=== PATIENT | female | born 1985 | race Caucasian/White ===

== ENCOUNTER → 2016-04-19 | Outpatient (CLI) | payer OTHER ==
[~2016-04-19] MED LIST: ALBU17IN2 INH; ARTH650T PO; ASPI32ECTA PO; DOCU10CA PO; IBUP80TA PO; MONO0.25 PO; MOTR200T44 PO; PERC5TAB6 PO; PRENTAB54 PO; TYLE325T5 PO; ZANTTAB PO; ZOLO100T PO; bcp
--- NOTE | 2016-04-23 01:27 | ECWPNPC ---
PATIENT NAME: BOONE PERALTA : 1985 GENDER: FEMALE VISIT DATE: 04/19/2016 DISCHARGE DATE: 04/19/16 1530 VISIT LOCKED DATE TIME: PHYSICIAN: SANJAY CHOI RESOURCE: SANJAY CHOI REASON FOR APPOINTMENT 1. FOLLOW UP-RT KNEE HISTORY OF PRESENT ILLNESS HISTORY OF PRESENT ILLNESS: PAIN THE PATIENT DESCRIBES THE PAIN... FALL RISK SCREENING: SCREENING :NO FALLS IN THE PAST YEAR TODAY'S VISIT: NOTES: HADS BEEN HAVING INCREASED PAIN WITH ATTEMPTING TO STRAIGHTEN RIGHT KNEE. PAIN IS SHOOTING FROM THE KNEE INTO HIP. HAD NEW AREA OF NUMBNESS OVER KNEECAP RIGHT SIDE. AREA IS SWOLLEN.. CURRENT MEDICATIONS TAKING GABAPENTIN 800 MG TABLET 1 TABLET ORALLY THREE TIMES A DAY TAKING MAY HAVE GLUCOSE TEST METER RX CODE E11.9 DIRECTED _ DAILY TAKING MAY HAVE TEST STRIPS - DIRECTED SQ TWICE DAILY TAKING FREESTYLE LITE TEST STRIP TEST TWICE A DAY TAKING PROPRANOLOL HCL 10 MG TABLET 1 TABLET ORALLY THREE TIMES A DAY TAKING LANCETS 1 MISCELLANEOUS DIRECTED SQ TWICE DAILY AND NEEDED TAKING GLUCOMETER TEST STRIPS 1 DIRECTED SQ TWICE A DAY AND NEEDED TAKING ZOLOFT 100 MG TABLET 1 TABLET ORALLY THREE TIMES A DAY TAKING AMBIEN CR 12.5 MG TABLET EXTENDED RELEASE 1 TABLET AT BEDTIME NEEDED ORALLY ONCE A DAY TAKING ZIPRASIDONE HCL 20 MG CAPSULE 1 CAPSULE WITH FOOD ORALLY TWICE A DAY TAKING VISTARIL 25 MG CAPSULE 1 CAPSULE NEEDED ORALLY EVERY 8 HRS TAKING DEX4 GLUCOSE GO-POUCH 15 GM/33GM GEL DIRECTED ORALLY A FEW TIMES A WEEK TAKING VALIUM 10 MG TABLET ORALLY TWICE A DAY NEEDED TAKING TIZANIDINE HCL 4 MG TABLET 1 TABLET ORALLY EVERY 8 HRS TAKING HYDROCHLOROTHIAZIDE 25 MG TABLET 1 TABLET ORALLY ONCE A DAY TAKING IBUPROFEN 600 MG TABLET 1 TABLET ORALLY THREE TIMES A DAY NEEDED FOR PAIN. TAKE WITH FOOD TAKING NORCO 10-325 MG TABLET 1 TABLET ORALLY EVERY 6 HRS PRN MDD4 TAKING CYCLOBENZAPRINE HCL 10 MG TABLET 1 TABLET ORALLY THREE TIMES A DAY MEDICATION LIST REVIEWED AND RECONCILED WITH THE PATIENT PAST MEDICAL HISTORY ASTHMA, ANNETTE 12/17 FEV1 2.86 MORBID OBESITY R KNEE PAIN CONSTIPATION MICH DEPENDENCE, STARTED AT 12, SMOKING 1 PPD OCD/PTSD/BORDERLINE PERSONALITY/BIPOLAR 2 - DR CHAO - [facility] LOW BLOOD SUGARS POLYCYSTIC OVERIES MRSA + RIGHT KNEE ALLERGIES AMOXICILLIN: HIVES: ALLERGY ASPIRIN: HIVES, THROAT SWELLING: ALLERGY CODEINE PHOSPHATE (FOR ALLERGIES USE ONLY): HIVES: ALLERGY DARVOCET A500: HIVES: ALLERGY BENADRYL: HIVES, THROAT SWELLING: ALLERGY RISPERDAL: HIVES: ALLERGY TRAMADOL HCL: ITCHING: ALLERGY KETOROLAC TROMETHAMINE: BLISTERS AT SITE OF IV. HIVES: ALLERGY SOCIAL HISTORY GENERAL: TOBACCO USE ARE YOU A:NONSMOKER LEARNING BARRIERS / SPECIAL NEEDS ORIENTED TO PLAN OF CARE: PATIENT, PAIN MANAGEMENT PATIENT, ORIENTED TO PLAN OF CARE: PATIENT, PAIN MANAGEMENT PATIENT. NEW PATIENT PAIN DIARY TODAY'S VISITNOTES FROM 0-10, WHAT LEVEL IS YOUR PAIN TODAY?0 PAIN CLINIC PFS, CLERGY, PUBLIC HEALTH REFERRALS PFS REFERRAL NEEDED?NO CLERGY REFERRAL NEEDED?NO PUBLIC HEALTH REFERRAL NEEDED?NO WAS THE PROVIDER NOTIFIED OF ANY PERTINENT INFO?NO PFS REFERRAL NEEDED?NO CLERGY REFERRAL NEEDED?NO PUBLIC HEALTH REFERRAL NEEDED?NO WAS THE PROVIDER NOTIFIED OF ANY PERTINENT INFO?NO REVIEW OF SYSTEMS CONSTITUTIONAL: ANY CHANGE IN YOUR MEDICAL CONDITION? NO . CHILLS NO . FEVER NO . INFECTION: DO YOU HAVE NEW INFECTIONS? NO . DO YOU HAVE HISTORY OF MRSA? NO . MUSCULOSKELETAL: ANY NEW PATTERNS OF PAIN OR NUMBNESS? YES, RIGHT KNEE ... FEELS LIKE ITS IN A KNOT, AFTER SITTING, TRIES TO STAND UP DIFFICULT TO STRAIGHTEN THE LEG. THEN THE PAIN SHOOTS UP INTO THE LOW BACK AREA. . GASTROENTEROLOGY: ANY NEW CHANGE IN BOWEL CONTROL? NO . GENITOURINARY: ANY NEW CHANGE IN BLADDER CONTROL? NO . IS THERE A CHANCE YOU COULD BE ? NO . HEMATOLOGY/LYMPH: DO YOU TAKE ANY BLOOD THINNERS? (FOR EXAMPLE- COUMADIN, PLAVIX, AGGRENOX, PLATEL, PRADAXA, OR XARELTO) NO . WHEN WAS YOUR LAST DOSE? DATE: TIME: . NEUROLOGY: HAVE YOU FALLEN IN THE PAST 6 MONTHS? NO . ANY NEW EXTREMITY NUMBNESS OR WEAKNESS? NO . CARDIOLOGY: DO YOU HAVE A PACEMAKER OR DEFIBRILLATOR? NO . RESPIRATORY: HAVE YOU BEEN SICK IN THE PAST WEEK? NO . FEVER NO . FLU LIKE SYMPTOMS? NO . COUGH NO . INTEGUMENTARY: DO YOU HAVE ANY RASHES OR OPEN SORES? NO . ALLERGIC/IMMUNO: ARE YOU ALLERGIC TO SHELLFISH OR IV DYE? NO . ANY NEW ALLERGIES? NO . PSYCHIATRIC: DO YOU HAVE THOUGHTS OF HURTING YOURSELF OR SOMEONE ELSE? NO . ARE YOU ABUSED, NEGLECTED, OR IN AN UNSAFE ENVIRONMENT? NO . ENDOCRINOLOGY: ARE YOU DIABETIC? NO BUT PROBLEMS WITH LOW SUGAR LEVELS. . OTHER: DO YOU NEED ANY PRESCRIPTIONS? NO . IF YES, PLEASE LIST: ____ . ANY NEW PROBLEMS WITH YOUR MEDICATIONS? NO . WHEN DID YOU LAST EAT? ____ . WHEN DID YOU LAST DRINK? ____ . WHAT DID YOU LAST DRINK? ____ . NAME OF PERSON DRIVING YOU HOME? ____ . DO YOU HAVE ANY OTHER QUESTIONS OR CONCERNS YES, STILL WAITING TO HEAR FROM FRANSISCO ABOUT HER KNEE SURGERY. . REVIEWED BY: PROVIDER: SANJAY VIZCARRA . VITAL SIGNS WT 275.4 LBS, HT 62 IN, BMI 50.37 INDEX, BP 166/98 MM HG, HR 130 /MIN, RR 18 /MIN, TEMP 98.7 F, OXYGEN SAT % 96%, NA INITIALS SC 13:54, REVIEWED BY: CM. EXAMINATION GENERAL EXAMINATION: PSYCHALERT , ORIENTED X 3 , APPROPRIATE MOOD AND AFFECT , GOOD EYE CONTACT, PLEASANT TO INTERACT WITH. LUNGS:CLEAR TO AUSCULTATION BILATERALLY. HEART:HEART RATE REGULAR, NO MURMURS , CLICKS OR RUBS TO ASCULTATION. EXTREMITIES:TRACE EDEMA BILATERAL LOWER EXTREMITIES. JOINTS:RIGHT , KNEE , PAIN TO LIGHT TOUCH OVER RIGHT POPLITEAL SPACE AND OVER PATELLA. . GAIT ANTALGIC. CANE USED FOR BALANCE EDEMA PRESENT FROM KNEE TO MID THIGH AND TO MID CALF. UNABLE TO FULLY FLEX OR EXTEND KNEE.. ASSESSMENTS LOW BACK PAIN - M54.5 (PRIMARY) KNEE PAIN, RIGHT - M25.561 TREATMENT LOW BACK PAIN SD KNEE [id number],SUSAN M 04/19/2016 3:10:15 PM > LEFT KNEE NOTES: CALLED PATIENT AND REVIEWED LAB AND XRAY RESULTS. AWAITING MRI OF RIGHT KNEE. CLINICAL NOTES: ISTOP REGISTRY REVIEWED AND DEMNOSTRATES COMPLLIANCE. BRINGS IN MEDICATIONS WHICH IS APPROPRIATE FOR WHAT WAS DISPENSED. RECENT URINE TOXICOLOGY REVIEWED. NO UNAUTHORIZED MEDICATIONS. NO ILLICIT SUBSTANCES AND PRESCRIBED MEDICATIONS WERE PRESENT. KNEE PAIN, RIGHT LAB: COMPREHENSIVE METABOLIC PROFILE GLUCOSE 85 (70-105 - MG/DL) BUN 12 (7-18 - MG/DL) CREATININE 0.83 (0.55-1.02 - MG/DL) GLOMERULAR FILTRATION RATE > 60.0 (>60 - ) SODIUM 141 (136-145 - MEQ/L) POTASSIUM 3.9 (3.5-5.1 - MEQ/L) CHLORIDE 108 (98-107 - MEQ/L) CARBON DIOXIDE 24 (21-32 - MEQ/L) CALCIUM 9.3 (8.5-10.1 - MG/DL) AST/SGOT 31 (15-37 - U/L) ALT/SGPT 66 (12-78 - U/L) ALK PHOS 97 (45-117 - U/L) BILIRUBIN,TOTAL 0.4 (0.2-1.0 - MG/DL) TOTAL PROTEIN 7.4 (6.4-8.2 - GM/DL) ALBUMIN 3.9 (3.2-5.2 - GM/DL) ALB/GLOB RATIO 1.11 (1.00-1.93 - ) LAB: ERYTHROCYTE SEDIMENTATION RATE [facility] MRI KNEE WITHOUT [id number],SUSAN M 04/19/2016 3:10:30 PM > LEFT KNEE SANJAY CHOI 04/19/2016 3:25:27 PM > ERROR - RIGHT KNEE IS CORRECT SITE. NOTES: SANJAY MARY NEEDS TO MAKE REFERRAL TO [facility] FOR SURGUCAL EVAL OF RIGHT KNEE - HER INSURANCE REQUIRES THIS REFERRAL COME FROM PCP. NEW KNEE XRAY AND NEW KNEE MRI ORDERED. PROCEDURE CODES FA211 ESTABILISHED PATIENT [facility]AC[facility] CHARGE DISPOSITION & COMMUNICATION FOLLOW UP 6 WEEKS ELECTRONICALLY SIGNED BY EVA LORD ON 04/19/2016 AT 05:53 PM EST DISCLAIMER : THIS IS A VISIT SUMMARY EXTRACTED FROM THE [employer] CHART. IT IS NOT A COPY OF THE [employer] PROGRESS NOTE. TRACEY
== END ==
LOC: M PAIN 14:00
PROVIDERS: ATTEND Nurse Practitioner Family
DX: Z09 Encounter for follow-up examination after completed treatment for conditions other than malignant neoplasm (principal); M54.5 Low back pain; M25.561 Pain in right knee; J45.909 Unspecified asthma, uncomplicated; E66.9 Obesity, unspecified; F42.9 Obsessive-compulsive disorder, unspecified; F43.10 Post-traumatic stress disorder, unspecified; F31.9 Bipolar disorder, unspecified; M79.1 Myalgia; E16.2 Hypoglycemia, unspecified; Z68.43 Body mass index [BMI] 50.0-59.9, adult; Z88.1 Allergy status to other antibiotic agents; Z88.6 Allergy status to analgesic agent; Z88.5 Allergy status to narcotic agent; Z88.8 Allergy status to other drugs, medicaments and biological substances; Z79.891 Long term (current) use of opiate analgesic; Z79.1 Long term (current) use of non-steroidal anti-inflammatories (NSAID); Z79.899 Other long term (current) drug therapy; Z86.14 Personal history of Methicillin resistant Staphylococcus aureus infection

== ENCOUNTER → 2016-04-19 | Outpatient (CLI) | payer OTHER ==
--- NOTE | 2016-04-19 16:36 | REP ---
Clinical: Pain. Technique: AP, lateral, bilateral oblique and sunrise views of the right knee. Comparison: 07/01/2015. Findings: Postoperative changes are again identified and stable. No acute fracture or dislocation. No significant arthritic degenerative changes. Impression: Postoperative changes. Otherwise unremarkable. Signed by Jose Yanes MD 04/19/2016 04:28 P
[2016-04-19 17:21] LABS: ALBUMIN 3.9 GM/DL (3.2-5.2); ALBUMIN/GLOBULIN RATIO 1.11 (1.00-1.93); ALKALINE PHOSPHATASE 97 U/L (45-117); ALT/SGPT 66 U/L (12-78); ANION GAP 9 MEQ/L (8-16); AST/SGOT 31 U/L (15-37); BILIRUBIN,TOTAL 0.4 MG/DL (0.2-1.0); BLOOD UREA NITROGEN 12 MG/DL (7-18); CALCIUM LEVEL 9.3 MG/DL (8.5-10.1); CARBON DIOXIDE LEVEL 24 MEQ/L (21-32); CHLORIDE LEVEL 108 MEQ/L (98-107); CREATININE FOR GFR 0.83 MG/DL (0.55-1.02); GLOMERULAR FILTRATION RATE > 60.0 (>60); GLUCOSE, FASTING 85 MG/DL (70-105); POTASSIUM SERUM 3.9 MEQ/L (3.5-5.1); SODIUM LEVEL 141 MEQ/L (136-145); TOTAL PROTEIN 7.4 GM/DL (6.4-8.2)
== END ==
LOC: M LAB 15:54
PROVIDERS: ATTEND Nurse Practitioner Family
DX: M25.561 Pain in right knee (principal)

== ENCOUNTER → 2016-05-19 | Outpatient (CLI) | payer OTHER ==
--- NOTE | 2016-05-19 10:04 | REP ---
MRI RIGHT KNEE WITHOUT CONTRAST: HISTORY: Right knee pain. Comparison radiographs are from April 19, 2016. Comparison MRI study is from September 18, 2014. The patient is status post previous medial collateral ligament repairs with hardware removal. Radiographs from April 19, 2016 show a staple in the medial tibial plateau and instability with opening of the medial compartment of the joint on one of the views. TECHNIQUE: Axial, coronal and sagittal imaging planes are utilized for T1, proton density and T2-weighted scans obtained in the usual fashion with and without fat saturation. MRI FINDINGS: There is metallic field susceptibility artifact emanating from the metallic staple in the medial tibial plateau. Pin tracks are seen in the distal femur and elsewhere in the proximal tibia. Cortical and medullary bone signal intensity are otherwise normal. There is a small amount of joint fluid. No discernible Crump's cyst. The medial collateral ligament is abnormal. It is moderately to markedly thickened. There is a linear pattern of increased T2 signal within the thickened ligament longitudinally oriented consistent with a longitudinal split. The proximal end of the ligament shows abnormal signal intensity and seems to be discontinuous. This is at the level of the now removed pin tract in the distal femur. The lateral collateral ligamentous complex appears intact. Anterior and posterior cruciate ligaments have an intact appearance. The patellar and quadriceps tendons are unremarkable. Medial and lateral patellar retinacular structures appear intact. No medial or lateral meniscal tear is seen. No articular cartilage disruption is appreciated. IMPRESSION: Findings consistent with previous reconstruction of the medial collateral ligament. A metallic staple remains in the proximal tibia but the patient is status post hardware removal in both the distal femur and proximal tibia. The proximal end of the reconstructed medial collateral ligament appears disrupted and there is a longitudinal split in the tendon extending across the level of the joint. No other evidence of internal derangement. The longitudinal split and the thickening are new findings compared with the prior study. Signed by Yovani Tejeda MD 05/19/2016 01:58 P
== END ==
LOC: M RAD 08:13
PROVIDERS: ATTEND Nurse Practitioner Family
DX: M25.561 Pain in right knee (principal); M54.5 Low back pain

== ENCOUNTER → 2016-06-01 | Outpatient (CLI) | payer OTHER ==
--- NOTE | 2016-06-08 02:10 | ECWPNPC ---
PATIENT NAME: BOONE PERALTA : 1985 GENDER: FEMALE VISIT DATE: 06/01/2016 DISCHARGE DATE: 06/01/16 1711 VISIT LOCKED DATE TIME: PHYSICIAN: SANJAY CHOI RESOURCE: SANJAY CHOI REASON FOR APPOINTMENT 1. FOLLOWUP HISTORY OF PRESENT ILLNESS HISTORY OF PRESENT ILLNESS: PAIN THE PATIENT DESCRIBES THE PAIN... FALL RISK SCREENING: SCREENING :NO FALLS IN THE PAST YEAR TODAY'S VISIT: NOTES: RATES PAIN LEVEL TODAY 3/10. DESCRIBES PAIN CONSTANT, ACHING, SHARP AND STABBING THROBBING AND TENDER. . CURRENT MEDICATIONS TAKING GABAPENTIN 800 MG TABLET 1 TABLET ORALLY THREE TIMES A DAY TAKING MAY HAVE GLUCOSE TEST METER RX CODE E11.9 DIRECTED _ DAILY TAKING MAY HAVE TEST STRIPS - DIRECTED SQ TWICE DAILY TAKING FREESTYLE LITE TEST STRIP TEST TWICE A DAY TAKING PROPRANOLOL HCL 10 MG TABLET 1 TABLET ORALLY THREE TIMES A DAY TAKING LANCETS 1 MISCELLANEOUS DIRECTED SQ TWICE DAILY AND NEEDED TAKING GLUCOMETER TEST STRIPS 1 DIRECTED SQ TWICE A DAY AND NEEDED TAKING ZOLOFT 100 MG TABLET 1 TABLET ORALLY THREE TIMES A DAY TAKING AMBIEN CR 12.5 MG TABLET EXTENDED RELEASE 1 TABLET AT BEDTIME NEEDED ORALLY ONCE A DAY TAKING ZIPRASIDONE HCL 20 MG CAPSULE 1 CAPSULE WITH FOOD ORALLY TWICE A DAY TAKING VISTARIL 25 MG CAPSULE 1 CAPSULE NEEDED ORALLY EVERY 8 HRS TAKING DEX4 GLUCOSE GO-POUCH 15 GM/33GM GEL DIRECTED ORALLY A FEW TIMES A WEEK PRN TAKING VALIUM 10 MG TABLET ORALLY TWICE A DAY NEEDED TAKING TIZANIDINE HCL 4 MG TABLET 1 TABLET ORALLY EVERY 8 HRS TAKING CYCLOBENZAPRINE HCL 10 MG TABLET 1 TABLET ORALLY THREE TIMES A DAY TAKING HYDROCHLOROTHIAZIDE 25 MG TABLET 1 TABLET ORALLY ONCE A DAY TAKING IBUPROFEN 600 MG TABLET 1 TABLET ORALLY THREE TIMES A DAY NEEDED FOR PAIN. TAKE WITH FOOD TAKING NORCO 10-325 MG TABLET 1 TABLET ORALLY EVERY 6 HRS PRN PAIN MDD4 DISCONTINUED HYDROCHLOROTHIAZIDE 25 MG TABLET 1 TABLET ORALLY ONCE A DAY MEDICATION LIST REVIEWED AND RECONCILED WITH THE PATIENT PAST MEDICAL HISTORY ASTHMA, ANNETTE 12/17 FEV1 2.86 MORBID OBESITY R KNEE PAIN CONSTIPATION MICH DEPENDENCE, STARTED AT 12, SMOKING 1 PPD OCD/PTSD/BORDERLINE PERSONALITY/BIPOLAR 2 - DR CHAO - [facility] LOW BLOOD SUGARS POLYCYSTIC OVERIES MRSA + RIGHT KNEE ALLERGIES AMOXICILLIN: HIVES: ALLERGY ASPIRIN: HIVES, THROAT SWELLING: ALLERGY CODEINE PHOSPHATE (FOR ALLERGIES USE ONLY): HIVES: ALLERGY DARVOCET A500: HIVES: ALLERGY BENADRYL: HIVES, THROAT SWELLING: ALLERGY RISPERDAL: HIVES: ALLERGY TRAMADOL HCL: ITCHING: ALLERGY KETOROLAC TROMETHAMINE: BLISTERS AT SITE OF IV. HIVES: ALLERGY SOCIAL HISTORY GENERAL: TOBACCO USE ARE YOU A:CURRENT SMOKER HOW MANY CIGARETTES A DAY DO YOU SMOKE?6-10 HOW SOON AFTER YOU WAKE UP DO YOU SMOKE YOUR FIRST CIGARETTE?WITHIN 5 MIN HOW OFTEN DO YOU SMOKE CIGARETTES?EVERY DAY PATIENT COUNSELED ON THE DANGERS OF TOBACCO USE AND URGED TO QUIT:06/01/2016 ARE YOU INTERESTED IN QUITTING?NOT READY TO QUIT COUNSELED THE PATIENT ON SMOKING EFFECTS, EDUCATION [id number]/30/[id number] LEARNING BARRIERS / SPECIAL NEEDS ORIENTED TO PLAN OF CARE: PATIENT, PAIN MANAGEMENT PATIENT, ORIENTED TO PLAN OF CARE: PATIENT, PAIN MANAGEMENT PATIENT. NEW PATIENT PAIN DIARY TODAY'S VISITNOTES FROM 0-10, WHAT LEVEL IS YOUR PAIN TODAY?0 PAIN CLINIC PFS, CLERGY, PUBLIC HEALTH REFERRALS PFS REFERRAL NEEDED?NO CLERGY REFERRAL NEEDED?NO PUBLIC HEALTH REFERRAL NEEDED?NO WAS THE PROVIDER NOTIFIED OF ANY PERTINENT INFO?NO PFS REFERRAL NEEDED?NO CLERGY REFERRAL NEEDED?NO PUBLIC HEALTH REFERRAL NEEDED?NO WAS THE PROVIDER NOTIFIED OF ANY PERTINENT INFO?NO DISSOCIATIVE IDENTIDY DISORDER- FIANCE IS CAREGIVER. REVIEW OF SYSTEMS CONSTITUTIONAL: ANY CHANGE IN YOUR MEDICAL CONDITION? NO . CHILLS NO . FEVER NO . INFECTION: DO YOU HAVE NEW INFECTIONS? NO . DO YOU HAVE HISTORY OF MRSA? YES, 2013 RIGHT KNEE . MUSCULOSKELETAL: ANY NEW PATTERNS OF PAIN OR NUMBNESS? NO . GASTROENTEROLOGY: ANY NEW CHANGE IN BOWEL CONTROL? NO . GENITOURINARY: ANY NEW CHANGE IN BLADDER CONTROL? NO . IS THERE A CHANCE YOU COULD BE ? NO . HEMATOLOGY/LYMPH: DO YOU TAKE ANY BLOOD THINNERS? (FOR EXAMPLE- COUMADIN, PLAVIX, AGGRENOX, PLATEL, PRADAXA, OR XARELTO) NO . WHEN WAS YOUR LAST DOSE? DATE: TIME: . NEUROLOGY: HAVE YOU FALLEN IN THE PAST 6 MONTHS? NO . ANY NEW EXTREMITY NUMBNESS OR WEAKNESS? NO . CARDIOLOGY: DO YOU HAVE A PACEMAKER OR DEFIBRILLATOR? NO . RESPIRATORY: HAVE YOU BEEN SICK IN THE PAST WEEK? NO . FEVER NO . FLU LIKE SYMPTOMS? NO . COUGH NO . INTEGUMENTARY: DO YOU HAVE ANY RASHES OR OPEN SORES? NO . ALLERGIC/IMMUNO: ARE YOU ALLERGIC TO SHELLFISH OR IV DYE? NO . ANY NEW ALLERGIES? NO . PSYCHIATRIC: DO YOU HAVE THOUGHTS OF HURTING YOURSELF OR SOMEONE ELSE? NO . ARE YOU ABUSED, NEGLECTED, OR IN AN UNSAFE ENVIRONMENT? NO . ENDOCRINOLOGY: ARE YOU DIABETIC? NO BLD SUGAR TENDS TO RUN LOW . OTHER: DO YOU NEED ANY PRESCRIPTIONS? NO . IF YES, PLEASE LIST: ____ . ANY NEW PROBLEMS WITH YOUR MEDICATIONS? NO . WHEN DID YOU LAST EAT? ____ . WHEN DID YOU LAST DRINK? ____ . WHAT DID YOU LAST DRINK? ____ . NAME OF PERSON DRIVING YOU HOME? ____ . DO YOU HAVE ANY OTHER QUESTIONS OR CONCERNS NO . REVIEWED BY: PROVIDER: SANJAY VIZCARRA . VITAL SIGNS WT 281.6 LBS, HT 62 IN, BMI 51.50 INDEX, BP 135/94 MM HG, HR 102 /MIN, RR 18 /MIN, TEMP 98.4 F, OXYGEN SAT % 98%, NA INITIALS SC 15:55, REVIEWED BY: AD. EXAMINATION GENERAL EXAMINATION: PSYCHALERT , ORIENTED X 3 , APPROPRIATE MOOD AND AFFECT , GOOD EYE CONTACT, PLEASANT TO INTERACT WITH. LUNGS:CLEAR TO AUSCULTATION BILATERALLY. HEART:HEART RATE REGULAR, NO MURMURS , CLICKS OR RUBS TO ASCULTATION. EXTREMITIES:TRACE EDEMA BILATERAL LOWER EXTREMITIES. JOINTS:RIGHT , KNEE , PAIN TO LIGHT TOUCH OVER RIGHT POPLITEAL SPACE AND OVER PATELLA. . GAIT ANTALGIC. CANE USED FOR BALANCE UNABLE TO FULLY FLEX KNEE.. ASSESSMENTS KNEE PAIN, RIGHT - M25.561 (PRIMARY) LOW BACK PAIN - M54.5 CHRONIC PRESCRIPTION OPIATE USE - Z79.891 TREATMENT KNEE PAIN, RIGHT START TOPIRAMATE TABLET, 25 MG, 1 TABLET, ORALLY, TWICE A DAY, 30 DAY(S), 60, REFILLS 1 NOTES: UTOX TODAY. WEAN GABAPENTIN TO 1/2 TAB THREE TIMES PER DAY FOR 2 WEEKS, AND THEN TO TWICE A DAY. START TOPAMAX 25 MG TWICE A DAY.DO FOOD DIARY FOR 2 WEEKS. REFERR TO [facility] GROUND TRANSPORTATION OPERATOR. REFERRAL TO:[facility] REASON:NEW MEDIAL COLLATERAL LIGAMNET TEAR. MARKED INCREASE IN KNEE PAIN. WANTS TO BE ABLE TO WALK PREVENTIVE MEDICINE PAIN CLINIC TEACHING: MEDITATION PRINTED INFORMATION ON TOPAMAX GIVEN TO AND EXPLAINED TO PATIENT AND SHE VERBALIZED UNDERSTANDING. WEANING OF GABAPENTIN ALSO REVIEWED WITH PATIENT AND SHE VERBALIZED UNDERSTANDING. PROCEDURE CODES FA211 ESTABILISHED PATIENT [facility] CHARGE DISPOSITION & COMMUNICATION FOLLOW UP 6 WEEKS (REASON: RIGHT KNEE PAIN) ELECTRONICALLY SIGNED BY EVA LORD ON 06/06/2016 AT 06:54 PM EDT DISCLAIMER : THIS IS A VISIT SUMMARY EXTRACTED FROM THE [employer] CHART. IT IS NOT A COPY OF THE [employer] PROGRESS NOTE. TRACEY
== END ==
LOC: M PAIN 14:40
PROVIDERS: ATTEND Nurse Practitioner Family
DX: Z09 Encounter for follow-up examination after completed treatment for conditions other than malignant neoplasm (principal); G89.29 Other chronic pain; M25.561 Pain in right knee; M54.5 Low back pain; J45.909 Unspecified asthma, uncomplicated; E66.9 Obesity, unspecified; Z68.43 Body mass index [BMI] 50.0-59.9, adult; F17.200 Nicotine dependence, unspecified, uncomplicated; F42.9 Obsessive-compulsive disorder, unspecified; F43.10 Post-traumatic stress disorder, unspecified; F60.3 Borderline personality disorder; F31.9 Bipolar disorder, unspecified; Z88.5 Allergy status to narcotic agent; Z88.6 Allergy status to analgesic agent; Z88.8 Allergy status to other drugs, medicaments and biological substances; R73.01 Impaired fasting glucose; Z79.1 Long term (current) use of non-steroidal anti-inflammatories (NSAID); Z79.891 Long term (current) use of opiate analgesic; Z79.899 Other long term (current) drug therapy; Z86.14 Personal history of Methicillin resistant Staphylococcus aureus infection

== ENCOUNTER → 2016-07-28 | Outpatient (CLI) | payer OTHER ==
[~2016-07-28] MED LIST changes: +CLEO300C2 PO; +FLUC150T PO; +HYDR-3719 PO; +MONI1KIT3 VA
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
== END ==
LOC: M PAIN 14:40
PROVIDERS: ATTEND Nurse Practitioner Family
DX: G89.29 Other chronic pain (principal); M25.561 Pain in right knee; J45.909 Unspecified asthma, uncomplicated; E66.9 Obesity, unspecified; Z68.42 Body mass index [BMI] 45.0-49.9, adult; F17.210 Nicotine dependence, cigarettes, uncomplicated; F42.9 Obsessive-compulsive disorder, unspecified; F43.10 Post-traumatic stress disorder, unspecified; F60.3 Borderline personality disorder; F31.9 Bipolar disorder, unspecified; E16.2 Hypoglycemia, unspecified; K29.60 Other gastritis without bleeding; Z88.5 Allergy status to narcotic agent; Z88.6 Allergy status to analgesic agent; Z88.8 Allergy status to other drugs, medicaments and biological substances; Z79.1 Long term (current) use of non-steroidal anti-inflammatories (NSAID); Z79.899 Other long term (current) drug therapy

== ENCOUNTER 2016-07-29 10:52 | Emergency (ER) | payer OTHER ==
[~2016-07-29] VITALS: Ht 154.9 cm; Wt 126.1 kg
[~2016-07-29 10:52] MED LIST changes: -CLEO300C2 PO; -FLUC150T PO; -HYDR-3719 PO; -MONI1KIT3 VA
[2016-07-29] MEDS ORDERED: HYDR-3719 PO (11:00)
[2016-07-29] MEDS ORDERED: CLEO300C2 PO (11:45)
[2016-07-29 12:04] VITALS: BP 142/99
== END 2016-07-29 12:02 | disposition home or self-care (01) ==
LOC: M ED 11:27
DX: L02.01 Cutaneous abscess of face (principal); F33.9 Major depressive disorder, recurrent, unspecified; F41.9 Anxiety disorder, unspecified; E28.2 Polycystic ovarian syndrome; F17.210 Nicotine dependence, cigarettes, uncomplicated; E66.9 Obesity, unspecified; Z88.8 Allergy status to other drugs, medicaments and biological substances; Z88.0 Allergy status to penicillin; Z91.018 Allergy to other foods

== ENCOUNTER 2016-08-09 18:33 | Emergency (ER) | payer OTHER ==
[~2016-08-09] VITALS: Ht 154.9 cm; Wt 125.2 kg
[~2016-08-09 18:33] MED LIST changes: +CLEO300C2 PO; +HYDR-3719 PO
[2016-08-09] MEDS ORDERED: KETOROLAC 30 MG/ML VIAL (J1885) IV ONE (20:45)
[2016-08-09] MEDS ORDERED: NS 1,000 ML IV ONE (20:45)
[2016-08-09 21:13] LABS: BASO # 0.1 K/mm3 (0.0-0.2); EOS # 0.2 K/mm3 (0.0-0.50); LARGE UNSTAINED CELL # 0.2 K/mm3 (0.0-0.4); LARGE UNSTAINED CELL % 1.8 % (0.0-4.0); LYMPH # 3.5 K/mm3 (1.5-4.5); LYMPH % 29.9 % (24.0-44.0); MEAN CORPUSCULAR HEMOGLOBIN 30.6 pg (27.0-33.0); MEAN CORPUSCULAR HGB CONC 34.6 g/dl (32.0-36.5); MEAN CORPUSCULAR VOLUME 88.5 fl (80.0-96.0); MONO # 1.1 K/mm3 (0.0-0.8); MONO % 9.7 % (0.0-5.0); NEUTROPHILS # 6.2 K/mm3 (1.8-7.7); NEUTROPHILS % 55.6 % (36.0-66.0); PLATELET COUNT, AUTOMATED 321 k/mm3 (150-450); WHITE BLOOD COUNT 11.1 K/mm3 (4.0-10.0)
[2016-08-09] MEDS ORDERED: FLUCONAZOLE 400 MG in APPROPRIATE DILUENT 1 EA IV ONE (21:15)
[2016-08-09 21:39] LABS: ANION GAP 2 MEQ/L (8-16); BLOOD UREA NITROGEN 17 MG/DL (7-18); CALCIUM LEVEL 9.1 MG/DL (8.5-10.1); CARBON DIOXIDE LEVEL 27 MEQ/L (21-32); CHLORIDE LEVEL 110 MEQ/L (98-107); CREATININE FOR GFR 0.63 MG/DL (0.55-1.02); GLOMERULAR FILTRATION RATE > 60.0 (>60); GLUCOSE, FASTING 80 MG/DL (70-105); SODIUM LEVEL 139 MEQ/L (136-145)
--- NOTE | 2016-08-09 22:04 | ED PDOC ---
Post-Departure Follow-Up Patient presents to the ED with complaint of severe labial swelling/pain which is impeding her ability to urinate (secondary to the pain). She has recently been taking Clindamycin. She states she has taken it before and has never had this issue in the past. She denies any genital trauma or rough sex. The remainder of her H&P and ROS are as noted on her T-sheet. An IV was established and she was given a liter NS bolus as she has not been drinking fluids due to her fear of voiding/pain. Screening labs were obtained. UA was also obtained via catheter. Kinsey was left in place for the duration of the IVF. She was given a dose of IV diflucan for her severe vulvovaginal candidiasis. She was also medicated for pain with Toradol, with only minimal relief. GRISELDA REYNOSO. ASSISTED LIVING EXECUTIVE DIRECTOR Aug 09, 2016 22:04
--- NOTE | 2016-08-09 23:06 | ED PDOC ---
Post-Departure Follow-Up Test results discussed with the patient and prepared for discharge. IV and henson catheter DC'd. Patient states improvement in her pain. Discussed prescription for Monistat and Diflucan, follow-up and worrisome signs to return to the ED for. Questions answered. Patient states understanding to the instructions. GRISELDA REYNOSO Aug 09, 2016 23:06
[2016-08-09] MEDS ORDERED: MONI1KIT3 VA (23:09)
[2016-08-09] MEDS ORDERED: FLUC150T PO (23:09)
[2016-08-09 23:13] VITALS: BP 127/90
== END 2016-08-09 23:20 | disposition home or self-care (01) ==
LOC: M ED 20:02
DX: B37.3 Candidiasis of vulva and vagina (principal); J45.909 Unspecified asthma, uncomplicated; F41.9 Anxiety disorder, unspecified; F32.9 Major depressive disorder, single episode, unspecified; E28.2 Polycystic ovarian syndrome; F17.200 Nicotine dependence, unspecified, uncomplicated; Z79.899 Other long term (current) drug therapy; Z88.0 Allergy status to penicillin; Z88.6 Allergy status to analgesic agent; Z88.5 Allergy status to narcotic agent; Z91.018 Allergy to other foods; Z88.8 Allergy status to other drugs, medicaments and biological substances

== ENCOUNTER → 2016-08-16 | Outpatient (CLI) | payer OTHER ==
[~2016-08-16] MED LIST changes: +FLUC150T PO; +METHACHOLINE KIT (J7674) INH ONE; +MONI1KIT3 VA
--- NOTE | 2016-08-16 17:14 | PFTRPT ---
Tech: Elio POSADAS RRT Age: 31 Sex: Female Race: Height: 62.00 Inches Weight: 278.00 Lbs BSA: 2.20 Diagnosis: R06.02 PULMONARY FUNCTION REPORT ORDERING PROVIDER: SANYA Holcomb DATE OF SERVICE: 08/16/16 SPIROMETRY: Excellent technical quality. The forced vital capacity is normal. The FEV1 is in proportion. The obstructive index is, therefore, normal. FLOW VOLUME LOOP: The expiratory limb of the flow volume loop is normal. LUNG VOLUMES: The total lung capacity is normal. The residual volume is in proportion. DIFFUSION CAPACITY: The diffusion capacity is normal. HEMOGLOBIN: No hemoglobin is available for correction. AIRWAY MECHANICS: Airways resistance and conductance are normal. IMPRESSION: Normal study. MTDD
--- NOTE | 2016-08-16 17:15 | PFTRPT ---
Tech: Elio POSADAS RRT Age: 31 Sex: Female Race: Height: 62.00 Inches Weight: 278.00 Lbs BSA: 2.20 Diagnosis: R06.02 METHACHOLINE CHALLENGE REPORT: ORDERING PROVIDER:SANYA Holcomb DATE OF SERVICE: 08/16/16 INTERPRETATION: The study was of excellent technical quality. Under protocol, methacholine was administered. At a dose of 2.5 mg (13.875 CDUs), a 34% decline in the FEV1 was noted. The PC20 of 0.33 is significant. Flow rates did return to baseline post bronchodilator administration. IMPRESSION: Positive methacholine challenge study. MTDD
== END ==
LOC: M CARPUL 14:51
PROVIDERS: ATTEND Nurse Practitioner Adult Health
DX: R06.02 Shortness of breath (principal)

== ENCOUNTER 2016-09-06 12:01 | Emergency (ER) | payer OTHER ==
[~2016-09-06] VITALS: Ht 154.9 cm; Wt 126.1 kg
[~2016-09-06 12:01] MED LIST changes: -ARTH650T PO; +ARTH650T11 PO; +ASPI325T24 PO; -ASPI32ECTA PO; -METHACHOLINE KIT (J7674) INH ONE; +PERC5TAB12 PO; -PERC5TAB6 PO
[2016-09-06] MEDS ORDERED: ONDA4TAB5 PO (14:57)
[2016-09-06] MEDS ORDERED: AZIT-12 PO (14:57)
[2016-09-06] MEDS ORDERED: FLUC150T PO (14:57)
[2016-09-06 15:17] VITALS: BP 136/90
[2016-09-06] MEDS ORDERED: ZOLO100T PO (23:25)
[2016-09-07] MEDS ORDERED: PRED20TA PO (00:02)
[2016-09-07] MEDS ORDERED: LIDO2SOL10 MT (00:02)
== END 2016-09-06 15:19 | disposition home or self-care (01) ==
LOC: M ED 12:01
DX: J02.0 Streptococcal pharyngitis (principal); F41.9 Anxiety disorder, unspecified; F32.9 Major depressive disorder, single episode, unspecified; F17.200 Nicotine dependence, unspecified, uncomplicated; Z90.49 Acquired absence of other specified parts of digestive tract; Z79.4 Long term (current) use of insulin; Z79.899 Other long term (current) drug therapy; Z88.1 Allergy status to other antibiotic agents; Z88.5 Allergy status to narcotic agent; Z88.6 Allergy status to analgesic agent; Z88.8 Allergy status to other drugs, medicaments and biological substances; Z91.018 Allergy to other foods

== ENCOUNTER 2016-09-06 23:07 | Emergency (ER) | payer OTHER ==
[~2016-09-06] VITALS: Ht 154.9 cm; Wt 126.4 kg
[~2016-09-06 23:07] MED LIST changes: +AZIT-12 PO; +ONDA4TAB5 PO
[2016-09-06] MEDS ORDERED: ZOLO100T PO (23:25)
[2016-09-07] MEDS ORDERED: methylPREDNISolone INJ 125 MG/2 ML VIAL (J2930) IM ONE
[2016-09-07] MEDS ORDERED: PRED20TA PO (00:02)
[2016-09-07] MEDS ORDERED: LIDO2SOL10 MT (00:02)
[2016-09-07 00:25] VITALS: BP 140/92
[2016-09-08] MEDS ORDERED: FULLMIS XX (14:23)
[2016-09-08] MEDS ORDERED: ALBU83IN INH (14:23)
== END 2016-09-07 00:34 | disposition home or self-care (01) ==
LOC: M ED 23:07
DX: J02.0 Streptococcal pharyngitis (principal); F17.200 Nicotine dependence, unspecified, uncomplicated; J45.909 Unspecified asthma, uncomplicated; E28.2 Polycystic ovarian syndrome; M54.9 Dorsalgia, unspecified; F41.9 Anxiety disorder, unspecified; F32.9 Major depressive disorder, single episode, unspecified; Z79.899 Other long term (current) drug therapy; Z88.0 Allergy status to penicillin; Z88.6 Allergy status to analgesic agent; Z88.5 Allergy status to narcotic agent; Z88.8 Allergy status to other drugs, medicaments and biological substances; Z91.018 Allergy to other foods

== ENCOUNTER 2016-09-08 12:51 | Emergency (ER) | payer OTHER ==
[~2016-09-08] VITALS: Ht 154.9 cm; Wt 125.9 kg
[~2016-09-08 12:51] MED LIST changes: +LIDO2SOL10 MT; +PRED20TA PO
[2016-09-08] MEDS ORDERED: methylPREDNISolone INJ 125 MG/2 ML VIAL (J2930) IM ONE (13:45)
[2016-09-08] MEDS ORDERED: IPRATROPIUM 0.5MG/ALBUTEROL 2.5MG INH SOL UD 3ML (DUONEB)(J7620) NEB ONE (13:45)
--- NOTE | 2016-09-08 14:19 | REP ---
Clinical: Shortness of breath and wheezing . Comparison: 01/14/2016 . Technique: PA and lateral. Findings: The mediastinum and cardiac silhouette are normal. The lung brown are clear and without acute consolidation, effusion, or pneumothorax. The skeletal structures are intact and normal. Impression: 1. No acute cardiopulmonary process. Signed by Jose Yanes MD 09/08/2016 02:10 P
[2016-09-08 14:20] VITALS: BP 142/71
[2016-09-08] MEDS ORDERED: FULLMIS XX (14:23)
[2016-09-08] MEDS ORDERED: ALBU83IN INH (14:23)
[2016-09-08] MEDS ORDERED: LIDOCAINE VISCOUS 2% SOLN 15ML UDC SSP ONE (14:30)
[2016-09-08] MEDS ORDERED: ALBUTEROL 90 MCG/ACT 8GM HFA INHALER INH ONE (14:30)
== END 2016-09-08 14:50 | disposition home or self-care (01) ==
LOC: M ED 12:51
DX: J06.9 Acute upper respiratory infection, unspecified (principal); R06.02 Shortness of breath; J45.909 Unspecified asthma, uncomplicated; F41.9 Anxiety disorder, unspecified; F32.9 Major depressive disorder, single episode, unspecified; E28.2 Polycystic ovarian syndrome; F17.200 Nicotine dependence, unspecified, uncomplicated; Z79.899 Other long term (current) drug therapy; Z88.0 Allergy status to penicillin; Z88.6 Allergy status to analgesic agent; Z88.5 Allergy status to narcotic agent; Z88.8 Allergy status to other drugs, medicaments and biological substances; Z91.018 Allergy to other foods

== ENCOUNTER → 2016-09-20 | Outpatient (CLI) | payer OTHER ==
[~2016-09-20] MED LIST changes: +ALBU83IN INH; +CYCL10TA; +DIAZ10TA2; +FULLMIS XX; +MOBI4TAB PO; +MONT10TA2; +PROP10TA56; +REXU1TAB2; +SYMBICORT; +TIZANIDINE; +ZOLP12.515
--- NOTE | 2016-10-22 00:35 | ECWPNPC ---
PATIENT NAME: BOONE PERALTA : 1985 GENDER: FEMALE VISIT DATE: 09/20/2016 DISCHARGE DATE: 09/20/16 1542 VISIT LOCKED DATE TIME: PHYSICIAN: SANJAY CHOI RESOURCE: SANJAY CHOI REASON FOR APPOINTMENT 1. R KNEE HISTORY OF PRESENT ILLNESS HISTORY OF PRESENT ILLNESS: PAIN THE PATIENT DESCRIBES THE PAIN... FALL RISK SCREENING: SCREENING :NO FALLS IN THE PAST YEAR TODAY'S VISIT: NOTES: RATES PAIN LEVEL TODAY 7/10. DESCRIBES PAIN ACHING, BURNING, SHARP AND STABBING, SHOOTING AND TENDER AND THROBBING. PAIN REMAINS CENTERED AT RIGHT KNEE.. CURRENT MEDICATIONS TAKING SYMBICORT 160-4.5 MCG/ACT AEROSOL 2 PUFFS INHALATION TWICE A DAY TAKING PROVENTIL HFA 108 (90 BASE) MCG/ACT AEROSOL SOLUTION 2 PUFFS NEEDED INHALATION EVERY 4 HRS TAKING PREDNISONE 10 MG TABLET 1 TABLET DIRECTED ORALLY 4 TABS X 3 DAYS 3 TABS X 3 DAYS 2 TABS X 3 DAYS 1 TAB X 3 DAYS TAKING FLUTICASONE PROPIONATE 50 MCG/ACT SUSPENSION 1 SPRAY IN EACH NOSTRIL NASALLY ONCE A DAY TAKING SINGULAIR 10 MG TABLET 1 TABLET IN THE EVENING ORALLY ONCE A DAY TAKING MAY HAVE GLUCOSE TEST METER RX CODE E11.9 DIRECTED _ DAILY TAKING MAY HAVE TEST STRIPS - DIRECTED SQ TWICE DAILY TAKING FREESTYLE LITE TEST STRIP TEST TWICE A DAY TAKING PROPRANOLOL HCL 10 MG TABLET 1 TABLET ORALLY THREE TIMES A DAY, NOTES: FOR GEODON SIDE EFFECTS TAKING LANCETS 1 MISCELLANEOUS DIRECTED SQ TWICE DAILY AND NEEDED TAKING GLUCOMETER TEST STRIPS 1 DIRECTED SQ TWICE A DAY AND NEEDED TAKING ZOLOFT 100 MG TABLET 1 TABLET ORALLY THREE TIMES A DAY TAKING AMBIEN CR 12.5 MG TABLET EXTENDED RELEASE 1 TABLET AT BEDTIME NEEDED ORALLY ONCE A DAY, NOTES: DR. WARD TAKING ZIPRASIDONE HCL 40 MG CAPSULE 1 CAPSULE WITH FOOD ORALLY TWICE A DAY, NOTES: GEODON TAKING DEX4 GLUCOSE GO-POUCH 15 GM/33GM GEL DIRECTED ORALLY A FEW TIMES A WEEK PRN TAKING VALIUM 10 MG TABLET ORALLY TWICE A DAY NEEDED, NOTES: DR. MCKEON TAKING FLUTICASONE PROPIONATE 50 MCG/ACT SUSPENSION 1 SPRAY IN EACH NOSTRIL NASALLY ONCE A DAY TAKING HYDROCHLOROTHIAZIDE 25 MG TABLET 1 TABLET ORALLY ONCE A DAY TAKING TIZANIDINE HCL 4 MG TABLET 1 TABLET ORALLY EVERY 8 HRS TAKING IBUPROFEN 600 MG TABLET 1 TABLET ORALLY THREE TIMES A DAY NEEDED FOR PAIN. TAKE WITH FOOD TAKING CYCLOBENZAPRINE HCL 10 MG TABLET 1 TABLET ORALLY THREE TIMES A DAY TAKING ALBUTEROL SULFATE (2.5 MG/3ML) 0.083% NEBULIZATION SOLUTION 3 ML INHALATION EVERY 6 HRS NEEDED TAKING NORCO 10-325 MG TABLET 1 TABLET ORALLY EVERY 6 HRS PRN PAIN MDD4 MEDICATION LIST REVIEWED AND RECONCILED WITH THE PATIENT PAST MEDICAL HISTORY OCD/PTSD/BORDERLINE PERSONALITY/BIPOLAR 2 - DR CHAO - [facility] 08/16/2016 PULMONARY FUNCTION TEST [facility], POSITIVE METHACHOLINE CHALLENGE STUDY. ASTHMA, ANNETTE 12/17 FEV1 2.86 MORBID OBESITY R KNEE PAIN CONSTIPATION MICH DEPENDENCE, STARTED AT 12, SMOKING 1 PPD LOW BLOOD SUGARS POLYCYSTIC OVERIES MRSA + RIGHT KNEE ALLERGIES AMOXICILLIN: HIVES: ALLERGY ASPIRIN: HIVES, THROAT SWELLING: ALLERGY CODEINE PHOSPHATE (FOR ALLERGIES USE ONLY): HIVES: ALLERGY DARVOCET A500: HIVES: ALLERGY BENADRYL: HIVES, THROAT SWELLING: ALLERGY RISPERDAL: HIVES: ALLERGY TRAMADOL HCL: ITCHING: ALLERGY KETOROLAC TROMETHAMINE: BLISTERS AT SITE OF IV. HIVES: ALLERGY REVIEW OF SYSTEMS REVIEWED BY: PROVIDER: SANJAY VIZCARRA . CONSTITUTIONAL: ANY CHANGE IN YOUR MEDICAL CONDITION? NO . CHILLS NO . FEVER NO . INFECTION: DO YOU HAVE NEW INFECTIONS? NO . DO YOU HAVE HISTORY OF MRSA? NO . MUSCULOSKELETAL: ANY NEW PATTERNS OF PAIN OR NUMBNESS? NO, BACK OF KNEEE IS WORSE. CAN'T STARIGHTEN HER LEG&NBSP;. GASTROENTEROLOGY: ANY NEW CHANGE IN BOWEL CONTROL? NO . GENITOURINARY: ANY NEW CHANGE IN BLADDER CONTROL? NO . IS THERE A CHANCE YOU COULD BE ? NO . HEMATOLOGY/LYMPH: DO YOU TAKE ANY BLOOD THINNERS? (FOR EXAMPLE- COUMADIN, PLAVIX, AGGRENOX, PLATEL, PRADAXA, OR XARELTO) NO . WHEN WAS YOUR LAST DOSE? DATE: TIME: . NEUROLOGY: HAVE YOU FALLEN IN THE PAST 6 MONTHS? NO . ANY NEW EXTREMITY NUMBNESS OR WEAKNESS? NO . CARDIOLOGY: DO YOU HAVE A PACEMAKER OR DEFIBRILLATOR? NO . RESPIRATORY: HAVE YOU BEEN SICK IN THE PAST WEEK? NO . FEVER NO . FLU LIKE SYMPTOMS? NO . COUGH NO . INTEGUMENTARY: DO YOU HAVE ANY RASHES OR OPEN SORES? NO . ALLERGIC/IMMUNO: ARE YOU ALLERGIC TO SHELLFISH OR IV DYE? NO . ANY NEW ALLERGIES? NO . PSYCHIATRIC: DO YOU HAVE THOUGHTS OF HURTING YOURSELF OR SOMEONE ELSE? NO . ARE YOU ABUSED, NEGLECTED, OR IN AN UNSAFE ENVIRONMENT? NO . ENDOCRINOLOGY: ARE YOU DIABETIC? NO, HAVE LOW SUGARS . OTHER: DO YOU NEED ANY PRESCRIPTIONS? NO . IF YES, PLEASE LIST: ____ . ANY NEW PROBLEMS WITH YOUR MEDICATIONS? NO . WHEN DID YOU LAST EAT? ____ . WHEN DID YOU LAST DRINK? ____ . WHAT DID YOU LAST DRINK? ____ . NAME OF PERSON DRIVING YOU HOME? ____ . DO YOU HAVE ANY OTHER QUESTIONS OR CONCERNS NO . VITAL SIGNS WT 285.0 LBS, HT 62 IN, BMI 52.12 INDEX, BP 142/93 MM HG, HR 103 /MIN, RR 16 /MIN, TEMP 96.7 F, OXYGEN SAT % 98%, NA INITIALS TL 1515, REVIEWED BY: CM. EXAMINATION GENERAL EXAMINATION: PSYCHALERT , ORIENTED X 3 , APPROPRIATE MOOD AND AFFECT , GOOD EYE CONTACT, PLEASANT TO INTERACT WITH. LUNGS:CLEAR TO AUSCULTATION BILATERALLY. HEART:HEART RATE REGULAR, NO MURMURS , CLICKS OR RUBS TO ASCULTATION. EXTREMITIES:TRACE EDEMA BILATERAL LOWER EXTREMITIES. JOINTS:RIGHT , KNEE , PAIN TO LIGHT TOUCH OVER RIGHT POPLITEAL SPACE AND OVER PATELLA. . GAIT ANTALGIC. CANE USED FOR BALANCE UNABLE TO FULLY FLEX KNEE.. ASSESSMENTS KNEE PAIN, RIGHT - M25.561 (PRIMARY) LOW BACK PAIN - M54.5 TREATMENT KNEE PAIN, RIGHT REFILL NORCO TABLET, 10-325 MG, 1 TABLET, ORALLY, EVERY 6 HRS PRN PAIN MDD4, 30 DAY(S), 120, REFILLS 0 LRY SPINE THORACIC [id number],SUSAN M 09/20/2016 3:35:17 PM > LOW BACK /THORACIC PAIN SMT SPINE LS [id number],SUSAN M 09/20/2016 3:35:34 PM > LOW BACK THORACIC PAIN NOTES: CALL [facility] [phone] MEDS TO EVERY VISIT. PROCEDURE CODES FA211 ESTABILISHED PATIENT [facility] FACILITY CHARGE DISPOSITION & COMMUNICATION FOLLOW UP (REASON: KNEE AND BACK PAIN) ELECTRONICALLY SIGNED BY EVA LORD ON 10/19/2016 AT 07:15 PM EDT DISCLAIMER : THIS IS A VISIT SUMMARY EXTRACTED FROM THE [employer] CHART. IT IS NOT A COPY OF THE [employer] PROGRESS NOTE. TRACEY
== END ==
LOC: M PAIN 14:20
PROVIDERS: ATTEND Nurse Practitioner Family
DX: M25.561 Pain in right knee (principal); M54.5 Low back pain; F17.210 Nicotine dependence, cigarettes, uncomplicated; Z79.891 Long term (current) use of opiate analgesic; F41.9 Anxiety disorder, unspecified; M79.1 Myalgia; E16.2 Hypoglycemia, unspecified; K29.60 Other gastritis without bleeding; J45.41 Moderate persistent asthma with (acute) exacerbation; J30.9 Allergic rhinitis, unspecified; Z88.6 Allergy status to analgesic agent; Z88.5 Allergy status to narcotic agent; Z88.8 Allergy status to other drugs, medicaments and biological substances

== ENCOUNTER → 2016-09-20 | Outpatient (CLI) | payer OTHER ==
--- NOTE | 2016-09-20 18:03 | REP ---
Lumbar spine series: Seven views including lateral flexion views. History: Pain. Comparison study: 09/05/2015. Findings: There are clips in right upper quadrant of the abdomen. The bowel gas pattern is unremarkable. An IUD is seen in the pelvis. Lumbar vertebral body heights are preserved. Alignment is normal. No subluxation or instability is seen on flexion/extension lateral views. Pedicles and posterior elements are intact. There is no evidence of spondylolysis or spondylolisthesis. Impression: Normal lumbar spine radiographs. Signed by Yovani Tejeda MD 09/21/2016 04:04 P
--- NOTE | 2016-09-20 18:03 | REP ---
Thoracic spine series: Three views: History: Pain. Findings: Thoracic vertebral body heights are preserved and alignment is normal. There is discogenic spurring mild in degree in the mid thoracic spine levels. No paravertebral soft-tissue swelling or mass is seen. Pedicles and posterior elements are intact. There are clips in right upper quadrant of the abdomen. Impression: Mild degenerative disc changes. Otherwise negative thoracic spine series. Signed by Yovani Tejeda MD 09/21/2016 04:04 P
== END ==
LOC: M RAD 16:01
PROVIDERS: ATTEND Nurse Practitioner Family
DX: M25.561 Pain in right knee (principal); M54.5 Low back pain

== ENCOUNTER 2016-10-25 22:20 | Emergency (ER) | payer OTHER ==
[~2016-10-25] VITALS: Ht 154.9 cm; Wt 130.4 kg
[~2016-10-25 22:20] MED LIST changes: -CYCL10TA; -DIAZ10TA2; -MOBI4TAB PO; -MONT10TA2; -PROP10TA56; -REXU1TAB2; -SYMBICORT; -TIZANIDINE; -ZOLP12.515
[2016-10-26 00:27] VITALS: BP 130/96
[2016-10-26] MEDS ORDERED: PERCOCET 5MG/325MG TAB PO ONE (00:45)
--- NOTE | 2016-10-26 08:25 | REP ---
Sacrum and coccyx series: Three views. Three: Injury in a fall. Findings: Frontal and lateral views of the sacrum and coccyx show no sacral or coccygeal fracture. An IUD is seen in the mid pelvis. The presacral soft tissues are not widened. SI joints, symphysis pubis and visualized bony pelvic ring are intact. Impression: No fracture seen. Signed by Yovani Tejeda MD 10/26/2016 08:57 A
== END 2016-10-26 02:20 | disposition home or self-care (01) ==
LOC: M ED 22:20
DX: S30.0XXA Contusion of lower back and pelvis, initial encounter (principal); W01.0XXA Fall on same level from slipping, tripping and stumbling without subsequent striking against object, initial encounter; Y92.099 Unspecified place in other non-institutional residence as the place of occurrence of the external cause; Y93.9 Activity, unspecified; Y99.9 Unspecified external cause status; G89.29 Other chronic pain; M54.9 Dorsalgia, unspecified; M25.569 Pain in unspecified knee; F32.9 Major depressive disorder, single episode, unspecified; M19.90 Unspecified osteoarthritis, unspecified site; F17.200 Nicotine dependence, unspecified, uncomplicated; Z79.899 Other long term (current) drug therapy; Z88.0 Allergy status to penicillin; Z88.6 Allergy status to analgesic agent; Z88.5 Allergy status to narcotic agent; Z91.018 Allergy to other foods

== ENCOUNTER 2016-11-23 15:24 | Emergency (ER) | payer OTHER ==
[~2016-11-23] VITALS: Ht 154.9 cm; Wt 129.6 kg
[2016-11-23] MEDS ORDERED: MONT10TA2 (15:34)
[2016-11-23] MEDS ORDERED: SYMBICORT (15:34)
[2016-11-23] MEDS ORDERED: CYCL10TA (15:34)
[2016-11-23] MEDS ORDERED: ZOLP12.515 (15:34)
[2016-11-23] MEDS ORDERED: PROP10TA56 (15:34)
[2016-11-23] MEDS ORDERED: TIZANIDINE (15:34)
[2016-11-23] MEDS ORDERED: DIAZ10TA2 (15:34)
[2016-11-23] MEDS ORDERED: REXU1TAB2 (15:34)
[2016-11-23] MEDS ORDERED: MOBI4TAB PO (17:54)
[2016-11-23 18:05] VITALS: BP 122/81
== END 2016-11-23 18:25 | disposition home or self-care (01) ==
LOC: M ED 15:24
DX: G56.02 Carpal tunnel syndrome, left upper limb (principal); E28.2 Polycystic ovarian syndrome; J45.909 Unspecified asthma, uncomplicated; F41.9 Anxiety disorder, unspecified; F32.9 Major depressive disorder, single episode, unspecified; Z79.899 Other long term (current) drug therapy; Z88.0 Allergy status to penicillin; Z88.6 Allergy status to analgesic agent; Z88.5 Allergy status to narcotic agent; Z88.8 Allergy status to other drugs, medicaments and biological substances; Z91.018 Allergy to other foods

== ENCOUNTER 2016-12-24 23:33 | Emergency (ER) | payer OTHER ==
[~2016-12-24] VITALS: Ht 154.9 cm; Wt 129.6 kg
[~2016-12-24 23:33] MED LIST changes: +CYCL10TA; +DIAZ10TA2; +MOBI4TAB PO; +MONT10TA2; +PROP10TA56; +REXU1TAB2; +SYMBICORT; +TIZANIDINE; +ZOLP12.515
[2016-12-25] MEDS ORDERED: NS 1,000 ML IV ONE (03:15)
[2016-12-25] MEDS ORDERED: methylPREDNISolone INJ 125 MG/2 ML VIAL (J2930) IV ONE (03:15)
[2016-12-25] MEDS ORDERED: METOCLOPRAMIDE INJ 10MG/2ML VIAL (J2765) IV ONE (03:15)
[2016-12-25 04:30] LABS: BASO # 0.1 10^3/uL (0.0-0.2); BASO % 0.8 % (0.0-1.0); EOS # 0.3 10^3/uL (0.0-0.50); EOS % 2.6 % (0.0-3.0); IMMATURE GRANULOCYTE % 0.5 % (0-0); LYMPH # 3.9 10^3/uL (1.5-4.5); LYMPH % 38.4 % (24.0-44.0); MEAN CORPUSCULAR HEMOGLOBIN 30.4 pg (27.0-33.0); MEAN CORPUSCULAR HGB CONC 34.7 g/dl (32.0-36.5); MEAN CORPUSCULAR VOLUME 87.5 fl (80.0-96.0); MONO # 0.8 10^3/uL (0.0-0.8); MONO % 8.1 % (0.0-5.0); NEUTROPHILS # 5.1 10^3/uL (1.8-7.7); NEUTROPHILS % 49.6 % (36.0-66.0); PLATELET COUNT, AUTOMATED 321 10^3/uL (150-450); RED CELL DISTRIBUTION WIDTH 12.4 % (11.5-14.5); WHITE BLOOD COUNT 10.2 10^3/uL (4.0-10.0)
[2016-12-25 04:48] LABS: ANION GAP 6 MEQ/L (8-16); BLOOD UREA NITROGEN 13 MG/DL (7-18); CALCIUM LEVEL 9.1 MG/DL (8.5-10.1); CARBON DIOXIDE LEVEL 27 MEQ/L (21-32); CHLORIDE LEVEL 107 MEQ/L (98-107); CREATININE FOR GFR 0.71 MG/DL (0.55-1.02); GLOMERULAR FILTRATION RATE > 60.0 (>60); GLUCOSE, FASTING 87 MG/DL (70-105); POTASSIUM SERUM 4.1 MEQ/L (3.5-5.1); SODIUM LEVEL 140 MEQ/L (136-145)
[2016-12-25 06:18] VITALS: BP 140/78
== END 2016-12-25 06:34 | disposition home or self-care (01) ==
LOC: M ED 23:33
DX: S30.1XXA Contusion of abdominal wall, initial encounter (principal); S30.0XXA Contusion of lower back and pelvis, initial encounter; W10.9XXA Fall (on) (from) unspecified stairs and steps, initial encounter; Y92.099 Unspecified place in other non-institutional residence as the place of occurrence of the external cause; Y93.9 Activity, unspecified; Y99.9 Unspecified external cause status; F17.200 Nicotine dependence, unspecified, uncomplicated; Z79.899 Other long term (current) drug therapy; Z88.0 Allergy status to penicillin; Z88.6 Allergy status to analgesic agent; Z88.5 Allergy status to narcotic agent; Z88.8 Allergy status to other drugs, medicaments and biological substances; Z91.018 Allergy to other foods
CPT/HCPCS: 80048; 81001; 85025; 96361; 96374; 96375; 99284; J2765; J2930

== ENCOUNTER → 2017-01-18 | Outpatient (REF) | payer OTHER ==
[2017-01-18 12:24] LABS: VITAMIN B12 LEVEL 263 PG/ML (247-911)
[2017-01-18 12:31] LABS: ALBUMIN 3.6 GM/DL (3.2-5.2); ALBUMIN/GLOBULIN RATIO 1.06 (1.00-1.93); ALKALINE PHOSPHATASE 80 U/L (45-117); ALT/SGPT 44 U/L (12-78); ANION GAP 8 MEQ/L (8-16); AST/SGOT 20 U/L (7-37); BILIRUBIN,TOTAL 0.4 MG/DL (0.2-1.0); BLOOD UREA NITROGEN 11 MG/DL (7-18); CALCIUM LEVEL 8.8 MG/DL (8.5-10.1); CARBON DIOXIDE LEVEL 23 MEQ/L (21-32); CHLORIDE LEVEL 110 MEQ/L (98-107); CREATININE FOR GFR 0.68 MG/DL (0.55-1.02); GLOMERULAR FILTRATION RATE > 60.0 (>60); GLUCOSE, FASTING 87 MG/DL (70-105); POTASSIUM SERUM 4.4 MEQ/L (3.5-5.1); SODIUM LEVEL 141 MEQ/L (136-145)
== END ==
LOC: M SFHCPLAZ 09:07
PROVIDERS: ATTEND Nurse Practitioner Adult Health
DX: E55.9 Vitamin D deficiency, unspecified (principal)

== ENCOUNTER 2017-02-04 18:51 | Emergency (ER) | payer OTHER ==
[~2017-02-04] VITALS: Ht 154.9 cm; Wt 129.6 kg
[2017-02-04 18:51] VITALS: BP 153/97
[2017-02-04] MEDS ORDERED: NICOINH INH (19:11)
[2017-02-04] MEDS ORDERED: BACT800T5 PO (19:58)
[2017-02-04] MEDS ORDERED: DIFL150T PO (20:05)
== END 2017-02-04 20:11 | disposition home or self-care (01) ==
LOC: M ED 18:51
DX: J03.90 Acute tonsillitis, unspecified (principal); E28.2 Polycystic ovarian syndrome; J45.909 Unspecified asthma, uncomplicated; Z86.19 Personal history of other infectious and parasitic diseases; F41.9 Anxiety disorder, unspecified; F32.9 Major depressive disorder, single episode, unspecified; F17.200 Nicotine dependence, unspecified, uncomplicated; Z79.899 Other long term (current) drug therapy; Z88.0 Allergy status to penicillin; Z88.6 Allergy status to analgesic agent; Z88.5 Allergy status to narcotic agent; Z88.8 Allergy status to other drugs, medicaments and biological substances; Z91.018 Allergy to other foods

== ENCOUNTER 2017-02-20 15:13 | Emergency (ER) | payer OTHER ==
[~2017-02-20] VITALS: Ht 154.9 cm; Wt 129.1 kg
[~2017-02-20 15:13] MED LIST changes: +BACT800T5 PO; -DIAZ10TA2; +DIAZ10TA2 PO; +DIFL150T PO; +NICOINH INH
[2017-02-20] MEDS ORDERED: IBUP-1022 PO (15:27)
[2017-02-20] MEDS ORDERED: TIZA4CAP3 (15:27)
[2017-02-20] MEDS ORDERED: NORCO, ANEXSIA 5/325MG TABLET (HYDROcodone/ACETAMINOPHEN) PO ONE (17:45)
[2017-02-20] MEDS ORDERED: NORCO 5/325MG TABLET (BULK FOR ED) PO ONE (19:00)
[2017-02-20 19:01] VITALS: BP 159/98
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
== END 2017-02-20 19:19 | disposition home or self-care (01) ==
LOC: M ED 15:13
DX: M25.511 Pain in right shoulder (principal); J45.909 Unspecified asthma, uncomplicated; E28.2 Polycystic ovarian syndrome; F41.9 Anxiety disorder, unspecified; F32.9 Major depressive disorder, single episode, unspecified; M54.9 Dorsalgia, unspecified; F17.200 Nicotine dependence, unspecified, uncomplicated; Z79.899 Other long term (current) drug therapy; Z88.0 Allergy status to penicillin; Z88.6 Allergy status to analgesic agent; Z88.5 Allergy status to narcotic agent; Z88.8 Allergy status to other drugs, medicaments and biological substances; Z91.018 Allergy to other foods

== ENCOUNTER → 2017-03-27 | Outpatient (CLI) | payer OTHER | LOC: M PAIN 11:30 | DX: M25.561 Pain in right knee (principal); M54.5 Low back pain; J45.20 Mild intermittent asthma, uncomplicated; I10 Essential (primary) hypertension; F41.9 Anxiety disorder, unspecified; Z79.891 Long term (current) use of opiate analgesic; Z79.899 Other long term (current) drug therapy; Z88.0 Allergy status to penicillin; Z88.8 Allergy status to other drugs, medicaments and biological substances | CPT/HCPCS: G0463 ==

== ENCOUNTER → 2017-03-28 | Outpatient (CLI) | payer OTHER | LOC: M RAD 10:42 | DX: N64.4 Mastodynia (principal) | CPT/HCPCS: 77065 ==

== ENCOUNTER → 2017-09-27 | Outpatient (REF) | payer OTHER | LOC: M SFHCPLAZ 15:47 | DX: R32 Unspecified urinary incontinence (principal) | CPT/HCPCS: 87086 ==

== ENCOUNTER → 2017-10-18 | Outpatient (CLI) | payer OTHER | LOC: M PAIN 13:00 | DX: M25.561 Pain in right knee (principal); M79.1 Myalgia; F43.10 Post-traumatic stress disorder, unspecified; F60.3 Borderline personality disorder; K59.00 Constipation, unspecified; E28.2 Polycystic ovarian syndrome; F42.9 Obsessive-compulsive disorder, unspecified; E66.01 Morbid (severe) obesity due to excess calories; F17.210 Nicotine dependence, cigarettes, uncomplicated; Z86.14 Personal history of Methicillin resistant Staphylococcus aureus infection; Z79.891 Long term (current) use of opiate analgesic; Z68.42 Body mass index [BMI] 45.0-49.9, adult; Z79.899 Other long term (current) drug therapy; Z88.0 Allergy status to penicillin; Z88.5 Allergy status to narcotic agent; Z88.6 Allergy status to analgesic agent; Z88.8 Allergy status to other drugs, medicaments and biological substances | CPT/HCPCS: G0463 ==

== ENCOUNTER → 2017-10-18 | Outpatient (CLI) | payer OTHER | LOC: M RAD 15:03 | DX: M25.561 Pain in right knee (principal); M51.34 Other intervertebral disc degeneration, thoracic region | CPT/HCPCS: 72072 ==

== ENCOUNTER 2018-02-11 09:36 | Emergency (ER) | payer OTHER ==
[2018-02-11] MEDS: LIDOCAINE VISCOUS 2% SOLN 15ML UDC SS (10:21)
[2018-02-11] MEDS: dexameTHASONE 4 MG/ML 1ML VIAL (J1100) PO (10:26)
[2018-02-11] MEDS: ACETAMINOPHEN 325 MG TAB PO (10:27)
[2018-02-11] MEDS: CLINDAMYCIN 150 MG CAP PO (10:27)
== END 2018-02-11 10:30 | disposition home or self-care (01) ==
LOC: M ED 09:36
DX: J02.0 Streptococcal pharyngitis (principal); E28.2 Polycystic ovarian syndrome; Z79.899 Other long term (current) drug therapy; Z88.0 Allergy status to penicillin; Z88.5 Allergy status to narcotic agent; Z88.8 Allergy status to other drugs, medicaments and biological substances; Z91.018 Allergy to other foods; F17.210 Nicotine dependence, cigarettes, uncomplicated
CPT/HCPCS: J1100

== ENCOUNTER → 2018-04-10 | Outpatient (CLI) | payer OTHER ==
[~2018-04-10] MED LIST changes: -ASPI325T24 PO; +ASPI325T25 PO; +IBUP-1022 PO; +LIDO1SOL7 PO; +OXYB5TAB; +TIZA4CAP; +haldol
--- NOTE | 2018-04-26 00:51 | ECWPNPC ---
PATIENT NAME: BOONE PERALTA : 1985 GENDER: FEMALE VISIT DATE: 04/10/2018 DISCHARGE DATE: 04/10/18 1203 VISIT LOCKED DATE TIME: PHYSICIAN: EFRAIN NAGY RESOURCE: EFRAIN NAGY REASON FOR APPOINTMENT 1. BACK/R KNEE PT OF SW HISTORY OF PRESENT ILLNESS HISTORY OF PRESENT ILLNESS: HERE FOR F/U OF CHRONIC RIGHT KNEE PAIN AND GENERALIZED BACK PAIN.RATING PAIN VAS 4/10.DESCRIBES PAIN CONSTANT ,STABBING AND SHOOTING PAIN.FINDS MEDICATION HELPFUL AT REDUCING PAIN AND KEEPING HER FUNCTIONAL. PAIN THE PATIENT DESCRIBES THE PAIN... FALL RISK SCREENING: SCREENING :NO FALLS IN THE PAST YEAR CURRENT MEDICATIONS TAKING PROPRANOLOL HCL 10 MG TABLET 1 TABLET ORALLY THREE TIMES A DAY, NOTES: FOR GEODON SIDE EFFECTS TAKING ZOLOFT 100 MG TABLET 1 TABLET ORALLY THREE TIMES A DAY TAKING AMBIEN CR 12.5 MG TABLET EXTENDED RELEASE 1 TABLET AT BEDTIME NEEDED ORALLY ONCE A DAY, NOTES: DR. WARD TAKING VALIUM 10 MG TABLET ORALLY TWICE A DAY NEEDED TAKING ZYRTEC ALLERGY 10 MG TABLET 1 TABLET ORALLY ONCE A DAY TAKING ALBUTEROL SULFATE HFA 108 (90 BASE) MCG/ACT AEROSOL SOLUTION 2 PUFFS NEEDED INHALATION EVERY 6 HRS TAKING SINGULAIR 10 MG TABLET 1 TABLET IN THE EVENING ORALLY ONCE A DAY TAKING HALDOL 5MG TABLET 1TABLETS ORAL BID TAKING PRAZOSIN HCL 5 MG CAPSULE 2 CAPSULE AT BEDTIME ORALLY ONCE A DAY TAKING FLUTICASONE PROPIONATE 50 MCG/ACT SUSPENSION 1 SPRAY IN EACH NOSTRIL NASALLY ONCE A DAY TAKING DRISDOL 50,000 UNITS CAPSULE 1 CAPSULE EVERY OTHER WEEK ORALLY 30 DAY(S) ORALLY DIRECTED TAKING SYMBICORT 160-4.5 MCG/ACT AEROSOL 2 PUFFS INHALATION TWICE A DAY TAKING ALBUTEROL SULFATE (2.5 MG/3ML) 0.083% NEBULIZATION SOLUTION 3 ML INHALATION EVERY 6 HRS NEEDED TAKING NEBULIZER - DEVICE TO USE WITH TUBING DIAG CODE J45.41 EVERY 4 HOURS NEEDED TAKING OXYBUTYNIN CHLORIDE ER 5 MG TABLET EXTENDED RELEASE 24 HOUR 1 TABLET ORALLY BID TAKING TIZANIDINE HCL 4 MG TABLET 1 TABLET AND 1/2 ORALLY FOR SPASMS AND PAIN EVERY 8 HRS MDD4 TAKING IBUPROFEN 600 MG TABLET 1 TABLET ORALLY THREE TIMES A DAY NEEDED FOR PAIN. TAKE WITH FOOD TAKING NORCO 10-325 MG TABLET 1 TABLET ORALLY EVERY 6 HRS PRN PAIN MDD4 NOT-TAKING WRIST SPLINT - MISCELLANEOUS DIRECTED RIGHT WRIST M25.531 DAILY NOT-TAKING MYRBETRIQ 25 MG TABLET EXTENDED RELEASE 24 HOUR 1 TABLET ORALLY ONCE A DAY MEDICATION LIST REVIEWED AND RECONCILED WITH THE PATIENT PAST MEDICAL HISTORY OCD/PTSD/BORDERLINE PERSONALITY/BIPOLAR 2 - DR CHAO - [facility] 08/16/2016 PULMONARY FUNCTION TEST [facility], POSITIVE METHACHOLINE CHALLENGE STUDY. ASTHMA, ANNETTE 12/17 FEV1 2.86 MORBID OBESITY R KNEE PAIN CONSTIPATION MICH DEPENDENCE, STARTED AT 13, SMOKING 1 PPD LOW BLOOD SUGARS NOTED 07/14/13, WHEN POLYCYSTIC OVERIES MRSA + RIGHT KNEE ALLERGIES AMOXICILLIN: HIVES: ALLERGY ASPIRIN: HIVES, THROAT SWELLING: ALLERGY CODEINE PHOSPHATE (FOR ALLERGIES USE ONLY): HIVES: ALLERGY DARVOCET A500: HIVES: ALLERGY BENADRYL: HIVES, THROAT SWELLING: ALLERGY RISPERDAL: HIVES: ALLERGY TRAMADOL HCL: ITCHING: ALLERGY KETOROLAC TROMETHAMINE: BLISTERS AT SITE OF IV. HIVES: ALLERGY FLEXERIL: MOOD CHANGE: SIDE EFFECTS PREDNISONE: MEAN PERSONALITY: SIDE EFFECTS SURGICAL HISTORY GALLBLADDER 2010 ACL OF RIGHT KNEE 2013 REDONE RIGHT KNEE 2013 ACL, MCL RECONSTRUCTED OF RIGHT KNEE 2014 FAMILY HISTORY FATHER: ALIVE, ESTRANGED MOTHER: ALIVE, PANCREATRIC AND OVARIAN CANCER SIGNS DIABETIC MOM DOES NOT DRINK ALCOHOL PATERNAL GRAND FATHER: 102 YRS, MULTIPLE [place] STROKES DM2 MATERNAL GRAND FATHER: , DM2 PANCREATIC CANCER-DRINKER NO -BROTHERS2 SISTERS UNKNOWN HEALTH3 CHILDREN ALL GIRLS- GOOD HEALTH ONE HAS ASTHMAAUNTS ON MOTHER AND FATHER SIDE OF FAMILY HAVE BREAST CANERGRNDMOTHER ON BOTH SIDES HAD BREAST CANCER. SOCIAL HISTORY GENERAL: TOBACCO USE ARE YOU A:CURRENT SMOKER ARE YOU INTERESTED IN QUITTING?READY TO QUIT HOW MANY CIGARETTES A DAY DO YOU SMOKE?5 OR LESS SMOKING APPROX 2 A DAY HOW SOON AFTER YOU WAKE UP DO YOU SMOKE YOUR FIRST CIGARETTE?AFTER 60 MIN HOW OFTEN DO YOU SMOKE CIGARETTES?EVERY DAY PATIENT COUNSELED ON THE DANGERS OF TOBACCO USE AND URGED TO QUIT:04/10/2018 VAPOR USING NICATROL INHALERS BMI CARE GOAL FOLLOW-UP ABOVE NORMAL BMI FOLLOW-UPDIETARY MANAGEMENT EDUCATION, GUIDANCE, AND COUNSELING ALCOHOL SCREENING DID YOU HAVE A DRINK CONTAINING ALCOHOL IN THE PAST YEAR?NO POINTS0 INTERPRETATIONNEGATIVE RECREATIONAL DRUG USE DRUG USE?NO PATIENT DENIES ABUSE OR MISSUSED OF ANY MEDICATION. PATIENT DENIES USE OF ANY ILLEGAL SUBSTANCE INCLUDING MARIJUANA OR COCAINE. CAFFEINE CAFFEINE USE?YES HOW OFTEN AND HOW MUCH? 2 CUPS OF COFFEE, SODA 3-16OZ SEXUAL HX HAD SEX IN THE LAST 12 MONTHS (VAGINAL, ORAL, OR ANAL)?YES WITHMEN ONLY USE PROTECTION?YES HOW OFTEN?ALL OF THE TIME HIV / HEP-C SCREENING HIV TEST OFFERED TO PATIENT:YES DATE OFFERED:07/19/2016 TEST ACCEPTED:NO HEP-C TEST OFFERED TO PATIENT:YES DATE OFFERED:07/19/2016 REASON:PATIENT DECLINED TEST ACCEPTED:NO REASON:PATIENT DECLINED SABIANISM [id number] NONE LANGUAGE LANGUAGES SPOKEN:TUNISIAN EDUCATION LEVEL OF EDUCATION:HIGH SCHOOL 10TH/11TH LEARNING BARRIERS / SPECIAL NEEDS BARRIERS TO LEARNING?NO HEARING IMPAIRED?NO VISION IMPAIRED?YES COGNITIVELY IMPAIRED?NO :CORRECTIVE LENSES READINESS TO LEARN?YES LEARNING PREFERENCES?NO LEARNING CAPABILITIES PRESENT?YES EMOTIONAL BARRIERS?NO SPECIAL DEVICES?YES :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 OCCUPATION: TRYING TO GET DISABILITY IN THE PROCESS. DIET: REGULAR. EXERCISE: NO REGULAR EXERCISE. MARITAL STATUS: . OTHERS AT HOME: FINILDA & DAUGHTER 2 YEAR OLD. NEW PATIENT PAIN DIARY TODAY'S VISIT NOTES, FROM 0-10, WHAT LEVEL IS YOUR PAIN TODAY? 0. PAIN CLINIC PFS, CLERGY, PUBLIC HEALTH REFERRALS PFS REFERRAL NEEDED? NO, CLERGY REFERRAL NEEDED? NO, PUBLIC HEALTH REFERRAL NEEDED? NO, WAS THE PROVIDER NOTIFIED OF ANY PERTINENT INFO? NO, PFS REFERRAL NEEDED? NO, CLERGY REFERRAL NEEDED? NO, PUBLIC HEALTH REFERRAL NEEDED? NO, WAS THE PROVIDER NOTIFIED OF ANY PERTINENT INFO? NO. HOUSING: RENTS APARTMENT. DISSOCIATIVE IDENTIDY DISORDER- RUTH IS CAREGIVER ([facility]). HOSPITALIZATION/MAJOR DIAGNOSTIC PROCEDURE INFECTION RIGHT KNEE 2013 REVIEW OF SYSTEMS REVIEWED BY: PROVIDER: EFRAIN VIZCARRA . CONSTITUTIONAL: ANY CHANGE IN YOUR MEDICAL CONDITION? NO . CHILLS NO . FEVER NO . INFECTION: DO YOU HAVE NEW INFECTIONS? NO . DO YOU HAVE HISTORY OF MRSA? NO . MUSCULOSKELETAL: ANY NEW PATTERNS OF PAIN OR NUMBNESS? YES, PAIN IN RIGHT KNEE DUE TO FALL ON 04/04. . GASTROENTEROLOGY: ANY NEW CHANGE IN BOWEL CONTROL? NO . GENITOURINARY: ANY NEW CHANGE IN BLADDER CONTROL? NO . IS THERE A CHANCE YOU COULD BE ? NO . HEMATOLOGY/LYMPH: DO YOU TAKE ANY BLOOD THINNERS? (FOR EXAMPLE- COUMADIN, PLAVIX, AGGRENOX, PLATEL, PRADAXA, OR XARELTO) NO . WHEN WAS YOUR LAST DOSE? DATE: TIME: . NEUROLOGY: HAVE YOU FALLEN IN THE PAST 12 MONTHS? YES, FELL ON 04/04 OUTSIDE, LANDED ON KNEE, WENT TO ED . ANY NEW EXTREMITY NUMBNESS OR WEAKNESS? YES . CARDIOLOGY: DO YOU HAVE A PACEMAKER OR DEFIBRILLATOR? NO . RESPIRATORY: HAVE YOU BEEN SICK IN THE PAST WEEK? YES, COLD. NO FEVER . FEVER NO . FLU LIKE SYMPTOMS? NO . COUGH NO . INTEGUMENTARY: DO YOU HAVE ANY RASHES OR OPEN SORES? NO . ALLERGIC/IMMUNO: ARE YOU ALLERGIC TO IV DYE? NO . ANY NEW ALLERGIES? NO . PSYCHIATRIC: DO YOU HAVE THOUGHTS OF HURTING YOURSELF OR SOMEONE ELSE? NO . ARE YOU ABUSED, NEGLECTED, OR IN AN UNSAFE ENVIRONMENT? NO . ENDOCRINOLOGY: ARE YOU DIABETIC? NO . OTHER: DO YOU NEED ANY PRESCRIPTIONS? NO . IF YES, PLEASE LIST: ____ . ANY NEW PROBLEMS WITH YOUR MEDICATIONS? NO . WHEN DID YOU LAST EAT? ____ . WHEN DID YOU LAST DRINK? ____ . WHAT DID YOU LAST DRINK? ____ . NAME OF PERSON DRIVING YOU HOME? ____ . DO YOU HAVE ANY OTHER QUESTIONS OR CONCERNS PT STATES THAT HER PAIN IN KNEE HAS INCREASED DUE TO FALL ON 04/04, WENT TO ED, KNEE GET NUMB AND WEAK. . VITAL SIGNS WT 289.8 LBS, HT 62 IN, BMI 53.00 INDEX, BP 133/80 MM HG, HR 103 /MIN, RR 18 /MIN, TEMP 97.4 F, OXYGEN SAT % 97%, SAFE IN ENV? (Y/N) Y, NA INITIALS MI 10:42, REVIEWED BY: JACK. EXAMINATION GENERAL EXAMINATION: PSYCHALERT , ORIENTED X 3 , APPROPRIATE MOOD AND AFFECT , GOOD EYE CONTACT, PLEASANT TO INTERACT WITH. LUNGS:CLEAR TO AUSCULTATION BILATERALLY. HEART:HEART RATE REGULAR, NO MURMURS , CLICKS OR RUBS TO ASCULTATION. EXTREMITIES:TRACE EDEMA BILATERAL LOWER EXTREMITIES. JOINTS:RIGHT , KNEE , PAIN TO LIGHT TOUCH OVER RIGHT POPLITEAL SPACE AND OVER PATELLA. . GAIT ANTALGIC. CANE USED FOR BALANCE UNABLE TO FULLY FLEX OR EXTEND KNEE.. ASSESSMENTS KNEE PAIN, RIGHT - M25.561 (PRIMARY) RUPTURE OF ANTERIOR CRUCIATE LIGAMENT OF RIGHT KNEE, SEQUELA - S83.511S TREATMENT KNEE PAIN, RIGHT INCREASE TIZANIDINE HCL TABLET, 4 MG, 1 TABLET AND 1/2, ORALLY FOR SPASMS AND PAIN, Q8H, 30 DAYS, 135, REFILLS 3 REFILL NORCO TABLET, 10-325 MG, 1 TABLET, ORALLY, EVERY 6 HRS PRN PAIN MDD4, 30 DAYS, 120, REFILLS 0 CONTINUE IBUPROFEN TABLET, 600 MG, 1 TABLET, ORALLY, THREE TIMES A DAY NEEDED FOR PAIN. TAKE WITH FOOD NOTES: MRI RIGHT KNEE, ISTOP REGISTRY REVIEWED AND DEMONSTRATES COMPLLIANCE. URINE TOX TODAYBRINGS IN MEDICATIONS WHICH IS APPROPRIATE FOR WHAT WAS DISPENSED. RECENT URINE TOXICOLOGY REVIEWED. NO UNAUTHORIZED MEDICATIONS. NO ILLICIT SUBSTANCES AND PRESCRIBED MEDICATIONS WERE PRESENT. , RISKS AND BENEFITS OF NARCOTIC/OPIOD MEDICATIONS WERE REVIEWED WITH PATIENT - THIS INCLUDES BUT IS NOT LIMITED TO RISK OF DEPENDANCE/DEVELOPMENT OF ADDICTION, MOOD DISTURBANCE AND DEPRESSION, OSTEOPOROSIS, HORMONAL AND LABIDAL CHANGES, RESPIRATORY DEPRESSION AND . PATIENT IS ADVISED NOT TO DRIVE OR DRINK ALCOHOL WHILE ON THESE MEDICATIONS. PROCEDURE CODES FA211 ESTABILISHED PATIENT [facility] FACILITY CHARGE DISPOSITION & COMMUNICATION FOLLOW UP 2 MONTHS (REASON: MRI RIGHT KNEE) ELECTRONICALLY SIGNED BY ZACKERY STOKES ON 04/25/2018 AT 01:40 PM EST DISCLAIMER : THIS IS A VISIT SUMMARY EXTRACTED FROM THE [employer] CHART. IT IS NOT A COPY OF THE [employer] PROGRESS NOTE. TRACEY
== END ==
LOC: M PAIN 11:00
PROVIDERS: ATTEND Nurse Practitioner Family
DX: M25.561 Pain in right knee (principal); S83.511S Sprain of anterior cruciate ligament of right knee, sequela; G89.29 Other chronic pain; J45.909 Unspecified asthma, uncomplicated; F31.9 Bipolar disorder, unspecified; F43.10 Post-traumatic stress disorder, unspecified; F17.210 Nicotine dependence, cigarettes, uncomplicated; E66.01 Morbid (severe) obesity due to excess calories; Z68.43 Body mass index [BMI] 50.0-59.9, adult; Z79.891 Long term (current) use of opiate analgesic; Z79.899 Other long term (current) drug therapy; Z88.1 Allergy status to other antibiotic agents; Z88.5 Allergy status to narcotic agent; Z88.6 Allergy status to analgesic agent; Z88.8 Allergy status to other drugs, medicaments and biological substances

== ENCOUNTER → 2018-07-02 | Outpatient (CLI) | payer OTHER ==
[~2018-07-02] MED LIST changes: +ASPI-255 PO; -ASPI325T25 PO; -LIDO1SOL7 PO; +LIDO1SOL8 PO; -LIDO2SOL10 MT; +LIDO2SOL9 MT
--- NOTE | 2018-07-18 00:34 | ECWPNPC ---
PATIENT NAME: BOONE PERALTA : 1985 GENDER: FEMALE VISIT DATE: 07/02/2018 DISCHARGE DATE: 07/02/18 1251 VISIT LOCKED DATE TIME: PHYSICIAN: EFRAIN NAGY RESOURCE: EFRAIN NAGY REASON FOR APPOINTMENT 1. BACK/R KNEE HISTORY OF PRESENT ILLNESS HISTORY OF PRESENT ILLNESS: HERE FOR F/U OF CHRONIC RIGHT KNEE PAIN AND GENERALIZED BACK PAIN.RATING PAIN VAS 4/10.DESCRIBES PAIN CONSTANT ,STABBING AND SHOOTING PAIN.FINDS MEDICATION HELPFUL AT REDUCING PAIN AND KEEPING HER FUNCTIONAL. PAIN THE PATIENT DESCRIBES THE PAIN... THE PATIENT DESCRIBES THE PAIN... FALL RISK SCREENING: SCREENING :NO FALLS REPORTED IN THE LAST YEAR CURRENT MEDICATIONS TAKING PROPRANOLOL HCL 10 MG TABLET 1 TABLET ORALLY THREE TIMES A DAY, NOTES: FOR GEODON SIDE EFFECTS TAKING ZOLOFT 100 MG TABLET 1 TABLET ORALLY THREE TIMES A DAY TAKING AMBIEN CR 12.5 MG TABLET EXTENDED RELEASE 1 TABLET AT BEDTIME NEEDED ORALLY ONCE A DAY, NOTES: DR. WARD TAKING VALIUM 10 MG TABLET ORALLY TWICE A DAY NEEDED TAKING ZYRTEC ALLERGY 10 MG TABLET 1 TABLET ORALLY ONCE A DAY TAKING ALBUTEROL SULFATE HFA 108 (90 BASE) MCG/ACT AEROSOL SOLUTION 2 PUFFS NEEDED INHALATION EVERY 6 HRS TAKING SINGULAIR 10 MG TABLET 1 TABLET IN THE EVENING ORALLY ONCE A DAY TAKING HALDOL 5MG TABLET 2 TABLETS ORAL DAILY, NOTES: TAKES 10MG BEFORE BED TAKING PRAZOSIN HCL 5 MG CAPSULE 2 CAPSULE AT BEDTIME ORALLY ONCE A DAY TAKING FLUTICASONE PROPIONATE 50 MCG/ACT SUSPENSION 1 SPRAY IN EACH NOSTRIL NASALLY ONCE A DAY TAKING DRISDOL 50,000 UNITS CAPSULE 1 CAPSULE EVERY OTHER WEEK ORALLY 30 DAY(S) ORALLY DIRECTED TAKING SYMBICORT 160-4.5 MCG/ACT AEROSOL 2 PUFFS INHALATION TWICE A DAY TAKING ALBUTEROL SULFATE (2.5 MG/3ML) 0.083% NEBULIZATION SOLUTION 3 ML INHALATION EVERY 6 HRS NEEDED TAKING NEBULIZER - DEVICE TO USE WITH TUBING DIAG CODE J45.41 EVERY 4 HOURS NEEDED TAKING OXYBUTYNIN CHLORIDE ER 5 MG TABLET EXTENDED RELEASE 24 HOUR 1 TABLET ORALLY BID TAKING TIZANIDINE HCL 4 MG TABLET 1 TABLET AND 1/2 ORALLY FOR SPASMS AND PAIN Q8H TAKING IBUPROFEN 600 MG TABLET 1 TABLET ORALLY THREE TIMES A DAY NEEDED FOR PAIN. TAKE WITH FOOD TAKING NORCO 10-325 MG TABLET 1 TABLET ORALLY EVERY 6 HRS PRN PAIN MDD4 NOT-TAKING TAMIFLU 75 MG CAPSULE 1 CAPSULE ORALLY DAILY NOT-TAKING WRIST SPLINT - MISCELLANEOUS DIRECTED RIGHT WRIST M25.531 DAILY NOT-TAKING MYRBETRIQ 25 MG TABLET EXTENDED RELEASE 24 HOUR 1 TABLET ORALLY ONCE A DAY MEDICATION LIST REVIEWED AND RECONCILED WITH THE PATIENT PAST MEDICAL HISTORY OCD/PTSD/BORDERLINE PERSONALITY/BIPOLAR 2 - DR CHAO - [facility] 08/16/2016 PULMONARY FUNCTION TEST [facility], POSITIVE METHACHOLINE CHALLENGE STUDY. ASTHMA, ANNETTE 12/17 FEV1 2.86 MORBID OBESITY R KNEE PAIN CONSTIPATION MICH DEPENDENCE, STARTED AT 13, SMOKING 1 PPD LOW BLOOD SUGARS NOTED 07/14/13, WHEN POLYCYSTIC OVERIES MRSA + RIGHT KNEE ALLERGIES AMOXICILLIN: HIVES - ALLERGY ASPIRIN: HIVES, THROAT SWELLING - ALLERGY CODEINE PHOSPHATE (FOR ALLERGIES USE ONLY): HIVES - ALLERGY DARVOCET A500: HIVES - ALLERGY BENADRYL: HIVES, THROAT SWELLING - ALLERGY RISPERDAL: HIVES - ALLERGY TRAMADOL HCL: ITCHING - ALLERGY KETOROLAC TROMETHAMINE: BLISTERS AT SITE OF IV. HIVES - ALLERGY FLEXERIL: MOOD CHANGE - SIDE EFFECTS PREDNISONE: MEAN PERSONALITY - SIDE EFFECTS STERI-STRIPS: RASH - SIDE EFFECTS SURGICAL HISTORY GALLBLADDER 2010 ACL OF RIGHT KNEE 2013 REDONE RIGHT KNEE 2013 ACL, MCL RECONSTRUCTED OF RIGHT KNEE 2014 FAMILY HISTORY FATHER: ALIVE, ESTRANGED, DIAGNOSED WITH HYPERTENSION MOTHER: ALIVE, PANCREATRIC AND OVARIAN CANCER SIGNS DIABETIC MOM DOES NOT DRINK ALCOHOL PATERNAL GRAND FATHER: 102 YRS, MULTIPLE [place] STROKES DM2 MATERNAL GRAND FATHER: , DM2 PANCREATIC CANCER-DRINKER NO -BROTHERS\\\\N2 SISTERS UNKNOWN HEALTH\\\\N3 CHILDREN ALL GIRLS- GOOD HEALTH ONE HAS ASTHMA\\\\NAUNTS ON MOTHER AND FATHER SIDE OF FAMILY HAVE BREAST CANER\\\\NGRNDMOTHER ON BOTH SIDES HAD BREAST CANCER. SOCIAL HISTORY GENERAL: TOBACCO USE ARE YOU A:CURRENT SMOKER HOW OFTEN DO YOU SMOKE CIGARETTES?EVERY DAY HOW SOON AFTER YOU WAKE UP DO YOU SMOKE YOUR FIRST CIGARETTE?AFTER 60 MIN HOW MANY CIGARETTES A DAY DO YOU SMOKE?5 OR LESS SMOKING APPROX 2 A DAY ARE YOU INTERESTED IN QUITTING?READY TO QUIT PATIENT COUNSELED ON THE DANGERS OF TOBACCO USE AND URGED TO QUIT:04/10/2018 VAPOR USING NICATROL INHALERS HIV / HEP-C SCREENING HIV TEST OFFERED TO PATIENT:YES DATE OFFERED:07/19/2016 TEST ACCEPTED:NO HEP-C TEST OFFERED TO PATIENT:YES DATE OFFERED:07/19/2016 REASON:PATIENT DECLINED TEST ACCEPTED:NO REASON:PATIENT DECLINED OTHERS AT HOME: RUTH & DAUGHTER 2 YEAR OLD. HOUSING: RENTS APARTMENT. EDUCATION LEVEL OF EDUCATION:HIGH SCHOOL 10TH/11TH DIET: REGULAR. LANGUAGE LANGUAGES SPOKEN:GHANAIAN DOMESTIC VIOLENCE NONE. NEW PATIENT PAIN DIARY FROM 0-10, WHAT LEVEL IS YOUR PAIN TODAY?4 BMI CARE GOAL FOLLOW-UP ABOVE NORMAL BMI FOLLOW-UPDIETARY MANAGEMENT EDUCATION, GUIDANCE, AND COUNSELING RECREATIONAL DRUG USE DRUG USE?NO PATIENT DENIES ABUSE OR MISSUSED OF ANY MEDICATION. PATIENT DENIES USE OF ANY ILLEGAL SUBSTANCE INCLUDING MARIJUANA OR COCAINE. EXERCISE: NO REGULAR EXERCISE. 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 NEEDED?NO PAIN CLINIC PFS, CLERGY, PUBLIC HEALTH REFERRALS HAS THE PATIENT BEEN EDUCATED REGARDING HIS/HER PLAN OF CARE?YES HAS THE PATIENT BEEN EDUCATED REGARDING PAIN, THE RISK FOR PAIN, THE IMPORTANCE OF EFFECTIVE PAIN MANAGEMENT, AND THE PAIN ASSESSMENT PROCESS?YES LATEX QUESTIONNAIRE LATEX ALLERGY : HAVE YOU EVER DEVELOPED ANY TYPE OF REACTION AFTER HANDLING LATEX PRODUCTS SUCH RUBBER GLOVES, CONDOMS, DIAPHRAGMS, BALLOONS, SOCKS, OR UNDERWEAR?NO LATEX ALLERGY : HAVE YOU EVER DEVELOPED ANY TYPE OF REACTION DURING OR AFTER DENTAL APPOINTMENT, VAGINAL/RECTAL EXAMINATION, SURGICAL PROCEDURE, OR ANY OTHER EXPOSURE?NO LATEX RISK : HAVE YOU EVER HAD ANY DIFFICULTY BREATHING OR HIVES AFTER EATING OR HANDLING ANY FRUITS, OR VEGETABLES; SUCH KIWI, BANANAS, STONE FRUITS, OR CHESTNUTSNO LATEX RISK : DO YOU HAVE A PREVIOUS PERSONAL HISTORY OF MORE THAN NINE SURGERIES, SPINA BIFIDA, OR REPEATED CATHERTIZATIONS? NO LATEX RISK : ARE YOU FREQUENTLY EXPOSED TO LATEX PRODUCTS IN YOUR OCCUPATION?NO DATE ASKED : 07/02/2018 CAFFEINE CAFFEINE USE?YES HOW OFTEN AND HOW MUCH? 2 CUPS OF COFFEE, SODA 3-16OZ ADVANCE DIRECTIVE ADVANCE DIRECTIVE DISCUSSED WITH PATIENT:YES HCP IS MAURA DON JR. . (FINILDA) ORTHODOXY [id number] NONE MARITAL STATUS: . ALCOHOL SCREENING DID YOU HAVE A DRINK CONTAINING ALCOHOL IN THE PAST YEAR?NO POINTS0 INTERPRETATIONNEGATIVE OCCUPATION: TRYING TO GET DISABILITY IN THE PROCESS. SEXUAL HX HAD SEX IN THE LAST 12 MONTHS (VAGINAL, ORAL, OR ANAL)?YES WITHMEN ONLY USE PROTECTION?YES HOW OFTEN?ALL OF THE TIME DISSOCIATIVE IDENTIDY DISORDER- RUTH IS CAREGIVER ([facility]). HOSPITALIZATION/MAJOR DIAGNOSTIC PROCEDURE INFECTION RIGHT KNEE 2013 REVIEW OF SYSTEMS REVIEWED BY: PROVIDER: EFRAIN VIZCARRA . CONSTITUTIONAL: ANY CHANGE IN YOUR MEDICAL CONDITION? NO . CHILLS NO . FEVER NO . INFECTION: DO YOU HAVE NEW INFECTIONS? NO . DO YOU HAVE HISTORY OF MRSA? YES, HISTROY OF MRSA IN RIGHT KNEE . MUSCULOSKELETAL: ANY NEW PATTERNS OF PAIN OR NUMBNESS? YES,PT STATES RIGHT KNEE HAS BEEN "GOING OUT" ON HER MORE. STATES PAIN HAS BEEN INCREASED . GASTROENTEROLOGY: ANY NEW CHANGE IN BOWEL CONTROL? NO . GENITOURINARY: ANY NEW CHANGE IN BLADDER CONTROL? NO . IS THERE A CHANCE YOU COULD BE ? NO . HEMATOLOGY/LYMPH: DO YOU TAKE ANY BLOOD THINNERS? (FOR EXAMPLE- COUMADIN, PLAVIX, AGGRENOX, PLATEL, PRADAXA, OR XARELTO) NO . WHEN WAS YOUR LAST DOSE? DATE: TIME: . NEUROLOGY: HAVE YOU FALLEN IN THE PAST 12 MONTHS? NO . ANY NEW EXTREMITY NUMBNESS OR WEAKNESS? NO . CARDIOLOGY: DO YOU HAVE A PACEMAKER OR DEFIBRILLATOR? NO . RESPIRATORY: HAVE YOU BEEN SICK IN THE PAST WEEK? NO . FEVER NO . FLU LIKE SYMPTOMS? NO . COUGH NO . INTEGUMENTARY: DO YOU HAVE ANY RASHES OR OPEN SORES? NO . ALLERGIC/IMMUNO: ARE YOU ALLERGIC TO IV DYE? NO . ANY NEW ALLERGIES? NO . PSYCHIATRIC: DO YOU HAVE THOUGHTS OF HURTING YOURSELF OR SOMEONE ELSE? NO . ARE YOU ABUSED, NEGLECTED, OR IN AN UNSAFE ENVIRONMENT? NO . ENDOCRINOLOGY: ARE YOU DIABETIC? NO . OTHER: DO YOU NEED ANY PRESCRIPTIONS? YES, NORCO, IBUPROFEN . IF YES, PLEASE LIST: ____ . ANY NEW PROBLEMS WITH YOUR MEDICATIONS? NO . WHEN DID YOU LAST EAT? ____ . WHEN DID YOU LAST DRINK? ____ . WHAT DID YOU LAST DRINK? ____ . NAME OF PERSON DRIVING YOU HOME? ____ . DO YOU HAVE ANY OTHER QUESTIONS OR CONCERNS NO . VITAL SIGNS WT 283.4 LBS, HT 62 IN, BMI 51.83 INDEX, BP 141/93 MM HG, HR 105 /MIN, RR 18 /MIN, TEMP 97.6 F, OXYGEN SAT % 98%, NA INITIALS AW 1148, REVIEWED BY: BV. EXAMINATION GENERAL EXAMINATION: PSYCHALERT , ORIENTED X 3 , APPROPRIATE MOOD AND AFFECT , GOOD EYE CONTACT, PLEASANT TO INTERACT WITH. LUNGS:CLEAR TO AUSCULTATION BILATERALLY. HEART:HEART RATE REGULAR, NO MURMURS , CLICKS OR RUBS TO ASCULTATION. EXTREMITIES:TRACE EDEMA BILATERAL LOWER EXTREMITIES. JOINTS:RIGHT , KNEE , PAIN TO LIGHT TOUCH OVER RIGHT POPLITEAL SPACE AND OVER PATELLA. . GAIT ANTALGIC. CANE USED FOR BALANCE UNABLE TO FULLY FLEX OR EXTEND KNEE.. ASSESSMENTS KNEE PAIN, RIGHT - M25.561 (PRIMARY) TREATMENT KNEE PAIN, RIGHT CONTINUE TIZANIDINE HCL TABLET, 4 MG, 1 TABLET AND 1/2, ORALLY FOR SPASMS AND PAIN, Q8H REFILL IBUPROFEN TABLET, 600 MG, 1 TABLET, ORALLY, THREE TIMES A DAY NEEDED FOR PAIN. TAKE WITH FOOD, 30 DAY(S), 90, REFILLS 3 REFILL NORCO TABLET, 10-325 MG, 1 TABLET, ORALLY, EVERY 6 HRS PRN PAIN MDD4, 30 DAYS, 120, REFILLS 0 SMC MRI KNEE WITHOUT [id number] NOTES: ISTOP REGISTRY REVIEWED AND DEMONSTRATES COMPLLIANCE. BRINGS IN MEDICATIONS WHICH IS APPROPRIATE FOR WHAT WAS DISPENSED. RECENT URINE TOXICOLOGY REVIEWED. NO UNAUTHORIZED MEDICATIONS. NO ILLICIT SUBSTANCES AND PRESCRIBED MEDICATIONS WERE PRESENT. , RISKS AND BENEFITS OF NARCOTIC/OPIOD MEDICATIONS WERE REVIEWED WITH PATIENT - THIS INCLUDES BUT IS NOT LIMITED TO RISK OF DEPENDANCE/DEVELOPMENT OF ADDICTION, MOOD DISTURBANCE AND DEPRESSION, OSTEOPOROSIS, HORMONAL AND LABIDAL CHANGES, RESPIRATORY DEPRESSION AND . PATIENT IS ADVISED NOT TO DRIVE OR DRINK ALCOHOL WHILE ON THESE MEDICATIONS. PROCEDURE CODES FA211 ESTABILISHED PATIENT [facility] CHARGE DISPOSITION & COMMUNICATION FOLLOW UP 2 MONTHS (REASON: 2 MOS BRING MEDICATION) ELECTRONICALLY SIGNED BY ZACKERY STOKES ON 07/17/2018 AT 12:41 PM EDT DISCLAIMER : THIS IS A VISIT SUMMARY EXTRACTED FROM THE [email or web address] CHART. IT IS NOT A COPY OF THE [email or web address] PROGRESS NOTE. TRACEY
== END ==
LOC: M PAIN 11:30
PROVIDERS: ATTEND Nurse Practitioner Family
DX: M25.561 Pain in right knee (principal); G89.29 Other chronic pain; Z86.59 Personal history of other mental and behavioral disorders; J45.909 Unspecified asthma, uncomplicated; Z86.14 Personal history of Methicillin resistant Staphylococcus aureus infection; F17.210 Nicotine dependence, cigarettes, uncomplicated; Z88.1 Allergy status to other antibiotic agents; Z88.5 Allergy status to narcotic agent; Z88.6 Allergy status to analgesic agent; Z88.8 Allergy status to other drugs, medicaments and biological substances; Z91.09 Other allergy status, other than to drugs and biological substances; E66.01 Morbid (severe) obesity due to excess calories; Z68.43 Body mass index [BMI] 50.0-59.9, adult; Z79.891 Long term (current) use of opiate analgesic; Z79.899 Other long term (current) drug therapy

== ENCOUNTER → 2018-08-08 | Outpatient (CLI) | payer OTHER ==
--- NOTE | 2018-08-08 17:47 | REP ---
MRI RIGHT KNEE: TECHNIQUE: Axial proton density fat saturation, sagittal proton density T2 STIR, water excitation, coronal proton density, proton density fat saturation. Metallic screws are seen in the medial tibial plateau causing adjacent artifact and somewhat limiting the exam. However, I do not see a definite meniscal tear. There is increased signal at the femoral insertion of the anterior cruciate ligament suggesting at least a partial tear at that location. The posterior cruciate ligament is intact. The collateral ligaments are intact. The extensor mechanism is intact. There is mild chondromalacia of the patella centrally. No osteochondral defect is seen. I do not see evidence of an occult fracture, however, the marrow in the medial tibial plateau is not well evaluated. There is a small joint effusion. No popliteal cyst is seen. Medial and lateral patellar retinacula are intact. IMPRESSION: Somewhat limited exam due to metallic hardware in the medial tibial plateau limiting evaluation of adjacent structures. No definite meniscal tear is seen. There does appear to be increased signal on T2-weighted images in the anterior cruciate ligament at its insertion onto the femur suggesting at least a partial tear. Clinical correlation suggested. Mild chondromalacia of the patella. Small joint effusion. Electronically Signed by Chucho Arshad MD 08/12/2018 05:00 P
== END ==
LOC: M RAD 12:39
PROVIDERS: ATTEND Nurse Practitioner Family
DX: M25.561 Pain in right knee (principal)

== ENCOUNTER → 2018-12-12 | Outpatient (CLI) | payer OTHER ==
[~2018-12-12] MED LIST changes: -OXYB5TAB; +OXYB5TAB2; +ZANT150T40 PO; -ZANTTAB PO
--- NOTE | 2018-12-27 00:42 | ECWPNPC ---
PATIENT NAME: BOONE PERALTA : 1985 GENDER: FEMALE VISIT DATE: 12/12/2018 DISCHARGE DATE: 12/12/18 1010 VISIT LOCKED DATE TIME: PHYSICIAN: EFRAIN NAGY RESOURCE: EFRAIN NAGY REASON FOR APPOINTMENT 1. BACK/R KNEE HISTORY OF PRESENT ILLNESS HISTORY OF PRESENT ILLNESS: HERE FOR F/U OF CHRONIC RIGHT KNEE PAIN AND GENERALIZED BACK PAIN.RATING PAIN VAS 8/10.DESCRIBES PAIN CONSTANT ,STABBING AND SHOOTING PAIN.FINDS MEDICATION HELPFUL AT REDUCING PAIN AND KEEPING HER FUNCTIONAL.SHE HAS MISSED A FEW APPOINTMENTS DUE TO FAMILY STRESSORS AND IS VERY ANXIETY RIDDEN TODAY.LAST VISIT WITH US WAS IN JUNE.HAS BEEN WITHOUT HYDROCODONE FOR A FEW DAYS.APPEARS QUITE UNCOMFORTABLE TODAY WITH RIGHT KNEE PAIN,LBP AND RIGHT THIGH PAIN.REVIEWED MRI RIGHT KNEE ORDERED AT JUNE VISIT.THIS IS SHOWING A PARTIAL TEAR.HISTORY OF RIGHT KNEE REPLACEMENT.SHE IS WILLING TO SEE NCOG FOR EVALUATION. PAIN THE PATIENT DESCRIBES THE PAIN... THE PATIENT DESCRIBES THE PAIN... THE PATIENT DESCRIBES THE PAIN... FALL RISK SCREENING: SCREENING :NO FALLS REPORTED IN THE LAST YEAR CURRENT MEDICATIONS TAKING PROPRANOLOL HCL 10 MG TABLET 1 TABLET ORALLY THREE TIMES A DAY, NOTES: FOR GEODON SIDE EFFECTS TAKING ZOLOFT 100 MG TABLET 1 TABLET ORALLY THREE TIMES A DAY TAKING AMBIEN CR 12.5 MG TABLET EXTENDED RELEASE 1 TABLET AT BEDTIME NEEDED ORALLY ONCE A DAY, NOTES: DR. WARD TAKING VALIUM 10 MG TABLET ORALLY TWICE A DAY NEEDED TAKING ZYRTEC ALLERGY 10 MG TABLET 1 TABLET ORALLY ONCE A DAY TAKING ALBUTEROL SULFATE HFA 108 (90 BASE) MCG/ACT AEROSOL SOLUTION 2 PUFFS NEEDED INHALATION EVERY 6 HRS TAKING SINGULAIR 10 MG TABLET 1 TABLET IN THE EVENING ORALLY ONCE A DAY TAKING HALDOL 5MG TABLET 2 TABLETS ORAL DAILY, NOTES: TAKES 10MG BEFORE BED TAKING PRAZOSIN HCL 5 MG CAPSULE 2 CAPSULE AT BEDTIME ORALLY ONCE A DAY TAKING FLUTICASONE PROPIONATE 50 MCG/ACT SUSPENSION 1 SPRAY IN EACH NOSTRIL NASALLY ONCE A DAY TAKING DRISDOL 50,000 UNITS CAPSULE 1 CAPSULE EVERY OTHER WEEK ORALLY 30 DAY(S) ORALLY DIRECTED TAKING SYMBICORT 160-4.5 MCG/ACT AEROSOL 2 PUFFS INHALATION TWICE A DAY TAKING ALBUTEROL SULFATE (2.5 MG/3ML) 0.083% NEBULIZATION SOLUTION 3 ML INHALATION EVERY 6 HRS NEEDED TAKING NEBULIZER - DEVICE TO USE WITH TUBING DIAG CODE J45.41 EVERY 4 HOURS NEEDED TAKING OXYBUTYNIN CHLORIDE ER 5 MG TABLET EXTENDED RELEASE 24 HOUR 1 TABLET ORALLY BID TAKING IBUPROFEN 600 MG TABLET 1 TABLET ORALLY THREE TIMES A DAY NEEDED FOR PAIN. TAKE WITH FOOD TAKING TIZANIDINE HCL 4 MG TABLET 1 TABLET AND 1/2 ORALLY FOR SPASMS AND PAIN Q8H TAKING NORCO 10-325 MG TABLET 1 TABLET ORALLY EVERY 6 HRS PRN PAIN MDD4 NOT-TAKING TAMIFLU 75 MG CAPSULE 1 CAPSULE ORALLY DAILY NOT-TAKING WRIST SPLINT - MISCELLANEOUS DIRECTED RIGHT WRIST M25.531 DAILY NOT-TAKING MYRBETRIQ 25 MG TABLET EXTENDED RELEASE 24 HOUR 1 TABLET ORALLY ONCE A DAY MEDICATION LIST REVIEWED AND RECONCILED WITH THE PATIENT PAST MEDICAL HISTORY OCD/PTSD/BORDERLINE PERSONALITY/BIPOLAR 2 - DR CHAO - [facility] 08/16/2016 PULMONARY FUNCTION TEST [facility], POSITIVE METHACHOLINE CHALLENGE STUDY. ASTHMA, ANNETTE 12/17 FEV1 2.86 MORBID OBESITY R KNEE PAIN CONSTIPATION MICH DEPENDENCE, STARTED AT 13, SMOKING 1 PPD LOW BLOOD SUGARS NOTED 07/14/13, WHEN POLYCYSTIC OVERIES MRSA + RIGHT KNEE ALLERGIES AMOXICILLIN: HIVES - ALLERGY ASPIRIN: HIVES, THROAT SWELLING - ALLERGY CODEINE PHOSPHATE (FOR ALLERGIES USE ONLY): HIVES - ALLERGY DARVOCET A500: HIVES - ALLERGY BENADRYL: HIVES, THROAT SWELLING - ALLERGY RISPERDAL: HIVES - ALLERGY TRAMADOL HCL: ITCHING - ALLERGY KETOROLAC TROMETHAMINE: BLISTERS AT SITE OF IV. HIVES - ALLERGY FLEXERIL: MOOD CHANGE - SIDE EFFECTS PREDNISONE: MEAN PERSONALITY - SIDE EFFECTS STERI-STRIPS: RASH - SIDE EFFECTS SURGICAL HISTORY GALLBLADDER 2011 ACL OF RIGHT KNEE 2013 REDONE RIGHT KNEE 2013 ACL, MCL RECONSTRUCTED OF RIGHT KNEE 2014 FAMILY HISTORY FATHER: ALIVE, ESTRANGED, DIAGNOSED WITH HYPERTENSION MOTHER: ALIVE, PANCREATRIC AND OVARIAN CANCER SIGNS DIABETIC MOM DOES NOT DRINK ALCOHOL PATERNAL GRAND FATHER: 102 YRS, MULTIPLE [place] STROKES DM2 MATERNAL GRAND FATHER: , DM2 PANCREATIC CANCER-DRINKER NO -BROTHERS\\N2 SISTERS UNKNOWN HEALTH\\N3 CHILDREN ALL GIRLS- GOOD HEALTH ONE HAS ASTHMA\\NAUNTS ON MOTHER AND FATHER SIDE OF FAMILY HAVE BREAST CANER\\NGRNDMOTHER ON BOTH SIDES HAD BREAST CANCER MOTHER RECENTLY HAD BLOOD CLOTS IN LEGS AND AND NOW HAS GREEN FIELD FILTER, AND HAS 1 HEART STENT. SOCIAL HISTORY GENERAL: TOBACCO USE ARE YOU A:CURRENT SMOKER ARE YOU INTERESTED IN QUITTING?THINKING ABOUT QUITTING HOW MANY CIGARETTES A DAY DO YOU SMOKE?31 OR MORE SMOKING APPROX 2 A DAY HOW SOON AFTER YOU WAKE UP DO YOU SMOKE YOUR FIRST CIGARETTE?AFTER 60 MIN HOW OFTEN DO YOU SMOKE CIGARETTES?EVERY DAY PATIENT COUNSELED ON THE DANGERS OF TOBACCO USE AND URGED TO QUIT:12/12/2018 VAPOR USING NICATROL INHALERS HIV / HEP-C SCREENING HIV TEST OFFERED TO PATIENT:YES DATE OFFERED:07/19/2016 TEST ACCEPTED:NO HEP-C TEST OFFERED TO PATIENT:YES DATE OFFERED:07/19/2016 REASON:PATIENT DECLINED TEST ACCEPTED:NO REASON:PATIENT DECLINED OTHERS AT HOME: FIANCE & DAUGHTER 2 YEAR OLD. HOUSING: RENTS APARTMENT. EDUCATION LEVEL OF EDUCATION:HIGH SCHOOL /11 DIET: REGULAR. LANGUAGE LANGUAGES SPOKEN:GABONESE DOMESTIC VIOLENCE NONE. NEW PATIENT PAIN DIARY FROM 0-10, WHAT LEVEL IS YOUR PAIN TODAY?4 BMI CARE GOAL FOLLOW-UP ABOVE NORMAL BMI FOLLOW-UPDIETARY MANAGEMENT EDUCATION, GUIDANCE, AND COUNSELING RECREATIONAL DRUG USE DRUG USE?NO PATIENT DENIES ABUSE OR MISSUSED OF ANY MEDICATION. PATIENT DENIES USE OF ANY ILLEGAL SUBSTANCE INCLUDING MARIJUANA OR COCAINE. EXERCISE: NO REGULAR EXERCISE. LEARNING BARRIERS / SPECIAL NEEDS BARRIERS TO LEARNING?NO HEARING IMPAIRED?NO VISION IMPAIRED?YES COGNITIVELY IMPAIRED?NO :CORRECTIVE LENSES READINESS TO LEARN?YES LEARNING PREFERENCES?NO LEARNING CAPABILITIES PRESENT?YES EMOTIONAL BARRIERS?NO SPECIAL DEVICES?YES :CANE MANAGER ENVIRONMENTAL SERVICES NEEDED?NO PAIN CLINIC PFS, CLERGY, PUBLIC HEALTH REFERRALS HAS THE PATIENT BEEN EDUCATED REGARDING HIS/HER PLAN OF CARE?YES HAS THE PATIENT BEEN EDUCATED REGARDING PAIN, THE RISK FOR PAIN, THE IMPORTANCE OF EFFECTIVE PAIN MANAGEMENT, AND THE PAIN ASSESSMENT PROCESS?YES LATEX QUESTIONNAIRE LATEX ALLERGY : HAVE YOU EVER DEVELOPED ANY TYPE OF REACTION AFTER HANDLING LATEX PRODUCTS SUCH RUBBER GLOVES, CONDOMS, DIAPHRAGMS, BALLOONS, SOCKS, OR UNDERWEAR?NO LATEX ALLERGY : HAVE YOU EVER DEVELOPED ANY TYPE OF REACTION DURING OR AFTER DENTAL APPOINTMENT, VAGINAL/RECTAL EXAMINATION, SURGICAL PROCEDURE, OR ANY OTHER EXPOSURE?NO DATE ASKED : 07/02/2018 LATEX RISK : HAVE YOU EVER HAD ANY DIFFICULTY BREATHING OR HIVES AFTER EATING OR HANDLING ANY FRUITS, OR VEGETABLES; SUCH KIWI, BANANAS, STONE FRUITS, OR CHESTNUTSNO LATEX RISK : DO YOU HAVE A PREVIOUS PERSONAL HISTORY OF MORE THAN NINE SURGERIES, SPINA BIFIDA, OR REPEATED CATHERIZATIONS? NO LATEX RISK : ARE YOU FREQUENTLY EXPOSED TO LATEX PRODUCTS IN YOUR OCCUPATION?NO CAFFEINE CAFFEINE USE?YES HOW OFTEN AND HOW MUCH? 2 CUPS OF COFFEE, SODA 3-16OZ ADVANCE DIRECTIVE ADVANCE DIRECTIVE DISCUSSED WITH PATIENT:YES NEEDS TO SIGN NEW HCP, RUTH 11/22/18 EPISCOPAL [id number] NONE MARITAL STATUS: . ALCOHOL SCREENING DID YOU HAVE A DRINK CONTAINING ALCOHOL IN THE PAST YEAR?NO POINTS0 INTERPRETATIONNEGATIVE OCCUPATION: TRYING TO GET DISABILITY IN THE PROCESS. SEXUAL HX HAD SEX IN THE LAST 12 MONTHS (VAGINAL, ORAL, OR ANAL)?YES WITHMEN ONLY USE PROTECTION?YES HOW OFTEN?ALL OF THE TIME REVIEWED WITH PT 12/12/18 [id number] JACQUELYN. HOSPITALIZATION/MAJOR DIAGNOSTIC PROCEDURE INFECTION RIGHT KNEE 2013 REVIEW OF SYSTEMS REVIEWED BY: PROVIDER: EFRAIN VIZCARRA . CONSTITUTIONAL: ANY CHANGE IN YOUR MEDICAL CONDITION? NO . CHILLS NO . FEVER NO . INFECTION: DO YOU HAVE NEW INFECTIONS? NO . DO YOU HAVE HISTORY OF MRSA? NO . MUSCULOSKELETAL: ANY NEW PATTERNS OF PAIN OR NUMBNESS? YES- STATES INCREASED PAIN IN LOWER BACK, BUT STATES SHE HAS NOT HAD MEDS SINCE 12/06/18 . GASTROENTEROLOGY: ANY NEW CHANGE IN BOWEL CONTROL? NO . GENITOURINARY: ANY NEW CHANGE IN BLADDER CONTROL? NO . IS THERE A CHANCE YOU COULD BE ? NO . HEMATOLOGY/LYMPH: DO YOU TAKE ANY BLOOD THINNERS? (FOR EXAMPLE- COUMADIN, PLAVIX, AGGRENOX, PLATEL, PRADAXA, OR XARELTO) NO . WHEN WAS YOUR LAST DOSE? DATE: TIME: . NEUROLOGY: HAVE YOU FALLEN IN THE PAST 12 MONTHS? YES- STATES SHE FELL 11/28/18, AND 4 DAYS AGO, AND 2 DAYS AGO, STATES HER RIGHT LEG WENT NUMB, BUT STATES SHE RECEIVED NO MEDICAL CARE . ANY NEW EXTREMITY NUMBNESS OR WEAKNESS? YES- RIGHT KNEE WEAKNESS AND NUMBNESS . CARDIOLOGY: DO YOU HAVE A PACEMAKER OR DEFIBRILLATOR? NO . RESPIRATORY: HAVE YOU BEEN SICK IN THE PAST WEEK? NO . FEVER NO . FLU LIKE SYMPTOMS? NO . COUGH NO . INTEGUMENTARY: DO YOU HAVE ANY RASHES OR OPEN SORES? NO . ALLERGIC/IMMUNO: ARE YOU ALLERGIC TO IV DYE? NO . ANY NEW ALLERGIES? NO . PSYCHIATRIC: DO YOU HAVE THOUGHTS OF HURTING YOURSELF OR SOMEONE ELSE? NO . ARE YOU ABUSED, NEGLECTED, OR IN AN UNSAFE ENVIRONMENT? NO . ENDOCRINOLOGY: ARE YOU DIABETIC? NO- HYPOGLYCEMIA . OTHER: DO YOU NEED ANY PRESCRIPTIONS? YES . IF YES, PLEASE LIST: ____TIZANIDINE, MOTRIN, HYDROCODONE . ANY NEW PROBLEMS WITH YOUR MEDICATIONS? NO . WHEN DID YOU LAST EAT? ____ . WHEN DID YOU LAST DRINK? ____ . WHAT DID YOU LAST DRINK? ____ . NAME OF PERSON DRIVING YOU HOME? ____ . DO YOU HAVE ANY OTHER QUESTIONS OR CONCERNS YES- JANELLENILDA WAS CO-CARE WORKER AND HE 11/22/18, AND DR. CARDENAS LEFT THE PRACTICE AND SHE WILL BE SEEING NEW DR SO SHE STATES SHE HAS BEEN TAKING NO MEDS AND STATES SHE HAS NOT HAD MEDS FROM PAIN CENTER SINCE 12/06/18 . VITAL SIGNS WT 280.0 LBS, HT 62 IN, BMI 51.21 INDEX, BP 136/79 MM HG, HR 99 /MIN, RR 18 /MIN, TEMP 97.2 F, OXYGEN SAT % 98%, SAFE IN ENV? (Y/N) YES, NA INITIALS AW 0909, REVIEWED BY: JACQUELYN. EXAMINATION GENERAL EXAMINATION: PSYCHALERT , ORIENTED X 3 , APPROPRIATE MOOD AND AFFECT , GOOD EYE CONTACT, PLEASANT TO INTERACT WITH. LUNGS:CLEAR TO AUSCULTATION BILATERALLY. HEART:HEART RATE REGULAR, NO MURMURS , CLICKS OR RUBS TO ASCULTATION. EXTREMITIES:TRACE EDEMA BILATERAL LOWER EXTREMITIES. JOINTS:RIGHT , KNEE , PAIN TO LIGHT TOUCH OVER RIGHT POPLITEAL SPACE AND OVER PATELLA. UNABLE TO FULLY FLEX OR EXTEND KNEE.. ASSESSMENTS KNEE PAIN, RIGHT - M25.561 (PRIMARY) TREATMENT KNEE PAIN, RIGHT REFILL NORCO TABLET, 10-325 MG, 1 TABLET, ORALLY, EVERY 6 HRS PRN PAIN MDD4, 15 DAYS, 60, REFILLS 0 NOTES: ISTOP REGISTRY REVIEWED AND DEMONSTRATES COMPLLIANCE. BRINGS IN MEDICATIONS WHICH IS APPROPRIATE FOR WHAT WAS DISPENSED. RECENT URINE TOXICOLOGY REVIEWED. NO UNAUTHORIZED MEDICATIONS. NO ILLICIT SUBSTANCES AND PRESCRIBED MEDICATIONS WERE PRESENT. URINE TOX TODAY, RISKS OF NARCOTIC/OPIOD MEDICATIONS INCLUDES BUT IS NOT LIMITED TO RISK OF DEPENDANCE/DEVELOPMENT OF ADDICTION, MOOD DISTURBANCE AND DEPRESSION, OSTEOPOROSIS, HORMONAL AND LABIDAL CHANGES, RESPIRATORY DEPRESSION AND . PATIENT IS ADVISED NOT TO DRIVE OR DRINK ALCOHOL WHILE ON THESE MEDICATIONSDISCUSSED GOAL OF REDUCING NARCOTIC PAIN MEDICATION OVER THE COARSE OF THE NEXT FEW MONTHS.INFORMED PATIENT THAT SHE MUST BE SEEN EVERY 6 WEEKS IN ORDER FOR US TO BE ABLE TO PRESCRIBE HYDROCODONE.CONSIDER PALLIATIVE CARE REFERRAL. [facility]:INCREASED RIGHT KNEE PAIN-ABNORMAL MRI RIGHT KNEE 08/08/18 PROCEDURE CODES FA211 ESTABILISHED PATIENT [facility] FACILITY CHARGE DISPOSITION & COMMUNICATION FOLLOW UP 6 WKS Arturo ZUNIGA (REASON: MED MGMNT) ELECTRONICALLY SIGNED BY ZACKERY STOKES ON 12/26/2018 AT 09:15 AM EDT DISCLAIMER : THIS IS A VISIT SUMMARY EXTRACTED FROM THE [employer] CHART. IT IS NOT A COPY OF THE [facility] [employer] PROGRESS NOTE. TRACEY
== END ==
LOC: M PAIN 09:00
PROVIDERS: ATTEND Nurse Practitioner Family
DX: M25.561 Pain in right knee (principal); G89.29 Other chronic pain; Z86.59 Personal history of other mental and behavioral disorders; J45.909 Unspecified asthma, uncomplicated; Z86.14 Personal history of Methicillin resistant Staphylococcus aureus infection; F17.210 Nicotine dependence, cigarettes, uncomplicated; Z88.1 Allergy status to other antibiotic agents; Z88.5 Allergy status to narcotic agent; Z88.6 Allergy status to analgesic agent; Z88.8 Allergy status to other drugs, medicaments and biological substances; Z91.09 Other allergy status, other than to drugs and biological substances; Z91.81 History of falling; E66.01 Morbid (severe) obesity due to excess calories; Z68.43 Body mass index [BMI] 50.0-59.9, adult; Z79.891 Long term (current) use of opiate analgesic; Z79.899 Other long term (current) drug therapy

== ENCOUNTER → 2018-12-18 | Outpatient (CLI) | payer OTHER ==
[2018-12-18 12:43] LABS: BASO # 0.1 10^3/uL (0.0-0.2); BASO % 0.9 % (0.0-1.0); EOS # 0.2 10^3/uL (0.0-0.5); EOS % 2.6 % (0.0-3.0); HEMATOCRIT 41.8 % (36.0-47.0); HEMOGLOBIN 14.2 g/dl (12.0-15.5); LYMPH # 2.3 10^3/uL (1.5-5.0); LYMPH % 26.3 % (24.0-44.0); MEAN CORPUSCULAR HEMOGLOBIN 30.5 pg (27.0-33.0); MEAN CORPUSCULAR VOLUME 89.7 fl (80.0-96.0); MONO # 0.8 10^3/uL (0.0-0.8); MONO % 9.6 % (0.0-5.0); NEUTROPHILS # 5.3 10^3/uL (1.5-8.5); NEUTROPHILS % 60.3 % (36.0-66.0); PLATELET COUNT, AUTOMATED 315 10^3/uL (150-450); RED BLOOD COUNT 4.66 10^6/uL (4.00-5.40); WHITE BLOOD COUNT 8.8 10^3/uL (4.0-10.0)
[2018-12-18 13:08] LABS: ALBUMIN 3.6 GM/DL (3.2-5.2); ALT/SGPT 67 U/L (12-78); BILIRUBIN,TOTAL 0.6 MG/DL (0.2-1.0); BLOOD UREA NITROGEN 11 MG/DL (7-18); CARBON DIOXIDE LEVEL 26 MEQ/L (21-32); CHLORIDE LEVEL 112 MEQ/L (98-107); CHOLESTEROL LEVEL 191 MG/DL (<200); CHOLESTEROL RISK RATIO 5.968 (<5); CREATININE FOR GFR 0.68 MG/DL (0.55-1.30); FREE T4 0.88 NG/DL (0.76-1.46); GLOMERULAR FILTRATION RATE > 60.0 (>60); GLUCOSE, FASTING 88 MG/DL (70-100); HDL CHOLESTEROL 32 MG/DL (>40); LDL CHOLESTEROL 107 MG/DL (<100); NON-HDL-C 159 MG/DL; POTASSIUM SERUM 4.3 MEQ/L (3.5-5.1); SODIUM LEVEL 142 MEQ/L (136-145); TOTAL PROTEIN 7.3 GM/DL (6.4-8.2); TRIGLYCERIDES LEVEL 260 MG/DL (<150)
[2018-12-18 13:20] LABS: HEMOGLOBIN A1c 5.1 %
--- NOTE | 2018-12-18 16:12 | ECGEPIP ---
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
== END ==
LOC: M LAB 11:35
PROVIDERS: ATTEND Psychiatry & Neurology Child & Adolescent Psychiatry
DX: F60.3 Borderline personality disorder (principal)

== ENCOUNTER → 2019-01-23 | Outpatient (CLI) | payer OTHER ==
[~2019-01-23] MED LIST changes: -OXYB5TAB2; +OXYB5TAB3
--- NOTE | 2019-02-12 04:27 | ECWPNPC ---
PATIENT NAME: BOONE PERALTA : 1985 GENDER: FEMALE VISIT DATE: 01/23/2019 DISCHARGE DATE: 01/23/19 1504 VISIT LOCKED DATE TIME: PHYSICIAN: EFRAIN NAGY RESOURCE: EFRAIN NAGY REASON FOR APPOINTMENT 1. MED MGMNT HISTORY OF PRESENT ILLNESS HISTORY OF PRESENT ILLNESS: HERE FOR F/U OFCHRONIC KNEE PAIN.PRESENTS WITH AN EMPTY BOTTLE OF HYDROCODONE.HAS BEEN TAKING 1 TAB 4X PER DAY ,EVERYDAY.TREATMENT PLAN AT LAST VISIT WAS TO REDUCE MEDICATION BUT BOTTLE SAID Q6H AND THATS HOW SHE TOOK IT.TODAY WE AGAIN DISCUSSED NEED TO USE HYDROCODONE 10/325 SPARINGLY FOR SEVERE PAIN.RATING PAIN VAS 5/10. PAIN THE PATIENT DESCRIBES THE PAIN... FALL RISK SCREENING: SCREENING :NO FALLS REPORTED IN THE LAST YEAR CURRENT MEDICATIONS TAKING VALIUM 10 MG TABLET ORALLY TWICE A DAY NEEDED TAKING ALBUTEROL SULFATE HFA 108 (90 BASE) MCG/ACT AEROSOL SOLUTION 2 PUFFS NEEDED INHALATION EVERY 6 HRS TAKING SINGULAIR 10 MG TABLET 1 TABLET IN THE EVENING ORALLY ONCE A DAY TAKING SYMBICORT 160-4.5 MCG/ACT AEROSOL 2 PUFFS INHALATION TWICE A DAY TAKING ALBUTEROL SULFATE (2.5 MG/3ML) 0.083% NEBULIZATION SOLUTION 3 ML INHALATION EVERY 6 HRS NEEDED TAKING NEBULIZER - DEVICE TO USE WITH TUBING DIAG CODE J45.41 EVERY 4 HOURS NEEDED TAKING IBUPROFEN 600 MG TABLET 1 TABLET ORALLY THREE TIMES A DAY NEEDED FOR PAIN. TAKE WITH FOOD TAKING TIZANIDINE HCL 4 MG TABLET 1 TABLET AND 1/2 ORALLY FOR SPASMS AND PAIN Q8H TAKING NORCO 10-325 MG TABLET 1 TABLET ORALLY EVERY 6 HRS PRN PAIN MDD4 TAKING THORAZINE 25MG TABLET 4 ORAL QID NOT-TAKING TAMIFLU 75 MG CAPSULE 1 CAPSULE ORALLY DAILY NOT-TAKING WRIST SPLINT - MISCELLANEOUS DIRECTED RIGHT WRIST M25.531 DAILY NOT-TAKING MYRBETRIQ 25 MG TABLET EXTENDED RELEASE 24 HOUR 1 TABLET ORALLY ONCE A DAY DISCONTINUED PROPRANOLOL HCL 10 MG TABLET 1 TABLET ORALLY THREE TIMES A DAY, NOTES: FOR GEODON SIDE EFFECTS DISCONTINUED ZOLOFT 100 MG TABLET 1 TABLET ORALLY THREE TIMES A DAY DISCONTINUED AMBIEN CR 12.5 MG TABLET EXTENDED RELEASE 1 TABLET AT BEDTIME NEEDED ORALLY ONCE A DAY, NOTES: DR. WARD DISCONTINUED ZYRTEC ALLERGY 10 MG TABLET 1 TABLET ORALLY ONCE A DAY DISCONTINUED HALDOL 5MG TABLET 2 TABLETS ORAL DAILY, NOTES: TAKES 10MG BEFORE BED DISCONTINUED PRAZOSIN HCL 5 MG CAPSULE 2 CAPSULE AT BEDTIME ORALLY ONCE A DAY DISCONTINUED FLUTICASONE PROPIONATE 50 MCG/ACT SUSPENSION 1 SPRAY IN EACH NOSTRIL NASALLY ONCE A DAY DISCONTINUED DRISDOL 50,000 UNITS CAPSULE 1 CAPSULE EVERY OTHER WEEK ORALLY 30 DAY(S) ORALLY DIRECTED DISCONTINUED OXYBUTYNIN CHLORIDE ER 5 MG TABLET EXTENDED RELEASE 24 HOUR 1 TABLET ORALLY BID MEDICATION LIST REVIEWED AND RECONCILED WITH THE PATIENT PAST MEDICAL HISTORY OCD/PTSD/BORDERLINE PERSONALITY/BIPOLAR 2 - DR CHAO - [facility]2016 PULMONARY FUNCTION TEST [facility], POSITIVE METHACHOLINE CHALLENGE STUDY. ASTHMA, ANNETTE 12/17 FEV1 2.86 MORBID OBESITY R KNEE PAIN CONSTIPATION MICH DEPENDENCE, STARTED AT 13, SMOKING 1 PPD LOW BLOOD SUGARS NOTED 07/14/13, WHEN POLYCYSTIC OVERIES MRSA + RIGHT KNEE ALLERGIES AMOXICILLIN: HIVES - ALLERGY ASPIRIN: HIVES, THROAT SWELLING - ALLERGY CODEINE PHOSPHATE (FOR ALLERGIES USE ONLY): HIVES - ALLERGY DARVOCET A500: HIVES - ALLERGY BENADRYL: HIVES, THROAT SWELLING - ALLERGY RISPERDAL: HIVES - ALLERGY TRAMADOL HCL: ITCHING - ALLERGY KETOROLAC TROMETHAMINE: BLISTERS AT SITE OF IV. HIVES - ALLERGY FLEXERIL: MOOD CHANGE - SIDE EFFECTS PREDNISONE: MEAN PERSONALITY - SIDE EFFECTS STERI-STRIPS: RASH - SIDE EFFECTS SURGICAL HISTORY GALLBLADDER 2010 ACL OF RIGHT KNEE 2013 REDONE RIGHT KNEE 2013 ACL, MCL RECONSTRUCTED OF RIGHT KNEE 2014 FAMILY HISTORY FATHER: ALIVE, ESTRANGED, DIAGNOSED WITH HYPERTENSION MOTHER: ALIVE, PANCREATRIC AND OVARIAN CANCER SIGNS DIABETIC MOM DOES NOT DRINK ALCOHOL PATERNAL GRAND FATHER: 102 YRS, MULTIPLE [place] STROKES DM2 MATERNAL GRAND FATHER: , DM2 PANCREATIC CANCER-DRINKER NO -BROTHERS\\N2 SISTERS UNKNOWN HEALTH\\N3 CHILDREN ALL GIRLS- GOOD HEALTH ONE HAS ASTHMA\\NAUNTS ON MOTHER AND FATHER SIDE OF FAMILY HAVE BREAST CANER\\NGRNDMOTHER ON BOTH SIDES HAD BREAST CANCER MOTHER RECENTLY HAD BLOOD CLOTS IN LEGS AND AND NOW HAS GREEN FIELD FILTER, AND HAS 1 HEART STENT. SOCIAL HISTORY GENERAL: TOBACCO USE ARE YOU A:CURRENT SMOKER ARE YOU INTERESTED IN QUITTING?THINKING ABOUT QUITTING HOW MANY CIGARETTES A DAY DO YOU SMOKE?31 OR MORE SMOKING APPROX 2 A DAY HOW SOON AFTER YOU WAKE UP DO YOU SMOKE YOUR FIRST CIGARETTE?AFTER 60 MIN HOW OFTEN DO YOU SMOKE CIGARETTES?EVERY DAY PATIENT COUNSELED ON THE DANGERS OF TOBACCO USE AND URGED TO QUIT:12/12/2018 VAPOR USING NICATROL INHALERS HIV / HEP-C SCREENING HIV TEST OFFERED TO PATIENT:YES DATE OFFERED:07/19/2016 TEST ACCEPTED:NO HEP-C TEST OFFERED TO PATIENT:YES DATE OFFERED:07/19/2016 REASON:PATIENT DECLINED TEST ACCEPTED:NO REASON:PATIENT DECLINED OTHERS AT HOME: FIANCE & DAUGHTER 2 YEAR OLD. HOUSING: RENTS APARTMENT. EDUCATION LEVEL OF EDUCATION:HIGH SCHOOL / DIET: REGULAR. LANGUAGE LANGUAGES SPOKEN:LAO DOMESTIC VIOLENCE NONE. NEW PATIENT PAIN DIARY FROM 0-10, WHAT LEVEL IS YOUR PAIN TODAY?4 BMI CARE GOAL FOLLOW-UP ABOVE NORMAL BMI FOLLOW-UPDIETARY MANAGEMENT EDUCATION, GUIDANCE, AND COUNSELING RECREATIONAL DRUG USE DRUG USE?NO PATIENT DENIES ABUSE OR MISSUSED OF ANY MEDICATION. PATIENT DENIES USE OF ANY ILLEGAL SUBSTANCE INCLUDING MARIJUANA OR COCAINE. EXERCISE: NO REGULAR EXERCISE. LEARNING BARRIERS / SPECIAL NEEDS BARRIERS TO LEARNING?NO HEARING IMPAIRED?NO VISION IMPAIRED?YES COGNITIVELY IMPAIRED?NO :CORRECTIVE LENSES READINESS TO LEARN?YES LEARNING PREFERENCES?NO LEARNING CAPABILITIES PRESENT?YES EMOTIONAL BARRIERS?NO SPECIAL DEVICES?YES :CANE GROUP ACTIVITIES AIDE NEEDED?NO PAIN CLINIC PFS, CLERGY, PUBLIC HEALTH REFERRALS HAS THE PATIENT BEEN EDUCATED REGARDING HIS/HER PLAN OF CARE?YES HAS THE PATIENT BEEN EDUCATED REGARDING PAIN, THE RISK FOR PAIN, THE IMPORTANCE OF EFFECTIVE PAIN MANAGEMENT, AND THE PAIN ASSESSMENT PROCESS?YES LATEX QUESTIONNAIRE LATEX ALLERGY : HAVE YOU EVER DEVELOPED ANY TYPE OF REACTION AFTER HANDLING LATEX PRODUCTS SUCH RUBBER GLOVES, CONDOMS, DIAPHRAGMS, BALLOONS, SOCKS, OR UNDERWEAR?NO LATEX ALLERGY : HAVE YOU EVER DEVELOPED ANY TYPE OF REACTION DURING OR AFTER DENTAL APPOINTMENT, VAGINAL/RECTAL EXAMINATION, SURGICAL PROCEDURE, OR ANY OTHER EXPOSURE?NO DATE ASKED : 07/02/2018 LATEX RISK : HAVE YOU EVER HAD ANY DIFFICULTY BREATHING OR HIVES AFTER EATING OR HANDLING ANY FRUITS, OR VEGETABLES; SUCH KIWI, BANANAS, STONE FRUITS, OR CHESTNUTSNO LATEX RISK : DO YOU HAVE A PREVIOUS PERSONAL HISTORY OF MORE THAN NINE SURGERIES, SPINA BIFIDA, OR REPEATED CATHERIZATIONS? NO LATEX RISK : ARE YOU FREQUENTLY EXPOSED TO LATEX PRODUCTS IN YOUR OCCUPATION?NO CAFFEINE CAFFEINE USE?YES HOW OFTEN AND HOW MUCH? 2 CUPS OF COFFEE, SODA 3-16OZ ADVANCE DIRECTIVE ADVANCE DIRECTIVE DISCUSSED WITH PATIENT:YES NEEDS TO SIGN NEW HCP, RUTH 11/22/18 JAINISM [id number] NONE MARITAL STATUS: . ALCOHOL SCREENING DID YOU HAVE A DRINK CONTAINING ALCOHOL IN THE PAST YEAR?NO POINTS0 INTERPRETATIONNEGATIVE OCCUPATION: TRYING TO GET DISABILITY IN THE PROCESS. SEXUAL HX HAD SEX IN THE LAST 12 MONTHS (VAGINAL, ORAL, OR ANAL)?YES WITHMEN ONLY USE PROTECTION?YES HOW OFTEN?ALL OF THE TIME REVIEWED WITH PT 12/12/18 0095 NLJ. HOSPITALIZATION/MAJOR DIAGNOSTIC PROCEDURE INFECTION RIGHT KNEE 2013 REVIEW OF SYSTEMS REVIEWED BY: PROVIDER: EFRAIN VIZCARRA . CONSTITUTIONAL: ANY CHANGE IN YOUR MEDICAL CONDITION? NO . CHILLS NO . FEVER NO . INFECTION: DO YOU HAVE NEW INFECTIONS? NO . DO YOU HAVE HISTORY OF MRSA? YES . MUSCULOSKELETAL: ANY NEW PATTERNS OF PAIN OR NUMBNESS? NO . GASTROENTEROLOGY: ANY NEW CHANGE IN BOWEL CONTROL? NO . GENITOURINARY: ANY NEW CHANGE IN BLADDER CONTROL? NO . IS THERE A CHANCE YOU COULD BE ? NO . HEMATOLOGY/LYMPH: DO YOU TAKE ANY BLOOD THINNERS? (FOR EXAMPLE- COUMADIN, PLAVIX, AGGRENOX, PLATEL, PRADAXA, OR XARELTO) NO . WHEN WAS YOUR LAST DOSE? DATE: TIME: . NEUROLOGY: HAVE YOU FALLEN IN THE PAST 12 MONTHS? YES, FELL GOING DOWN STAIRS, FROM KNEE WEAKNESS PT DENIES INJURIES . ANY NEW EXTREMITY NUMBNESS OR WEAKNESS? YES, DEVELOPING A TWITCH IN RIGHT KNEE . CARDIOLOGY: DO YOU HAVE A PACEMAKER OR DEFIBRILLATOR? NO . RESPIRATORY: HAVE YOU BEEN SICK IN THE PAST WEEK? NO . FEVER NO . FLU LIKE SYMPTOMS? NO . COUGH NO . INTEGUMENTARY: DO YOU HAVE ANY RASHES OR OPEN SORES? NO . ALLERGIC/IMMUNO: ARE YOU ALLERGIC TO IV DYE? NO . ANY NEW ALLERGIES? NO . PSYCHIATRIC: DO YOU HAVE THOUGHTS OF HURTING YOURSELF OR SOMEONE ELSE? NO . ARE YOU ABUSED, NEGLECTED, OR IN AN UNSAFE ENVIRONMENT? NO . ENDOCRINOLOGY: ARE YOU DIABETIC? YES . OTHER: DO YOU NEED ANY PRESCRIPTIONS? YES, TIZANIDINE, NORCO . IF YES, PLEASE LIST: ____ . ANY NEW PROBLEMS WITH YOUR MEDICATIONS? NO . WHEN DID YOU LAST EAT? ____ . WHEN DID YOU LAST DRINK? ____ . WHAT DID YOU LAST DRINK? ____ . NAME OF PERSON DRIVING YOU HOME? ____ . DO YOU HAVE ANY OTHER QUESTIONS OR CONCERNS NO . VITAL SIGNS WT 278 LBS, HT 62 IN, BMI 50.84 INDEX, BP 158/90 MM HG, HR 86 /MIN, RR 18 /MIN, TEMP 97.5 F, OXYGEN SAT % 99%, NA INITIALS SC 14:20, REVIEWED BY: EM. EXAMINATION GENERAL EXAMINATION: PSYCHALERT , ORIENTED X 3 , APPROPRIATE MOOD AND AFFECT , GOOD EYE CONTACT, PLEASANT TO INTERACT WITH. LUNGS:CLEAR TO AUSCULTATION BILATERALLY. HEART:HEART RATE REGULAR, NO MURMURS , CLICKS OR RUBS TO ASCULTATION. EXTREMITIES:TRACE EDEMA BILATERAL LOWER EXTREMITIES. JOINTS:RIGHT , KNEE , PAIN TO LIGHT TOUCH OVER RIGHT POPLITEAL SPACE AND OVER PATELLA. UNABLE TO FULLY FLEX OR EXTEND KNEE.. ASSESSMENTS KNEE PAIN, RIGHT - M25.561 (PRIMARY) TREATMENT KNEE PAIN, RIGHT REFILL NORCO TABLET, 10-325 MG, 1/2 TO 1 TAB, ORALLY, Q8H PRN MDD3, 30 DAYS, 90, REFILLS 0 NOTES: REDUCE HYDROCODONE 10/325 TO 1/2 TO 1 TAB 3X DAILY MAX DAILY DOSE 3, ISTOP REGISTRY REVIEWED AND DEMONSTRATES COMPLLIANCE. , RISKS OF NARCOTIC/OPIOD MEDICATIONS INCLUDES BUT IS NOT LIMITED TO RISK OF DEPENDANCE/DEVELOPMENT OF ADDICTION, MOOD DISTURBANCE AND DEPRESSION, OSTEOPOROSIS, HORMONAL AND LABIDAL CHANGES, RESPIRATORY DEPRESSION AND . PATIENT IS ADVISED NOT TO DRIVE OR DRINK ALCOHOL WHILE ON THESE MEDICATIONS. PROCEDURE CODES FA211 ESTABILISHED PATIENT [facility] CHARGE DISPOSITION & COMMUNICATION FOLLOW UP 6 WEEKS ELECTRONICALLY SIGNED BY ZACKERY STOKES ON 02/11/2019 AT 09:01 AM EST DISCLAIMER : THIS IS A VISIT SUMMARY EXTRACTED FROM THE [employer] CHART. IT IS NOT A COPY OF THE [facility] [employer] PROGRESS NOTE. TRACEY
== END ==
LOC: M PAIN 13:45
PROVIDERS: ATTEND Nurse Practitioner Family
DX: M25.561 Pain in right knee (principal); G89.29 Other chronic pain; Z86.59 Personal history of other mental and behavioral disorders; E11.9 Type 2 diabetes mellitus without complications; J45.909 Unspecified asthma, uncomplicated; Z86.14 Personal history of Methicillin resistant Staphylococcus aureus infection; F17.210 Nicotine dependence, cigarettes, uncomplicated; Z88.1 Allergy status to other antibiotic agents; Z88.5 Allergy status to narcotic agent; Z88.6 Allergy status to analgesic agent; Z88.8 Allergy status to other drugs, medicaments and biological substances; Z91.09 Other allergy status, other than to drugs and biological substances; E66.01 Morbid (severe) obesity due to excess calories; Z68.43 Body mass index [BMI] 50.0-59.9, adult; Z79.891 Long term (current) use of opiate analgesic; Z79.899 Other long term (current) drug therapy

== ENCOUNTER → 2019-04-18 | Outpatient (CLI) | payer OTHER, MEDICAID ==
[~2019-04-18] MED LIST changes: -ARTH650T11 PO; +ARTH650T4 PO; -LIDO1SOL8 PO; +LIDO2SOL17 PO; -MONT10TA2; +MONT10TA4; +ONDA-83 PO; -ONDA4TAB5 PO; +OXYB-54; -OXYB5TAB3
--- NOTE | 2019-05-06 03:22 | ECWPNPC ---
PATIENT NAME: BOONE PERALTA : 1985 GENDER: FEMALE VISIT DATE: 04/18/2019 DISCHARGE DATE: 04/18/19 1222 VISIT LOCKED DATE TIME: PHYSICIAN: EFRAIN NAGY RESOURCE: EFRAIN NAGY REASON FOR APPOINTMENT 1. BANDAR-BACK,RT KNEE HISTORY OF PRESENT ILLNESS HISTORY OF PRESENT ILLNESS: HERE FOR FOLLOW-UP OF CHRONIC BILATERAL KNEE PAIN. STATES THAT SHE IS ATTEMPTING TO GET AND WANTS TO WEAN OFF OF HYDROCODONE. SHE HAS 7 TABLETS LEFT AT HOME. RATING PAIN LEVEL A 5/10 VAS. PAIN THE PATIENT DESCRIBES THE PAIN... FALL RISK SCREENING: SCREENING :NO FALLS REPORTED IN THE LAST YEAR CURRENT MEDICATIONS TAKING ALBUTEROL SULFATE HFA 108 (90 BASE) MCG/ACT AEROSOL SOLUTION 2 PUFFS NEEDED INHALATION EVERY 6 HRS TAKING SINGULAIR 10 MG TABLET 1 TABLET IN THE EVENING ORALLY ONCE A DAY TAKING SYMBICORT 160-4.5 MCG/ACT AEROSOL 2 PUFFS INHALATION TWICE A DAY TAKING ALBUTEROL SULFATE (2.5 MG/3ML) 0.083% NEBULIZATION SOLUTION 3 ML INHALATION EVERY 6 HRS NEEDED TAKING NEBULIZER - DEVICE TO USE WITH TUBING DIAG CODE J45.41 EVERY 4 HOURS NEEDED TAKING IBUPROFEN 600 MG TABLET 1 TABLET ORALLY THREE TIMES A DAY NEEDED FOR PAIN. TAKE WITH FOOD TAKING NORCO 10-325 MG TABLET 1/2 TO 1 TAB ORALLY Q8H PRN MDD3 TAKING TIZANIDINE HCL 4 MG TABLET 1 TABLET AND 1/2 ORALLY FOR SPASMS AND PAIN Q8H NOT-TAKING VALIUM 10 MG TABLET ORALLY TWICE A DAY NEEDED NOT-TAKING THORAZINE 25MG TABLET 1 ORAL DAILY, NOTES: DUPLICATE NOT-TAKING TAMIFLU 75 MG CAPSULE 1 CAPSULE ORALLY DAILY NOT-TAKING WRIST SPLINT - MISCELLANEOUS DIRECTED RIGHT WRIST M25.531 DAILY NOT-TAKING THORAZINE 25MG TABLET 4 ORAL QID(100MG QID) UNKNOWN MYRBETRIQ 25 MG TABLET EXTENDED RELEASE 24 HOUR 1 TABLET ORALLY ONCE A DAY MEDICATION LIST REVIEWED AND RECONCILED WITH THE PATIENT PAST MEDICAL HISTORY OCD/PTSD/BORDERLINE PERSONALITY/BIPOLAR 2 - DR CHAO - [facility] 08/16/2016 PULMONARY FUNCTION TEST [facility], POSITIVE METHACHOLINE CHALLENGE STUDY. ASTHMA, ANNETTE 12/17 FEV1 2.86 MORBID OBESITY R KNEE PAIN MICH DEPENDENCE, STARTED AT 13, SMOKING 1 PPD LOW BLOOD SUGARS NOTED 07/14/13, WHEN POLYCYSTIC OVERIES MRSA + RIGHT KNEE ALLERGIES AMOXICILLIN: HIVES - ALLERGY ASPIRIN: HIVES, THROAT SWELLING - ALLERGY CODEINE PHOSPHATE (FOR ALLERGIES USE ONLY): HIVES - ALLERGY DARVOCET A500: HIVES - ALLERGY BENADRYL: HIVES, THROAT SWELLING - ALLERGY RISPERDAL: HIVES - ALLERGY TRAMADOL HCL: ITCHING - ALLERGY KETOROLAC TROMETHAMINE: BLISTERS AT SITE OF IV. HIVES - ALLERGY FLEXERIL: MOOD CHANGE - SIDE EFFECTS PREDNISONE: MEAN PERSONALITY - SIDE EFFECTS STERI-STRIPS: RASH - SIDE EFFECTS SURGICAL HISTORY GALLBLADDER 2010 ACL OF RIGHT KNEE 2013 REDONE RIGHT KNEE 2013 ACL, MCL RECONSTRUCTED OF RIGHT KNEE 2014 FAMILY HISTORY FATHER: ALIVE, ESTRANGED, DIAGNOSED WITH HYPERTENSION MOTHER: ALIVE, PANCREATRIC AND OVARIAN CANCER SIGNS DIABETIC MOM DOES NOT DRINK ALCOHOL PATERNAL GRAND FATHER: 102 YRS, MULTIPLE [place] STROKES DM2 MATERNAL GRAND FATHER: , DM2 PANCREATIC CANCER-DRINKER NO -BROTHERS\\N2 SISTERS UNKNOWN HEALTH\\N3 CHILDREN ALL GIRLS- GOOD HEALTH ONE HAS ASTHMA\\NAUNTS ON MOTHER AND FATHER SIDE OF FAMILY HAVE BREAST CANER\\NGRNDMOTHER ON BOTH SIDES HAD BREAST CANCER MOTHER RECENTLY HAD BLOOD CLOTS IN LEGS AND AND NOW HAS GREEN FIELD FILTER, AND HAS 1 HEART STENT. SOCIAL HISTORY GENERAL: TOBACCO USE ARE YOU A:CURRENT SMOKER ARE YOU INTERESTED IN QUITTING?NOT READY TO QUIT HOW MANY CIGARETTES A DAY DO YOU SMOKE?6-10 7 A DAY CURRENTLY HOW SOON AFTER YOU WAKE UP DO YOU SMOKE YOUR FIRST CIGARETTE?AFTER 60 MIN HOW OFTEN DO YOU SMOKE CIGARETTES?EVERY DAY HIV / HEP-C SCREENING HIV TEST OFFERED TO PATIENT:YES DATE OFFERED:07/19/2016 TEST ACCEPTED:NO HEP-C TEST OFFERED TO PATIENT:YES DATE OFFERED:07/19/2016 REASON:PATIENT DECLINED TEST ACCEPTED:NO REASON:PATIENT DECLINED OTHERS AT HOME: FIANCE & DAUGHTER 2 YEAR OLD. HOUSING: RENTS APARTMENT. EDUCATION LEVEL OF EDUCATION:HIGH SCHOOL 10TH/11TH DIET: REGULAR. LANGUAGE LANGUAGES SPOKEN:SWAZI DOMESTIC VIOLENCE NONE. NEW PATIENT PAIN DIARY FROM 0-10, WHAT LEVEL IS YOUR PAIN TODAY?4 BMI CARE GOAL FOLLOW-UP ABOVE NORMAL BMI FOLLOW-UPDIETARY MANAGEMENT EDUCATION, GUIDANCE, AND COUNSELING RECREATIONAL DRUG USE DRUG USE?NO PATIENT DENIES ABUSE OR MISSUSED OF ANY MEDICATION. PATIENT DENIES USE OF ANY ILLEGAL SUBSTANCE INCLUDING MARIJUANA OR COCAINE. EXERCISE: NO REGULAR EXERCISE. LEARNING BARRIERS / SPECIAL NEEDS CHANGE FROM LAST VISIT?NO BARRIERS TO LEARNING?NO HEARING IMPAIRED?NO VISION IMPAIRED?YES COGNITIVELY IMPAIRED?NO :CORRECTIVE LENSES READINESS TO LEARN?YES LEARNING PREFERENCES?NO LEARNING CAPABILITIES PRESENT?YES EMOTIONAL BARRIERS?NO SPECIAL DEVICES?YES :CANE SLOT OPERATIONS DIRECTOR NEEDED?NO PAIN CLINIC PFS, CLERGY, PUBLIC HEALTH REFERRALS HAS THE PATIENT BEEN EDUCATED REGARDING HIS/HER PLAN OF CARE?YES HAS THE PATIENT BEEN EDUCATED REGARDING PAIN, THE RISK FOR PAIN, THE IMPORTANCE OF EFFECTIVE PAIN MANAGEMENT, AND THE PAIN ASSESSMENT PROCESS?YES LATEX QUESTIONNAIRE LATEX ALLERGY : HAVE YOU EVER DEVELOPED ANY TYPE OF REACTION AFTER HANDLING LATEX PRODUCTS SUCH RUBBER GLOVES, CONDOMS, DIAPHRAGMS, BALLOONS, SOCKS, OR UNDERWEAR?NO LATEX ALLERGY : HAVE YOU EVER DEVELOPED ANY TYPE OF REACTION DURING OR AFTER DENTAL APPOINTMENT, VAGINAL/RECTAL EXAMINATION, SURGICAL PROCEDURE, OR ANY OTHER EXPOSURE?NO DATE ASKED : 07/02/2018 LATEX RISK : HAVE YOU EVER HAD ANY DIFFICULTY BREATHING OR HIVES AFTER EATING OR HANDLING ANY FRUITS, OR VEGETABLES; SUCH KIWI, BANANAS, STONE FRUITS, OR CHESTNUTSNO LATEX RISK : DO YOU HAVE A PREVIOUS PERSONAL HISTORY OF MORE THAN NINE SURGERIES, SPINA BIFIDA, OR REPEATED CATHERIZATIONS? NO LATEX RISK : ARE YOU FREQUENTLY EXPOSED TO LATEX PRODUCTS IN YOUR OCCUPATION?NO CAFFEINE CAFFEINE USE?YES 4 PER DAY HOW OFTEN AND HOW MUCH? 2 CUPS OF COFFEE, SODA 3-16OZ ADVANCE DIRECTIVE ADVANCE DIRECTIVE DISCUSSED WITH PATIENT:YES NEEDS TO SIGN NEW HCP, RUTH 11/22/18 BUDDHISM [id number] NONE MARITAL STATUS: . ALCOHOL SCREENING DID YOU HAVE A DRINK CONTAINING ALCOHOL IN THE PAST YEAR?NO POINTS0 INTERPRETATIONNEGATIVE OCCUPATION: TRYING TO GET DISABILITY IN THE PROCESS. SEXUAL HX HAD SEX IN THE LAST 12 MONTHS (VAGINAL, ORAL, OR ANAL)?YES WITHMEN ONLY USE PROTECTION?NO LMP:HAS MIRENA HAVE YOU EVER HAD AN STD?NO HOSPITALIZATION/MAJOR DIAGNOSTIC PROCEDURE INFECTION RIGHT KNEE 2013 REVIEW OF SYSTEMS REVIEWED BY: PROVIDER: EFRAIN VIZCARRA . CONSTITUTIONAL: ANY CHANGE IN YOUR MEDICAL CONDITION? NO . CHILLS NO . FEVER NO . INFECTION: DO YOU HAVE NEW INFECTIONS? NO . DO YOU HAVE HISTORY OF MRSA? NO . MUSCULOSKELETAL: ANY NEW PATTERNS OF PAIN OR NUMBNESS? NO . GASTROENTEROLOGY: ANY NEW CHANGE IN BOWEL CONTROL? NO . GENITOURINARY: ANY NEW CHANGE IN BLADDER CONTROL? NO . IS THERE A CHANCE YOU COULD BE ? NO . HEMATOLOGY/LYMPH: DO YOU TAKE ANY BLOOD THINNERS? (FOR EXAMPLE- COUMADIN, PLAVIX, AGGRENOX, PLATEL, PRADAXA, OR XARELTO) NO . WHEN WAS YOUR LAST DOSE? DATE: TIME: . NEUROLOGY: HAVE YOU FALLEN IN THE PAST 12 MONTHS? NO . ANY NEW EXTREMITY NUMBNESS OR WEAKNESS? NO . CARDIOLOGY: DO YOU HAVE A PACEMAKER OR DEFIBRILLATOR? NO . RESPIRATORY: HAVE YOU BEEN SICK IN THE PAST WEEK? NO . FEVER NO . FLU LIKE SYMPTOMS? NO . COUGH NO . INTEGUMENTARY: DO YOU HAVE ANY RASHES OR OPEN SORES? NO . ALLERGIC/IMMUNO: ARE YOU ALLERGIC TO IV DYE? NO . ANY NEW ALLERGIES? NO . PSYCHIATRIC: DO YOU HAVE THOUGHTS OF HURTING YOURSELF OR SOMEONE ELSE? NO . ARE YOU ABUSED, NEGLECTED, OR IN AN UNSAFE ENVIRONMENT? NO . ENDOCRINOLOGY: ARE YOU DIABETIC? NO . OTHER: DO YOU NEED ANY PRESCRIPTIONS? NO . IF YES, PLEASE LIST: ____ . ANY NEW PROBLEMS WITH YOUR MEDICATIONS? NO . WHEN DID YOU LAST EAT? ____ . WHEN DID YOU LAST DRINK? ____ . WHAT DID YOU LAST DRINK? ____ . NAME OF PERSON DRIVING YOU HOME? ____ . DO YOU HAVE ANY OTHER QUESTIONS OR CONCERNS NO . VITAL SIGNS WT 277.6 LBS, HT 62 IN, BMI 50.77 INDEX, BP 140/90 MM HG, HR 84 /MIN, RR 18 /MIN, TEMP 96.6 F, OXYGEN SAT % 99%, NA INITIALS AW 1149. EXAMINATION GENERAL EXAMINATION: GENERALAWAKE,ALERT ,PLEASANT . PSYCHAFFECT NORMAL . LUNGS:LUNG العراقي ARE CLEAR TO AUSCULTATION BILATERALLY. GOOD MOVEMENT OF AIR . HEART:S1, S2 IN A REGULAR RATE AND RHYTHM. NO SIGNIFICANT MURMURS, RUBS OR GALLOPS NOTED . ASSESSMENTS KNEE PAIN, RIGHT - M25.561 (PRIMARY) TREATMENT KNEE PAIN, RIGHT REFILL NORCO TABLET, 10-325 MG, 1/2 TAB, Q8H PRN MDD3 DIRECTED PER WEANING SCHEDULE, 10 DAY(S), 8, REFILLS 0 CONTINUE IBUPROFEN TABLET, 600 MG, 1 TABLET, ORALLY, THREE TIMES A DAY NEEDED FOR PAIN. TAKE WITH FOOD CONTINUE TIZANIDINE HCL TABLET, 4 MG, 1 TABLET AND 1/2, ORALLY FOR SPASMS AND PAIN, Q8H NOTES: REDUCE HYDROCODONE 1/2 TAB 3X DAILY X5 DAYS ,THEN 1/2 TAB 2X DAY X5 DAYS,THEN 1/2 TAB DAILY X5 DAYS AND STOPCHECK WITH PRIMARY CARE OR GUEST RELATIONS EXECUTIVE TO SEE IF IT'S OKAY TO CONTINUE IBUPROFEN AND TIZANIDINE, ISTOP REGISTRY REVIEWED AND DEMONSTRATES COMPLLIANCE. (REF # ) BRINGS IN MEDICATIONS WHICH IS APPROPRIATE FOR WHAT WAS DISPENSED. RECENT URINE TOXICOLOGY REVIEWED. NO UNAUTHORIZED MEDICATIONS. NO ILLICIT SUBSTANCES AND PRESCRIBED MEDICATIONS WERE PRESENT. ADVISED TO BRING MEDICATION TO EVERY APPOINTMENT.FORGOT MEDICATION TODAY., RISKS OF NARCOTIC/OPIOD MEDICATIONS INCLUDES BUT IS NOT LIMITED TO RISK OF DEPENDANCE/DEVELOPMENT OF ADDICTION, MOOD DISTURBANCE AND DEPRESSION, OSTEOPOROSIS, HORMONAL AND LABIDAL CHANGES, RESPIRATORY DEPRESSION AND . PATIENT IS ADVISED NOT TO DRIVE OR DRINK ALCOHOL WHILE ON THESE MEDICATIONS. PROCEDURE CODES [id number] ESTABILISHED PATIENT [facility] CHARGE DISPOSITION & COMMUNICATION FOLLOW UP 2 MONTHS (REASON: MED MGMNT) ELECTRONICALLY SIGNED BY ZACKERY STOKES ON 05/05/2019 AT 04:41 PM EST DISCLAIMER : THIS IS A VISIT SUMMARY EXTRACTED FROM THE [employer] CHART. IT IS NOT A COPY OF THE [employer] PROGRESS NOTE. TRACEY
== END ==
LOC: M PAIN 11:00
PROVIDERS: ATTEND Nurse Practitioner Family
DX: M25.561 Pain in right knee (principal)

== ENCOUNTER → 2019-06-17 | Outpatient (CLI) | payer MEDICAID, OTHER ==
[~2019-06-17] MED LIST changes: +CYCL-707; -CYCL10TA
--- NOTE | 2019-06-18 04:30 | ECWPNPC ---
PATIENT NAME: BOONE PERALTA : 1985 GENDER: FEMALE VISIT DATE: 06/17/2019 DISCHARGE DATE: 06/17/19 1216 VISIT LOCKED DATE TIME: PHYSICIAN: EFRAIN NAGY RESOURCE: EFRAIN NAGY REASON FOR APPOINTMENT 1. BACK/KNEE HISTORY OF PRESENT ILLNESS HISTORY OF PRESENT ILLNESS: PHONE CALL TO PATIENT WHO IS AGREEABLE TO DO TELEMED ZOOM VISIT TODAY. SUFFERS FROM CHRONIC RIGHT KNEE PAIN AND LOW BACK PAIN. HAS BEEN SUFFERING FOR SEVERAL YEARS. STATES TIZANIDINE AND IBUPROFEN HELP WITH HER LOW BACK PAIN, BUT DO NOTHING FOR HER KNEE. STATES THAT HER RIGHT KNEE POPS FREQUENTLY. FOLLOWS WITH THE ORTHOPEDIC GROUP LOCALLY. REPORTING PAIN LEVEL 8/10 VAS. REPORTING INABILITY TO TOLERATE ACTIVITIES DUE TO SEVERE RIGHT KNEE PAIN. DISCUSSED MEDICATION AND TREATMENT OPTIONS. PAIN THE PATIENT DESCRIBES THE PAIN... FALL RISK SCREENING: SCREENING :NO FALLS REPORTED IN THE LAST YEAR CURRENT MEDICATIONS TAKING THORAZINE 25MG TABLET 4 ORAL QID(100MG QID) TAKING ALBUTEROL SULFATE HFA 108 (90 BASE) MCG/ACT AEROSOL SOLUTION 2 PUFFS NEEDED INHALATION EVERY 6 HRS TAKING SINGULAIR 10 MG TABLET 1 TABLET IN THE EVENING ORALLY ONCE A DAY TAKING SYMBICORT 160-4.5 MCG/ACT AEROSOL 2 PUFFS INHALATION TWICE A DAY TAKING ALBUTEROL SULFATE (2.5 MG/3ML) 0.083% NEBULIZATION SOLUTION 3 ML INHALATION EVERY 6 HRS NEEDED TAKING NEBULIZER - DEVICE TO USE WITH TUBING DIAG CODE J45.41 EVERY 4 HOURS NEEDED TAKING IBUPROFEN 600 MG TABLET 1 TABLET ORALLY THREE TIMES A DAY NEEDED FOR PAIN. TAKE WITH FOOD TAKING TIZANIDINE HCL 4 MG TABLET 1 TABLET AND 1/2 ORALLY FOR SPASMS AND PAIN Q8H TAKING CLONIDINE HCL 0.1 MG TABLET 1 TABLET ORALLY ONCE A DAY NOT-TAKING VALIUM 10 MG TABLET ORALLY TWICE A DAY NEEDED NOT-TAKING THORAZINE 25MG TABLET 1 ORAL DAILY, NOTES: DUPLICATE NOT-TAKING TAMIFLU 75 MG CAPSULE 1 CAPSULE ORALLY DAILY NOT-TAKING WRIST SPLINT - MISCELLANEOUS DIRECTED RIGHT WRIST M25.531 DAILY NOT-TAKING NORCO 10-325 MG TABLET 1/2 TAB Q8H PRN MDD3 DIRECTED PER WEANING SCHEDULE NOT-TAKING MYRBETRIQ 25 MG TABLET EXTENDED RELEASE 24 HOUR 1 TABLET ORALLY ONCE A DAY MEDICATION LIST REVIEWED AND RECONCILED WITH THE PATIENT PAST MEDICAL HISTORY OCD/PTSD/BORDERLINE PERSONALITY/BIPOLAR 2 - DR CHAO - [facility] 08/16/2016 PULMONARY FUNCTION TEST [facility], POSITIVE METHACHOLINE CHALLENGE STUDY. ASTHMA, ANNETTE 12/17 FEV1 2.86 MORBID OBESITY R KNEE PAIN MICH DEPENDENCE, STARTED AT 13, SMOKING 1 PPD LOW BLOOD SUGARS NOTED 07/14/13, WHEN POLYCYSTIC OVERIES MRSA + RIGHT KNEE ALLERGIES AMOXICILLIN: HIVES - ALLERGY ASPIRIN: HIVES, THROAT SWELLING - ALLERGY CODEINE PHOSPHATE (FOR ALLERGIES USE ONLY): HIVES - ALLERGY DARVOCET A500: HIVES - ALLERGY BENADRYL: HIVES, THROAT SWELLING - ALLERGY RISPERDAL: HIVES - ALLERGY TRAMADOL HCL: ITCHING - ALLERGY KETOROLAC TROMETHAMINE: BLISTERS AT SITE OF IV. HIVES - ALLERGY FLEXERIL: MOOD CHANGE - SIDE EFFECTS PREDNISONE: MEAN PERSONALITY - SIDE EFFECTS STERI-STRIPS: RASH - SIDE EFFECTS SURGICAL HISTORY GALLBLADDER 2010 ACL OF RIGHT KNEE 2013 REDONE RIGHT KNEE 2013 ACL, MCL RECONSTRUCTED OF RIGHT KNEE 2014 FAMILY HISTORY FATHER: ALIVE, ESTRANGED, DIAGNOSED WITH HYPERTENSION MOTHER: ALIVE, PANCREATRIC AND OVARIAN CANCER SIGNS DIABETIC MOM DOES NOT DRINK ALCOHOL PATERNAL GRAND FATHER: 102 YRS, MULTIPLE [place] STROKES DM2 MATERNAL GRAND FATHER: , DM2 PANCREATIC CANCER-DRINKER NO -BROTHERS\\\\N2 SISTERS UNKNOWN HEALTH\\\\N3 CHILDREN ALL GIRLS- GOOD HEALTH ONE HAS ASTHMA\\\\NAUNTS ON MOTHER AND FATHER SIDE OF FAMILY HAVE BREAST CANER\\\\NGRNDMOTHER ON BOTH SIDES HAD BREAST CANCER MOTHER RECENTLY HAD BLOOD CLOTS IN LEGS AND AND NOW HAS GREEN FIELD FILTER, AND HAS 1 HEART STENT. SOCIAL HISTORY GENERAL: TOBACCO USE ARE YOU A:CURRENT SMOKER HOW OFTEN DO YOU SMOKE CIGARETTES?EVERY DAY HOW SOON AFTER YOU WAKE UP DO YOU SMOKE YOUR FIRST CIGARETTE?AFTER 60 MIN HOW MANY CIGARETTES A DAY DO YOU SMOKE?6-10 7 A DAY CURRENTLY ARE YOU INTERESTED IN QUITTING?NOT READY TO QUIT HIV / HEP-C SCREENING HIV TEST OFFERED TO PATIENT:YES DATE OFFERED:07/19/2016 TEST ACCEPTED:NO HEP-C TEST OFFERED TO PATIENT:YES DATE OFFERED:07/19/2016 REASON:PATIENT DECLINED TEST ACCEPTED:NO REASON:PATIENT DECLINED OTHERS AT HOME: FIANCE & DAUGHTER 2 YEAR OLD. HOUSING: RENTS APARTMENT. EDUCATION LEVEL OF EDUCATION:HIGH SCHOOL 10TH/11TH DIET: REGULAR. LANGUAGE LANGUAGES SPOKEN:NEPALI DOMESTIC VIOLENCE NONE. NEW PATIENT PAIN DIARY TODAY'S VISIT 06/17/2019 PATIENT DESCRIBES PAIN :ACHING, BURNING, HAVE IT ALL THE TIME, SHARP, STABBING, TENDER, THROBBING, SORE FROM 0-10, WHAT LEVEL IS YOUR PAIN TODAY?8 PRECIPITATING FACTORS GETS WORSE WITH WALKING ALLEVIATING FACTORS NOTHING BMI CARE GOAL FOLLOW-UP ABOVE NORMAL BMI FOLLOW-UPDIETARY MANAGEMENT EDUCATION, GUIDANCE, AND COUNSELING RECREATIONAL DRUG USE DRUG USE?NO PATIENT DENIES ABUSE OR MISSUSED OF ANY MEDICATION. PATIENT DENIES USE OF ANY ILLEGAL SUBSTANCE INCLUDING MARIJUANA OR COCAINE. EXERCISE: NO REGULAR EXERCISE. LEARNING BARRIERS / SPECIAL NEEDS CHANGE FROM LAST VISIT?NO BARRIERS TO LEARNING?NO HEARING IMPAIRED?NO VISION IMPAIRED?YES :CORRECTIVE LENSES COGNITIVELY IMPAIRED?NO READINESS TO LEARN?YES LEARNING PREFERENCES?NO LEARNING CAPABILITIES PRESENT?YES EMOTIONAL BARRIERS?NO SPECIAL DEVICES?YES :CANE C WPF DEVELOPER NEEDED?NO PAIN CLINIC PFS, CLERGY, PUBLIC HEALTH REFERRALS HAS THE PATIENT BEEN EDUCATED REGARDING HIS/HER PLAN OF CARE?YES HAS THE PATIENT BEEN EDUCATED REGARDING PAIN, THE RISK FOR PAIN, THE IMPORTANCE OF EFFECTIVE PAIN MANAGEMENT, AND THE PAIN ASSESSMENT PROCESS?YES LATEX QUESTIONNAIRE LATEX ALLERGY : HAVE YOU EVER DEVELOPED ANY TYPE OF REACTION AFTER HANDLING LATEX PRODUCTS SUCH RUBBER GLOVES, CONDOMS, DIAPHRAGMS, BALLOONS, SOCKS, OR UNDERWEAR?NO LATEX ALLERGY : HAVE YOU EVER DEVELOPED ANY TYPE OF REACTION DURING OR AFTER DENTAL APPOINTMENT, VAGINAL/RECTAL EXAMINATION, SURGICAL PROCEDURE, OR ANY OTHER EXPOSURE?NO DATE ASKED : 07/02/2018 LATEX RISK : HAVE YOU EVER HAD ANY DIFFICULTY BREATHING OR HIVES AFTER EATING OR HANDLING ANY FRUITS, OR VEGETABLES; SUCH KIWI, BANANAS, STONE FRUITS, OR CHESTNUTSNO LATEX RISK : DO YOU HAVE A PREVIOUS PERSONAL HISTORY OF MORE THAN NINE SURGERIES, SPINA BIFIDA, OR REPEATED CATHERIZATIONS? NO LATEX RISK : ARE YOU FREQUENTLY EXPOSED TO LATEX PRODUCTS IN YOUR OCCUPATION?NO CAFFEINE CAFFEINE USE?YES 4 PER DAY HOW OFTEN AND HOW MUCH? 2 CUPS OF COFFEE, SODA 3-16OZ ADVANCE DIRECTIVE ADVANCE DIRECTIVE DISCUSSED WITH PATIENT:YES NEEDS TO SIGN NEW HCP, RUTH 11/22/18 VOODOO [id number] NONE MARITAL STATUS: . ALCOHOL SCREENING DID YOU HAVE A DRINK CONTAINING ALCOHOL IN THE PAST YEAR?NO POINTS0 INTERPRETATIONNEGATIVE OCCUPATION: TRYING TO GET DISABILITY IN THE PROCESS. SEXUAL HX HAD SEX IN THE LAST 12 MONTHS (VAGINAL, ORAL, OR ANAL)?YES WITHMEN ONLY USE PROTECTION?NO LMP:HAS MIRENA HAVE YOU EVER HAD AN STD?NO HOSPITALIZATION/MAJOR DIAGNOSTIC PROCEDURE INFECTION RIGHT KNEE 2013 REVIEW OF SYSTEMS REVIEWED BY: PROVIDER: EFRAIN VIZCARRA . CONSTITUTIONAL: ANY CHANGE IN YOUR MEDICAL CONDITION? NO . CHILLS NO . FEVER NO . INFECTION: DO YOU HAVE NEW INFECTIONS? NO . DO YOU HAVE HISTORY OF MRSA? YES IN RIGHT KNEE, NOT CURRENT . MUSCULOSKELETAL: ANY NEW PATTERNS OF PAIN OR NUMBNESS? YES PT REPORTS RIGHT KNEE IS "LOCKING UP", AND POPS OUT OF PLACE FREQUENTLY (SEVERAL TIMES A DAY) . GASTROENTEROLOGY: ANY NEW CHANGE IN BOWEL CONTROL? NO . GENITOURINARY: ANY NEW CHANGE IN BLADDER CONTROL? NO . IS THERE A CHANCE YOU COULD BE ? NO . HEMATOLOGY/LYMPH: DO YOU TAKE ANY BLOOD THINNERS? (FOR EXAMPLE- COUMADIN, PLAVIX, AGGRENOX, PLATEL, PRADAXA, OR XARELTO) NO . WHEN WAS YOUR LAST DOSE? DATE: TIME: . NEUROLOGY: HAVE YOU FALLEN IN THE PAST 12 MONTHS? NO . ANY NEW EXTREMITY NUMBNESS OR WEAKNESS? NO . CARDIOLOGY: DO YOU HAVE A PACEMAKER OR DEFIBRILLATOR? NO . RESPIRATORY: HAVE YOU BEEN SICK IN THE PAST WEEK? NO . FEVER NO . FLU LIKE SYMPTOMS? NO . COUGH NO . INTEGUMENTARY: DO YOU HAVE ANY RASHES OR OPEN SORES? NO . ALLERGIC/IMMUNO: ARE YOU ALLERGIC TO IV DYE? NO . ANY NEW ALLERGIES? NO . PSYCHIATRIC: DO YOU HAVE THOUGHTS OF HURTING YOURSELF OR SOMEONE ELSE? NO . ARE YOU ABUSED, NEGLECTED, OR IN AN UNSAFE ENVIRONMENT? NO . ENDOCRINOLOGY: ARE YOU DIABETIC? NO . OTHER: DO YOU NEED ANY PRESCRIPTIONS? YES . IF YES, PLEASE LIST: ____TIZANIDINE . ANY NEW PROBLEMS WITH YOUR MEDICATIONS? NO . WHEN DID YOU LAST EAT? ____ . WHEN DID YOU LAST DRINK? ____ . WHAT DID YOU LAST DRINK? ____ . NAME OF PERSON DRIVING YOU HOME? ____ . DO YOU HAVE ANY OTHER QUESTIONS OR CONCERNS NO . EXAMINATION GENERAL EXAMINATION: GENERALNO ACUTE DISTRESS, WELL NOURISHED AND HYDRATED. PSYCHAPPROPRIATE MOOD AND AFFECT . FACE:UNREMARKABLE. ASSESSMENTS KNEE PAIN, RIGHT - M25.561 (PRIMARY) LOW BACK PAIN AT MULTIPLE SITES - M54.5 TREATMENT KNEE PAIN, RIGHT START HYDROCODONE-ACETAMINOPHEN TABLET, 7.5-325 MG, 1 TABLET NEEDED, ORALLY, Q8H PRN FOR SEVERE PAIN EPISODES RIGHT KNEE #45 TAB SHOULD LAST 30 DAYS, 30 DAYS, 45, REFILLS 0 INCREASE TIZANIDINE HCL CAPSULE, 6 MG, 1 TABLET AND 1/2, ORALLY, Q8H, 30 DAYS, 90, REFILLS 2 NOTES: TODAY I HAVE AGREED TO RESTART HYDROCODONE 7.5/325 TO BE USED INFREQUENTLY FOR SEVERE PAIN EPISODES ONLY AND NOT DAILY ON A SCHEDULE. SHE WILL BE ALLOWED #45 TABLETS FOR A 30 DAY SUPPLY. INCREASED TIZANIDINE TO 6 MG STRENGTH 1 EVERY 8 HOURS NEEDED FOR LOW BACK PAIN. CONTINUE IBUPROFEN. REVIEWED NARCOTIC AGREEMENT AND CLINIC POLICY REGARDING REGULAR VISITS AT PAIN CENTER. SHE WAS ADVISED IF SHE WAS NOT ABLE TO COMPLY THAT WE WOULD BE DISCHARGING FROM OUR PRACTICE. FOLLOW-UP AT PAIN CLINIC IN 6-8 WEEKS. URINE TOXICOLOGY AT THAT FOLLOW-UP. SHE IS ADVISED TO BRING HER MEDICATIONS TO ALL VISITS.TOTAL TIME SPENT DURING TELEMED VISIT WAS APPROXIMATELY 11 MINUTES. OTHERS NOTES: UNABLE TO DO VITAL SIGNS, THIS IS A PHONE/VIRTUAL VISIT LAS. DISPOSITION & COMMUNICATION FOLLOW UP 6 WEEKS (REASON: MED MGMNT) ELECTRONICALLY SIGNED BY ZACKERY STOKES ON 06/17/2019 AT 12:10 PM EDT DISCLAIMER : THIS IS A VISIT SUMMARY EXTRACTED FROM THE [employer] CHART. IT IS NOT A COPY OF THE [employer] PROGRESS NOTE. TRACEY
== END ==
LOC: M PAIN 11:30
PROVIDERS: ATTEND Nurse Practitioner Family
DX: M25.561 Pain in right knee (principal); M54.5 Low back pain; F17.210 Nicotine dependence, cigarettes, uncomplicated; Z79.899 Other long term (current) drug therapy; Z88.1 Allergy status to other antibiotic agents; Z88.5 Allergy status to narcotic agent; Z88.6 Allergy status to analgesic agent; Z88.8 Allergy status to other drugs, medicaments and biological substances; Z91.048 Other nonmedicinal substance allergy status

== ENCOUNTER → 2019-07-24 | Outpatient (REF) | payer OTHER, MEDICAID ==
[~2019-07-24] MED LIST changes: +CHLO100T22; +CLON1TAB8
[2019-07-24 18:53] LABS: HCG, SERUM QUALITATIVE NEGATIVE (NEGATIVE)
== END ==
LOC: M SFHCPLAZ 15:29
PROVIDERS: ATTEND Physician Assistant
DX: N91.0 Primary amenorrhea (principal)

== ENCOUNTER 2019-07-29 08:58 | Emergency (ER) | payer MEDICAID, OTHER ==
[~2019-07-29] VITALS: Ht 154.9 cm; Wt 124.2 kg
[~2019-07-29 08:58] MED LIST changes: -CHLO100T22; -CLON1TAB8; -ZOLP12.515; +ZOLP12.518
[2019-07-29] MEDS ORDERED: CHLO100T22 (09:08)
[2019-07-29] MEDS ORDERED: CLON1TAB8 (09:08)
[2019-07-29 09:48] LABS: BASO # 0.1 10^3/uL (0.0-0.2); EOS # 0.3 10^3/uL (0.0-0.5); EOS % 3.2 % (0.0-3.0); HEMOGLOBIN 15.1 g/dl (12.0-15.5); LYMPH % 30.2 % (24.0-44.0); MEAN CORPUSCULAR HEMOGLOBIN 30.9 pg (27.0-33.0); MEAN CORPUSCULAR HGB CONC 33.6 g/dl (32.0-36.5); MONO # 1.2 10^3/uL (0.0-0.8); MONO % 12.2 % (0.0-5.0); NEUTROPHILS # 5.3 10^3/uL (1.5-8.5); NEUTROPHILS % 52.7 % (36.0-66.0); RED BLOOD COUNT 4.89 10^6/uL (4.00-5.40); WHITE BLOOD COUNT 10.1 10^3/uL (4.0-10.0)
[2019-07-29] MEDS ORDERED: ACETAMINOPHEN 325 MG TAB PO ONE (10:15)
[2019-07-29] MEDS ORDERED: MORPHINE 2 MG/ML 1ML VIAL (J2270) IV ONE (10:30)
[2019-07-29 10:38] LABS: INR 1.05; PROTHROMBIN TIME 13.4 SECONDS (11.8-14.0)
[2019-07-29 10:41] LABS: D-DIMER QUANT 367.11 ng/ml (<500)
[2019-07-29 10:58] LABS: BLOOD UREA NITROGEN 12 MG/DL (7-18); CALCIUM LEVEL 8.8 MG/DL (8.5-10.1); CARBON DIOXIDE LEVEL 27 MEQ/L (21-32); CHLORIDE LEVEL 108 MEQ/L (98-107); CK-MB VALUE MASS < 1.0 NG/ML (<3.6); CPK CREATINE PHOSPHOKINASE 73 U/L (26-192); GLOMERULAR FILTRATION RATE > 60.0 (>60); GLUCOSE, FASTING 95 MG/DL (70-100); MB/CK RELATIVE INDEX 1.37 (< OR =4); POTASSIUM SERUM 4.6 MEQ/L (3.5-5.1); SODIUM LEVEL 140 MEQ/L (136-145); TROPONIN I < 0.02 NG/ML (< 0.10)
[2019-07-29 11:31] VITALS: BP 106/72
--- NOTE | 2019-07-29 12:34 | REP ---
LEFT SHOULDER, THREE VIEWS: There is no evidence of an acute fracture, dislocation or intrinsic bone disease. IMPRESSION: No fracture or dislocation. Electronically Signed by Chucho Arshad MD 07/29/2019 01:42 P
--- NOTE | 2019-07-29 12:34 | REP ---
CHEST SINGLE VIEW: There is no evidence of acute infiltrate. No pleural effusion is seen. The heart is normal in size. The mediastinal silhouette is unremarkable. The visualized osseous structures are intact. IMPRESSION: No acute pulmonary disease. Electronically Signed by Chucho Arshad MD 07/29/2019 01:42 P
--- NOTE | 2019-07-29 18:44 | ECGEPIP ---
[facility] - ED Test Date: 2019-07-29 Pat Name: BOONE PERALTA Department: Room: - Gender: Female Maintenance Custodian: dc : 1985 Requested By: Joshua Allen Order Number: [id number] Reading MD: Meño Matamoros Measurements Intervals Gomer Rate: 68 P: 28 TX: 146 QRS: -9 QRSD: 84 T: -5 QT: 372 QTc: 397 Interpretive Statements SINUS RHYTHM POOR R WAVE PROGRESSION LOW QRS VOLTAGE IN PRECORDIAL LEADS NSTTW ABNORMALITIES SIMILAR TO 12/18/18 Electronically Signed on 07-29-2019 18:44:36 EDT by Meño Matamoros
== END 2019-07-29 12:11 | disposition home or self-care (01) ==
LOC: M ED 08:58
DX: R07.9 Chest pain, unspecified (principal); M25.512 Pain in left shoulder; J45.909 Unspecified asthma, uncomplicated; E28.2 Polycystic ovarian syndrome; Z79.899 Other long term (current) drug therapy; Z88.0 Allergy status to penicillin; Z88.5 Allergy status to narcotic agent; Z88.8 Allergy status to other drugs, medicaments and biological substances; Z91.018 Allergy to other foods; F17.210 Nicotine dependence, cigarettes, uncomplicated
CPT/HCPCS: 71045; 73030; 80048; 82550; 82553; 84702; 85025; 85379; 85610; 93005; 93041; 94760; 96374; 99285; J2270

== ENCOUNTER → 2019-09-17 | Outpatient (CLI) | payer OTHER, MEDICAID ==
[~2019-09-17] MED LIST changes: +ARTH650T11 PO; -ARTH650T4 PO; +CHLO100T22; +CHLO200T11; +CLON1TAB8; +ONDA4TAB6 PO; +PRAZ2CAP
--- NOTE | 2019-09-19 00:49 | ECWPNPC ---
PATIENT NAME: BOONE PERALTA : 1985 GENDER: FEMALE VISIT DATE: 09/17/2019 DISCHARGE DATE: 09/17/19 1352 VISIT LOCKED DATE TIME: PHYSICIAN: EFRAIN NAGY RESOURCE: EFRAIN NAGY REASON FOR APPOINTMENT 1. MED MGMNT/UTOX PAT DONE HISTORY OF PRESENT ILLNESS GENERAL: HERE FOR FOLLOW-UP AND MEDICINE MANAGEMENT OF CHRONIC KNEE PAIN AND LOW BACK PAIN. AT HER LAST VISIT, WE STARTED HER ON HYDROCODONE 7.5/325 AND TIZANIDINE 6 MG STRENGTH. SHE IS USING THIS PERIODICALLY FOR SEVERE PAIN EPISODES. FINDS THIS REGIMEN HELPFUL AT REDUCING PAIN AND KEEPING HER FUNCTIONAL. DENIES ADVERSE SIDE EFFECTS WITH THESE MEDICATIONS. -. FALL RISK SCREENING: SCREENING :TWO OR MORE FALLS WITHOUT INJURY IN THE PAST YEAR PAIN SCREENING: PATIENT HAS A COMPLAINT OF ACUTE OR CHRONIC PAIN :YES LOCATION OF PAIN:LOW BACK, OTHER: KNEE INTENSITY OF PAIN (SCALE OF 1 TO 10):4 WHAT DOES YOUR PAIN FEEL LIKE:ACHING, BURNING, CONTINOUS, SHARP, STABBING, TENDER, THROBBING, SORE, SHOOTING NURSING NOTE: -. PAIN CENTER INTAKE QUESTIONS: DO YOU HAVE A HISTORY OF MRSA? :YES PT STATES SHE HAS HAD HX OF MRSA IN RIGHT KNEE AFTER SURGERY, NO OPEN AREAS, NO SIGNS OF INFECTION DO YOU TAKE A BLOOD THINNERS? :NO DO YOU HAVE ANY BLEEDING DISORDERS? :NO ANY NEW NUMBNESS OR WEAKNESS IN YOUR LEGS OR ARMS? :YES PT STATES THAT RIGHT KNEE IS BECOMING MORE WEAK ANY PACEMAKER,DEFIBRILLATOR, OR DORSAL COLUMN STIMULATOR? :NO DO YOU HAVE ANY RASHES OR OPEN SORES? :NO ARE YOU ALLERGIC TO IV DYE? :NO ARE YOU DIABETIC? :NO HYPOGLYGEMIC ANY NEW PROBLEMS WITH YOUR MEDICATIONS? :NO HAVE YOU RECEIVED A VACCINE IN THE PAST 30 DAYS? :NO DO YOU PLAN TO RECEIVE A VACCINE IN THE NEXT 21 DAYS? :NO DO YOU NEED ANY PRESCRIPTION? :NO DO YOU TAKE ANY IMMUNOSUPPRESSIVE MEDICATIONS? :NO IS THERE A CHANCE YOU COULD BE ? :NO ARE YOU BREAST FEEDING? :NO CURRENT MEDICATIONS TAKING THORAZINE 25MG TABLET 4 ORAL QID(100MG QID) TAKING NEBULIZER - DEVICE TO USE WITH TUBING DIAG CODE J45.41 EVERY 4 HOURS NEEDED TAKING IBUPROFEN 600 MG TABLET 1 TABLET ORALLY THREE TIMES A DAY NEEDED FOR PAIN. TAKE WITH FOOD TAKING TIZANIDINE HCL 6 MG CAPSULE 1 CAP ORALLY Q8H TAKING TIZANIDINE HCL 2 MG TABLET 1 TABLET NEEDED ORALLY THREE TIMES A DAY TAKING TIZANIDINE HCL 4 MG TABLET 1 TABLET NEEDED ORALLY THREE TIMES A DAY TAKING KLONOPIN 1 MG TABLET 1 TABLET ORALLY ONCE A DAY TAKING MINIPRESS 1 MG CAPSULE 1 CAPSULE AT BEDTIME ORALLY ONCE A DAY TAKING SYMBICORT 160-4.5 MCG/ACT AEROSOL 2 PUFFS INHALATION TWICE A DAY TAKING ALBUTEROL SULFATE (2.5 MG/3ML) 0.083% NEBULIZATION SOLUTION 3 ML INHALATION EVERY 6 HRS NEEDED TAKING ALBUTEROL SULFATE HFA 108 (90 BASE) MCG/ACT AEROSOL SOLUTION 2 PUFFS NEEDED INHALATION EVERY 6 HRS TAKING SINGULAIR 10 MG TABLET 1 TABLET IN THE EVENING ORALLY ONCE A DAY TAKING NEBULIZER/TUBING/MOUTHPIECE - KIT FOR ASTHMA 4 TIMES A DAY NEEDED TAKING FEXOFENADINE HCL 180 MG TABLET 1 TABLET NEEDED ORALLY ONCE A DAY TAKING HYDROCODONE-ACETAMINOPHEN 7.5-325 MG TABLET 1 TABLET NEEDED ORALLY Q8H PRN FOR SEVERE PAIN EPISODES RIGHT KNEE #45 TAB SHOULD LAST 30 DAYS NOT-TAKING CLONIDINE HCL 0.1 MG TABLET 1 TABLET ORALLY ONCE A DAY NOT-TAKING VALIUM 10 MG TABLET ORALLY TWICE A DAY NEEDED NOT-TAKING THORAZINE 25MG TABLET 1 ORAL DAILY, NOTES: DUPLICATE NOT-TAKING TAMIFLU 75 MG CAPSULE 1 CAPSULE ORALLY DAILY NOT-TAKING WRIST SPLINT - MISCELLANEOUS DIRECTED RIGHT WRIST M25.531 DAILY NOT-TAKING NORCO 10-325 MG TABLET 1/2 TAB Q8H PRN MDD3 DIRECTED PER WEANING SCHEDULE NOT-TAKING MYRBETRIQ 25 MG TABLET EXTENDED RELEASE 24 HOUR 1 TABLET ORALLY ONCE A DAY MEDICATION LIST REVIEWED AND RECONCILED WITH THE PATIENT PAST MEDICAL HISTORY OCD/PTSD/BORDERLINE PERSONALITY/BIPOLAR 2 - DR CHAO - [facility] 08/16/2016 PULMONARY FUNCTION TEST [facility], POSITIVE METHACHOLINE CHALLENGE STUDY. ASTHMA, ANNETTE 12/17 FEV1 2.86 MORBID OBESITY R KNEE PAIN [place]ICH DEPENDENCE, STARTED AT 13, SMOKING 1 PPD LOW BLOOD SUGARS NOTED 07/14/13, WHEN POLYCYSTIC OVERIES MRSA + RIGHT KNEE ALLERGIES AMOXICILLIN: HIVES - ALLERGY ASPIRIN: HIVES, THROAT SWELLING - ALLERGY CODEINE PHOSPHATE (FOR ALLERGIES USE ONLY): HIVES - ALLERGY DARVOCET A500: HIVES - ALLERGY BENADRYL: HIVES, THROAT SWELLING - ALLERGY RISPERDAL: HIVES - ALLERGY TRAMADOL HCL: ITCHING - ALLERGY KETOROLAC TROMETHAMINE: BLISTERS AT SITE OF IV. HIVES - ALLERGY FLEXERIL: MOOD CHANGE - SIDE EFFECTS PREDNISONE: MEAN PERSONALITY - SIDE EFFECTS STERI-STRIPS: RASH - SIDE EFFECTS SURGICAL HISTORY GALLBLADDER 2011 ACL OF RIGHT KNEE 2013 REDONE RIGHT KNEE 2013 ACL, MCL RECONSTRUCTED OF RIGHT KNEE 2014 FAMILY HISTORY FATHER: ALIVE, ESTRANGED, DIAGNOSED WITH HYPERTENSION MOTHER: ALIVE, PANCREATRIC AND OVARIAN CANCER SIGNS DIABETIC MOM DOES NOT DRINK ALCOHOL PATERNAL GRAND FATHER: 102 YRS, MULTIPLE VT STROKES DM2 MATERNAL GRAND FATHER: , DM2 PANCREATIC CANCER-DRINKER 3DAUGHTER(S) - HEALTHY. NO -BROTHERS\\N2 SISTERS UNKNOWN HEALTH\\N3 CHILDREN ALL GIRLS- GOOD HEALTH ONE HAS ASTHMA\\NAUNTS ON MOTHER AND FATHER SIDE OF FAMILY HAVE BREAST CANER\\NGRNDMOTHER ON BOTH SIDES HAD BREAST CANCER MOTHER RECENTLY HAD BLOOD CLOTS IN LEGS AND AND NOW HAS GREEN FIELD FILTER, AND HAS 1 HEART STENT. SOCIAL HISTORY GENERAL: TOBACCO USE ARE YOU A:CURRENT SMOKER ARE YOU INTERESTED IN QUITTING?NOT READY TO QUIT HOW MANY CIGARETTES A DAY DO YOU SMOKE?6-10 7 A DAY CURRENTLY HOW SOON AFTER YOU WAKE UP DO YOU SMOKE YOUR FIRST CIGARETTE?AFTER 60 MIN HOW OFTEN DO YOU SMOKE CIGARETTES?EVERY DAY PATIENT COUNSELED ON THE DANGERS OF TOBACCO USE AND URGED TO QUIT:09/17/2019 LATEX QUESTIONNAIRE LATEX ALLERGY : HAVE YOU EVER DEVELOPED ANY TYPE OF REACTION AFTER HANDLING LATEX PRODUCTS SUCH RUBBER GLOVES, CONDOMS, DIAPHRAGMS, BALLOONS, SOCKS, OR UNDERWEAR?NO LATEX ALLERGY : HAVE YOU EVER DEVELOPED ANY TYPE OF REACTION DURING OR AFTER DENTAL APPOINTMENT, VAGINAL/RECTAL EXAMINATION, SURGICAL PROCEDURE, OR ANY OTHER EXPOSURE?NO LATEX RISK : HAVE YOU EVER HAD ANY DIFFICULTY BREATHING OR HIVES AFTER EATING OR HANDLING ANY FRUITS, OR VEGETABLES; SUCH KIWI, BANANAS, STONE FRUITS, OR CHESTNUTSNO LATEX RISK : DO YOU HAVE A PREVIOUS PERSONAL HISTORY OF MORE THAN NINE SURGERIES, SPINA BIFIDA, OR REPEATED CATHERIZATIONS? NO LATEX RISK : ARE YOU FREQUENTLY EXPOSED TO LATEX PRODUCTS IN YOUR OCCUPATION?NO DATE ASKED : 09/17/2019 BMI CARE GOAL FOLLOW-UP ABOVE NORMAL BMI FOLLOW-UPDIETARY MANAGEMENT EDUCATION, GUIDANCE, AND COUNSELING ALCOHOL SCREENING DID YOU HAVE A DRINK CONTAINING ALCOHOL IN THE PAST YEAR?NO POINTS0 INTERPRETATIONNEGATIVE RECREATIONAL DRUG USE DRUG USE?NO PATIENT DENIES ABUSE OR MISSUSED OF ANY MEDICATION. PATIENT DENIES USE OF ANY ILLEGAL SUBSTANCE INCLUDING MARIJUANA OR COCAINE. CAFFEINE CAFFEINE USE?YES 4 PER DAY HOW OFTEN AND HOW MUCH? 2 CUPS OF COFFEE, SODA 3-16OZ SEXUAL HX HAD SEX IN THE LAST 12 MONTHS (VAGINAL, ORAL, OR ANAL)?YES WITHMEN ONLY USE PROTECTION?NO LMP:HAS MIRENA HAVE YOU EVER HAD AN STD?NO HIV / HEP-C SCREENING HIV TEST OFFERED TO PATIENT:YES DATE OFFERED:07/19/2016 TEST ACCEPTED:NO HEP-C TEST OFFERED TO PATIENT:YES DATE OFFERED:07/19/2016 REASON:PATIENT DECLINED TEST ACCEPTED:NO REASON:PATIENT DECLINED SCIENTOLOGIST [id number] NONE LANGUAGE LANGUAGES SPOKEN:AF[place] EDUCATION LEVEL OF EDUCATION:HIGH SCHOOL 10TH/11TH LEARNING BARRIERS / SPECIAL NEEDS CHANGE FROM LAST VISIT?NO BARRIERS TO LEARNING?NO HEARING IMPAIRED?NO VISION IMPAIRED?YES COGNITIVELY IMPAIRED?NO :CORRECTIVE LENSES READINESS TO LEARN?YES LEARNING PREFERENCES?NO LEARNING CAPABILITIES PRESENT?YES EMOTIONAL BARRIERS?NO SPECIAL DEVICES?YES :CANE STEEL CHECKER NEEDED?NO DOMESTIC VIOLENCE DO YOU FEEL SAFE IN YOUR ENVIRONMENT?YES OCCUPATION: TRYING TO GET DISABILITY IN THE PROCESS. DIET: REGULAR. EXERCISE: NO REGULAR EXERCISE. MARITAL STATUS: . OTHERS AT HOME: FIANCE & DAUGHTER 2 YEAR OLD. PAIN CLINIC PFS, CLERGY, PUBLIC HEALTH REFERRALS HAS THE PATIENT BEEN EDUCATED REGARDING HIS/HER PLAN OF CARE?YES HAS THE PATIENT BEEN EDUCATED REGARDING PAIN, THE RISK FOR PAIN, THE IMPORTANCE OF EFFECTIVE PAIN MANAGEMENT, AND THE PAIN ASSESSMENT PROCESS?YES HOUSING: RENTS APARTMENT. ADVANCE DIRECTIVE ADVANCE DIRECTIVE DISCUSSED WITH PATIENT:YES PT STATES THAT SHE DOES NOT HAVE HCP AT THIS TIME, DECLINES ASSISTANCE WITH PAPERWORK. HOSPITALIZATION/MAJOR DIAGNOSTIC PROCEDURE INFECTION RIGHT KNEE 2013 REVIEW OF SYSTEMS CONSTITUTIONAL: ANY RECENT FEVER NO . CHILLS NO . WEIGHT CHANGE OF UNKNOWN REASONS NO . GASTROENTEROLOGY: NEW UNEXPLAINABLE CHANGES IN BOWEL CONTROL NO . CONSTIPATION NO . GENITOURINARY: ANY NEW CHANGE IN BLADDER CONTROL? NO . NEUROLOGY: NEW ONSET DIZZINESS OR NEUROLOGICAL CHANGES NOT MENTIONED NO . NEW NUMBNESS OR PAIN PATTERNS NOT MENTIONED AND PERTINENT TO TODAY'S VISIT NO . CARDIOLOGY: NEW CHEST PRESSURE NO . NEW CHEST PAIN NO . RESPIRATORY: UNEXPLAINABLE COUGH NO . NEW SHORTNESS OF BREATH NO . VITAL SIGNS WT 271.2 LBS, HT 62 IN, BMI 49.60 INDEX, BP 134/88 MM HG, HR 84 /MIN, RR 18 /MIN, TEMP 98.0 F, OXYGEN SAT % 98, SAFE IN ENV? (Y/N) Y, REVIEWED BY: JACK. EXAMINATION GENERAL EXAMINATION: GENERALAWAKE,ALERT ,PLEASANT . PSYCHAFFECT NORMAL . LUNGS:LUNG العراقي ARE CLEAR TO AUSCULTATION BILATERALLY. GOOD MOVEMENT OF AIR . HEART:S1, S2 IN A REGULAR RATE AND RHYTHM. NO SIGNIFICANT MURMURS, RUBS OR GALLOPS NOTED . ASSESSMENTS KNEE PAIN, RIGHT - M25.561 (PRIMARY) CHRONIC PRESCRIPTION OPIATE USE - Z79.891 TREATMENT KNEE PAIN, RIGHT CONTINUE TIZANIDINE HCL CAPSULE, 6 MG, 1 CAP, ORALLY, Q8H CONTINUE HYDROCODONE-ACETAMINOPHEN TABLET, 7.5-325 MG, 1 TABLET NEEDED, ORALLY, Q8H PRN FOR SEVERE PAIN EPISODES RIGHT KNEE #45 TAB SHOULD LAST 30 DAYS NOTES: ISTOP REGISTRY REVIEWED AND DEMONSTRATES COMPLLIANCE. URINE TOXICOLOGY TODAY, RISKS OF NARCOTIC/OPIOD MEDICATIONS INCLUDES BUT IS NOT LIMITED TO RISK OF DEPENDANCE/DEVELOPMENT OF ADDICTION, MOOD DISTURBANCE AND DEPRESSION, OSTEOPOROSIS, HORMONAL AND LABIDAL CHANGES, RESPIRATORY DEPRESSION AND . PATIENT IS ADVISED NOT TO DRIVE OR DRINK ALCOHOL WHILE ON THESE MEDICATIONS. PROCEDURE CODES FA211 ESTABILISHED PATIENT [facility] CHARGE DISPOSITION & COMMUNICATION FOLLOW UP 2 MONTHS (REASON: MED MANAGEMENT/KNEE PAIN) ELECTRONICALLY SIGNED BY ZACKERY STOKES ON 09/18/2019 AT 08:46 AM EDT DISCLAIMER : THIS IS A VISIT SUMMARY EXTRACTED FROM THE [email or web address] CHART. IT IS NOT A COPY OF THE [employer] PROGRESS NOTE. SARAD
== END ==
LOC: M PAIN 13:00
PROVIDERS: ATTEND Nurse Practitioner Family
DX: M25.561 Pain in right knee (principal); Z79.891 Long term (current) use of opiate analgesic

== ENCOUNTER → 2019-09-23 | Outpatient (CLI) | payer OTHER | LOC: M LABSMTC 13:56 | PROVIDERS: ATTEND Family Medicine | DX: Z11.59 Encounter for screening for other viral diseases (principal); Z20.828 Contact with and (suspected) exposure to other viral communicable diseases | CPT/HCPCS: C9803; U0003 ==

== ENCOUNTER 2019-11-17 20:29 | Emergency (ER) | payer OTHER ==
[~2019-11-17] VITALS: Ht 154.9 cm; Wt 122.6 kg
[~2019-11-17 20:29] MED LIST changes: -CHLO200T11; -ONDA4TAB6 PO; -PRAZ2CAP
[2019-11-17] MEDS ORDERED: PRAZ2CAP (20:42)
[2019-11-17] MEDS ORDERED: CHLO200T11 (20:42)
[2019-11-17] MEDS ORDERED: ZOLP12.518 (20:42)
[2019-11-17] MEDS ORDERED: NS 1,000 ML IV ONE (21:45)
[2019-11-17] MEDS ORDERED: ONDANSETRON 4MG/2ML VIAL IV ONE (21:45)
[2019-11-17] MEDS ORDERED: MORPHINE 4 MG/ML 1ML VIAL/SYRINGE (J2270) IV ONE (21:45)
[2019-11-17 23:04] LABS: ALBUMIN 3.6 GM/DL (3.2-5.2); BILIRUBIN,DIRECT 0.1 MG/DL (0.0-0.2); BILIRUBIN,TOTAL 0.3 MG/DL (0.2-1.0); TOTAL PROTEIN 7.8 GM/DL (6.4-8.2)
--- NOTE | 2019-11-17 23:17 | REPVR ---
PROCEDURE INFORMATION: Exam: US Pelvis Complete, Transabdominal and US Pelvis, Transvaginal Exam date and time: 11/17/2019 10:55 PM Age: 34 years old Clinical indication: Pelvic pain TECHNIQUE: Imaging protocol: Real-time transabdominal and transvaginal pelvic ultrasound (complete) with image documentation. Transvaginal imaging was used for better evaluation of the endometrium and adnexa. COMPARISON: US PELVIC NON-OB COMPLETE 05/03/2015 11:25 PM FINDINGS: Uterus/cervix: The uterus measures 9.6 cm in its cephalocaudad dimension and 4.7 x 5.7 cm in its AP and lateral dimensions transabdominal. The uterus measures 9.1 cm in its cephalocaudad dimension and 4.8 x 6.0 cm in its AP and lateral dimensions transvaginal. The endometrium measures 6 mm transabdominal and 5 mm transvaginal. Right adnexa: The right ovary measures 4.8 x 4.2 x 3.4 cm and demonstrates arterial and venous blood flow. Left adnexa: The left ovary measures 2.4 x 3.4 x 3.2 cm and demonstrates arterial and venous blood flow. Intraperitoneal space: None. Bladder: The bladder is incompletely distended and grossly within normal limits. IMPRESSION: Negative pelvic sonogram. Electronically signed by: Elgin Barbour On 11/17/2019 23:17:05 PM
[2019-11-17 23:26] LABS: BASO # 0.1 10^3/uL (0.0-0.2); BASO % 0.9 % (0.0-1.0); EOS # 0.4 10^3/uL (0.0-0.5); EOS % 2.6 % (0.0-3.0); HEMATOCRIT 43.6 % (36.0-47.0); HEMOGLOBIN 14.8 g/dl (12.0-15.5); LYMPH # 3.9 10^3/uL (1.5-5.0); LYMPH % 28.1 % (24.0-44.0); MEAN CORPUSCULAR HEMOGLOBIN 30.8 pg (27.0-33.0); MEAN CORPUSCULAR HGB CONC 33.9 g/dl (32.0-36.5); MEAN CORPUSCULAR VOLUME 90.6 fl (80.0-96.0); MONO # 1.3 10^3/uL (0.0-0.8); NEUTROPHILS # 8.1 10^3/uL (1.5-8.5); NEUTROPHILS % 58.7 % (36.0-66.0); PLATELET COUNT, AUTOMATED 335 10^3/uL (150-450); RED BLOOD COUNT 4.81 10^6/uL (4.00-5.40); WHITE BLOOD COUNT 13.8 10^3/uL (4.0-10.0)
[2019-11-17 23:42] VITALS: BP 132/98
[2019-11-17] MEDS ORDERED: ISOVUE-370 76% 100ML VIAL As Ordered ONE (23:46)
--- NOTE | 2019-11-18 00:15 | REPVR ---
PROCEDURE INFORMATION: Exam: CT Abdomen And Pelvis With Contrast Exam date and time: 11/17/2019 11:54 PM Age: 34 years old Clinical indication: Abdominal pain; Localized; Lower; Additional info: Lower abd pain, lower back pain, nl US TECHNIQUE: Imaging protocol: Computed tomography of the abdomen and pelvis with intravenous contrast. Radiation optimization: All CT scans at this facility use at least one of these dose optimization techniques: automated exposure control; mA and/or kV adjustment per patient size (includes targeted exams where dose is matched to clinical indication); or iterative reconstruction. Contrast material: ISOVUE 370; Contrast volume: 100 ml; Contrast route: INTRAVENOUS (IV); COMPARISON: SR CT ABD PELVIS W/O CONTRAST 08/09/2015 2:03 PM FINDINGS: Liver: The liver attenuation is 77 Hounsfield units and the spleen is 116 Hounsfield units. Gallbladder and bile ducts: Status post cholecystectomy. Pancreas: Normal. No ductal dilation. Spleen: Normal. No splenomegaly. Adrenals: Normal. No mass. Kidneys and ureters: Normal. No hydronephrosis. Stomach and bowel: Borderline to mild fluid distention of jejunal segments with a point of collapse or transition in the left mid abdomen and normal distal small bowel which may reflect minimal ileus. Low-grade obstruction or enteritis is not excluded. Appendix: A normal retrocecal appendix is seen. Intraperitoneal space: Unremarkable. No free air. No significant fluid collection. Vasculature: Unremarkable. No abdominal aortic aneurysm. Lymph nodes: Unremarkable. No enlarged lymph nodes. Bladder: Unremarkable as visualized. Reproductive: Bilateral ovarian follicles which are within normal limits. Bones/joints: Unremarkable. No acute fracture. Soft tissues: Minimal fat filled umbilical hernia. IMPRESSION: 1. Fatty infiltration of the liver. 2. Status post cholecystectomy. 3. Borderline to mild fluid distention of proximal jejunum with a point of collapse or transition in the left mid abdomen which may reflect minimal ileus. Low-grade obstruction or enteritis are not excluded. Electronically signed by: Elgin Barbour On 11/18/2019 00:14:44 AM
[2019-11-18] MEDS ORDERED: ONDA4TAB6 PO (00:30)
== END 2019-11-18 00:36 | disposition home or self-care (01) ==
LOC: M ED 20:29
DX: K56.7 Ileus, unspecified (principal); K76.0 Fatty (change of) liver, not elsewhere classified; J45.909 Unspecified asthma, uncomplicated; F17.200 Nicotine dependence, unspecified, uncomplicated; N83.209 Unspecified ovarian cyst, unspecified side; Z79.51 Long term (current) use of inhaled steroids; Z79.899 Other long term (current) drug therapy; Z88.1 Allergy status to other antibiotic agents; Z88.6 Allergy status to analgesic agent; Z88.8 Allergy status to other drugs, medicaments and biological substances; Z91.018 Allergy to other foods
CPT/HCPCS: 74177; 76830; 76856; 80047; 80076; 81001; 83690; 84702; 85025; 87086; 93976; 96374; 96375; 99284; J2270; J2405; Q9967

== ENCOUNTER → 2019-11-18 | Outpatient (CLI) | payer OTHER ==
[~2019-11-18] MED LIST changes: +CHLO200T11; +ONDA4TAB6 PO; +PRAZ2CAP
== END ==
LOC: M PAIN 13:24
PROVIDERS: ATTEND Nurse Practitioner Family
DX: Z79.891 Long term (current) use of opiate analgesic (principal)

== ENCOUNTER → 2019-12-10 | Outpatient (REF) | payer OTHER, MEDICAID ==
[2019-12-10 13:58] LABS: HEMATOCRIT 43.2 % (36.0-47.0); HEMOGLOBIN 14.4 g/dl (12.0-15.5); MEAN CORPUSCULAR HEMOGLOBIN 30.3 pg (27.0-33.0); MEAN CORPUSCULAR HGB CONC 33.3 g/dl (32.0-36.5); MEAN CORPUSCULAR VOLUME 90.9 fl (80.0-96.0); PLATELET COUNT, AUTOMATED 340 10^3/uL (150-450); RED BLOOD COUNT 4.75 10^6/uL (4.00-5.40); WHITE BLOOD COUNT 8.7 10^3/uL (4.0-10.0)
[2019-12-10 14:40] LABS: ALBUMIN 3.8 GM/DL (3.2-5.2); ALT/SGPT 51 U/L (12-78); BILIRUBIN,TOTAL 0.4 MG/DL (0.2-1.0); BLOOD UREA NITROGEN 14 MG/DL (7-18); CALCIUM LEVEL 8.8 MG/DL (8.5-10.1); CARBON DIOXIDE LEVEL 25 MEQ/L (21-32); CHLORIDE LEVEL 107 MEQ/L (98-107); CREATININE FOR GFR 0.74 MG/DL (0.55-1.30); GLOMERULAR FILTRATION RATE > 60.0 (>60); GLUCOSE, FASTING 95 MG/DL (70-100); POTASSIUM SERUM 4.3 MEQ/L (3.5-5.1); SODIUM LEVEL 138 MEQ/L (136-145); TOTAL PROTEIN 7.3 GM/DL (6.4-8.2)
[2019-12-10 14:56] LABS: HEMOGLOBIN A1c 4.9 %
[2019-12-10 15:02] LABS: TOTAL 25(OH) VITAMIN D 15.1 NG/ML (30.0-100.0)
== END ==
LOC: M SFHCPLAZ 11:28
PROVIDERS: ATTEND Nurse Practitioner Adult Health
DX: Z68.43 Body mass index [BMI] 50.0-59.9, adult (principal); E55.9 Vitamin D deficiency, unspecified; K29.60 Other gastritis without bleeding

== ENCOUNTER → 2020-01-15 | Outpatient (CLI) | payer OTHER, MEDICAID ==
--- NOTE | 2020-01-16 23:31 | ECWPNPC ---
PATIENT NAME: BOONE PERALTA : 1985 GENDER: FEMALE VISIT DATE: 01/15/2020 DISCHARGE DATE: 01/15/20 1142 VISIT LOCKED DATE TIME: PHYSICIAN: EFRAIN NAGY PHYSICIAN PAGER NO: ACTIVE RESOURCE: EFRAIN NAGY REASON FOR APPOINTMENT 1. R KNEE/BACK HISTORY OF PRESENT ILLNESS GENERAL: HERE FOR MEDICATION MANAGEMENT FOR CHRONIC RIGHT KNEE PAIN. PRESENTS WITH 2 MG STRENGTH TIZANIDINE BUT NOT 4MG STRENGTH.STATES SHE RAN OUT A FEW DAYS AGO. WE HAVE HAD ISSUES WITH NONCOMPLIANCE WITH NARCOTIC AGREEMENT AND SHE IS NO LONGER ABLE TO RECEIVE NARCOTIC PAIN MEDICATIONS AT OUR FACILITY. SHE WAS TOLD AT THE LAST VISIT THAT SHE NEEDS TO BRING IN HER MEDICATIONS IN ORDER FOR THEM TO BE PRESCRIBED. ADMITS TO TAKING LARGE DOSES OF TYLENOL EVERY DAY. I'VE ADVISED HER THAT THIS IS TOXIC TO HER LIVER AND OFFERED OTHER MEDICATIONS I.E. AMITRIPTYLINE AND GABAPENTIN BUT PATIENT STATES SHE HAS SIDE EFFECTS WITH THESE MEDICATIONS. DISCUSSED DIAGNOSTIC BLOCKS TO RIGHT KNEE IN CONSIDERATION FOR RADIOFREQUENCY. PATIENT STATES SHE DOES NOT DO NEEDLES. STATES SHE IS IN BED ALL DAY DUE TO UNCONTROLLED PAIN. -. FALL RISK SCREENING: SCREENING :ONE FALL WITHOUT INJURY IN THE PAST YEAR PAIN SCREENING: PATIENT HAS A COMPLAINT OF ACUTE OR CHRONIC PAIN :YES LOCATION OF PAIN:LOW BACK, KNEES INTENSITY OF PAIN (SCALE OF 1 TO 10):9 WHAT DOES YOUR PAIN FEEL LIKE:ACHING, BURNING, SHARP, STABBING, THROBBING, SHOOTING DURATION:CONTINOUS, CONSTANT PAIN IS INCREASED BY:ACTIVITIES PAIN IS DECREASED BY:USE OF PAIN MEDICATIONS, OTHERS LAYING DOWN TREATMENT/MEDICATIONS USED TO MANAGE PAIN:OTC PAIN RELIEVERS TIZANIDINE, IBUPROFEN LEVEL OF RELIEF FROM PAIN TREATMENTS IN THE PAST:25% PAIN HAS INTERFERED WITH THE FOLLOWING:BATHING/DRESSING, WALKING ABILITY, HOUSEWORK, SLEEP, TRANSPORTATION, TOILETING NURSING NOTE: -. PAIN CENTER INTAKE QUESTIONS: DO YOU HAVE A HISTORY OF MRSA? :YES RIGHT KNEE 2015 DO YOU TAKE A BLOOD THINNERS? :NO DO YOU HAVE ANY BLEEDING DISORDERS? :NO ANY NEW NUMBNESS OR WEAKNESS IN YOUR LEGS OR ARMS? :YES RIGHT ARM AND RIGHT KNEE ANY PACEMAKER,DEFIBRILLATOR, OR DORSAL COLUMN STIMULATOR? :NO DO YOU HAVE ANY RASHES OR OPEN SORES? :NO ARE YOU ALLERGIC TO IV DYE? :NO ARE YOU DIABETIC? :NO ANY NEW PROBLEMS WITH YOUR MEDICATIONS? :NO HAVE YOU RECEIVED A VACCINE IN THE PAST 30 DAYS? :NO DO YOU PLAN TO RECEIVE A VACCINE IN THE NEXT 21 DAYS? :NO DO YOU NEED ANY PRESCRIPTION? :YES TIZANIDINE 4MG AND 2MG AND IBUPROFEN DO YOU TAKE ANY IMMUNOSUPPRESSIVE MEDICATIONS? :NO IS THERE A CHANCE YOU COULD BE ? :NO ARE YOU BREAST FEEDING? :NO CURRENT MEDICATIONS TAKING FLUTICASONE PROPIONATE 50 MCG/ACT SUSPENSION 1 SPRAY IN EACH NOSTRIL NASALLY ONCE A DAY TAKING FEXOFENADINE HCL 180 MG TABLET 1 TABLET NEEDED ORALLY ONCE A DAY TAKING SINGULAIR 10 MG TABLET 1 TABLET IN THE EVENING ORALLY ONCE A DAY TAKING DRISDOL 95438 UNIT CAPSULE 1 CAPSULE ORALLY EVERY OTHER WEEK TAKING XOPENEX 1.25 MG/3ML NEBULIZATION SOLUTION 3 ML INHALATION EVERY 8 HRS TAKING XOPENEX HFA 45 MCG/ACT AEROSOL 1 PUFF NEEDED INHALATION EVERY 4 HRS TAKING GUAIFENESIN 400 MG TABLET 1 TABLET NEEDED ORALLY EVERY 6 HRS TAKING VOLTAREN 1 % GEL DIRECTED TOPICALLY TO RIGHT KNEE TID PRN PAIN TAKING NEBULIZER/TUBING/MOUTHPIECE - KIT DIRECTED ORALLY ICD 10 J45.20 DAILY TAKING THORAZINE 25MG TABLET 4 ORAL QID(100MG QID) TAKING NEBULIZER - DEVICE TO USE WITH TUBING DIAG CODE J45.41 EVERY 4 HOURS NEEDED TAKING IBUPROFEN 600 MG TABLET 1 TABLET ORALLY THREE TIMES A DAY NEEDED FOR PAIN. TAKE WITH FOOD TAKING TIZANIDINE HCL 2 MG TABLET 1 TABLET NEEDED ORALLY THREE TIMES A DAY TAKING TIZANIDINE HCL 4 MG TABLET 1 TABLET NEEDED ORALLY THREE TIMES A DAY TAKING MINIPRESS 1 MG CAPSULE 1 CAPSULE AT BEDTIME ORALLY ONCE A DAY TAKING SYMBICORT 160-4.5 MCG/ACT AEROSOL 2 PUFFS INHALATION TWICE A DAY TAKING ALBUTEROL SULFATE HFA 108 (90 BASE) MCG/ACT AEROSOL SOLUTION 2 PUFFS NEEDED INHALATION EVERY 6 HRS TAKING NEBULIZER/TUBING/MOUTHPIECE - KIT FOR ASTHMA 4 TIMES A DAY NEEDED TAKING AMBIEN CR 6.25 MG TABLET EXTENDED RELEASE 1 TABLET AT BEDTIME NEEDED ORALLY ONCE A DAY NOT-TAKING KLONOPIN 1 MG TABLET 1 TABLET ORALLY ONCE A DAY NOT-TAKING HYDROCODONE-ACETAMINOPHEN 7.5-325 MG TABLET 1 TABLET NEEDED ORALLY Q8H PRN FOR SEVERE PAIN EPISODES RIGHT KNEE #45 TAB SHOULD LAST 30 DAYS NOT-TAKING NORCO 10-325 MG TABLET 1/2 TAB Q8H PRN MDD3 DIRECTED PER WEANING SCHEDULE MEDICATION LIST REVIEWED AND RECONCILED WITH THE PATIENT PAST MEDICAL HISTORY OCD/PTSD/BORDERLINE PERSONALITY/BIPOLAR 2 - DR CHAO - COMM CLINIC 08/16/2016 PULMONARY FUNCTION TEST [facility], POSITIVE METHACHOLINE CHALLENGE STUDY. ASTHMA, ANNETTE 12/17 FEV1 2.86 MORBID OBESITY R KNEE PAIN MICH DEPENDENCE, STARTED AT 12, SMOKING 1 PPD LOW BLOOD SUGARS NOTED 07/14/13, WHEN POLYCYSTIC OVERIES MRSA + RIGHT KNEE ALLERGIES AMOXICILLIN: HIVES - ALLERGY ASPIRIN: HIVES, THROAT SWELLING - ALLERGY CODEINE PHOSPHATE (FOR ALLERGIES USE ONLY): HIVES - ALLERGY DARVOCET A500: HIVES - ALLERGY BENADRYL: HIVES, THROAT SWELLING - ALLERGY RISPERDAL: HIVES - ALLERGY TRAMADOL HCL: ITCHING - ALLERGY KETOROLAC TROMETHAMINE: BLISTERS AT SITE OF IV. HIVES - ALLERGY FLEXERIL: MOOD CHANGE - SIDE EFFECTS PREDNISONE: MEAN PERSONALITY - SIDE EFFECTS STERI-STRIPS: RASH - SIDE EFFECTS SURGICAL HISTORY GALLBLADDER 2010 ACL OF RIGHT KNEE 2013 REDONE RIGHT KNEE 2013 ACL, MCL RECONSTRUCTED OF RIGHT KNEE 2014 FAMILY HISTORY FATHER: ALIVE, ESTRANGED, DIAGNOSED WITH HYPERTENSION MOTHER: ALIVE, PANCREATRIC AND OVARIAN CANCER SIGNS DIABETIC MOM DOES NOT DRINK ALCOHOL PATERNAL GRAND FATHER: 102 YRS, MULTIPLE MA STROKES DM2 MATERNAL GRAND FATHER: , DM2 PANCREATIC CANCER-DRINKER 3DAUGHTER(S) - HEALTHY. NO -BROTHERS\\N2 SISTERS UNKNOWN HEALTH\\N3 CHILDREN ALL GIRLS- GOOD HEALTH ONE HAS ASTHMA\\NAUNTS ON MOTHER AND FATHER SIDE OF FAMILY HAVE BREAST CANER\\NGRNDMOTHER ON BOTH SIDES HAD BREAST CANCER MOTHER RECENTLY HAD BLOOD CLOTS IN LEGS AND AND NOW HAS GREEN FIELD FILTER, AND HAS 1 HEART STENT. SOCIAL HISTORY GENERAL: TOBACCO USE ARE YOU A:CURRENT SMOKER ARE YOU INTERESTED IN QUITTING?NOT READY TO QUIT COUNSELED THE PATIENT ON SMOKING EFFECTS, EDUCATION [id number]/12/2020 HOW MANY CIGARETTES A DAY DO YOU SMOKE?6-10 7 A DAY CURRENTLY HOW SOON AFTER YOU WAKE UP DO YOU SMOKE YOUR FIRST CIGARETTE?AFTER 60 MIN HOW OFTEN DO YOU SMOKE CIGARETTES?EVERY DAY PATIENT COUNSELED ON THE DANGERS OF TOBACCO USE AND URGED TO QUIT:01/15/2020 LATEX QUESTIONNAIRE LATEX ALLERGY : HAVE YOU EVER DEVELOPED ANY TYPE OF REACTION AFTER HANDLING LATEX PRODUCTS SUCH RUBBER GLOVES, CONDOMS, DIAPHRAGMS, BALLOONS, SOCKS, OR UNDERWEAR?NO LATEX ALLERGY : HAVE YOU EVER DEVELOPED ANY TYPE OF REACTION DURING OR AFTER DENTAL APPOINTMENT, VAGINAL/RECTAL EXAMINATION, SURGICAL PROCEDURE, OR ANY OTHER EXPOSURE?NO LATEX RISK : HAVE YOU EVER HAD ANY DIFFICULTY BREATHING OR HIVES AFTER EATING OR HANDLING ANY FRUITS, OR VEGETABLES; SUCH KIWI, BANANAS, STONE FRUITS, OR CHESTNUTSNO LATEX RISK : DO YOU HAVE A PREVIOUS PERSONAL HISTORY OF MORE THAN NINE SURGERIES, SPINA BIFIDA, OR REPEATED CATHERIZATIONS? NO LATEX RISK : ARE YOU FREQUENTLY EXPOSED TO LATEX PRODUCTS IN YOUR OCCUPATION?NO DATE ASKED : 09/17/2019 BMI CARE GOAL FOLLOW-UP ABOVE NORMAL BMI FOLLOW-UPDIETARY MANAGEMENT EDUCATION, GUIDANCE, AND COUNSELING ALCOHOL SCREENING DID YOU HAVE A DRINK CONTAINING ALCOHOL IN THE PAST YEAR?NO POINTS0 INTERPRETATIONNEGATIVE RECREATIONAL DRUG USE DRUG USE?NO PATIENT DENIES ABUSE OR MISSUSED OF ANY MEDICATION. PATIENT DENIES USE OF ANY ILLEGAL SUBSTANCE INCLUDING MARIJUANA OR COCAINE. CAFFEINE CAFFEINE USE?YES 4 PER DAY HOW OFTEN AND HOW MUCH? 2 CUPS OF COFFEE, SODA 3-16OZ SEXUAL HX HAD SEX IN THE LAST 12 MONTHS (VAGINAL, ORAL, OR ANAL)?YES WITHMEN ONLY USE PROTECTION?NO LMP:HAS MIRENA HAVE YOU EVER HAD AN STD?NO HIV / HEP-C SCREENING HIV TEST OFFERED TO PATIENT:YES DATE OFFERED:07/19/2016 TEST ACCEPTED:NO HEP-C TEST OFFERED TO PATIENT:YES DATE OFFERED:07/19/2016 REASON:PATIENT DECLINED TEST ACCEPTED:NO REASON:PATIENT DECLINED SYNAGOGUE [id number] NONE LANGUAGE LANGUAGES SPOKEN:SALV[place]OREAN EDUCATION LEVEL OF EDUCATION:HIGH SCHOOL 10TH/11TH LEARNING BARRIERS / SPECIAL NEEDS CHANGE FROM LAST VISIT?NO BARRIERS TO LEARNING?NO HEARING IMPAIRED?NO VISION IMPAIRED?YES COGNITIVELY IMPAIRED?NO :CORRECTIVE LENSES READINESS TO LEARN?YES LEARNING PREFERENCES?NO LEARNING CAPABILITIES PRESENT?YES EMOTIONAL BARRIERS?NO SPECIAL DEVICES?YES :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 DIET: REGULAR. EXERCISE: NO REGULAR EXERCISE. MARITAL STATUS: . OTHERS AT HOME: DAUGHTER 2 YEAR OLD. PAIN CLINIC PFS, CLERGY, PUBLIC HEALTH REFERRALS HAS THE PATIENT BEEN EDUCATED REGARDING HIS/HER PLAN OF CARE?YES HAS THE PATIENT BEEN EDUCATED REGARDING PAIN, THE RISK FOR PAIN, THE IMPORTANCE OF EFFECTIVE PAIN MANAGEMENT, AND THE PAIN ASSESSMENT PROCESS?YES HOUSING: RENTS APARTMENT. ADVANCE DIRECTIVE ADVANCE DIRECTIVE DISCUSSED WITH PATIENT:YES PT STATES THAT SHE DOES NOT HAVE HCP AT THIS TIME, DECLINES ASSISTANCE WITH PAPERWORK. DISCUSSED WITH PT HOSPITALIZATION/MAJOR DIAGNOSTIC PROCEDURE INFECTION RIGHT KNEE 2014 REVIEW OF SYSTEMS CONSTITUTIONAL: ANY RECENT FEVER NO . CHILLS NO . WEIGHT CHANGE OF UNKNOWN REASONS NO . GASTROENTEROLOGY: NEW UNEXPLAINABLE CHANGES IN BOWEL CONTROL NO . CONSTIPATION NO . GENITOURINARY: ANY NEW CHANGE IN BLADDER CONTROL? NO . NEUROLOGY: NEW ONSET DIZZINESS OR NEUROLOGICAL CHANGES NOT MENTIONED NO . NEW NUMBNESS OR PAIN PATTERNS NOT MENTIONED AND PERTINENT TO TODAY'S VISIT NO . CARDIOLOGY: NEW CHEST PRESSURE NO . NEW CHEST PAIN NO . RESPIRATORY: UNEXPLAINABLE COUGH NO . NEW SHORTNESS OF BREATH NO . VITAL SIGNS WT 271.2 LBS, HT 62 IN, BMI 49.60 INDEX, BP 174/113 MM HG, HR 110 /MIN, RR 18 /MIN, TEMP 97.8 F, OXYGEN SAT % 98.0, SAFE IN ENV? (Y/N) Y, NA INITIALS AW 1056, REVIEWED BY: EM. EXAMINATION GENERAL EXAMINATION: GENERAL AWAKE,ALERT. PSYCHAVOIDS EYE CONTACT.. LUNGS: LUNG العراقي ARE CLEAR TO AUSCULTATION BILATERALLY. GOOD MOVEMENT OF AIR . HEART: S1, S2 IN A REGULAR RATE AND RHYTHM. NO SIGNIFICANT MURMURS, RUBS OR GALLOPS NOTED . ASSESSMENTS KNEE PAIN, RIGHT - M25.561 (PRIMARY) TREATMENT KNEE PAIN, RIGHT REFILL IBUPROFEN TABLET, 800 MG, 1 TABLET, ORALLY, BID, 30 DAYS, 60 TABLET, REFILLS 1 REFILL TIZANIDINE HCL TABLET, 2 MG, 1 TABLET NEEDED, ORALLY, THREE TIMES A DAY, 30 DAYS, 90 TABLET, REFILLS 1 REFILL TIZANIDINE HCL TABLET, 4 MG, 1 TABLET NEEDED, ORALLY, THREE TIMES A DAY, 30 DAYS, 90 TABLET, REFILLS 1 NOTES: CONTINUE USE OF IBUPROFEN 800 TWICE A DAY AND TIZANIDINE 6 MG 3 TIMES A DAY FOR CHRONIC RIGHT KNEE PAIN. FOLLOW-UP APPOINTMENT IN 6 WEEKS FOR MEDICATION MANAGEMENT. ADVISED THAT SHE WOULD NEED TO BRING IN BOTH 4 AND 2 MG STRENGTH TIZANIDINE TO ALL FOLLOW-UPS OR REFILLS WILL NOT BE GIVEN. PROCEDURE CODES FA211 ESTABILISHED PATIENT [facility] CHARGE DISPOSITION & COMMUNICATION FOLLOW UP 6 WEEKS (REASON: MEDICATION MANAGEMENT/RIGHT KNEE PAIN) ELECTRONICALLY SIGNED BY ZACKERY STOKES ON 01/16/2020 AT 01:31 PM EST DISCLAIMER : THIS IS A VISIT SUMMARY EXTRACTED FROM THE [employer] CHART. IT IS NOT A COPY OF THE [employer] PROGRESS NOTE. TRACEY
== END ==
LOC: M PAIN 10:45
PROVIDERS: ATTEND Nurse Practitioner Family
DX: M25.561 Pain in right knee (principal); G89.29 Other chronic pain; J45.909 Unspecified asthma, uncomplicated; F17.210 Nicotine dependence, cigarettes, uncomplicated; Z86.14 Personal history of Methicillin resistant Staphylococcus aureus infection; Z86.59 Personal history of other mental and behavioral disorders; Z88.1 Allergy status to other antibiotic agents; Z88.5 Allergy status to narcotic agent; Z88.6 Allergy status to analgesic agent; Z88.8 Allergy status to other drugs, medicaments and biological substances; Z91.09 Other allergy status, other than to drugs and biological substances; E66.01 Morbid (severe) obesity due to excess calories; Z68.42 Body mass index [BMI] 45.0-49.9, adult; Z79.899 Other long term (current) drug therapy

== ENCOUNTER 2020-07-16 19:14 | Emergency (ER) | payer MEDICAID, OTHER ==
[~2020-07-16] VITALS: Ht 154.9 cm; Wt 132.8 kg
[~2020-07-16 19:14] MED LIST changes: +MONT10TA10; -MONT10TA4
[2020-07-16 19:16] VITALS: BP 129/91
[2020-07-16] MEDS ORDERED: LEVA45AE (19:37)
[2020-07-16] MEDS ORDERED: MIRT-62 (19:37)
[2020-07-16] MEDS ORDERED: LIDOCAINE 5% (LIDODERM) PATCH TD ONE (22:00)
[2020-07-16] MEDS ORDERED: LMX TOP (22:50)
--- NOTE | 2020-07-16 23:11 | REPVR ---
PROCEDURE INFORMATION: Exam: XR Right Knee Exam date and time: 07/16/2020 10:52 PM Age: 35 years old Clinical indication: Other: Valgus laxity/ recent strain; Additional info: Valgus laxity / recent strain TECHNIQUE: Imaging protocol: XR Right knee. Views: 4 or more views. COMPARISON: MRI-Knee WITHOUT CONTRAST RIGHT 08/08/2018 1:38 PM FINDINGS: Bones/joints: No radiographic evidence of joint effusion. Bones are aligned normally with normal mineralization. On oblique view there is questionable mild widening of the medial joint space No fracture, evidence of stress fracture or osteochondral lesion. Joint spaces are well maintained. Patient has undergone prior distal MCL repair with hardware. Well-defined osseous tunnels are present with no evidence of active erosion Soft tissues: No effacement of subcutaneous soft tissue planes. No abnormal soft tissue calcifications or masses. IMPRESSION: 1. No acute fracture. 2. Prior MCL repair, questionable mild valgus stress laxity with widening of the medial joint space slightly on the oblique view. This could be evaluated with MRI or stress radiographs. Electronically signed by: Miguel Prescott On 07/16/2020 23:11:10 PM
[2020-07-17] MEDS ORDERED: **NOTE PATIENT COMMENT** MISC XX SCH (21:00)
== END 2020-07-16 22:56 | disposition home or self-care (01) ==
LOC: M ED 19:14
DX: S83.411A Sprain of medial collateral ligament of right knee, initial encounter (principal); Y92.9 Unspecified place or not applicable; Y93.9 Activity, unspecified; Y99.9 Unspecified external cause status; Z88.1 Allergy status to other antibiotic agents; Z88.2 Allergy status to sulfonamides; Z88.8 Allergy status to other drugs, medicaments and biological substances; Z88.6 Allergy status to analgesic agent; Z91.018 Allergy to other foods

== ENCOUNTER 2020-10-19 14:42 | Emergency (ER) | payer OTHER ==
[~2020-10-19] VITALS: Ht 154.9 cm; Wt 120.5 kg
[~2020-10-19 14:42] MED LIST changes: +LEVA45AE; +LMX TOP; +MIRT-62
[2020-10-19 14:43] VITALS: BP 159/107
[2020-10-19] MEDS ORDERED: NORCO, ANEXSIA 5/325MG TABLET (HYDROcodone/ACETAMINOPHEN) PO ONE (16:20)
[2020-10-19 16:46] LABS: BASO # 0.1 10^3/uL (0.0-0.2); EOS # 0.3 10^3/uL (0.0-0.5); HEMATOCRIT 42.8 % (36.0-47.0); HEMOGLOBIN 14.8 g/dl (12.0-15.5); MEAN CORPUSCULAR HEMOGLOBIN 30.5 pg (27.0-33.0); MEAN CORPUSCULAR HGB CONC 34.6 g/dl (32.0-36.5); MEAN CORPUSCULAR VOLUME 88.1 fl (80.0-96.0); MONO % 11.1 % (2.0-8.0); NEUTROPHILS # 4.7 10^3/uL (1.5-8.5); NEUTROPHILS % 51.5 % (36.0-66.0); PLATELET COUNT, AUTOMATED 351 10^3/uL (150-450); RED BLOOD COUNT 4.86 10^6/uL (4.00-5.40); WHITE BLOOD COUNT 9.2 10^3/uL (4.0-10.0)
--- NOTE | 2020-10-19 17:03 | REP ---
INDICATION: pt tender, no DELFINO, r/o abnl bone growth COMPARISON: None. TECHNIQUE: Left shoulder 07/29/2019. FINDINGS: There is no evidence of acute fracture, dislocation, or intrinsic bone disease. IMPRESSION: Negative left humerus series. <Electronically signed by Chucho Arshad > 10/19/20 [id number]
[2020-10-19 17:05] LABS: ERYTHROCYTE SEDIMENTATION RATE 33 mm/hr (0-20)
[2020-10-19] MEDS ORDERED: ALPRAZolam 0.5 MG TAB PO ONE (17:55)
== END 2020-10-19 18:02 | disposition left against medical advice (07) ==
LOC: M ED 14:42
DX: M79.602 Pain in left arm (principal); F17.200 Nicotine dependence, unspecified, uncomplicated; Z53.20 Procedure and treatment not carried out because of patient's decision for unspecified reasons; Z88.1 Allergy status to other antibiotic agents; Z88.6 Allergy status to analgesic agent; Z88.8 Allergy status to other drugs, medicaments and biological substances; Z91.018 Allergy to other foods

== ENCOUNTER → 2020-10-26 | Outpatient (CLI) | payer OTHER ==
--- NOTE | 2020-10-26 12:49 | REP ---
INDICATION: LT UPPER EXT W/PAIN SWELLING ? DVT. COMPARISON: None. TECHNIQUE: Multiple ultrasonographic images of the deep venous structures of the left upper extremity were obtained to rule out deep venous thrombosis. The contralateral subclavian vein was also interrogated in a limited fashion for comparison. FINDINGS: There is no abnormal echogenic material seen in any of the visualized deep venous structures of the left upper extremity. Coaptation where applicable is appropriate throughout. IMPRESSION: Negative exam. <Electronically signed by Bautista Welsh > 10/26/20 [id number]
== END ==
LOC: M RAD 12:15
PROVIDERS: ATTEND Physician Assistant
DX: M79.89 Other specified soft tissue disorders (principal); R23.8 Other skin changes; M79.622 Pain in left upper arm

== ENCOUNTER 2020-12-23 09:03 | Emergency (ER) | payer OTHER ==
[~2020-12-23] VITALS: Ht 154.9 cm; Wt 138.2 kg
--- OUTSIDE RECORDS SUMMARY | 2020-12-23 09:10 | CCD ---
Author Author Nerissa Crespo Organization Unknown Address [address] [address] Phone Care Team Providers Care Casting Coordinator Name Role Phone Carmita Crespo PCP Allergies, Adverse Reactions, Alerts Concept Allergy Name Reaction Severity Onset Date Status Documentation Date Phone Number Npid Taxonomy Code Taxonomy Desc Author Last Name Author Fi rst Name Concept Type 638247 haloperidol akathisia 11/07/2018 Active 12/04/2018 3157 693033 [id number] Licensed Practical Nurse Sonam Koch RXN ORM [id number] Rexulti (brexpiprazole) unspecified 12/28/2016 Active 1 [id number] Psychiatry [facility] Jose D RXNORM 313113 ziprasidone hcl Akathisia 10/26/2016 Active 12/05/2016 3115863301 [id number] Registered Nurse Bee Soares RXNORM [id number] Benadryl (diphenhydramine hcl) unspecified Active 05/03 RXNORM 772205 amoxicillin unspecified Active 05/14/2014 RXNORM Problem List Concept Problem Description Status Start Date Created Date Resolv ed Date Snomed Code F60.3 Borderline Personality Disorder Active 12/17/2018 019 F43.10 Posttraumatic Stress Disorde r (includes Posttraumatic Stress Disorder for Children 6 Years and Younger) Active 01/18/2015 01/18/2015 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 06/26/2016 017 F17.200 Tobacco Use Disorder, Moderate Active 12/17/2018 12/18/19 19 Medications Rx Norm Medication Route Route Concept Start Date Stop Date Dosage Roly quency Duration Formula Strength Dosage Form Dosage Form Code Dosage Description Medication Id Account Npid Author First Name Author Last Name Taxonomy Code Taxonomy Desc Phone Number [phone] Trileptal by mouth [id number] 11/22/2020 12/22/2020 at bedtime 30 300 mg tablet 54523 805349 [id number] Carmita Zak [id number] Nurse P shannon [phone] [id number] Ambien CR by mouth [id number] 11/22/2020 12/22/2020 at bedtime 30 12.5 mg tablet,ext release multiphase 74022 537529 [id number] Stefano leonardo Zak [id number] Nurse Practitioner [phone] 885563 lamotrigine by mouth [id number] 11/22/2020 12/22/2020 once a day 30 25 mg tablet 80708 707105 [id number] Carmita Crespo [id number] Nurse Juan José ortega [phone] 846312 chlorpromazine by mouth [id number] 11/22/2020 12/22/2020 at bedtime 30 100 mg tablet 93472 111223 [id number] Carmita Crespo [id number] Nurse Practitioner [phone] 458629 benztropine by mouth [id number] 11/22/2020 12/22/2020 at bedtime 30 1 mg tablet 71727 103330 [id number] Carmita Crespo [id number] Nurse P shannon [phone] Social History Social History Element Description Concept Effective Date Smoking Status Unknown if ever smoked [id number] Immunizations No Data in Section Vital Signs No Data in Section Procedures Date Concept Id Description Targeted Site Concept Targeted Site Concept Type 12/13/2020 24392-86 [facility] Telemed E/M Lvl 3--Est pt CPT Patient has no history of implantable de vices Encounters Encounter Start Date End Date Encounter Type Description Diagnosis Di agnosis Desc Location Author First Name Author Last Name Npid Taxonomy Cod e Taxonomy Desc Phone Number Location Addr1 Location Addr2 Location City Location [facility] Location Zip [id number] 12/13/2020 12/13/2020 94546-05 [facility] Telemed E/M Lvl 3--Est p t F60.3 Borderline personality disorder [facility] Zak Carmita [phone] [id number] Nurse Practitioner [phone] [address] [address] Plan of Treatment No Data in Section Lab Results No Data in Section Instructions No Data in Section Functional Cognitive Status No Data in Section Insurance Providers Insurance Id Policy Effective Date Policy Thru Date Company N viktoria [id number] 2015 [employer]-- Jose HERNANDEZ
--- OUTSIDE RECORDS SUMMARY | 2020-12-23 09:10 | CCD ---
Author Author Nerissa Brunner Organization Unknown Address [address] [address] Phone Care Team Providers Care Private Chef Name Role Phone Sylvia Brunner PCP Allergies, Adverse Reactions, Alerts Concept Allergy Name Reaction Severity Onset Date Status Documentation Date Phone Number Npid Taxonomy Code Taxonomy Desc Author Last Name Author Fi rst Name Concept Type 461988 haloperidol akathisia 11/07/2018 Active 12/04/2018 3157 941031 [id number] Licensed Practical Nurse Sonam Koch RXN ORM [id number] Rexulti (brexpiprazole) unspecified 12/28/2016 Active 1 [id number] [id number] Psychiatry [facility] RXNORM 703307 ziprasidone hcl Akathisia 10/26/2016 Active 12/05/2016 1529678637 [id number] Registered Nurse Bee Soares RXNORM 0624188 Benadryl (diphenhydramine hcl) unspecified Active 05/03 RXNORM 441390 amoxicillin unspecified Active 05/14/2014 RXNORM Problem List [...] Name Taxonomy Code Taxonomy Desc Phone Number [phone] Trileptal by mouth [id number] 11/22/2020 12/22/2020 at bedtime 30 300 mg tablet 39147 584146 [phone] Carmita Crespo [id number] Nurse Juan José ortega [phone] [id number] Ambien CR by mouth [id number] 11/22/2020 12/22/2020 at bedtime 30 12.5 mg tablet,ext release multiphase 39759 380046 [id number] Stefano leonardo Zak [id number] Nurse Practitioner [phone] 712272 lamotrigine by mouth [id number] 11/22/2020 12/22/2020 once a day 30 25 mg tablet 78123 007763 [phone] Carmita Zak [id number] Nurse P shannon [phone] 835553 chlorpromazine by mouth [id number] 11/22/2020 12/22/2020 at bedtime 30 100 mg tablet 38708 479026 [id number] Carmita Crespo [id number] Nurse Practitioner [phone] 038687 benztropine by mouth [id number] 11/22/2020 12/22/2020 at bedtime 30 1 mg tablet 23668 963994 [phone] Carmita Crespo [id number] Nurse P shannon [phone] Social History Social History Element Description Concept Effective Date Smoking Status Unknown if ever smoked [id number] Immunizations No Data in Section Vital Signs No Data in Section Procedures Date Concept Id Description Targeted Site Concept Targeted Site Concept Type 12/10/2020 80266-02 [id number]"Psychotherapy CPT Patient has no history of implantable de vices Encounters Encounter Start Date End Date Encounter Type Description Diagnosis Di agnosis Desc Location Author First Name Author Last Name Npid Taxonomy Cod e Taxonomy Desc Phone Number Location Addr1 Location Addr2 Location City Location [facility] Location [facility] [id number] 12/10/2020 12/10/2020 33959-70 [id number]"Psychothera py F60.3 Borderline personality disorder [facility] [phone] [id number] [facility] [phone] [address] [address] Plan of Treatment No Data in Section Lab Results No Data in Section Instructions No Data in Section Insurance Providers Insurance Id Policy Effective Date Policy Thru Date Company Magalis blum [id number] 2015 [employer]-- Jose HERNANDEZ
--- OUTSIDE RECORDS SUMMARY | 2020-12-23 09:11 | CCD ---
Author Author [facility] Organization [facility] Address Unknown Phone Unavailable Care Team Providers Care Core Rescuer Name Role Phone Karon Cabrera Unavailable PROBLEMS Type Condition ICD9-CM Code VVT14-FY Code Onset Dates Condition S tatus W/U Status Risk SNOMED Code Notes Problem Shortness of breath R06.02 Active confirmed 415275041 Problem Stress incontinence N39.3 Active confirmed 31322854 Problem Cough R05 Active confirmed 76524364 Problem Cardiomegaly I51.7 Active confirmed 1443645 Problem Cigarette nicotine dependence without complication F17.210 Active confirmed 04678975 Problem Knee pain, right M25.561 Active confirmed 30 632591 Problem Elevated blood pressure I10 Active confirmed 69449684 Problem Breast pain, right N64.4 Active confirmed 1 0983063382637170 Problem Vitamin D deficiency E55.9 Active confirmed 49777787 Problem Personal history of noncompl iance with medical treatment, presenting hazards to health Z91.19 Active confirmed 0296400 Problem Chronic prescription opiate use Z79.891 Active confirmed 112616420 Problem Hypoglycemia E16.2 Active confirmed 6727359 03 Problem Reflux gastritis K29.60 Active confirmed 729 75248 Problem Low back pain M54.5 Active confirmed 557415 007 Problem Adult BMI 50.0-59.9 kg/sq m Z68.43 Active confirmed 851098640 Problem Seasonal allergic rhinitis, unspecified allergic rhinitis trigger J30.2 Active confirmed 302910133 Problem Moderate persistent asthma with acute exacerbation J45.41 Active confirmed 753350455116080 Stable on current me dications Problem Acute allergic rhinitis, unspecified seasonality , unspecified trigger J30.9 Active confirmed 77010751 Problem Mild intermittent asthma without complication J45. 20 Active confirmed 795008242 Problem Family history of breast cancer Z80.3 Active confi rmed 764503167 Problem Right arm numbness R20.2 Active confirmed 2 48740414 Problem Morbid obesity E66.01 Active confirmed 80087 6002 Problem Anxiety F41.9 Active confirmed 48157483 Problem Tobacco use Z72.0 Active confirmed 06934303 0 Problem Myalgia M79.1 Active confirmed 28271421 Problem Impaired fasting glucose R73.01 Active confirmed 344728156 Problem Urinary incontinence, unspecified type R32 A ctive confirmed 818937868 Problem Delayed menses N91.0 Active confirmed 42999 8009 Since she tells me that the urine tests are always negative urine when she has been , we have sent her for a blood draw for hCG Problem Environmental and seasonal allergies J30.89 Act claudio confirmed 373844175 We will try Carolyn Problem Other chronic pain G89.29 Active confirmed 8 6103077 ALLERGIES Allergen (clinical drug ingredient) Drug/Non Drug Allergy do cumented on EMR Reaction Allergy Type Onset Date Status Benadryl Hives, throat swelling Drug Allergy Active aspirin Aspirin(ND Code:[address]-29) Hives, throat swelling Kyaw g Allergy Active risperidone Risperdal(ND Code:[address]-53) Hives Drug Allergy Active tramadol Tramadol HCl(ND Code:[address]-76) itching Drug Aller gy Active Darvocet A500 Hives Drug Allergy Active flexeril mood change Non Drug Allergy Active amoxicillin Amoxicillin(NDC Code:[address]-44) Hives Drug Aller gy Active steri-strips Rash Non Drug Allergy Active PredniSONE mean personality Drug Allergy Active ketorolac Ketorolac Tromethamine(ND Code:49727-99 14-) blisters at site of IV. Hives Drug Allergy Active Codeine Phosphate (For Allergies Use Only) Hives Drug Allergy Active ENCOUNTERS from 1984 to 2020-10-20 Encounter Location Date Provider Diagnosis [id number] [facility] [phone] [place] [address] Oct, Karon Servage IMMUNIZATIONS Vaccine Route Administration Date Status Influenza 6mo & up Fluzone Unknown Dec 10, 2019 Other s SOCIAL HISTORY Tobacco Use: Social History Observation Description Date Details (start date - stop date) Current Smoker Sex Assigned At : Social History Observation Description Sex Assigned At Unknown Education: Question Answer Notes Level of Education: High School 12/13 Audit Question Answer Notes Total Score: 1 Interpretation: Alcohol Education Language: Question Answer Notes Languages spoken: Sinhala Worship: Question Answer Notes Worship 33 None Sexual Hx: Question Answer Notes Had sex in the last 12 months (vaginal, oral, or anal)? Yes LMP: Has Mirena Have you ever had an STD? No with Men only Use protection? No Drug and Alcohol Question Answer Notes Total Score: 0 Interpretation: No problems reported Alcohol Screening: Question Answer Notes Did you have a drink containing alcohol in the past year? No Points 0 Interpretation Negative BMI Care Goal Follow-Up Question Answer Notes Above Normal BMI Follow-Up Dietary management educatio n, guidance, and counseling Tobacco Use: Question Answer Notes Are you a: current smoker Patient counseled on the dangers of tobacco use and urged to quit: 01/15/2020 How many cigarettes a day do you smoke? 6-10 7 A DAY CURRENTLY Are you interested in quitting? Not ready to quit Counseled the patient on smoking effects, education provided 01/15/2020 REASON FOR REFERRAL No Information VITAL SIGNS No information MEDICATIONS Medication SIG (Take, Route, Frequency, Duration) Notes Start Da te End Date Status guaiFENesin 400 MG 1 tablet as needed Orally every 6 hrs for 30 Active Nebulizer/Tubing/Mouthpiece - as directed orally icd 1 0 J45.20 Daily for 90 days Dec, Active Drisdol 47985 UNIT 1 capsule Orally every other week for 30 Active Ibuprofen 800 MG 1 tablet Orally bid for 30 Days Sep, 016 Active Thorazine 25mg 4 oral qid(100mg QID) Active Nebulizer/Tubing/Mouthpiece - for asthma 4 times a day as needed for 180 days July, Active Nebulizer - to use with Tubing diag code J45.41 every 4 hours as needed for 99 months Oct, Active Albuterol Sulfate HFA 108 (90 Base) MCG/ACT 2 puffs as needed Inhalation every 6 hrs for 30 Days Active Singulair 10 MG 1 tablet in the evening Orally Once a day for 30 Active Fluticasone Propionate 50 MCG/ACT 1 spray in each nost ril Nasally Once a day for 30 Active tiZANidine HCl 2 MG 1 tablet as needed Orally Three times a day for 30 Days Jun, Active HYDROcodone-Acetaminophen 7.5-325 MG 1 tablet as neede d Orally Q8H PRN FOR SEVERE PAIN EPISODES RIGHT KNEE #45 TAB SHOULD LAST 30 DAYS 2019 Not-Taking Xopenex 1.25 MG/3ML 3 ml Inhalation every 8 hrs for 25 Active Voltaren 1 % as directed topically to right knee tid prn pain for 30 days Dec, Active Minipress 1 MG 1 capsule at bedtime Orally Once a day for 30 day(s) Active KlonoPIN 1 MG 1 tablet Orally Once a day Not-Taking Arvin 10-325 MG 1/2 tab q8h prn mdd3 as dire cted per weaning schedule for 10 day(s) Apr, Not-Taking Fexofenadine HCl 180 MG 1 tablet as needed Orally Once a day for 30 Active Xopenex HFA 45 MCG/ACT 1 puff as needed Inhalation every 4 hrs for 30 Active Symbicort 160-4.5 MCG/ACT 2 puffs Inhalation Twice a day for 30 Days Active Ambien CR 6.25 MG 1 tablet at bedtime as needed Orally Once a day Active tiZANidine HCl 4 MG 1 tablet as needed Orally Three times a day for 30 Days Jun, Active PROCEDURES No Information RESULTS No Results REASON FOR VISIT left ED MEDICAL (GENERAL) HISTORY Type Description Date Medical History OCD/PTSD/borderline personal ity/BiPolar 2 - Dr Archer - Count Includes [facility] Medical History 08/16/2016 pulmonary functio n test [facility], positive methacholine challenge study. Medical History asthma, ANNETTE 12/17 FEV1 2.86 Medical History morbid obesity Medical History R knee pain Medical History fritz dependence, started at 12, smoking 1 ppd Medical History Low blood sugars noted 07/14/13, when pre gnant Medical History Polycystic overies Medical History MRSA + right knee Surgical History Gallbladder 2010 Surgical History ACL of Right Knee 2013 Surgical History Redone Right Knee 2013 Surgical History ACL, MCL reconstructed of Right Knee 201 5 Hospitalization History Infection Right Knee 2013 Goals Section No Information Health Concerns No Information MEDICAL EQUIPMENT No Information MENTAL STATUS No Information FUNCTIONAL STATUS No Information ASSESSMENTS No Information PLAN OF TREATMENT No Information Insurance Providers Payer Name Payer Address Payer Phone Insured Name Patient Relati onship to Insured Coverage Start Date Coverage End Date MEDICAID [employer] [address] [employer] [id number] [phone] [employer] [facility] [employer] CLAIMS DEPT [address] [facility] [phone] [employer]
--- OUTSIDE RECORDS SUMMARY | 2020-12-23 09:11 | CCD ---
Author Author [facility] Organization [facility] Address Unknown Phone Unavailable Care Team Providers Care Gizzard Skin Remover Name Role Phone Sylvia Brunner Unavailable Unavailable ZAK, H DANIELLE TOP FORMER Unavailable Unavailable ZAK, H DANIELLE TOP FORMER Unavailable Unavailable ZAK, H DANIELLE TOP FORMER Unavailable Unavailable ZAK, H DANIELLE TOP FORMER Unavailable Unavailable ZAK, H DANIELLE TOP FORMER Unavailable Unavailable ZAK, H DANIELLE TOP FORMER Unavailable Unavailable ZAK, H DANIELLE TOP FORMER Unavailable Unavailable ZAK, H DANIELLE TOP FORMER Unavailable Unavailable ZAK, H DANIELLE TOP FORMER Unavailable Unavailable Re-disclosure Warning The records that you are about to access may contain information from federally-assisted alcohol or drug abuse programs. If such information is present, then the following federally mandated warning applies: This information has been disclosed to you from records protected by federal confidentiality rules (42 CFR part 2). The federal rules prohibit you from making any further disclosure of this information unless further disclosure is expressly permitted by the written consent of the person to whom it pertains or as otherwise permitted by 42 CFR part 2. A general authorization for the release of medical or other information is NOT sufficient for this purpose. The Federal rules restrict any use of the information to criminally investigate or prosecute any alcohol or drug abuse patient.The records that you are about to access may contain highly sensitive health information, the redisclosure of which is protected by Article 27-F of the [facility] Public Health law. If you continue you may have access to information: Regarding HIV / AIDS; Provided by facilities licensed or operated by the [facility] Office of Mental Health; or Provided by the [facility] Office for People With Developmental Disabilities. If such information is present, then the following [facility] mandated warning applies: This information has been disclosed to you from confidential records which are protected by state law. State law prohibits you from making any further disclosure of this information without the specific written consent of the person to whom it pertains, or as otherwise permitted by law. Any unauthorized further disclosure in violation of state law may result in a fine or usp sentence or both. A general authorization for the release of medical or other information is NOT sufficient authorization for further disc losure. Allergies and Adverse Reactions Type Description Substance Reaction Status Data Source(s ) Propensity to adverse reactions to substance amoxicillin Amoxicillin 250 MG Oral Capsule Active [facility] ([facility]) Propensity to adverse reactions to substance Benadryl (diphe nhydramine hcl) Diphenhydramine Hydrochloride 25 MG Oral Capsule [Benadryl] Active [facility] ([facility]) Propensity to adverse reactions to substance ziprasidone hcl ziprasidone 60 MG Oral Capsule Active [facility] ([facility]) Propensity to adverse reactions to substance Rexulti (brexpi prazole) brexpiprazole 0.5 MG Oral Tablet [Rexulti] Active [facility] ([facility]) Propensity to adverse reactions to substance haloperidol Haloperidol 10 MG Oral Tablet Active [facility] ([facility]) Propensity to adverse reactions to substance amoxicillin Amoxicillin 250 MG Oral Capsule Active [facility] ([facility]) Propensity to adverse reactions to substance Benadryl (diphe nhydramine hcl) Diphenhydramine Hydrochloride 25 MG Oral Capsule [Benadryl] Active [facility] ([facility]) Propensity to adverse reactions to substance ziprasidone hcl ziprasidone 60 MG Oral Capsule Active [facility] ([facility]) Propensity to adverse reactions to substance haloperidol Haloperidol 10 MG Oral Tablet Active [facility] ([facility]) Family History Family Member Name Family Member Gender Family Member Status Date o f Status Description Data Source(s) Unknown Female Problem [facility] ([facility]) Encounters Encounter Providers Location Date Indications Data Source(s ) Outpatient Attender: DANIELLE LATHAM NP [facility] 12/13/2020 11:30:00 AM EDT - 12/13/2020 11:30:00 AM EDT [facility] ([facility]) Attender: DANIELLE LATHAM NP 12/13/2020 12:00:00 AM EDT [facility] ([facility]) [id number]"Psychotherapy Attender: Sylvia Brunner [facility] 12/10/2020 09:00:00 AM EDT - 12/10/2020 09:00:00 AM EDT [facility] ([facility]) Attender: Sylvia Brunner 12/10/2020 12:00:00 AM EDT [facility] ([facility]) Unknown [address] [facility] [place] [address] 10/26/2020 12:00:00 AM EDT eCW1 ([facility]) Unknown [address] [facility] [place] [address] 10/21/2020 12:00:00 AM EDT eCW1 ([facility]) Outpatient [address] [facility] [place] [address] 10/20/2020 12:00:00 AM EDT eCW1 ([facility]) Unknown [address] [facility] [place] [address] 10/20/2020 12:00:00 AM EDT eCW1 ([facility]) Outpatient Attender: DANIELLE LATHAM NP [facility] 10/07/2020 05:30:00 AM EDT - 10/07/2020 05:30:00 AM EDT [facility] ([facility]) Attender: DANIELLE LATHAM NP 10/07/2020 12:00:00 AM EDT [facility] ([facility]) Attender: Sylvia Brunner 08/25/2020 12:00:00 AM EDT [facility] ([facility]) Extended Individual Psychotherapy - 45 min Attender: Sylvia Kannan [facility] 08/24/2020 04:00:00 AM EDT - 08/24/2020 04:00:00 AM EDT [facility] ([facility]) Outpatient Attender: DANIELLE LATHAM NP [facility] 08/24/2020 01:30:00 AM EDT - 08/24/2020 01:30:00 AM EDT [facility] ([facility]) Attender: DANIELLE LATHAM NP 08/24/2020 12:00:00 AM EDT [facility] ([facility]) Extended Individual Psychotherapy - 45 min Attender: Sylvia Kannan [facility] 08/17/2020 04:00:00 AM EDT - 08/17/2020 04:00:00 AM EDT [facility] ([facility]) Attender: Sylvia Brunner 08/17/2020 12:00:00 AM EDT [facility] ([facility]) Attender: Sylvia Brunner 08/11/2020 12:00:00 AM EDT [facility] ([facility]) Extended Individual Psychotherapy - 45 min Attender: Sylvia Kannan [facility] 08/10/2020 04:00:00 AM EDT - 08/10/2020 04:00:00 AM EDT [facility] ([facility]) Attender: Sylvia Brunner 08/05/2020 12:00:00 AM EDT [facility] ([facility]) [id number]"Psychotherapy Attender: Sylvia Brunner [facility] 08/03/2020 04:00:00 AM EDT - 08/03/2020 04:00:00 AM EDT [facility] ([facility]) Attender: Sylvia Brunner 07/21/2020 12:00:00 AM EDT [facility] ([facility]) Extended Individual Psychotherapy - 45 min Attender: Sylvia Brunner [facility] 07/20/2020 04:00:00 AM EDT - 07/20/2020 04:00:00 AM EDT [facility] ([facility]) Attender: Sylvia Brunner 07/14/2020 12:00:00 AM EDT [facility] ([facility]) [id number]"Psychotherapy Attender: Sylvia Brunner [facility] 07/13/2020 04:00:00 AM EDT - 07/13/2020 04:00:00 AM EDT [facility] ([facility]) Attender: Sylvia Armendarizus 06/30/2020 12:00:00 AM EDT [facility] ([facility]) Extended Individual Psychotherapy - 45 min Attender: Sylvia Kannan [facility] 06/29/2020 04:00:00 AM EDT - 06/29/2020 04:00:00 AM EDT [facility] ([facility]) [id number]"Psychotherapy Attender: Sylvia Brunner [facility] 06/22/2020 04:00:00 AM EDT - 06/22/2020 04:00:00 AM EDT [facility] ([facility]) Attender: Sylvia Armendarizus 06/22/2020 12:00:00 AM EDT [facility] ([facility]) Outpatient Attender: DANIELLE LATHAM NP [facility] 06/01/2020 11:00:00 AM EDT - 06/01/2020 11:00:00 AM EDT [facility] ([facility]) Attender: DANIELLE LATHAM NP 06/01/2020 12:00:00 AM EDT [facility] ([facility]) Attender: Sylvia Brunner 05/20/2020 12:00:00 AM EDT [facility] ([facility]) TEMPMHCTelemed 30" Psychotherapy [facility] 05/19/2020 12:00:00 PM EDT - 05/19/2020 12:00:00 PM EDT [facility] ([facility]) Outpatient Attender: DANIELLE LATHAM NP [facility] 03/25/2020 03:00:00 AM EST - 03/25/2020 03:00:00 AM EST [facility] ([facility]) [place] [address] [facility] [place] [address] 03/25/2020 12:00:00 AM EST eCW1 ([facility]) Attender: DANIELLE LATHAM NP 03/25/2020 12:00:00 AM EST [facility] ([facility]) [id number]"Psychotherapy Attender: Sylvia Kannan [facility] 03/24/2020 03:00:00 AM EST - 03/24/2020 03:00:00 AM EST [facility] ([facility]) Attender: Sylvia Brunner 03/24/2020 12:00:00 AM EST [facility] ([facility]) Attender: Sylvia Brunner 03/03/2020 12:00:00 AM EST [facility] ([facility]) [id number]"Psychotherapy Attender: Sylvia Brunner [facility] 03/02/2020 04:00:00 AM EST - 03/02/2020 04:00:00 AM EST [facility] ([facility]) Attender: Sylvia Brunner 02/25/2020 12:00:00 AM EST [facility] ([facility]) [id number]"Psychotherapy Attender: Sylvia Brunner [facility] 02/24/2020 04:00:00 AM EST - 02/24/2020 04:00:00 AM EST [facility] ([facility]) [place] [address] [facility] [place] [address] 02/23/2020 12:00:00 AM EST eCW1 ([facility]) Outpatient Attender: DANIELLE LATHAM NP [facility] 02/17/2020 05:00:00 AM EST - 02/17/2020 05:00:00 AM EST [facility] ([facility]) [id number]"Psychotherapy Attender: Sylvia rBunner [facility] 02/17/2020 04:00:00 AM EST - 02/17/2020 04:00:00 AM EST [facility] ([facility]) Attender: DANIELLE LATHAM NP 02/17/2020 12:00:00 AM EST [facility] ([facility]) Attender: Sylvia Brunner 02/17/2020 12:00:00 AM EST [facility] ([facility]) Attender: Sylvia Brunner 02/11/2020 12:00:00 AM EST [facility] ([facility]) [id number]"Psychotherapy Attender: Sylvia Brunner [facility] 02/10/2020 04:00:00 AM EST - 02/10/2020 04:00:00 AM EST [facility] ([facility]) Attender: Sylvia Brunner 02/04/2020 12:00:00 AM EST [facility] ([facility]) [id number]"Psychotherapy Attender: Sylvia Brunner [facility] 02/03/2020 04:00:00 AM EST - 02/03/2020 04:00:00 AM EST [facility] ([facility]) Outpatient Attender: DANIELLE LATHAM NP [facility] 02/02/2020 10:30:00 AM EST - 02/02/2020 10:30:00 AM EST [facility] ([facility]) Attender: DANIELLE LATHAM NP 02/02/2020 12:00:00 AM EST [facility] ([facility]) [place] [address] [facility] [place] [address] 01/15/2020 12:00:00 AM EST eCW1 ([facility]) Attender: Sylvia Brunner 01/14/2020 12:00:00 AM EST [facility] ([facility]) [id number]"Psychotherapy Attender: Sylvia Brunner [facility] 01/13/2020 04:00:00 AM EST - 01/13/2020 04:00:00 AM EST [facility] ([facility]) Attender: Sylvia Brunner 01/07/2020 12:00:00 AM EST [facility] ([facility]) [id number]"Psychotherapy Attender: Sylvia Brunner [facility] 01/06/2020 04:00:00 AM EST - 01/06/2020 04:00:00 AM EST [facility] ([facility]) [id number]"Psychotherapy Attender: Sylvia Brunner [facility] 12/30/2019 03:00:00 AM EDT - 12/30/2019 03:00:00 AM EDT [facility] ([facility]) Attender: Sylvia Brunner 12/30/2019 12:00:00 AM EDT [facility] ([facility]) [place] [address] [facility] [place] [address] 12/25/2019 12:00:00 AM EDT eCW1 ([facility]) Attender: Sylvia Brunner 12/17/2019 12:00:00 AM EDT [facility] ([facility]) [id number]"Psychotherapy Attender: Sylvia Kannan [facility] 12/16/2019 04:00:00 AM EDT - 12/16/2019 04:00:00 AM EDT [facility] ([facility]) [place] [address] [facility] [place] [address] 12/16/2019 12:00:00 AM EDT eCW1 ([facility]) [id number]"Psychotherapy [facility] 09:00:00 AM EDT - 12/11/2019 09:00:00 AM EDT [facility] ([facility]) Attender: Sylvia Brunner 12/11/2019 12:00:00 AM EDT [facility] ([facility]) Attender: Sylvia Brunner 12/11/2019 12:00:00 AM EDT [facility] ([facility]) [place] [address] [facility] [place] [address] 12/10/2019 12:00:00 AM EDT eCW1 ([facility]) Outpatient Attender: DANIELLE LATHAM NP [facility] 12/09/2019 05:00:00 AM EDT - 12/09/2019 05:00:00 AM EDT [facility] ([facility]) [id number]"Psychotherapy [facility]/09/[facility] 04:00:00 AM EDT - 12/09/2019 04:00:00 AM EDT [facility] ([facility]) Attender: DANIELLE LATHAM NP 12/09/2019 12:00:00 AM EDT [facility] ([facility]) Attender: Sylvia Brunner 12/03/2019 12:00:00 AM EDT [facility] ([facility]) [id number]"Psychotherapy Attender: Sylvia Brunner [facility] 12/02/2019 04:00:00 AM EDT - 12/02/2019 04:00:00 AM EDT [facility] ([facility]) Outpatient Attender: DANIELLE LATHAM NP [facility] 11/18/2019 05:00:00 AM EDT - 11/18/2019 05:00:00 AM EDT [facility] ([facility]) Attender: DANIELLE LATHAM NP 11/18/2019 12:00:00 AM EDT [facility] ([facility]) TEMPMHCTelemed 30" Psychotherapy Attender: Sylvia Segal [facility] 11/11/2019 03:30:00 AM EDT - 11/11/2019 03:30:00 AM EDT [facility] ([facility]) Attender: Sylvia Armendarizus 11/11/2019 12:00:00 AM EDT [facility] ([facility]) Outpatient Attender: DANIELLE LATHAM NP [facility] 11/04/2019 05:00:00 AM EDT - 11/04/2019 05:00:00 AM EDT [facility] ([facility]) Attender: DANIELLE LATHAM NP 11/04/2019 12:00:00 AM EDT [facility] ([facility]) Functional Status Immunizations Vaccine Date Status Description Data Source(s) New in 2011. IIV4 12/10/2019 10:54:00 AM EDT completed eCW1 ([facility]) New in 2011. IIV4 12/10/2019 10:54:00 AM EDT completed eCW1 ([facility]) New in 2011. IIV4 12/10/2019 10:54:00 AM EDT completed eCW1 ([facility]) New in 2011. IIV4 12/10/2019 10:54:00 AM EDT completed eCW1 ([facility]) New in 2011. IIV4 12/10/2019 10:54:00 AM EDT completed eCW1 ([facility]) New in 2011. IIV4 12/10/2019 10:54:00 AM EDT completed eCW1 ([facility]) New in 2011. IIV4 12/10/2019 10:54:00 AM EDT completed eCW1 ([facility]) New in 2011. IIV4 12/10/2019 10:54:00 AM EDT completed eCW1 ([facility]) New in 2011. IIV4 12/10/2019 10:54:00 AM EDT completed eCW1 ([facility]) New in 2011. IIV4 12/10/2019 10:54:00 AM EDT completed eCW1 ([facility]) Medications Medication Brand Name Start Date Product Form Dose Route Admi nistrative Instructions Pharmacy Instructions Status Indications Reaction Description Data Source(s) lamotrigine 25 MG Oral Tablet lamotrigine 11/22/2020 12:00:00 AM EDT 25 mg by mouth completed <td ID="Medica tionRxNorm_3">511772</td><td ID="MedicationMedication_3">lamotrigine</td><td ID="MedicationRoute_3">by mouth</td><td ID="MedicationRouteConcept_3">W69145</td><td ID="MedicationStartDate_3">11/22/2020</td><td ID="MedicationStopDate_3">12/22/2020</td><td ID="MedicationDosageFrequency_3">once a day</td><td ID="MedicationDuration_3">30</td><td ID="MedicationFormulaStrength_3">25 mg</td><td ID="MedicationDosageForm_3">tablet</td><td ID="MedicationDosageFormCode_3"></td><td ID="MedicationDosageDescription_3"></td><td ID="MedicationMedicationId_3">[id number]</td><td ID="MedicationAccount_3">[id number]</td><td ID="MedicationNpid_3">[id number]</td><td ID="MedicationAuthorFirstName_3">Danielle</td><td ID="MedicationAuthorLastName_3">Zak</td><td ID="MedicationTaxonomyCode_3">[id number]</td><td ID="MedicationTaxonomyDesc_3">Nurse Practitioner</td><td ID="MedicationPhoneNumber_3">[phone]</td> [facility] ([facility]) Zolpidem tartrate 12.5 MG Extended Release Oral Tablet [Ambi en] Ambien CR 11/22/2020 12:00:00 AM EDT 12.5 mg by mouth completed <td ID="MedicationRxNorm_2">473330</td><td ID="MedicationMedication_2">Ambien CR</td><td ID="MedicationRoute_2">by mouth</td><td ID="MedicationRouteConcept_2">D01543</td><td ID="MedicationStartDate_2">11/22/2020</td><td ID="MedicationStopDate_2">12/22/2020</td><td ID="MedicationDosageFrequency_2">at bedtime</td><td ID="MedicationDuration_2">30</td><td ID="MedicationFormulaStrength_2">12.5 mg</td><td ID="MedicationDosageForm_2">tablet,ext release multiphase</td><td ID="MedicationDosageFormCode_2"></td><td ID="MedicationDosageDescription_2"></td><td ID="MedicationMedicationId_2">[id number]</td><td ID="MedicationAccount_2">[id number]</td><td ID="MedicationNpid_2">[id number]</td><td ID="MedicationAuthorFirstName_2">Danielle</td><td ID="MedicationAuthorLastName_2">Zak</td><td ID="MedicationTaxonomyCode_2">[id number]</td><td ID="MedicationTaxonomyDesc_2"> Nurse Practitioner</td><td ID="MedicationPhoneNumber_2">[phone]</td> [facility] ([facility]) benztropine mesylate 1 MG Oral Tablet benztropine 11/22/2020 12:00 :00 AM EDT 1 mg by mouth completed <td ID="Me dicationRxNorm_5">933680</td><td ID="MedicationMedication_5">benztropine</td><td ID="MedicationRoute_5">by mouth</td><td ID="MedicationRouteConcept_5">G81455</td><td ID="MedicationStartDate_5">11/22/2020</td><td ID="MedicationStopDate_5">12/22/2020</td><td ID="MedicationDosageFrequency_5">at bedtime</td><td ID="MedicationDuration_5">30</td><td ID="MedicationFormulaStrength_5">1 mg</td><td ID="MedicationDosageForm_5">tablet</td><td ID="MedicationDosageFormCode_5"></td><td ID="MedicationDosageDescription_5"></td><td ID="MedicationMedicationId_5">[id number]</td><td ID="MedicationAccount_5">[id number]</td><td ID="MedicationNpid_5">[id number]</td><td ID="MedicationAuthorFirstName_5">Danielle</td><td ID="MedicationAuthorLastName_5">Zak</td><td ID="MedicationTaxonomyCode_5">[id number]</td><td ID="MedicationTaxonomyDesc_5">Nurse Practitioner</td><td ID="MedicationPhoneNumber_5">[phone]</td> [facility] ([facility]) oxcarbazepine 300 MG Oral Tablet [Trileptal] Trileptal 11/22/2020 12:00:00 AM EDT 300 mg by mouth completed <td ID="MedicationRxNorm_1">334326</td><td ID="MedicationMedication_1">Trileptal</td><td ID="MedicationRoute_1">by mouth</td><td ID="MedicationRouteConcept_1">T96157</td><td ID="MedicationStartDate_1">11/22/2020</td><td ID="MedicationStopDate_1">12/22/2020</td><td ID="MedicationDosageFrequency_1">at bedtime</td><td ID="MedicationDuration_1">30</td><td ID="MedicationFormulaStrength_1">300 mg</td><td ID="MedicationDosageForm_1">tablet</td><td ID="MedicationDosageFormCode_1"></td><td ID="MedicationDosageDescription_1"></td><td ID="MedicationMedicationId_1">[id number]</td><td ID="MedicationAccount_1">[id number]</td><td ID="MedicationNpid_1">[id number]</td><td ID="MedicationAuthorFirstName_1">Danielle</td><td ID="MedicationAuthorLastName_1">Zak</td><td ID="MedicationTaxonomyCode_1">[id number]</td><td ID="MedicationTaxonomyDesc_1">Nurse Practitioner</td><td ID="MedicationPhoneNumber_1">[phone]</td> [facility] ([facility]) Chlorpromazine hydrochloride 100 MG Oral Tablet chlorpromazi ne 11/22/2020 12:00:00 AM EDT 100 mg by mouth completed <td ID="MedicationRxNorm_4">753558</td><td ID="MedicationMedication_4">chlorpromazine</td><td ID="MedicationRoute_4">by mouth</td><td ID="MedicationRouteConcept_4">Y23730</td><td ID="MedicationStartDate_4">11/22/2020</td><td ID="MedicationStopDate_4">12/22/2020</td><td ID="MedicationDosageFrequency_4">at bedtime</td><td ID="MedicationDuration_4">30</td><td ID="MedicationFormulaStrength_4">100 mg</td><td ID="MedicationDosageForm_4">tablet</td><td ID="MedicationDosageFormCode_4"></td><td ID="MedicationDosageDescription_4"></td><td ID="MedicationMedicationId_4">[id number]</td><td ID="MedicationAccount_4">[id number]</td><td ID="MedicationNpid_4">[id number]</td><td ID="MedicationAuthorFirstName_4">Danielle</td><td ID="MedicationAuthorLastName_4">Zak</td><td ID="MedicationTaxonomyCode_4">[id number]</td><td ID="MedicationTaxonomyDesc_4">Nurse Practitioner</td><td ID="MedicationPhoneNumber_4">[phone]</td> [facility] ([facility]) lamotrigine 25 MG Oral Tablet lamotrigine 10/07/2020 12:00:00 AM EDT 25 mg by mouth completed <td ID="Medica tionRxNorm_4">444859</td><td ID="MedicationMedication_4">lamotrigine</td><td ID="MedicationRoute_4">by mouth</td><td ID="MedicationRouteConcept_4">X70811</td><td ID="MedicationStartDate_4">10/07/2020</td><td ID="MedicationStopDate_4">11/06/2020</td><td ID="MedicationDosageFrequency_4">once a day</td><td ID="MedicationDuration_4">30</td><td ID="MedicationFormulaStrength_4">25 mg</td><td ID="MedicationDosageForm_4">tablet</td><td ID="MedicationDosageFormCode_4"></td><td ID="MedicationDosageDescription_4"></td><td ID="MedicationMedicationId_4">[id number]</td><td ID="MedicationAccount_4">[id number]</td><td ID="MedicationNpid_4">[id number]</td><td ID="MedicationAuthorFirstName_4">Danielle</td><td ID="MedicationAuthorLastName_4">Zak</td><td ID="MedicationTaxonomyCode_4">[id number]</td><td ID="MedicationTaxonomyDesc_4">Nurse Practitioner</td><td ID="MedicationPhoneNumber_4">[phone]</td> [facility] ([facility]) oxcarbazepine 300 MG Oral Tablet [Trileptal] Trileptal 10/07/2020 12:00:00 AM EDT 300 mg by mouth completed <td ID="MedicationRxNorm_3">073067</td><td ID="MedicationMedication_3">Trileptal</td><td ID="MedicationRoute_3">by mouth</td><td ID="MedicationRouteConcept_3">E41080</td><td ID="MedicationStartDate_3">10/07/2020</td><td ID="MedicationStopDate_3">11/06/2020</td><td ID="MedicationDosageFrequency_3">at bedtime</td><td ID="MedicationDuration_3">30</td><td ID="MedicationFormulaStrength_3">300 mg</td><td ID="MedicationDosageForm_3">tablet</td><td ID="MedicationDosageFormCode_3"></td><td ID="MedicationDosageDescription_3"></td><td ID="MedicationMedicationId_3">[id number]</td><td ID="MedicationAccount_3">[id number]</td><td ID="MedicationNpid_3">[id number]</td><td ID="MedicationAuthorFirstName_3">Danielle</td><td ID="MedicationAuthorLastName_3">Zak</td><td ID="MedicationTaxonomyCode_3">[id number]</td><td ID="MedicationTaxonomyDesc_3">Nurse Practitioner</td><td ID="MedicationPhoneNumber_3">[phone]</td> [facility] ([facility]) benztropine mesylate 1 MG Oral Tablet benztropine 10/07/2020 12:00 :00 AM EDT 1 mg by mouth completed <td ID="Me dicationRxNorm_2">749979</td><td ID="MedicationMedication_2">benztropine</td><td ID="MedicationRoute_2">by mouth</td><td ID="MedicationRouteConcept_2">C35034</td><td ID="MedicationStartDate_2">10/07/2020</td><td ID="MedicationStopDate_2">11/06/2020</td><td ID="MedicationDosageFrequency_2">at bedtime</td><td ID="MedicationDuration_2">30</td><td ID="MedicationFormulaStrength_2">1 mg</td><td ID="MedicationDosageForm_2">tablet</td><td ID="MedicationDosageFormCode_2"></td><td ID="MedicationDosageDescription_2"></td><td ID="MedicationMedicationId_2">[id number]</td><td ID="MedicationAccount_2">[id number]</td><td ID="MedicationNpid_2">[id number]</td><td ID="MedicationAuthorFirstName_2">Danielle</td><td ID="MedicationAuthorLastName_2">Zak</td><td ID="MedicationTaxonomyCode_2">[id number]</td><td ID="MedicationTaxonomyDesc_2">Nurse Practitioner</td><td ID="MedicationPhoneNumber_2">[phone]</td> [facility] ([facility]) Chlorpromazine hydrochloride 100 MG Oral Tablet chlorpromazi ne 10/07/2020 12:00:00 AM EDT 100 mg by mouth completed <td ID="MedicationRxNorm_5">674293</td><td ID="MedicationMedication_5">chlorpromazine</td><td ID="MedicationRoute_5">by mouth</td><td ID="MedicationRouteConcept_5">T23863</td><td ID="MedicationStartDate_5">10/07/2020</td><td ID="MedicationStopDate_5">11/06/2020</td><td ID="MedicationDosageFrequency_5">at bedtime</td><td ID="MedicationDuration_5">30</td><td ID="MedicationFormulaStrength_5">100 mg</td><td ID="MedicationDosageForm_5">tablet</td><td ID="MedicationDosageFormCode_5"></td><td ID="MedicationDosageDescription_5"></td><td ID="MedicationMedicationId_5">[id number]</td><td ID="MedicationAccount_5">[id number]</td><td ID="MedicationNpid_5">[id number]</td><td ID="MedicationAuthorFirstName_5">Danielle</td><td ID="MedicationAuthorLastName_5">Zak</td><td ID="MedicationTaxonomyCode_5">[id number]</td><td ID="MedicationTaxonomyDesc_5">Nurse Practitioner</td><td ID="MedicationPhoneNumber_5">[phone]</td> [facility] ([facility]) Zolpidem tartrate 12.5 MG Extended Release Oral Tablet [Ambi en] Ambien CR 09/24/2020 12:00:00 AM EDT 12.5 mg by mouth completed <td ID="MedicationRxNorm_1">585317</td><td ID="MedicationMedication_1">Ambien CR</td><td ID="MedicationRoute_1">by mouth</td><td ID="MedicationRouteConcept_1">B37820</td><td ID="MedicationStartDate_1">09/24/2020</td><td ID="MedicationStopDate_1">11/06/2020</td><td ID="MedicationDosageFrequency_1">at bedtime</td><td ID="MedicationDuration_1">30</td><td ID="MedicationFormulaStrength_1">12.5 mg</td><td ID="MedicationDosageForm_1">tablet,ext release multiphase</td><td ID="MedicationDosageFormCode_1"></td><td ID="MedicationDosageDescription_1"></td><td ID="MedicationMedicationId_1">[id number]</td><td ID="MedicationAccount_1">[id number]</td><td ID="MedicationNpid_1">[id number]</td><td ID="MedicationAuthorFirstName_1">Danielle</td><td ID="MedicationAuthorLastName_1">Zak</td><td ID="MedicationTaxonomyCode_1">[id number]</td><td ID="MedicationTaxonomyDesc_1"> Nurse Practitioner</td><td ID="MedicationPhoneNumber_1">[phone]</td> [facility] ([facility]) Mirtazapine 15 MG Oral Tablet [Remeron] Remeron 07/05/2020 12: 00:00 AM EDT 15 mg by mouth completed <td ID="Me dicationRxNorm_3">477824</td><td ID="MedicationMedication_3">Remeron</td><td ID="MedicationRoute_3">by mouth</td><td ID="MedicationRouteConcept_3">E35996</td><td ID="MedicationStartDate_3">07/05/2020</td><td ID="MedicationStopDate_3">08/04/2020</td><td ID="MedicationDosageFrequency_3">at bedtime</td><td ID="MedicationDuration_3">30</td><td ID="MedicationFormulaStrength_3">15 mg</td><td ID="MedicationDosageForm_3">tablet</td><td ID="MedicationDosageFormCode_3"></td><td ID="MedicationDosageDescription_3"></td><td ID="MedicationMedicationId_3">72099</td><td ID="MedicationAccount_3">[id number]</td><td ID="MedicationNpid_3">[id number]</td><td ID="MedicationAuthorFirstName_3">Danielle</td><td ID="MedicationAuthorLastName_3">Zak</td><td ID="MedicationTaxonomyCode_3">[id number]</td><td ID="MedicationTaxonomyDesc_3">Nurse Practitioner</td><td ID="MedicationPhoneNumber_3">[phone]</td> [facility] ([facility]) Chlorpromazine hydrochloride 200 MG Oral Tablet chlorpromazi ne 06/01/2020 12:00:00 AM EDT 200 mg by mouth completed <td ID="MedicationRxNorm_2">907237</td><td ID="MedicationMedication_2">chlorpromazine</td><td ID="MedicationRoute_2">by mouth</td><td ID="MedicationRouteConcept_2">X27119</td><td ID="MedicationStartDate_2">06/01/2020</td><td ID="MedicationStopDate_2">09/03/2020</td><td ID="MedicationDosageFrequency_2">at bedtime</td><td ID="MedicationDuration_2">30</td><td ID="MedicationFormulaStrength_2">200 mg</td><td ID="MedicationDosageForm_2">tablet</td><td ID="MedicationDosageFormCode_2"></td><td ID="MedicationDosageDescription_2"></td><td ID="MedicationMedicationId_2">79898</td><td ID="MedicationAccount_2">[id number]</td><td ID="MedicationNpid_2">[id number]</td><td ID="MedicationAuthorFirstName_2">Danielle</td><td ID="MedicationAuthorLastName_2">Zak</td><td ID="MedicationTaxonomyCode_2">[id number]</td><td ID="MedicationTaxonomyDesc_2">Nurse Practitioner</td><td ID="MedicationPhoneNumber_2">[phone]</td> [facility] ([facility]) benztropine mesylate 1 MG Oral Tablet benztropine 06/01/2020 12:00 :00 AM EDT 1 mg by mouth completed <td ID="Me dicationRxNorm_4">800594</td><td ID="MedicationMedication_4">benztropine</td><td ID="MedicationRoute_4">by mouth</td><td ID="MedicationRouteConcept_4">V44399</td><td ID="MedicationStartDate_4">06/01/2020</td><td ID="MedicationStopDate_4">07/01/2020</td><td ID="MedicationDosageFrequency_4">twice a day</td><td ID="MedicationDuration_4">30</td><td ID="MedicationFormulaStrength_4">1 mg</td><td ID="MedicationDosageForm_4">tablet</td><td ID="MedicationDosageFormCode_4"></td><td ID="MedicationDosageDescription_4"></td><td ID="MedicationMedicationId_4">[id number]</td><td ID="MedicationAccount_4">[id number]</td><td ID="MedicationNpid_4">[id number]</td><td ID="MedicationAuthorFirstName_4">Danielle</td><td ID="MedicationAuthorLastName_4">Zak</td><td ID="MedicationTaxonomyCode_4">[id number]</td><td ID="MedicationTaxonomyDesc_4">Nurse Practitioner</td><td ID="MedicationPhoneNumber_4">[phone]</td> [facility] ([facility]) Chlorpromazine hydrochloride 50 MG Oral Tablet chlorpromazin e 06/01/2020 12:00:00 AM EDT 50 mg by mouth completed <td ID="MedicationRxNorm_3">050641</td><td ID="MedicationMedication_3">chlorpromazine</td><td ID="MedicationRoute_3">by mouth</td><td ID="MedicationRouteConcept_3">M21124</td><td ID="MedicationStartDate_3">06/01/2020</td><td ID="MedicationStopDate_3">07/01/2020</td><td ID="MedicationDosageFrequency_3">at bedtime</td><td ID="MedicationDuration_3">30</td><td ID="MedicationFormulaStrength_3">50 mg</td><td ID="MedicationDosageForm_3">tablet</td><td ID="MedicationDosageFormCode_3"></td><td ID="MedicationDosageDescription_3"></td><td ID="MedicationMedicationId_3">[id number]</td><td ID="MedicationAccount_3">[id number]</td><td ID="MedicationNpid_3">[id number]</td><td ID="MedicationAuthorFirstName_3">Danielle</td><td ID="MedicationAuthorLastName_3">Zak</td><td ID="MedicationTaxonomyCode_3">[id number]</td><td ID="MedicationTaxonomyDesc_3">Nurse Practitioner</td><td ID="MedicationPhoneNumber_3">[phone]</td> [facility] ([facility]) [place] Carbonate 150 MG Oral Capsule lithium carbonate 12:00:00 AM EDT 150 mg by mouth completed <td ID="MedicationRxNorm_2">880819</td><td ID="MedicationMedication_2">lithium carbonate</td><td ID="MedicationRoute_2">by mouth</td><td ID="MedicationRouteConcept_2">P87192</td><td ID="MedicationStartDate_2">06/01/2020</td><td ID="MedicationStopDate_2">06/06/2020</td><td ID="MedicationDosageFrequency_2">every morning</td><td ID="MedicationDuration_2">5</td><td ID="MedicationFormulaStrength_2">150 mg</td><td ID="MedicationDosageForm_2">capsule</td><td ID="MedicationDosageFormCode_2"></td><td ID="MedicationDosageDescription_2"> </td><td ID="MedicationMedicationId_2">17458</td><td ID="MedicationAccount_2">[id number]</td><td ID="MedicationNpid_2">[id number]</td><td ID="MedicationAuthorFirstName_2">Danielle</td><td ID="MedicationAuthorLastName_2">Zak</td><td ID="MedicationTaxonomyCode_2">[id number]</td><td ID="MedicationTaxonomyDesc_2">Nurse Practitioner</td><td ID="MedicationPhoneNumber_2">[phone]</td> [facility] ([facility]) Chlorpromazine hydrochloride 200 MG Oral Tablet chlorpromazi ne 06/01/2020 12:00:00 AM EDT 200 mg by mouth completed <td ID="MedicationRxNorm_1">334694</td><td ID="MedicationMedication_1">chlorpromazine</td><td ID="MedicationRoute_1">by mouth</td><td ID="MedicationRouteConcept_1">U67214</td><td ID="MedicationStartDate_1">06/01/2020</td><td ID="MedicationStopDate_1">09/03/2020</td><td ID="MedicationDosageFrequency_1">at bedtime</td><td ID="MedicationDuration_1">30</td><td ID="MedicationFormulaStrength_1">200 mg</td><td ID="MedicationDosageForm_1">tablet</td><td ID="MedicationDosageFormCode_1"></td><td ID="MedicationDosageDescription_1"></td><td ID="MedicationMedicationId_1">40539</td><td ID="MedicationAccount_1">[id number]</td><td ID="MedicationNpid_1">[id number]</td><td ID="MedicationAuthorFirstName_1">Danielle</td><td ID="MedicationAuthorLastName_1">Zak</td><td ID="MedicationTaxonomyCode_1">[id number]</td><td ID="MedicationTaxonomyDesc_1">Nurse Practitioner</td><td ID="MedicationPhoneNumber_1">[phone]</td> [facility] ([facility]) Zolpidem tartrate 12.5 MG Extended Release Oral Tablet [Ambi en] Ambien CR 04/28/2020 12:00:00 AM EST 12.5 mg by mouth completed <td ID="MedicationRxNorm_3">892586</td><td ID="MedicationMedication_3">Ambien CR</td><td ID="MedicationRoute_3">by mouth</td><td ID="MedicationRouteConcept_3">O32484</td><td ID="MedicationStartDate_3">04/28/2020</td><td ID="MedicationStopDate_3">07/11/2020</td><td ID="MedicationDosageFrequency_3">at bedtime</td><td ID="MedicationDuration_3">30</td><td ID="MedicationFormulaStrength_3">12.5 mg</td><td ID="MedicationDosageForm_3">tablet,ext release multiphase</td><td ID="MedicationDosageFormCode_3"></td><td ID="MedicationDosageDescription_3"></td><td ID="MedicationMedicationId_3">60665</td><td ID="MedicationAccount_3">[id number]</td><td ID="MedicationNpid_3">[id number]</td><td ID="MedicationAuthorFirstName_3">Randy</td><td ID="MedicationAuthorLastName_3">Woo</td><td ID="MedicationTaxonomyCode_3">[id number]</td><td ID="MedicationTaxonomyDesc_3"> Nurse Practitioner</td><td ID="MedicationPhoneNumber_3">[phone]</td> [facility] ([facility]) Prazosin 2 MG Oral Capsule prazosin 02/17/2020 12:00:00 AM EST 2 mg by mouth completed <td ID="Medicat ionRxNorm_5">438678</td><td ID="MedicationMedication_5">prazosin</td><td ID="MedicationRoute_5">by mouth</td><td ID="MedicationRouteConcept_5">L12606</td><td ID="MedicationStartDate_5">02/17/2020</td><td ID="MedicationStopDate_5">04/17/2020</td><td ID="MedicationDosageFrequency_5">at bedtime</td><td ID="MedicationDuration_5">30</td><td ID="MedicationFormulaStrength_5">2 mg</td><td ID="MedicationDosageForm_5">capsule</td><td ID="MedicationDosageFormCode_5"></td><td ID="MedicationDosageDescription_5"></td><td ID="MedicationMedicationId_5">72968</td><td ID="MedicationAccount_5">[id number]</td><td ID="MedicationNpid_5">[id number]</td><td ID="MedicationAuthorFirstName_5">Danielle</td><td ID="MedicationAuthorLastName_5">Zak</td><td ID="MedicationTaxonomyCode_5">[id number]</td><td ID="MedicationTaxonomyDesc_5">Nurse Practitioner</td><td ID="MedicationPhoneNumber_5">[phone]</td> [facility] ([facility]) Prazosin 2 MG Oral Capsule prazosin 02/17/2020 12:00:00 AM EST 2 mg by mouth completed <td ID="Medicat ionRxNorm_1">245792</td><td ID="MedicationMedication_1">prazosin</td><td ID="MedicationRoute_1">by mouth</td><td ID="MedicationRouteConcept_1">A57575</td><td ID="MedicationStartDate_1">02/17/2020</td><td ID="MedicationStopDate_1">05/24/2020</td><td ID="MedicationDosageFrequency_1">at bedtime</td><td ID="MedicationDuration_1">30</td><td ID="MedicationFormulaStrength_1">2 mg</td><td ID="MedicationDosageForm_1">capsule</td><td ID="MedicationDosageFormCode_1"></td><td ID="MedicationDosageDescription_1"></td><td ID="MedicationMedicationId_1">39349</td><td ID="MedicationAccount_1">[id number]</td><td ID="MedicationNpid_1">[id number]</td><td ID="MedicationAuthorFirstName_1">Danielle</td><td ID="MedicationAuthorLastName_1">Zak</td><td ID="MedicationTaxonomyCode_1">[id number]</td><td ID="MedicationTaxonomyDesc_1">Nurse Practitioner</td><td ID="MedicationPhoneNumber_1">[phone]</td> [facility] ([facility]) [place] Carbonate 150 MG Oral Capsule lithium carbonate 12:00:00 AM EST 150 mg by mouth completed <td ID="MedicationRxNorm_3">637581</td><td ID="MedicationMedication_3">lithium carbonate</td><td ID="MedicationRoute_3">by mouth</td><td ID="MedicationRouteConcept_3">X93646</td><td ID="MedicationStartDate_3">02/17/2020</td><td ID="MedicationStopDate_3">03/18/2020</td><td ID="MedicationDosageFrequency_3">twice a day</td><td ID="MedicationDuration_3">30</td><td ID="MedicationFormulaStrength_3">150 mg</td><td ID="MedicationDosageForm_3">capsule</td><td ID="MedicationDosageFormCode_3"></td><td ID="MedicationDosageDescription_3"></td><td ID="MedicationMedicationId_3">39654</td><td ID="MedicationAccount_3">[id number]</td><td ID="MedicationNpid_3">[id number]</td><td ID="MedicationAuthorFirstName_3">Danielle</td><td ID="MedicationAuthorLastName_3">Zak</td><td ID="MedicationTaxonomyCode_3">[id number]</td><td ID="MedicationTaxonomyDesc_3">Nurse Practitioner</td><td ID="MedicationPhoneNumber_3">[phone]</td> [facility] ([facility]) Chlorpromazine hydrochloride 200 MG Oral Tablet chlorpromazi ne 02/17/2020 12:00:00 AM EST 200 mg by mouth completed <td ID="MedicationRxNorm_6">300972</td><td ID="MedicationMedication_6">chlorpromazine</td><td ID="MedicationRoute_6">by mouth</td><td ID="MedicationRouteConcept_6">T82044</td><td ID="MedicationStartDate_6">02/17/2020</td><td ID="MedicationStopDate_6">04/17/2020</td><td ID="MedicationDosageFrequency_6">at bedtime</td><td ID="MedicationDuration_6">30</td><td ID="MedicationFormulaStrength_6">200 mg</td><td ID="MedicationDosageForm_6">tablet</td><td ID="MedicationDosageFormCode_6"></td><td ID="MedicationDosageDescription_6"></td><td ID="MedicationMedicationId_6">20305</td><td ID="MedicationAccount_6">[id number]</td><td ID="MedicationNpid_6">[id number]</td><td ID="MedicationAuthorFirstName_6">Danielle</td><td ID="MedicationAuthorLastName_6">Zak</td><td ID="MedicationTaxonomyCode_6">[id number]</td><td ID="MedicationTaxonomyDesc_6">Nurse Practitioner</td><td ID="MedicationPhoneNumber_6">[phone]</td> [facility] ([facility]) [place] Carbonate 150 MG Oral Capsule lithium carbonate 12:00:00 AM EST 150 mg by mouth completed <td ID="MedicationRxNorm_5">611520</td><td ID="MedicationMedication_5">lithium carbonate</td><td ID="MedicationRoute_5">by mouth</td><td ID="MedicationRouteConcept_5">B96125</td><td ID="MedicationStartDate_5">02/17/2020</td><td ID="MedicationStopDate_5">03/18/2020</td><td ID="MedicationDosageFrequency_5">twice a day</td><td ID="MedicationDuration_5">30</td><td ID="MedicationFormulaStrength_5">150 mg</td><td ID="MedicationDosageForm_5">capsule</td><td ID="MedicationDosageFormCode_5"></td><td ID="MedicationDosageDescription_5"></td><td ID="MedicationMedicationId_5">76520</td><td ID="MedicationAccount_5">[id number]</td><td ID="MedicationNpid_5">[id number]</td><td ID="MedicationAuthorFirstName_5">Danielle</td><td ID="MedicationAuthorLastName_5">Zak</td><td ID="MedicationTaxonomyCode_5">[id number]</td><td ID="MedicationTaxonomyDesc_5">Nurse Practitioner</td><td ID="MedicationPhoneNumber_5">[phone]</td> [facility] ([facility]) Prazosin 2 MG Oral Capsule prazosin 02/17/2020 12:00:00 AM EST 2 mg by mouth completed <td ID="Medicat ionRxNorm_7">009271</td><td ID="MedicationMedication_7">prazosin</td><td ID="MedicationRoute_7">by mouth</td><td ID="MedicationRouteConcept_7">V40944</td><td ID="MedicationStartDate_7">02/17/2020</td><td ID="MedicationStopDate_7">04/17/2020</td><td ID="MedicationDosageFrequency_7">at bedtime</td><td ID="MedicationDuration_7">30</td><td ID="MedicationFormulaStrength_7">2 mg</td><td ID="MedicationDosageForm_7">capsule</td><td ID="MedicationDosageFormCode_7"></td><td ID="MedicationDosageDescription_7"></td><td ID="MedicationMedicationId_7">23162</td><td ID="MedicationAccount_7">[id number]</td><td ID="MedicationNpid_7">[id number]</td><td ID="MedicationAuthorFirstName_7">Danielle</td><td ID="MedicationAuthorLastName_7">Zak</td><td ID="MedicationTaxonomyCode_7">[id number]</td><td ID="MedicationTaxonomyDesc_7">Nurse Practitioner</td><td ID="MedicationPhoneNumber_7">[phone]</td> [facility] ([facility]) benztropine mesylate 1 MG Oral Tablet benztropine 02/17/2020 12:00 :00 AM EST 1 mg by mouth completed <td ID="Me dicationRxNorm_6">211785</td><td ID="MedicationMedication_6">benztropine</td><td ID="MedicationRoute_6">by mouth</td><td ID="MedicationRouteConcept_6">Y31591</td><td ID="MedicationStartDate_6">02/17/2020</td><td ID="MedicationStopDate_6">03/18/2020</td><td ID="MedicationDosageFrequency_6">twice a day</td><td ID="MedicationDuration_6">30</td><td ID="MedicationFormulaStrength_6">1 mg</td><td ID="MedicationDosageForm_6">tablet</td><td ID="MedicationDosageFormCode_6"></td><td ID="MedicationDosageDescription_6"></td><td ID="MedicationMedicationId_6">90076</td><td ID="MedicationAccount_6">[id number]</td><td ID="MedicationNpid_6">[id number]</td><td ID="MedicationAuthorFirstName_6">Danielle</td><td ID="MedicationAuthorLastName_6">Zak</td><td ID="MedicationTaxonomyCode_6">[id number]</td><td ID="MedicationTaxonomyDesc_6">Nurse Practitioner</td><td ID="MedicationPhoneNumber_6">[phone]</td> [facility] ([facility]) Chlorpromazine hydrochloride 200 MG Oral Tablet chlorpromazi ne 02/17/2020 12:00:00 AM EST 200 mg by mouth completed <td ID="MedicationRxNorm_8">292879</td><td ID="MedicationMedication_8">chlorpromazine</td><td ID="MedicationRoute_8">by mouth</td><td ID="MedicationRouteConcept_8">C62496</td><td ID="MedicationStartDate_8">02/17/2020</td><td ID="MedicationStopDate_8">04/17/2020</td><td ID="MedicationDosageFrequency_8">at bedtime</td><td ID="MedicationDuration_8">30</td><td ID="MedicationFormulaStrength_8">200 mg</td><td ID="MedicationDosageForm_8">tablet</td><td ID="MedicationDosageFormCode_8"></td><td ID="MedicationDosageDescription_8"></td><td ID="MedicationMedicationId_8">91715</td><td ID="MedicationAccount_8">[id number]</td><td ID="MedicationNpid_8">[id number]</td><td ID="MedicationAuthorFirstName_8">Danielle</td><td ID="MedicationAuthorLastName_8">Zak</td><td ID="MedicationTaxonomyCode_8">[id number]</td><td ID="MedicationTaxonomyDesc_8">Nurse Practitioner</td><td ID="MedicationPhoneNumber_8">[phone]</td> [facility] ([facility]) Prazosin 1 MG Oral Capsule prazosin 02/10/2020 12:00:00 AM EST 1 mg by mouth completed <td ID="Medicat ionRxNorm_2">740061</td><td ID="MedicationMedication_2">prazosin</td><td ID="MedicationRoute_2">by mouth</td><td ID="MedicationRouteConcept_2">C42989</td><td ID="MedicationStartDate_2">02/10/2020</td><td ID="MedicationStopDate_2">02/17/2020</td><td ID="MedicationDosageFrequency_2">at bedtime</td><td ID="MedicationDuration_2"></td><td ID="MedicationFormulaStrength_2">1 mg</td><td ID="MedicationDosageForm_2">capsule</td><td ID="MedicationDosageFormCode_2"></td><td ID="MedicationDosageDescription_2"></td><td ID="MedicationMedicationId_2">48142</td><td ID="MedicationAccount_2">[id number]</td><td ID="MedicationNpid_2">[id number]</td><td ID="MedicationAuthorFirstName_2">Danielle</td><td ID="MedicationAuthorLastName_2">Zak</td><td ID="MedicationTaxonomyCode_2">[id number]</td><td ID="MedicationTaxonomyDesc_2">Nurse Practitioner</td><td ID="MedicationPhoneNumber_2">[phone]</td> [facility] ([facility]) Diclofenac Sodium 0.01 MG/MG Topical Gel [Voltaren] Voltaren 1 % Voltaren 1 % 12/10/2019 12:00:00 AM EDT active Voltaren 1 % eCW1 ([facility]) Nebulizer/Tubing/Mouthpiece - Nebulizer/Tubing/Mouthpiece - 12/10/2019 12:00:00 AM EDT active Nebulizer/Tubing/ Mouthpiece - eCW1 ([facility]) Levalbuterol 0.417 MG/ML Inhalant Solution [Xopenex] X openex 1.25 MG/3ML Xopenex 1.25 MG/3ML 12/10/2019 12:00:00 AM EDT 3.0 {ml} act claudio Xopenex 1.25 MG/3ML eCW1 ([facility]) Guaifenesin 400 MG Oral Tablet Guaifenesin 400 MG 12/10/2019 12:00: 00 AM EDT 1.0 {tablet_as_needed} active Guaifenes in 400 MG eCW1 ([facility]) Guaifenesin 400 MG Oral Tablet Guaifenesin 400 MG 12/10/2019 12:00: 00 AM EDT 1.0 {tablet_as_needed} active Guaifenes in 400 MG eCW1 ([facility]) Nebulizer/Tubing/Mouthpiece - Nebulizer/Tubing/Mouthpiece - 12/10/2019 12:00:00 AM EDT active Nebulizer/Tubing/ Mouthpiece - eCW1 ([facility]) Diclofenac Sodium 0.01 MG/MG Topical Gel [Voltaren] Voltaren 1 % Voltaren 1 % 12/10/2019 12:00:00 AM EDT active Voltaren 1 % eCW1 ([facility]) Levalbuterol 0.417 MG/ML Inhalant Solution [Xopenex] X openex 1.25 MG/3ML Xopenex 1.25 MG/3ML 12/10/2019 12:00:00 AM EDT 3.0 {ml} act claudio Xopenex 1.25 MG/3ML eCW1 ([facility]) Guaifenesin 400 MG Oral Tablet Guaifenesin 400 MG 12/10/2019 12:00: 00 AM EDT 1.0 {tablet_as_needed} active Guaifenes in 400 MG eCW1 ([facility]) 200 ACTUAT Levalbuterol 0.045 MG/ACTUAT Metered Dose Inhaler [Xopenex] Xopenex HFA 45 MCG/ACT Xopenex HFA 45 MCG/ACT 12/10/2019 12:00:00 AM EDT 1.0 {puff_as_needed} active Xopenex HFA 45 MCG/ACT eCW1 ([facility]) Diclofenac Sodium 0.01 MG/MG Topical Gel [Voltaren] Voltaren 1 % Voltaren 1 % 12/10/2019 12:00:00 AM EDT active Voltaren 1 % eCW1 ([facility]) Nebulizer/Tubing/Mouthpiece - Nebulizer/Tubing/Mouthpiece - 12/10/2019 12:00:00 AM EDT active Nebulizer/Tubing/ Mouthpiece - eCW1 ([facility]) Diclofenac Sodium 0.01 MG/MG Topical Gel [Voltaren] Voltaren 1 % Voltaren 1 % 12/10/2019 12:00:00 AM EDT active Voltaren 1 % eCW1 ([facility]) Diclofenac Sodium 0.01 MG/MG Topical Gel [Voltaren] Voltaren 1 % Voltaren 1 % 12/10/2019 12:00:00 AM EDT active Voltaren 1 % eCW1 ([facility]) 200 ACTUAT Levalbuterol 0.045 MG/ACTUAT Metered Dose Inhaler [Xopenex] Xopenex HFA 45 MCG/ACT Xopenex HFA 45 MCG/ACT 12/10/2019 12:00:00 AM EDT 1.0 {puff_as_needed} active Xopenex HFA 45 MCG/ACT eCW1 ([facility]) Levalbuterol 0.417 MG/ML Inhalant Solution [Xopenex] X openex 1.25 MG/3ML Xopenex 1.25 MG/3ML 12/10/2019 12:00:00 AM EDT 3.0 {ml} act claudio Xopenex 1.25 MG/3ML eCW1 ([facility]) Guaifenesin 400 MG Oral Tablet Guaifenesin 400 MG 12/10/2019 12:00: 00 AM EDT 1.0 {tablet_as_needed} active Guaifenes in 400 MG eCW1 ([facility]) 200 ACTUAT Levalbuterol 0.045 MG/ACTUAT Metered Dose Inhaler [Xopenex] Xopenex HFA 45 MCG/ACT Xopenex HFA 45 MCG/ACT 12/10/2019 12:00:00 AM EDT 1.0 {puff_as_needed} active Xopenex HFA 45 MCG/ACT eCW1 ([facility]) Levalbuterol 0.417 MG/ML Inhalant Solution [Xopenex] X openex 1.25 MG/3ML Xopenex 1.25 MG/3ML 12/10/2019 12:00:00 AM EDT 3.0 {ml} act claudio Xopenex 1.25 MG/3ML eCW1 ([facility]) Diclofenac Sodium 0.01 MG/MG Topical Gel [Voltaren] Voltaren 1 % Voltaren 1 % 12/10/2019 12:00:00 AM EDT active Voltaren 1 % eCW1 ([facility]) Nebulizer/Tubing/Mouthpiece - Nebulizer/Tubing/Mouthpiece - 12/10/2019 12:00:00 AM EDT active Nebulizer/Tubing/ Mouthpiece - eCW1 ([facility]) Diclofenac Sodium 0.01 MG/MG Topical Gel [Voltaren] Voltaren 1 % Voltaren 1 % 12/10/2019 12:00:00 AM EDT active Voltaren 1 % eCW1 ([facility]) Levalbuterol 0.417 MG/ML Inhalant Solution [Xopenex] X openex 1.25 MG/3ML Xopenex 1.25 MG/3ML 12/10/2019 12:00:00 AM EDT 3.0 {ml} act claudio Xopenex 1.25 MG/3ML eCW1 ([facility]) Guaifenesin 400 MG Oral Tablet Guaifenesin 400 MG 12/10/2019 12:00: 00 AM EDT 1.0 {tablet_as_needed} active Guaifenes in 400 MG eCW1 ([facility]) Nebulizer/Tubing/Mouthpiece - Nebulizer/Tubing/Mouthpiece - 12/10/2019 12:00:00 AM EDT active Nebulizer/Tubing/ Mouthpiece - eCW1 ([facility]) Nebulizer/Tubing/Mouthpiece - Nebulizer/Tubing/Mouthpiece - 12/10/2019 12:00:00 AM EDT active Nebulizer/Tubing/ Mouthpiece - eCW1 ([facility]) Nebulizer/Tubing/Mouthpiece - Nebulizer/Tubing/Mouthpiece - 12/10/2019 12:00:00 AM EDT active Nebulizer/Tubing/ Mouthpiece - eCW1 ([facility]) 200 ACTUAT Levalbuterol 0.045 MG/ACTUAT Metered Dose Inhaler [Xopenex] Xopenex HFA 45 MCG/ACT Xopenex HFA 45 MCG/ACT 12/10/2019 12:00:00 AM EDT 1.0 {puff_as_needed} active Xopenex HFA 45 MCG/ACT eCW1 ([facility]) 200 ACTUAT Levalbuterol 0.045 MG/ACTUAT Metered Dose Inhaler [Xopenex] Xopenex HFA 45 MCG/ACT Xopenex HFA 45 MCG/ACT 12/10/2019 12:00:00 AM EDT 1.0 {puff_as_needed} active Xopenex HFA 45 MCG/ACT eCW1 ([facility]) Levalbuterol 0.417 MG/ML Inhalant Solution [Xopenex] X openex 1.25 MG/3ML Xopenex 1.25 MG/3ML 12/10/2019 12:00:00 AM EDT 3.0 {ml} act claudio Xopenex 1.25 MG/3ML eCW1 ([facility]) Diclofenac Sodium 0.01 MG/MG Topical Gel [Voltaren] Voltaren 1 % Voltaren 1 % 12/10/2019 12:00:00 AM EDT active Voltaren 1 % eCW1 ([facility]) Diclofenac Sodium 0.01 MG/MG Topical Gel [Voltaren] Voltaren 1 % Voltaren 1 % 12/10/2019 12:00:00 AM EDT active Voltaren 1 % eCW1 ([facility]) Nebulizer/Tubing/Mouthpiece - Nebulizer/Tubing/Mouthpiece - 12/10/2019 12:00:00 AM EDT active Nebulizer/Tubing/ Mouthpiece - eCW1 ([facility]) Nebulizer/Tubing/Mouthpiece - Nebulizer/Tubing/Mouthpiece - 12/10/2019 12:00:00 AM EDT active Nebulizer/Tubing/ Mouthpiece - eCW1 ([facility]) Diclofenac Sodium 0.01 MG/MG Topical Gel [Voltaren] Voltaren 1 % Voltaren 1 % 12/10/2019 12:00:00 AM EDT active Voltaren 1 % eCW1 ([facility]) Nebulizer/Tubing/Mouthpiece - Nebulizer/Tubing/Mouthpiece - 12/10/2019 12:00:00 AM EDT active Nebulizer/Tubing/ Mouthpiece - eCW1 ([facility]) 200 ACTUAT Levalbuterol 0.045 MG/ACTUAT Metered Dose Inhaler [Xopenex] Xopenex HFA 45 MCG/ACT Xopenex HFA 45 MCG/ACT 12/10/2019 12:00:00 AM EDT 1.0 {puff_as_needed} active Xopenex HFA 45 MCG/ACT eCW1 ([facility]) Zolpidem tartrate 6.25 MG Extended Release Oral Tablet [Ambi en] Ambien CR 12/09/2019 12:00:00 AM EDT 6.25 mg by mouth completed <td ID="MedicationRxNorm_4">356311</td><td ID="MedicationMedication_4">Ambien CR</td><td ID="MedicationRoute_4">by mouth</td><td ID="MedicationRouteConcept_4">A08165</td><td ID="MedicationStartDate_4">12/09/2019</td><td ID="MedicationStopDate_4">01/08/2020</td><td ID="MedicationDosageFrequency_4">at bedtime</td><td ID="MedicationDuration_4">30</td><td ID="MedicationFormulaStrength_4">6.25 mg</td><td ID="MedicationDosageForm_4">tablet,ext release multiphase</td><td ID="MedicationDosageFormCode_4"></td><td ID="MedicationDosageDescription_4"></td><td ID="MedicationMedicationId_4">[id number]</td><td ID="MedicationAccount_4">[id number]</td><td ID="MedicationNpid_4">[id number]</td><td ID="MedicationAuthorFirstName_4">Danielle</td><td ID="MedicationAuthorLastName_4">Zak</td><td ID="MedicationTaxonomyCode_4">[id number]</td><td ID="MedicationTaxonomyDesc_4"> Nurse Practitioner</td><td ID="MedicationPhoneNumber_4">[phone]</td> [facility] ([facility]) Clonazepam 1 MG Oral Tablet clonazepam 12/09/2019 12:00:00 AM EDT 1 mg by mouth completed <td ID="Medica tionRxNorm_2">950638</td><td ID="MedicationMedication_2">clonazepam</td><td ID="MedicationRoute_2">by mouth</td><td ID="MedicationRouteConcept_2">Z87728</td><td ID="MedicationStartDate_2">12/09/2019</td><td ID="MedicationStopDate_2">12/24/2019</td><td ID="MedicationDosageFrequency_2">twice a day</td><td ID="MedicationDuration_2">15</td><td ID="MedicationFormulaStrength_2">1 mg</td><td ID="MedicationDosageForm_2">tablet</td><td ID="MedicationDosageFormCode_2"></td><td ID="MedicationDosageDescription_2">as directed</td><td ID="MedicationMedicationId_2">[id number]</td><td ID="MedicationAccount_2">[id number]</td><td ID="MedicationNpid_2">[id number]</td><td ID="MedicationAuthorFirstName_2">Danielle</td><td ID="MedicationAuthorLastName_2">Zak</td><td ID="MedicationTaxonomyCode_2">[id number]</td><td ID="MedicationTaxonomyDesc_2">Nurse Practitioner</td><td ID="MedicationPhoneNumber_2">[phone]</td> [facility] ([facility]) Zolpidem tartrate 6.25 MG Extended Release Oral Tablet [Ambi en] Ambien CR 12/09/2019 12:00:00 AM EDT 6.25 mg by mouth completed <td ID="MedicationRxNorm_5">023436</td><td ID="MedicationMedication_5">Ambien CR</td><td ID="MedicationRoute_5">by mouth</td><td ID="MedicationRouteConcept_5">S49970</td><td ID="MedicationStartDate_5">12/09/2019</td><td ID="MedicationStopDate_5">01/08/2020</td><td ID="MedicationDosageFrequency_5">at bedtime</td><td ID="MedicationDuration_5">30</td><td ID="MedicationFormulaStrength_5">6.25 mg</td><td ID="MedicationDosageForm_5">tablet,ext release multiphase</td><td ID="MedicationDosageFormCode_5"></td><td ID="MedicationDosageDescription_5"></td><td ID="MedicationMedicationId_5">[id number]</td><td ID="MedicationAccount_5">[id number]</td><td ID="MedicationNpid_5">[id number]</td><td ID="MedicationAuthorFirstName_5">Danielle</td><td ID="MedicationAuthorLastName_5">Zak</td><td ID="MedicationTaxonomyCode_5">[id number]</td><td ID="MedicationTaxonomyDesc_5"> Nurse Practitioner</td><td ID="MedicationPhoneNumber_5">[phone]</td> [facility] ([facility]) Prazosin 1 MG Oral Capsule prazosin 11/18/2019 12:00:00 AM EDT 1 mg by mouth completed <td ID="Medicat ionRxNorm_3">403833</td><td ID="MedicationMedication_3">prazosin</td><td ID="MedicationRoute_3">by mouth</td><td ID="MedicationRouteConcept_3">C31375</td><td ID="MedicationStartDate_3">11/18/2019</td><td ID="MedicationStopDate_3">01/08/2020</td><td ID="MedicationDosageFrequency_3">at bedtime</td><td ID="MedicationDuration_3">30</td><td ID="MedicationFormulaStrength_3">1 mg</td><td ID="MedicationDosageForm_3">capsule</td><td ID="MedicationDosageFormCode_3"></td><td ID="MedicationDosageDescription_3"></td><td ID="MedicationMedicationId_3">[id number]</td><td ID="MedicationAccount_3">[id number]</td><td ID="MedicationNpid_3">[id number]</td><td ID="MedicationAuthorFirstName_3">Danielle</td><td ID="MedicationAuthorLastName_3">Zak</td><td ID="MedicationTaxonomyCode_3">[id number]</td><td ID="MedicationTaxonomyDesc_3">Nurse Practitioner</td><td ID="MedicationPhoneNumber_3">[phone]</td> [facility] ([facility]) Chlorpromazine hydrochloride 200 MG Oral Tablet chlorpromazi ne 11/05/2019 12:00:00 AM EDT 200 mg by mouth completed <td ID="MedicationRxNorm_7">340886</td><td ID="MedicationMedication_7">chlorpromazine</td><td ID="MedicationRoute_7">by mouth</td><td ID="MedicationRouteConcept_7">B88315</td><td ID="MedicationStartDate_7">11/05/2019</td><td ID="MedicationStopDate_7">01/17/2020</td><td ID="MedicationDosageFrequency_7">at bedtime</td><td ID="MedicationDuration_7">30</td><td ID="MedicationFormulaStrength_7">200 mg</td><td ID="MedicationDosageForm_7">tablet</td><td ID="MedicationDosageFormCode_7"></td><td ID="MedicationDosageDescription_7"></td><td ID="MedicationMedicationId_7">82285</td><td ID="MedicationAccount_7">[id number]</td><td ID="MedicationNpid_7">[id number]</td><td ID="MedicationAuthorFirstName_7">Danielle</td><td ID="MedicationAuthorLastName_7">Zak</td><td ID="MedicationTaxonomyCode_7">[id number]</td><td ID="MedicationTaxonomyDesc_7">Nurse Practitioner</td><td ID="MedicationPhoneNumber_7">[phone]</td> [facility] ([facility]) Asenapine 5 MG Sublingual Tablet [Saphris] Saphris 11/04/2019 12:00:00 AM EDT 5 mg completed <td ID="Me dicationRxNorm_4">088756</td><td ID="MedicationMedication_4">Saphris</td><td ID="MedicationRoute_4">under tongue</td><td ID="MedicationRouteConcept_4"></td><td ID="MedicationStartDate_4">11/04/2019</td><td ID="MedicationStopDate_4">12/04/2019</td><td ID="MedicationDosageFrequency_4">every morning</td><td ID="MedicationDuration_4">30</td><td ID="MedicationFormulaStrength_4">5 mg</td><td ID="MedicationDosageForm_4">tablet, sublingual</td><td ID="MedicationDosageFormCode_4"></td><td ID="MedicationDosageDescription_4"></td><td ID="MedicationMedicationId_4">[id number]</td><td ID="MedicationAccount_4">[id number]</td><td ID="MedicationNpid_4">[id number]</td><td ID="MedicationAuthorFirstName_4">Danielle</td><td ID="MedicationAuthorLastName_4">Zak</td><td ID="MedicationTaxonomyCode_4">[id number]</td><td ID="MedicationTaxonomyDesc_4"> Nurse Practitioner</td><td ID="MedicationPhoneNumber_4">[phone]</td> [facility] ([facility]) Asenapine 5 MG Sublingual Tablet [Saphris] Saphris 11/04/2019 12:00:00 AM EDT 5 mg completed <td ID="Me dicationRxNorm_5">957418</td><td ID="MedicationMedication_5">Saphris</td><td ID="MedicationRoute_5">under tongue</td><td ID="MedicationRouteConcept_5"></td><td ID="MedicationStartDate_5">11/04/2019</td><td ID="MedicationStopDate_5">12/04/2019</td><td ID="MedicationDosageFrequency_5">every morning</td><td ID="MedicationDuration_5">30</td><td ID="MedicationFormulaStrength_5">5 mg</td><td ID="MedicationDosageForm_5">tablet, sublingual</td><td ID="MedicationDosageFormCode_5"></td><td ID="MedicationDosageDescription_5"></td><td ID="MedicationMedicationId_5">[id number]</td><td ID="MedicationAccount_5">[id number]</td><td ID="MedicationNpid_5">[id number]</td><td ID="MedicationAuthorFirstName_5">Danielle</td><td ID="MedicationAuthorLastName_5">Zak</td><td ID="MedicationTaxonomyCode_5">[id number]</td><td ID="MedicationTaxonomyDesc_5"> Nurse Practitioner</td><td ID="MedicationPhoneNumber_5">[phone]</td> [facility] ([facility]) Asenapine 5 MG Sublingual Tablet [Saphris] Saphris 11/04/2019 12:00:00 AM EDT 5 mg completed <td ID="Me dicationRxNorm_2">377305</td><td ID="MedicationMedication_2">Saphris</td><td ID="MedicationRoute_2">under tongue</td><td ID="MedicationRouteConcept_2"></td><td ID="MedicationStartDate_2">11/04/2019</td><td ID="MedicationStopDate_2">11/18/2019</td><td ID="MedicationDosageFrequency_2">every morning</td><td ID="MedicationDuration_2">30</td><td ID="MedicationFormulaStrength_2">5 mg</td><td ID="MedicationDosageForm_2">tablet, sublingual</td><td ID="MedicationDosageFormCode_2"></td><td ID="MedicationDosageDescription_2"></td><td ID="MedicationMedicationId_2">73376</td><td ID="MedicationAccount_2">[id number]</td><td ID="MedicationNpid_2">[id number]</td><td ID="MedicationAuthorFirstName_2">Danielle</td><td ID="MedicationAuthorLastName_2">Zak</td><td ID="MedicationTaxonomyCode_2">[id number]</td><td ID="MedicationTaxonomyDesc_2"> Nurse Practitioner</td><td ID="MedicationPhoneNumber_2">[phone]</td> [facility] ([facility]) Zolpidem tartrate 12.5 MG Extended Release Oral Tablet zolpi dem 10/30/2019 12:00:00 AM EDT 12.5 mg by mouth completed <td ID="MedicationRxNorm_3">117188</td><td ID="MedicationMedication_3">zolpidem</td><td ID="MedicationRoute_3">by mouth</td><td ID="MedicationRouteConcept_3">X14521</td><td ID="MedicationStartDate_3">10/30/2019</td><td ID="MedicationStopDate_3">11/29/2019</td><td ID="MedicationDosageFrequency_3">at bedtime</td><td ID="MedicationDuration_3">30</td><td ID="MedicationFormulaStrength_3">12.5 mg</td><td ID="MedicationDosageForm_3">tablet,ext release multiphase</td><td ID="MedicationDosageFormCode_3"></td><td ID="MedicationDosageDescription_3"></td><td ID="MedicationMedicationId_3">03271</td><td ID="MedicationAccount_3">[id number]</td><td ID="MedicationNpid_3">[id number]</td><td ID="MedicationAuthorFirstName_3">Ariel</td><td ID="MedicationAuthorLastName_3">[facility]</td><td ID="MedicationTaxonomyCode_3">[id number]</td><td ID="MedicationTaxonomyDesc_3"> Psychiatry</td><td ID="MedicationPhoneNumber_3">[phone]</td> [facility] ([facility]) Clonazepam 1 MG Oral Tablet clonazepam 10/30/2019 12:00:00 AM EDT 1 mg by mouth completed <td ID="Medica tionRxNorm_2">780239</td><td ID="MedicationMedication_2">clonazepam</td><td ID="MedicationRoute_2">by mouth</td><td ID="MedicationRouteConcept_2">A37700</td><td ID="MedicationStartDate_2">10/30/2019</td><td ID="MedicationStopDate_2">11/13/2019</td><td ID="MedicationDosageFrequency_2">twice a day</td><td ID="MedicationDuration_2">14</td><td ID="MedicationFormulaStrength_2">1 mg</td><td ID="MedicationDosageForm_2">tablet</td><td ID="MedicationDosageFormCode_2"></td><td ID="MedicationDosageDescription_2">as needed</td><td ID="MedicationMedicationId_2">16320</td><td ID="MedicationAccount_2">[id number]</td><td ID="MedicationNpid_2">[id number]</td><td ID="MedicationAuthorFirstName_2">Ariel</td><td ID="MedicationAuthorLastName_2">[facility]</td><td ID="MedicationTaxonomyCode_2">[id number]</td><td ID="MedicationTaxonomyDesc_2">Psychiatry</td><td ID="MedicationPhoneNumber_2">[phone]</td> [facility] ([facility]) Clonazepam 1 MG Oral Tablet clonazepam 10/30/2019 12:00:00 AM EDT 1 mg by mouth completed <td ID="Medica tionRxNorm_3">258602</td><td ID="MedicationMedication_3">clonazepam</td><td ID="MedicationRoute_3">by mouth</td><td ID="MedicationRouteConcept_3">N51136</td><td ID="MedicationStartDate_3">10/30/2019</td><td ID="MedicationStopDate_3">11/13/2019</td><td ID="MedicationDosageFrequency_3">twice a day</td><td ID="MedicationDuration_3">14</td><td ID="MedicationFormulaStrength_3">1 mg</td><td ID="MedicationDosageForm_3">tablet</td><td ID="MedicationDosageFormCode_3"></td><td ID="MedicationDosageDescription_3">as needed</td><td ID="MedicationMedicationId_3">[id number]</td><td ID="MedicationAccount_3">[id number]</td><td ID="MedicationNpid_3">[id number]</td><td ID="MedicationAuthorFirstName_3">Ariel</td><td ID="MedicationAuthorLastName_3">[facility]</td><td ID="MedicationTaxonomyCode_3">[id number]</td><td ID="MedicationTaxonomyDesc_3">Psychiatry</td><td ID="MedicationPhoneNumber_3">[phone]</td> [facility] ([facility]) Zolpidem tartrate 12.5 MG Extended Release Oral Tablet zolpi dem 10/30/2019 12:00:00 AM EDT 12.5 mg by mouth completed <td ID="MedicationRxNorm_4">339783</td><td ID="MedicationMedication_4">zolpidem</td><td ID="MedicationRoute_4">by mouth</td><td ID="MedicationRouteConcept_4">O83719</td><td ID="MedicationStartDate_4">10/30/2019</td><td ID="MedicationStopDate_4">11/29/2019</td><td ID="MedicationDosageFrequency_4">at bedtime</td><td ID="MedicationDuration_4">30</td><td ID="MedicationFormulaStrength_4">12.5 mg</td><td ID="MedicationDosageForm_4">tablet,ext release multiphase</td><td ID="MedicationDosageFormCode_4"></td><td ID="MedicationDosageDescription_4"></td><td ID="MedicationMedicationId_4">12807</td><td ID="MedicationAccount_4">[id number]</td><td ID="MedicationNpid_4">[id number]</td><td ID="MedicationAuthorFirstName_4">Ariel</td><td ID="MedicationAuthorLastName_4">[facility]</td><td ID="MedicationTaxonomyCode_4">[id number]</td><td ID="MedicationTaxonomyDesc_4"> Psychiatry</td><td ID="MedicationPhoneNumber_4">[phone]</td> [facility] ([facility]) Insurance Providers Payer name Policy type / Coverage type Policy ID Covered libertarian ID Covered libertarian's relationship to mcfarland Policy [place] Plan Information [facility] [id number] SP [id number] [facility] [id number] SP [id number] [place]/CHP/FHP Commercial [id number] Self [id number] [place]/FHP Commercial [id number] [place]/FHP Commercial [id number] Self [id number] JOSE [id number] SP [id number] 200 JOSE I [id number] Self [id number] 200 JOSE [id number] SP [id number] 200 [place] Medicaid F [id number] SELF [id number] JOSE [id number] SP [id number] 200 JOSE [id number] SP [id number] 200 ANSI-Commercial [id number] ANSI-Commercial [id number] ANSI-Commercial [id number] ANSI-Commercial [id number] ANSI-Commercial [id number] ANSI-Commercial [id number] ANSI-Commercial [id number] ANSI-Commercial [id number] ANSI-Commercial [id number] ANSI-Commercial [id number] ANSI-Commercial [id number] ANSI-Commercial [id number] ANSI-Commercial [id number] ANSI-Commercial [id number] JOSE [id number] SP [id number] 200 ANSI-Commercial [id number] ANSI-Commercial [id number] [facility] Community Plan [facility] Part B [id number] Self [id number] JOSE [id number] SP [id number] [facility] [place] XIX MAN [id number] 18 [id number] [place] [id number] S [id number] [facility] Community Plan [facility] Part B [id number] Self JOSE [place] [id number] SP [id number] [facility] O [id number] S [id number] [facility] [id number] SP [id number] O BLUE [id number] SP [id number] ANSI-Commercial [id number] [place] [id number] SP [id number] M EMED[place] [id number] SP [id number] [place]ARE [place] O [id number] S [id number] MEDICAID [id number] ANSI-Commercial [id number] ANSI-Commercial [id number] ANSI-Commercial [id number] ANSI-Commercial [id number] ANSI-Commercial [id number] ANSI-Commercial [id number] Problems, Conditions, and Diagnoses Code Display Name Description Problem Type Effective Dates Data Source(s) F17.200 Nicotine dependence, unspecified, uncomp licated Tobacco Use Disorder, Moderate Condition 12/13/2020 12:00:00 AM EDT [facility] ([facility]) 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 Condition 12/13/2020 12:00:00 AM EDT [facility] ([facility]) F43.10 Post-traumatic stress disorder, unspecif ied Posttraumatic Stress Disorder (includes Posttraumatic Stress Disorder for Children 6 Years and Younger) Condition 12/13/2020 12:00:00 AM EDT [facility] ([facility]) F60.3 Borderline personality disorder Borderline Personality Disorder Condition 12/13/2020 12:00:00 AM EDT [facility] ([facility]) G89.29 [id number] Other chronic pain Problem 12/10/2019 12:00: 00 AM EDT eCW1 ([facility]) Z72.0 Tobacco use Tobacco use Problem 12/10/2019 12:00:00 AM EDT eCW1 ([facility]) E66.01 [id number] Morbid obesity Problem 12/10/2019 12:00:00 A M EDT eCW1 ([facility]) Surgeries/Procedures Procedure Description Date Indications Data Source(s) [facility] Telemed E/M Lvl 3--Est pt 12/13/2020 12:00:00 AM EDT - 12/13/2020 12:00:00 AM EDT [facility] ([facility]) [facility] [place] Telemed E/M Lvl 3--Est pt 12/13/2020 12:00:00 AM E DT [facility] ([facility]) [id number]"Psychotherapy 12:00:00 AM EDT - 12/10/2020 12:00:00 AM EDT [facility] ([facility]) [id number]"Psychotherapy 12/10/2020 12:00:00 AM EDT [facility] ([facility]) [facility] [place] Telemed E/M Lvl 3--Est pt 10/07/2020 12:00:00 AM EDT - 10/07/2020 12:00:00 AM EDT [facility] ([facility]) Psychotherapy ADD ON - 30 Minutes 10/07/2020 12:00:00 AM EDT [facility] ([facility]) [facility] [place] Telemed E/M Lvl 3--Est pt 10/07/2020 12:00:00 AM E DT [facility] ([facility]) Extended Individual Psychotherapy - 45 min 08/25/2020 12:00:00 AM EDT - 08/25/2020 12:00:00 AM EDT [facility] ([facility]) Extended Individual Psychotherapy - 45 min 12:00:00 AM EDT [facility] ([facility]) OFFICE OUTPATIENT VISIT 15 MINUTES 08/24 12:00:00 AM EDT - 08/24/2020 12:00:00 AM EDT [facility] ([facility]) OFFICE OUTPATIENT VISIT 15 MINUTES 08/24/2020 12:00:00 AM EDT [facility] ([facility]) Extended Individual Psychotherapy - 45 min 08/17/2020 12:00:00 AM EDT - 08/17/2020 12:00:00 AM EDT [facility] ([facility]) Extended Individual Psychotherapy - 45 min 12:00:00 AM EDT [facility] ([facility]) Extended Individual Psychotherapy - 45 min 08/11/2020 12:00:00 AM EDT - 08/11/2020 12:00:00 AM EDT [facility] ([facility]) Extended Individual Psychotherapy - 45 min 12:00:00 AM EDT [facility] ([facility]) [id number]"Psychotherapy 12:00:00 AM EDT - 08/05/2020 12:00:00 AM EDT [facility] ([facility]) [id number]"Psychotherapy 08/03/2020 12:00:00 AM EDT [facility] ([facility]) Extended Individual Psychotherapy - 45 min 07/21/2020 12:00:00 AM EDT - 07/21/2020 12:00:00 AM EDT [facility] ([facility]) Extended Individual Psychotherapy - 45 min 12:00:00 AM EDT [facility] ([facility]) [id number]"Psychotherapy 12:00:00 AM EDT - 07/14/2020 12:00:00 AM EDT [facility] ([facility]) [id number]"Psychotherapy 07/13/2020 12:00:00 AM EDT [facility] ([facility]) Extended Individual Psychotherapy - 45 min 06/30/2020 12:00:00 AM EDT - 06/30/2020 12:00:00 AM EDT [facility] ([facility]) Extended Individual Psychotherapy - 45 min 12:00:00 AM EDT [facility] ([facility]) [id number]"Psychotherapy 12:00:00 AM EDT - 06/22/2020 12:00:00 AM EDT [facility] ([facility]) [id number]"Psychotherapy 06/22/2020 12:00:00 AM EDT [facility] ([facility]) MHC Telemed E/M Lvl 3--Est pt 06/01/2020 12:00:00 AM EDT - 06/01/2020 12:00:00 AM EDT [facility] ([facility]) MHC Telemed E/M Lvl 3--Est pt 06/01/2020 12:00:00 AM E DT [facility] ([facility]) TEMPMHCTelemed 30" Psychotherapy 021 12:00:00 AM EDT - 05/20/2020 12:00:00 AM EDT [facility] ([facility]) TEMPMHCTelemed 30" Psychotherapy 05/19/2020 12:00:00 A M EDT [facility] ([facility]) MHC Telemed E/M Lvl 3--Est pt 03/25/2020 12:00:00 AM EST - 03/25/2020 12:00:00 AM EST [facility] ([facility]) MHC Telemed E/M Lvl 3--Est pt 03/25/2020 12:00:[address] [facility] ([facility]) [id number]"Psychotherapy 12:00:00 AM EST - 03/24/2020 12:00:00 AM EST [facility] ([facility]) [id number]"Psychotherapy 03/24/2020 12:00:00 AM EST [facility] ([facility]) [id number]"Psychotherapy 0 12:00:00 AM EST - 03/03/2020 12:00:00 AM EST [facility] ([facility]) [id number]"Psychotherapy 03/02/2020 12:00:00 AM EST [facility] ([facility]) [id number]"Psychotherapy 0 12:00:00 AM EST - 02/25/2020 12:00:00 AM EST [facility] ([facility]) [id number]"Psychotherapy 02/24/2020 12:00:00 AM EST [facility] ([facility]) MHC Telemed E/M Lvl 3--Est pt 02/17/2020 12:00:00 AM EST - 02/17/2020 12:00:00 AM EST [facility] ([facility]) Psychotherapy ADD ON - 30 Minutes 02/17/2020 12:00:00 AM EST [facility] ([facility]) MHC Telemed E/M Lvl 3--Est pt 02/17/2020 12:00:[address] [facility] ([facility]) [id number]"Psychotherapy 0 12:00:00 AM EST - 02/17/2020 12:00:00 AM EST [facility] ([facility]) [id number]"Psychotherapy 02/17/2020 12:00:00 AM EST [facility] ([facility]) [id number]"Psychotherapy 0 12:00:00 AM EST - 02/11/2020 12:00:00 AM EST [facility] ([facility]) [id number]"Psychotherapy 02/10/2020 12:00:00 AM EST [facility] ([facility]) [id number]"Psychotherapy 0 12:00:00 AM EST - 02/04/2020 12:00:00 AM EST [facility] ([facility] [id number]"Psychotherapy 02/03/2020 12:00:00 AM EST [facility] ([facility]) MHC Telemed E/M Lvl 3--Est pt 02/02/2020 12:00:00 AM EST - 02/02/2020 12:00:00 AM EST [facility] ([facility]) MHC Telemed E/M Lvl 3--Est pt 02/02/2020 12:00:[address] [facility] ([facility]) [id number]"Psychotherapy 0 12:00:00 AM EST - 01/14/2020 12:00:00 AM EST [facility] ([facility]) [id number]"Psychotherapy 01/13/2020 12:00:00 AM EST [facility] ([facility]) [id number]"Psychotherapy 0 12:00:00 AM EST - 01/07/2020 12:00:00 AM EST [facility] ([facility]) [id number]"Psychotherapy 01/06/2020 12:00:00 AM EST [facility] ([facility]) [id number]"Psychotherapy 0 12:00:00 AM EDT - 12/30/2019 12:00:00 AM EDT [facility] ([facility]) [id number]"Psychotherapy 12/30/2019 12:00:00 AM EDT [facility] ([facility]) [id number]"Psychotherapy 0 12:00:00 AM EDT - 12/17/2019 12:00:00 AM EDT [facility] ([facility]) [id number]"Psychotherapy 12/16/2019 12:00:00 AM EDT [facility] ([facility]) [id number]"Psychotherapy 0 12:00:00 AM EDT - 12/11/2019 12:00:00 AM EDT [facility] ([facility]) [id number]"Psychotherapy 12/11/2019 12:00:00 AM EDT [facility] ([facility]) [id number]"Psychotherapy 0 12:00:00 AM EDT - 12/11/2019 12:00:00 AM EDT [facility] ([facility]) [id number]"Psychotherapy 12/09/2019 12:00:00 AM EDT [facility] ([facility]) MHC Telemed E/M Lvl 3--Est pt 12/09/2019 12:00:00 AM EDT - 12/09/2019 12:00:00 AM EDT [facility] ([facility]) Psychotherapy ADD ON - 30 Minutes 12/09/2019 12:00:00 AM EDT [facility] ([facility]) MHC Telemed E/M Lvl 3--Est pt 12/09/2019 12:00:00 AM E DT [facility] ([facility]) [id number]"Psychotherapy 0 12:00:00 AM EDT - 12/03/2019 12:00:00 AM EDT [facility] ([facility]) [id number]"Psychotherapy 12/02/2019 12:00:00 AM EDT [facility] ([facility]) MHC Telemed E/M Lvl 3--Est pt 11/18/2019 12:00:00 AM EDT - 11/18/2019 12:00:00 AM EDT [facility] ([facility]) MHC Telemed E/M Lvl 3--Est pt 11/18/2019 12:00:00 AM E DT [facility] ([facility]) TEMPMHCTelemed 30" Psychotherapy 020 12:00:00 AM EDT - 11/11/2019 12:00:00 AM EDT [facility] ([facility]) TEMPMHCTelemed 30" Psychotherapy 11/11/2019 12:00:00 A M EDT [facility] ([facility]) MHC Telemed E/M Lvl 3--Est pt 11/04/2019 12:00:00 AM EDT - 11/04/2019 12:00:00 AM EDT [facility] ([facility]) Psychotherapy ADD ON - 30 Minutes 11/04/2019 12:00:00 AM EDT [facility] ([facility]) MHC Telemed E/M Lvl 3--Est pt 11/04/2019 12:00:00 AM E DT [facility] ([facility]) Results No Information Social History Code Duration Value Status Description Data Source(s ) Smoking 12/13/2020 12:00:00 AM EDT Unknown if ever smoked comp leted Unknown if ever smoked [facility] ([facility]) Smoking 12/10/2020 12:00:00 AM EDT Unknown if ever smoked comp leted Unknown if ever smoked [facility] ([facility]) Smoking 10/20/2020 12:00:00 AM EDT Current Smoker completed Curre nt Smoker eCW1 ([facility]) Smoking 10/20/2020 12:00:00 AM EDT Current Smoker completed Curre nt Smoker eCW1 ([facility]) Smoking 10/20/2020 12:00:00 AM EDT Current Smoker completed Curre nt Smoker eCW1 ([facility]) Smoking 10/20/2020 12:00:00 AM EDT Current Smoker completed Curre nt Smoker eCW1 ([facility]) Smoking 10/07/2020 12:00:00 AM EDT Unknown if ever smoked comp leted Unknown if ever smoked [facility] ([facility]) Smoking 08/25/2020 12:00:00 AM EDT Unknown if ever smoked comp leted Unknown if ever smoked [facility] ([facility]) Smoking 08/24/2020 12:00:00 AM EDT Unknown if ever smoked comp leted Unknown if ever smoked [facility] ([facility]) Smoking 08/17/2020 12:00:00 AM EDT Unknown if ever smoked comp leted Unknown if ever smoked [facility] ([facility]) Smoking 08/11/2020 12:00:00 AM EDT Unknown if ever smoked comp leted Unknown if ever smoked [facility] ([facility]) Smoking 08/05/2020 12:00:00 AM EDT Unknown if ever smoked comp leted Unknown if ever smoked [facility] ([facility]) Smoking 07/21/2020 12:00:00 AM EDT Unknown if ever smoked comp leted Unknown if ever smoked [facility] ([facility]) Smoking 07/14/2020 12:00:00 AM EDT Unknown if ever smoked comp leted Unknown if ever smoked [facility] ([facility]) Smoking 06/30/2020 12:00:00 AM EDT Unknown if ever smoked comp leted Unknown if ever smoked [facility] ([facility]) Smoking 06/22/2020 12:00:00 AM EDT Unknown if ever smoked comp leted Unknown if ever smoked [facility] ([facility]) Smoking 06/01/2020 12:00:00 AM EDT Unknown if ever smoked comp leted Unknown if ever smoked [facility] ([facility]) Smoking 05/20/2020 12:00:00 AM EDT Unknown if ever smoked comp leted Unknown if ever smoked [facility] ([facility]) Smoking 03/25/2020 12:00:00 AM EST Current Smoker completed Jovannie nt Smoker eCW1 ([facility]) Smoking 03/25/2020 12:00:00 AM EST Unknown if ever smoked comp leted Unknown if ever smoked [facility] ([facility]) Smoking 03/24/2020 12:00:00 AM EST Unknown if ever smoked comp leted Unknown if ever smoked [facility] ([facility]) Smoking 03/03/2020 12:00:00 AM EST Unknown if ever smoked comp leted Unknown if ever smoked [facility] ([facility]) Smoking 02/25/2020 12:00:00 AM EST Unknown if ever smoked comp leted Unknown if ever smoked [facility] ([facility]) Smoking 02/17/2020 12:00:00 AM EST Unknown if ever smoked comp leted Unknown if ever smoked [facility] ([facility]) Smoking 02/11/2020 12:00:00 AM EST Unknown if ever smoked comp leted Unknown if ever smoked [facility] ([facility]) Smoking 02/04/2020 12:00:00 AM EST Unknown if ever smoked comp leted Unknown if ever smoked [facility] ([facility]) Smoking 02/02/2020 12:00:00 AM EST Unknown if ever smoked comp leted Unknown if ever smoked [facility] ([facility]) Smoking 01/15/2020 12:00:00 AM EST Current Smoker completed Curre nt Smoker eCW1 ([facility]) Smoking 01/15/2020 12:00:00 AM EST Current Smoker completed Curre nt Smoker eCW1 ([facility]) Smoking 01/14/2020 12:00:00 AM EST Unknown if ever smoked comp leted Unknown if ever smoked [facility] ([facility]) Smoking 01/07/2020 12:00:00 AM EST Unknown if ever smoked comp leted Unknown if ever smoked [facility] ([facility]) Smoking 12/30/2019 12:00:00 AM EDT Unknown if ever smoked comp leted Unknown if ever smoked [facility] ([facility]) Smoking 12/17/2019 12:00:00 AM EDT Unknown if ever smoked comp leted Unknown if ever smoked [facility] ([facility]) Smoking 12/11/2019 12:00:00 AM EDT Unknown if ever smoked comp leted Unknown if ever smoked [facility] ([facility]) Smoking 12/10/2019 12:00:00 AM EDT Current Smoker completed Curre nt Smoker eCW1 ([facility]) Smoking 12/10/2019 12:00:00 AM EDT Current Smoker completed Curre nt Smoker eCW1 ([facility]) Smoking 12/10/2019 12:00:00 AM EDT Current Smoker completed Curre nt Smoker eCW1 ([facility]) Smoking 12/09/2019 12:00:00 AM EDT Unknown if ever smoked comp leted Unknown if ever smoked [facility] ([facility]) Smoking 12/03/2019 12:00:00 AM EDT Unknown if ever smoked comp leted Unknown if ever smoked [facility] ([facility]) Smoking 11/18/2019 12:00:00 AM EDT Unknown if ever smoked comp leted Unknown if ever smoked [facility] ([facility]) Smoking 11/11/2019 12:00:00 AM EDT Unknown if ever smoked comp leted Unknown if ever smoked [facility] ([facility]) Smoking 11/04/2019 12:00:00 AM EDT Unknown if ever smoked comp leted Unknown if ever smoked [facility] ([facility]) Vital Signs ID Date Data Source UNK Name Value Range Interpretation Code Description Data Source(s) Body weight 294.2 [lb_av] 294.2 [lb_av] eCW1 ([facility]) Body weight 133.45 kg 133.45 kg W1 ([facility]) Body height 62 [in_i] 62 [in_i] eCW1 ([facility]) Body mass index (BMI) [Ratio] 53.80 kg/m2 53.80 kg/m2 [facility] ([facility]) Heart rate 114 /min 114 /min W1 ([facility]) Respiratory rate 18 /min 18 /min eCW1 ([facility]) Body temperature 98.0 [degF] 98.0 [degF] eCW1 ( [facility]) Systolic blood pressure 160 mm[Hg] 160 mm[Hg] e CW1 ([facility]) Diastolic blood pressure 90 mm[Hg] 90 mm[Hg] eCW1 ([facility]) Body height 0.00 in Normal (applies to non-numeric resu lts) 0.00 in [facility] ([facility]) Body weight Measured 0.00 lbs Normal (applies to n on-numeric results) 0.00 lbs [facility] ([facility]) Body mass index (BMI) [Ratio] 0.00 kg/m2 No rmal (applies to non-numeric results) 0.00 kg/m2 [facility] ([facility]) Systolic blood pressure 0 mm[Hg] Normal (applies t o non-numeric results) 0 mm[Hg] [facility] ([facility]) Diastolic blood pressure 0 mm[Hg] Normal (applies to non-numeric results) 0 mm[Hg] [facility] ([facility]) Body height 0.00 in Normal (applies to non-numeric resu lts) 0.00 in [facility] ([facility]) Body weight Measured 0.00 lbs Normal (applies to n on-numeric results) 0.00 lbs [facility] ([facility]) Body mass index (BMI) [Ratio] 0.00 kg/m2 No rmal (applies to non-numeric results) 0.00 kg/m2 [facility] ([facility]) Systolic blood pressure 0 mm[Hg] Normal (applies t o non-numeric results) 0 mm[Hg] [facility] ([facility]) Diastolic blood pressure 0 mm[Hg] Normal (applies to non-numeric results) 0 mm[Hg] [facility] Body height 0.00 in Normal (applies to non-numeric resu lts) 0.00 in [facility] ([facility]) Diastolic blood pressure 0 mm[Hg] Normal (applies to non-numeric results) 0 mm[Hg] [facility] ([facility]) Systolic blood pressure 0 mm[Hg] Normal (applies t o non-numeric results) 0 mm[Hg] [facility] ([facility]) Body weight Measured 0.00 lbs Normal (applies to n on-numeric results) 0.00 lbs [facility] ([facility]) Body mass index (BMI) [Ratio] 0.00 kg/m2 No rmal (applies to non-numeric results) 0.00 kg/m2 [facility] ([facility]) Body weight 271.2 [lb_av] 271.2 [lb_av] eCW1 ([facility]) Body height 62 [in_i] 62 [in_i] eCW1 ([facility]) Body mass index (BMI) [Ratio] 49.60 kg/m2 49.60 kg/m2 eCW1 ([facility]) Heart rate 110 /min 110 /min eCW1 ([facility]) Respiratory rate 18 /min 18 /min eCW1 ([facility]) Body temperature 97.8 [degF] 97.8 [degF] eCW1 ( [facility]) Systolic blood pressure 174 mm[Hg] 174 mm[Hg] e CW1 ([facility]) Diastolic blood pressure 113 mm[Hg] 113 mm[Hg] eCW1 ([facility]) Body weight 268 [lb_av] 268 [lb_av] eCW1 ([facility]) Body height 62 [in_i] 62 [in_i] eCW1 ([facility]) Body mass index (BMI) [Ratio] 49.01 kg/m2 49.01 kg/m2 eCW1 ([facility]) Heart rate 92 /min 92 /min eCW1 ([facility]) Respiratory rate 18 /min 18 /min eCW1 ([facility]) Body temperature 98.2 [degF] 98.2 [degF] eCW1 ( [facility]) Systolic blood pressure 122 mm[Hg] 122 mm[Hg] e CW1 ([facility]) Diastolic blood pressure 80 mm[Hg] 80 mm[Hg] eCW1 ([facility]) Systolic blood pressure 0 mm[Hg] Normal (applies t o non-numeric results) 0 mm[Hg] [facility] ([facility]) Diastolic blood pressure 0 mm[Hg] Normal (applies to non-numeric results) 0 mm[Hg] [facility] ([facility]) Body height 0.00 in Normal (applies to non-numeric resu lts) 0.00 in [facility] ([facility]) Body weight Measured 0.00 lbs Normal (applies to n on-numeric results) [facility]) Body mass index (BMI) [Ratio] 0.00 kg/m2 No rmal (applies to non-numeric results) 0.00 kg/m2 [facility] ([facility]) Body height 0.00 in Normal (applies to non-numeric resu lts) 0.00 in [facility] ([facility]) Body weight Measured 0.00 lbs Normal (applies to n on-numeric results) 0.00 lbs [facility] ([facility]) Body mass index (BMI) [Ratio] 0.00 kg/m2 No rmal (applies to non-numeric results) 0.00 kg/m2 [facility] ([facility]) Systolic blood pressure 0 mm[Hg] Normal (applies t o non-numeric results) 0 mm[Hg] [facility] ([facility]) Diastolic blood pressure 0 mm[Hg] Normal (applies to non-numeric results) 0 mm[Hg] [facility] ([facility]) Body height 0.00 in Normal (applies to non-numeric resu lts) 0.00 in [facility]) Body weight Measured 0.00 lbs Normal (applies to n on-numeric results) 0.00 lbs [facility] ([facility]) Body mass index (BMI) [Ratio] 0.00 kg/m2 No rmal (applies to non-numeric results) 0.00 kg/m2 [facility] ([facility]) Systolic blood pressure 0 mm[Hg] Normal (applies t o non-numeric results) 0 mm[Hg] [facility] ([facility]) Diastolic blood pressure 0 mm[Hg] Normal (applies to non-numeric results) 0 mm[Hg] [facility] ([facility]) Patient Treatment Plan of Care Planned Activity Planned Date Details Description Data Source (s) Levalbuterol 0.417 MG/ML Inhalant Solution [Xopenex] 12:00:00 AM EDT eCW1 ([facility]) Diclofenac Sodium 0.01 MG/MG Topical Gel [Voltaren] 12/10/19 12:00:00 AM EDT eCW1 ([facility]) Nebulizer/Tubing/Mouthpiece - 12/10/2019 12:00:00 AM EDT eCW1 ([facility]) 200 ACTUAT Levalbuterol 0.045 MG/ACTUAT Metered Dose I nhaler [Xopenex] 12/10/2019 12:00:00 AM EDT eCW1 ([facility]) Guaifenesin 400 MG Oral Tablet 12/10/2019 12:00:00 AM EDT eCW1 ([facility]) Levalbuterol 0.417 MG/ML Inhalant Solution [Xopenex] 12:00:00 AM EDT eCW1 ([facility]) Diclofenac Sodium 0.01 MG/MG Topical Gel [Voltaren] 12/10/19 12:00:00 AM EDT eCW1 ([facility]) Nebulizer/Tubing/Mouthpiece - 12/10/2019 12:00:00 AM EDT eCW1 ([facility]) 200 ACTUAT Levalbuterol 0.045 MG/ACTUAT Metered Dose I nhaler [Xopenex] 12/10/2019 12:00:00 AM EDT eCW1 ([facility]) Guaifenesin 400 MG Oral Tablet 12/10/2019 12:00:00 AM EDT eCW1 ([facility]) 200 ACTUAT Levalbuterol 0.045 MG/ACTUAT Metered Dose I nhaler [Xopenex] 12/10/2019 12:00:00 AM EDT eCW1 ([facility]) Guaifenesin 400 MG Oral Tablet 12/10/2019 12:00:00 AM EDT eCW1 ([facility]) Levalbuterol 0.417 MG/ML Inhalant Solution [Xopenex] 12:00:00 AM EDT eCW1 ([facility]) Diclofenac Sodium 0.01 MG/MG Topical Gel [Voltaren] 12/10/19 12:00:00 AM EDT eCW1 ([facility]) Nebulizer/Tubing/Mouthpiece - 12/10/2019 12:00:00 AM EDT eCW1 ([facility])
--- OUTSIDE RECORDS SUMMARY | 2020-12-23 09:11 | CCD ---
Author Author [facility] Organization [facility] Address Unknown Phone Unavailable Care Team Providers Care Showcase Maker Name Role Phone Serenity Bear Unavailable PROBLEMS Type Condition ICD9-CM Code UXA01-CY Code Onset Dates Condition S tatus W/U Status Risk SNOMED Code Notes Problem Shortness of breath R06.02 Active confirmed 412185847 Problem Stress incontinence N39.3 Active confirmed 48146483 Problem Cough R05 Active confirmed 44309427 Problem Cardiomegaly I51.7 Active confirmed 2266629 Problem Cigarette nicotine dependence without complication F17.210 Active confirmed 31404210 Problem Knee pain, right M25.561 Active confirmed 30 242148 Problem Elevated blood pressure I10 Active confirmed 24509234 Problem Breast pain, right N64.4 Active confirmed 1 4050685437468927 Problem Vitamin D deficiency E55.9 Active confirmed 35789811 Problem Personal history of noncompl iance with medical treatment, presenting hazards to health Z91.19 Active confirmed 2519797 Problem Chronic prescription opiate use Z79.891 Active confirmed 997764551 Problem Hypoglycemia E16.2 Active confirmed 9491519 03 Problem Reflux gastritis K29.60 Active confirmed 729 19353 Problem Low back pain M54.5 Active confirmed 666061 007 Problem Adult BMI 50.0-59.9 kg/sq m Z68.43 Active confirmed 281234890 Problem Seasonal allergic rhinitis, unspecified allergic rhinitis trigger J30.2 Active confirmed 762118263 Problem Moderate persistent asthma with acute exacerbation J45.41 Active confirmed [id number] Stable on current me dications Problem Acute allergic rhinitis, unspecified seasonality , unspecified trigger J30.9 Active confirmed 70458360 Problem Mild intermittent asthma without complication J45. 20 Active confirmed 739206781 Problem Family history of breast cancer Z80.3 Active confi rmed 610939741 Problem Right arm numbness R20.2 Active confirmed 2 98314310 Problem Morbid obesity E66.01 Active confirmed 32988 6002 Problem Anxiety F41.9 Active confirmed 39647900 Problem Tobacco use Z72.0 Active confirmed 57781506 0 Problem Myalgia M79.1 Active confirmed 22049987 Problem Impaired fasting glucose R73.01 Active confirmed 351694651 Problem Urinary incontinence, unspecified type R32 A ctive confirmed 757243329 Problem Delayed menses N91.0 Active confirmed 52371 8009 Since she tells me that the urine tests are always negative urine when she has been , we have sent her for a blood draw for hCG Problem Environmental and seasonal allergies J30.89 Act claudio confirmed [id number] We will try Carolyn Problem Other chronic pain G89.29 Active confirmed 8 6669056 ALLERGIES Allergen (clinical drug ingredient) Drug/Non Drug Allergy do cumented on EMR Reaction Allergy Type Onset Date Status Benadryl Hives, throat swelling Drug Allergy Active aspirin Aspirin(ND Code:[address]-45) Hives, throat swelling Kyaw g Allergy Active risperidone Risperdal(ND Code:[address]-43) Hives Drug Allergy Active tramadol Tramadol HCl(ND Code:[address]-00) itching Drug Aller gy Active Darvocet A500 Hives Drug Allergy Active flexeril mood change Non Drug Allergy Active amoxicillin Amoxicillin(NDC Code:[address]-51) Hives Drug Aller gy Active steri-strips Rash Non Drug Allergy Active PredniSONE mean personality Drug Allergy Active ketorolac Ketorolac Tromethamine(NDC Code:43755-68 14-) blisters at site of IV. Hives Drug Allergy Active Codeine Phosphate (For Allergies Use Only) Hives Drug Allergy Active ENCOUNTERS from 1984 to 2020-10-21 Encounter Location Date Provider Diagnosis [place] [id number] [facility] [phone] [place] [address] Oct, Serenity Bear IMMUNIZATIONS Vaccine Route Administration Date Status Influenza [...] Education Language: Question Answer Notes Languages spoken: Chilean Gnosticism: Question Answer Notes Gnosticism 33 None Sexual Hx: Question Answer Notes [...] Daily for 90 days Dec, Active Drisdol 35778 UNIT 1 capsule Orally every other week [...] 1 tablet Orally Once a day Not-Taking [place] 10-325 MG 1/2 tab q8h prn mdd3 [...] Information RESULTS No Results REASON FOR VISIT No Information MEDICAL (GENERAL) HISTORY Type Description Date Medical History OCD/PTSD/borderline personal ity/BiPolar 2 - Dr Archer - [facility] Medical History 08/16/2016 pulmonary functio n test [facility], positive methacholine challenge study. Medical History [...] Insured Coverage Start Date Coverage End Date [facility] DEPT [address] ON LICENSE OF [facility] [phone] [place] self MEDICAID [employer] [address] [facility] [id number] [place] self
--- OUTSIDE RECORDS SUMMARY | 2020-12-23 09:11 | CCD ---
Author Author Nerissa Crespo Organization Unknown Address [address] [address] Phone Care Team Providers Care Clinic Office Coordinator Name Role Phone Carmita Crespo PCP Allergies, Adverse Reactions, Alerts Concept Allergy Name Reaction Severity Onset Date Status Documentation Date Phone Number Npid Taxonomy Code Taxonomy Desc Author Last Name Author Fi rst Name Concept Type [id number] haloperidol akathisia 11/07/2018 Active 12/04/2018 3157 [id number] Licensed Practical Nurse Sonam Koch RXN ORM [id number] Rexulti (brexpiprazole) unspecified 12/28/2016 Active 1 [id number] Psychiatry [facility] Jose D RXNORM 663616 ziprasidone hcl Akathisia 10/26/2016 Active 12/05/2016 [id number] Registered Nurse Bee Soares RXNORM 8256086 Benadryl (diphenhydramine hcl) unspecified Active 05/03 RXNORM 178309 amoxicillin unspecified Active 05/14/2014 RXNORM Problem List [...] Name Taxonomy Code Taxonomy Desc Phone Number [id number] Ambien CR by mouth [id number] 09/24/2020 11/06/2020 at bedtime 30 12.5 mg tablet,ext release multiphase 16167 417649 [id number] Stefano Crespo [id number] Nurse Practitioner [phone] 987128 benztropine by mouth [id number] 10/07/2020 11/06/2020 at bedtime 30 1 mg tablet 22018 806370 [id number] Carmita Crespo [id number] Nurse P ractitioner [phone] 098117 Trileptal by mouth [id number] 10/07/2020 11/06/2020 at bedtime 30 300 mg tablet 36543 666067 [id number] Carmita Crespo [id number] Nurse P ractitioner [id number] 948447 lamotrigine by mouth F03897 10/07/2020 11/06/2020 once a day 30 25 mg tablet 66612 294841 [id number] Carmita Crespo [id number] Nurse P ractitioner [phone] 268655 chlorpromazine by mouth [id number] 10/07/2020 11/06/2020 at bedtime 30 100 mg tablet 78700 366165 [id number] Carmita Crespo [id number] Nurse Practitioner [id number] Social History Social History Element Description Concept Effective Date Smoking Status Unknown if ever smoked [id number] Immunizations No Data in Section Vital Signs No Data in Section Procedures Date Concept Id Description Targeted Site Concept Targeted Site Concept Type 10/07/2020 11165-73 [facility] Telemed E/M Lvl 3--Est pt CPT 10/07/2020 [id number] Psychotherapy ADD ON - 30 Minutes CPT Patient has no history of implantable de vices Encounters Encounter Start Date End Date Encounter Type Description Diagnosis Di agnosis Desc Location Author First Name Author Last Name Npid Taxonomy Cod e Taxonomy Desc Phone Number Location Addr1 Location Addr2 Location [facility] Location [facility] Location [facility] [id number] 10/07/2020 10/07/2020 38042-47 [facility] Telemed E/M Lvl 3--Est p t F60.3 [facility]line [facility] [id number] Nurse Practitioner [id number] [address] [address] Plan of Treatment No Data in Section Lab Results No Data in Section Instructions No Data in Section Functional Cognitive Status No Data in Section Insurance Providers Insurance Id Policy Effective Date Policy Thru Date Company N [employer] [id number] 2015 [employer]-- Jose HERNANDEZ
--- OUTSIDE RECORDS SUMMARY | 2020-12-23 09:11 | CCD ---
Author Author [facility] Organization [facility] Address Unknown Phone Unavailable Care Team Providers Care Buttonhole Maker Hand Name Role Phone Karon Cabrera Unavailable PROBLEMS Type Condition ICD9-CM Code [id number] Code Onset Dates Condition S tatus W/U Status Risk SNOMED Code Notes Problem Shortness of breath R06.02 Active confirmed 564639614 Problem Stress incontinence N39.3 Active confirmed 89954358 Problem Cough R05 Active confirmed 86830786 Problem Cardiomegaly I51.7 Active confirmed 8487339 Problem Cigarette nicotine dependence without complication F17.210 Active confirmed 55642919 Problem Knee pain, right M25.561 Active confirmed 30 720671 Problem Elevated blood pressure I10 Active confirmed 84652134 Problem Breast pain, right N64.4 Active confirmed 1 5014837123168226 Problem Vitamin D deficiency E55.9 Active confirmed 68548960 Problem Personal history of noncompl iance with medical treatment, presenting hazards to health Z91.19 Active confirmed 4588166 Problem Chronic prescription opiate use Z79.891 Active confirmed 191416759 Problem Hypoglycemia E16.2 Active confirmed 1446149 03 Problem Reflux gastritis K29.60 Active confirmed 729 54972 Problem Low back pain M54.5 Active confirmed 800265 007 Problem Adult BMI 50.0-59.9 kg/sq m Z68.43 Active confirmed 863095160 Problem Seasonal allergic rhinitis, unspecified allergic rhinitis trigger J30.2 Active confirmed 688566420 Problem Moderate persistent asthma with acute exacerbation J45.41 Active confirmed 423518330862092 Stable on current me dications Problem Acute allergic rhinitis, unspecified seasonality , unspecified trigger J30.9 Active confirmed 30431073 Problem Mild intermittent asthma without complication J45. 20 Active confirmed 632574878 Problem Family history of breast cancer Z80.3 Active confi rmed 765683817 Problem Right arm numbness R20.2 Active confirmed 2 43033448 Problem Morbid obesity E66.01 Active confirmed 02994 6002 Problem Anxiety F41.9 Active confirmed 28609722 Problem Tobacco use Z72.0 Active confirmed 04811655 0 Problem Myalgia M79.1 Active confirmed 77417697 Problem Impaired fasting glucose R73.01 Active confirmed 039630131 Problem Urinary incontinence, unspecified type R32 A ctive confirmed 426337813 Problem Delayed menses N91.0 Active confirmed 67411 8009 Since she tells me that the urine tests are always negative urine when she has been , we have sent her for a blood draw for hCG Problem Environmental and seasonal allergies J30.89 Act claudio confirmed 561065619 We will try Carolyn Problem Other chronic pain G89.29 Active confirmed 8 2347241 ALLERGIES Allergen (clinical drug ingredient) Drug/Non Drug Allergy do cumented on EMR Reaction Allergy Type Onset Date Status Benadryl Hives, throat swelling Drug Allergy Active aspirin Aspirin(ND Code:[address]-36) Hives, throat swelling Kyaw g Allergy Active risperidone Risperdal(ND Code:[address]-75) Hives Drug Allergy Active tramadol Tramadol HCl(ND Code:[address]-12) itching Drug Aller gy Active Darvocet A500 Hives Drug Allergy Active flexeril mood change Non Drug Allergy Active amoxicillin Amoxicillin(NDC Code:[address]-31) Hives Drug Aller gy Active steri-strips Rash Non Drug Allergy Active PredniSONE mean personality Drug Allergy Active ketorolac Ketorolac Tromethamine(ND Code:77730-84 14-) blisters at site of IV. Hives Drug Allergy Active Codeine Phosphate (For Allergies Use Only) Hives Drug Allergy Active ENCOUNTERS from 1984 to 2020-10-28 Encounter Location Date Provider Diagnosis [place] [id number] [facility] [phone] [place] [address] Oct, Karon Servage IMMUNIZATIONS Vaccine Route Administration [...] Education Language: Question Answer Notes Languages spoken: Greenlandic Adventist: Question Answer Notes Adventist 33 None Sexual Hx: Question Answer Notes [...] Daily for 90 days Dec, Active Drisdol 28442 UNIT 1 capsule Orally every other week [...] 1 tablet Orally Once a day Not-Taking [place] 10-325 MG 1/2 tab q8h prn mdd3 [...] Information RESULTS No Results REASON FOR VISIT U/S results MEDICAL (GENERAL) HISTORY Type Description Date Medical History OCD/PTSD/borderline personal ity/BiPolar 2 - Dr Archer - [facility] Medical History 08/16/2016 pulmonary functio n test [facility], positive methacholine challenge study. Medical History asthma, [...] Insured Coverage Start Date Coverage End Date [employer] DE[employer] [address] [facility] [phone] [place] self MEDICAID [employer] [address] [facility] [address] [place] self
--- OUTSIDE RECORDS SUMMARY | 2020-12-23 09:11 | CCD ---
Author Author [facility] Organization [facility] Address Unknown Phone Unavailable Care Team Providers Care Order Detailer Name Role Phone Serenity Bear Unavailable PROBLEMS Type Condition ICD9-CM Code [id number]-HL Code Onset Dates Condition S tatus W/U Status Risk SNOMED Code Notes Problem Shortness of breath R06.02 Active confirmed 062517744 Problem Stress incontinence N39.3 Active confirmed 57368468 Problem Cough R05 Active confirmed 48922046 Problem Cardiomegaly I51.7 Active confirmed 5241860 Problem Cigarette nicotine dependence without complication F17.210 Active confirmed 21583341 Problem Knee pain, right M25.561 Active confirmed 30 737293 Problem Elevated blood pressure I10 Active confirmed 57928203 Problem Breast pain, right N64.4 Active confirmed 1 8950974288624232 Problem Vitamin D deficiency E55.9 Active confirmed 05806690 Problem Personal history of noncompl iance with medical treatment, presenting hazards to health Z91.19 Active confirmed 6145967 Problem Chronic prescription opiate use Z79.891 Active confirmed 023453096 Problem Hypoglycemia E16.2 Active confirmed 3616207 03 Problem Reflux gastritis K29.60 Active confirmed 729 20854 Problem Low back pain M54.5 Active confirmed 002311 007 Problem Adult BMI 50.0-59.9 kg/sq m Z68.43 Active confirmed 930633011 Problem Seasonal allergic rhinitis, unspecified allergic rhinitis trigger J30.2 Active confirmed 784703354 Problem Moderate persistent asthma with acute exacerbation J45.41 Active confirmed 543979660107547 Stable on current me dications Problem Acute allergic rhinitis, unspecified seasonality , unspecified trigger J30.9 Active confirmed 79108780 Problem Mild intermittent asthma without complication J45. 20 Active confirmed 436217824 Problem Family history of breast cancer Z80.3 Active confi rmed 128426244 Problem Right arm numbness R20.2 Active confirmed 2 78935295 Problem Morbid obesity E66.01 Active confirmed 48459 6002 Problem Anxiety F41.9 Active confirmed 63612281 Problem Tobacco use Z72.0 Active confirmed 80376574 0 Problem Myalgia M79.1 Active confirmed 58478297 Problem Impaired fasting glucose R73.01 Active confirmed 663863075 Problem Urinary incontinence, unspecified type R32 A ctive confirmed 169685960 Problem Delayed menses N91.0 Active confirmed 80749 8009 Since she tells me that the urine tests are always negative urine when she has been , we have sent her for a blood draw for hCG Problem Environmental and seasonal allergies J30.89 Act claudio confirmed 199029665 We will try Carolyn Problem Other chronic pain G89.29 Active confirmed 8 0347174 ALLERGIES Allergen (clinical drug ingredient) Drug/Non Drug Allergy do cumented on EMR Reaction Allergy Type Onset Date Status Benadryl Hives, throat swelling Drug Allergy Active aspirin Aspirin(ND Code:[address]-81) Hives, throat swelling Kyaw g Allergy Active risperidone Risperdal(ND Code:[address]-91) Hives Drug Allergy Active tramadol Tramadol HCl(ND Code:[address]-34) itching Drug Aller gy Active Darvocet A500 Hives Drug Allergy Active flexeril mood change Non Drug Allergy Active amoxicillin Amoxicillin(NDC Code:[address]-04) Hives Drug Aller gy Active steri-strips Rash Non Drug Allergy Active PredniSONE mean personality Drug Allergy Active ketorolac Ketorolac Tromethamine(NDC Code:63670-14 ) blisters at site of IV. Hives Drug Allergy Active Codeine Phosphate (For Allergies Use Only) Hives Drug Allergy Active ENCOUNTERS from 1984 to 2020-10-21 Encounter Location Date Provider Diagnosis [address] [phone] [place] [address] Oct, Serenity Bear Swelling of left upper extre mity M79.89 ; Other skin changes R23.8 ; Pain of left upper arm M79.622 and Other specified soft tissue disorders M79.89 IMMUNIZATIONS Vaccine Route Administration Date Status Influenza 6mo & up Fluzone Unknown Dec 10, 2019 Other s SOCIAL HISTORY Tobacco Use: Social History Observation Description Date Details (start date - stop date) Current Smoker Sex Assigned At : Social History Observation Description Sex Assigned At Unknown Education: Question Answer Notes Level of Education: High School / Audit Question Answer Notes Total Score: 1 Interpretation: Alcohol Education Language: Question Answer Notes Languages spoken: Malagasy Yazidism: Question Answer Notes Yazidism 33 None Sexual Hx: Question Answer Notes [...] REASON FOR REFERRAL No Information VITAL SIGNS Weight 294.2 lbs Oct, Weight-kg 133.45 kg Oct, Height 62 in Oct, BMI 53.80 kg/m2 Oct, Heart Rate 114 /min Oct, Respiratory Rate 18 /min Oct, Temperature 98.0 degrees Fahrenheit Oct, Oximetry 99 Oct, Blood pressure systolic 160 mm Hg Oct, Blood pressure diastolic 90 mm Hg Oct, MEDICATIONS Medication SIG (Take, Route, Frequency, Duration) Notes Start Da te End Date Status guaiFENesin 400 MG 1 tablet as needed Orally every 6 hrs for 30 Active Nebulizer/Tubing/Mouthpiece - as directed orally icd 1 0 J45.20 Daily for 90 days Dec, Active Drisdol 85668 UNIT 1 capsule Orally every other week for 30 Active Ibuprofen 800 MG 1 tablet Orally bid for 30 Days Sep, 2 016 Active Thorazine 25mg 4 oral qid(100mg [...] 1 tablet Orally Once a day Not-Taking [place] 10-325 MG 1/2 tab q8h prn mdd3 [...] Information RESULTS No Results REASON FOR VISIT [facility] f/u MEDICAL (GENERAL) HISTORY Type Description Date Medical History OCD/PTSD/borderline personal ity/BiPolar 2 - Dr Archer - [facility] Medical History 08/16/2016 pulmonary functio [...] No Information FUNCTIONAL STATUS No Information ASSESSMENTS Encounter Date Diagnosis Assessment Notes Treatment Notes Treatm ent Clinical Notes Oct, Swelling of left upper extremity (ICD-10 - M79.8 9) Discuss with patient given the redness and swelling, we will order an ultrasound of the left upper extremity, however her symptoms and examination suggest more of a musculoskeletal etiology. Will call pt with results once available Oct, Other skin changes (ICD-10 - R23.8) Oct, Pain of left upper arm (ICD-10 - M79.622) Oct, Other specified soft tissue disorders (ICD-10 - M79.89) Oct, Other Total time spent caring for the patient on the day of the encounter was 30 min (review of ED records and stat imaging) PLAN OF TREATMENT Treatment Notes Assessment Notes Clinical Notes Swelling of left upper extremity Discuss with patient given the redness and swelling, we will order an ultrasound of the left upper extremity, however her symptoms and examination suggest more of a musculoskeletal etiology.Will call pt with results once available Treatment Notes Test Name Order Date PLZ PLZ DUPLEX EXT UPPER VEINS UNILAT 2020-10-20 Insurance Providers Payer Name Payer Address Payer Phone Insured Name Patient Relati onship to Insured Coverage Start Date Coverage End Date MEDICAID [employer] [address] [facility] [address] [place] [employer] [address] [place] [phone] [employer] [place]
[2020-12-23] MEDS ORDERED: ONDANSETRON 4MG/2ML VIAL IV ONE (09:40)
[2020-12-23] MEDS ORDERED: NS 1,000 ML IV ONE (09:40)
[2020-12-23] MEDS ORDERED: methylPREDNISolone 125MG 2ML VIAL IV ONE (09:40)
--- OUTSIDE RECORDS SUMMARY | 2020-12-23 09:50 | CCD ---
Author Author [facility] Organization [facility] Address Unknown Phone Unavailable Care Team Providers Care Clinical Instructor Name Role Phone Sylvia Brunner Unavailable Unavailable ZAK, H DANIELLE SCREEN AND CYCLONE REPAIRER Unavailable Unavailable ZAK, H DANIELLE SCREEN AND CYCLONE REPAIRER Unavailable Unavailable ZAK, H DANIELLE SCREEN AND CYCLONE REPAIRER Unavailable Unavailable ZAK, H DANIELLE SCREEN AND CYCLONE REPAIRER Unavailable Unavailable ZAK, H DANIELLE SCREEN AND CYCLONE REPAIRER Unavailable Unavailable ZAK, H DANIELLE SCREEN AND CYCLONE REPAIRER Unavailable Unavailable ZAK, H DANIELLE SCREEN AND CYCLONE REPAIRER Unavailable Unavailable ZAK, H DANIELLE SCREEN AND CYCLONE REPAIRER Unavailable Unavailable ZAK, H DANIELLE SCREEN AND CYCLONE REPAIRER Unavailable Unavailable Re-disclosure Warning The records that [...] is protected by Article 27-F of the [facility] Public Health law. If you continue you may have access to information: Regarding HIV / AIDS; Provided by facilities licensed or operated by the [facility] Office of Mental Health; or Provided by the [facility] Office for People With Developmental Disabilities. If such information is present, then the following [facility] mandated warning applies: This information has [...] law may result in a fine or residential sentence or both. A general authorization for the release of medical or other information is NOT sufficient authorization for further disc losure. Allergies and Adverse Reactions Type Description Substance Reaction Status Data Source(s ) Propensity to adverse reactions to substance amoxicillin Amoxicillin 250 MG Oral Capsule Active [facility] ([facility]) Propensity to adverse reactions to substance Benadryl (diphe nhydramine hcl) Diphenhydramine Hydrochloride 25 MG Oral Capsule [Benadryl] Active [facility] ([facility]) Propensity to adverse reactions to substance ziprasidone hcl ziprasidone 60 MG Oral Capsule Active [facility] ([facility]) Propensity to adverse reactions to substance Rexulti (brexpi prazole) brexpiprazole 0.5 MG Oral Tablet [Rexulti] Active [facility] ([facility]) Propensity to adverse reactions to substance haloperidol Haloperidol 10 MG Oral Tablet Active [facility] ([facility]) Propensity to adverse reactions to substance amoxicillin Amoxicillin 250 MG Oral Capsule Active [facility] ([facility]) Propensity to adverse reactions to substance Benadryl (diphe nhydramine hcl) Diphenhydramine Hydrochloride 25 MG Oral Capsule [Benadryl] Active [facility] ([facility]) Propensity to adverse reactions to substance ziprasidone hcl ziprasidone 60 MG Oral Capsule Active [facility] ([facility]) Propensity to adverse reactions to substance haloperidol Haloperidol 10 MG Oral Tablet Active [facility] ([facility]) Family History Family Member Name Family Member Gender Family Member Status Date o f Status Description Data Source(s) Unknown Female Problem [facility] ([facility]) Encounters Encounter Providers Location Date Indications Data Source(s ) Outpatient Attender: DANIELLE LATHAM NP [facility] [place] 12/13/2020 11:30:00 AM EDT - 12/13/2020 11:30:00 AM EDT [facility] ([facility]) Attender: DANIELLE LATHAM NP 12/13/2020 12:00:00 AM EDT [facility] ([facility]) [id number]"Psychotherapy Attender: Sylvia Brunner [facility] [place] 12/10/2020 09:00:00 AM EDT - 12/10/2020 09:00:00 AM EDT [facility] ([facility]) Attender: Sylvia Brunner 12/10/2020 12:00:00 AM EDT [facility] ([facility]) [place] [address] [place] [address] 10/26/2020 12:00:00 AM EDT eCW1 ([facility]) Unknown [address] [place] [address] 10/21/2020 12:00:00 AM EDT eCW1 ([facility]) Outpatient [address] [place] [address] 10/20/2020 12:00:00 AM EDT eCW1 ([facility]) Unknown [address] [place] [address] 10/20/2020 12:00:00 AM EDT eCW1 ([facility]) Outpatient Attender: DANIELLE LATHAM NP [facility] [place] 10/07/2020 05:30:00 AM EDT - 10/07/2020 05:30:00 AM EDT [facility] ([facility]) Attender: DANIELLE LATHAM NP 10/07/2020 12:00:00 AM EDT [facility] ([facility]) Attender: Sylvia Brunner 08/25/2020 12:00:00 AM EDT [facility] ([facility]) Extended Individual Psychotherapy - 45 min Attender: Sylvia Kannan [facility] 08/24/2020 04:00:00 AM EDT - 08/24/2020 04:00:00 AM EDT [facility] ([facility]) Outpatient Attender: DANIELLE LATHAM NP [facility] [place] 08/24/2020 01:30:00 AM EDT - 08/24/2020 01:30:00 AM EDT [facility] ([facility]) Attender: DANIELLE LATHAM NP 08/24/2020 12:00:00 AM EDT [facility] ([facility]) Extended Individual Psychotherapy - 45 min Attender: Sylvia Kannan [facility] 08/17/2020 04:00:00 AM EDT - 08/17/2020 04:00:00 AM EDT [facility] ([facility]) Attender: Sylvia Brunner 08/17/2020 12:00:00 AM EDT [facility] ([facility]) Attender: Sylvia Brunner 08/11/2020 12:00:00 AM EDT [facility] ([facility]) Extended Individual Psychotherapy - 45 min Attender: Sylvia Kannan [facility] 08/10/2020 04:00:00 AM EDT - 08/10/2020 04:00:00 AM EDT [facility] ([facility]) Attender: Sylvia Brunner 08/05/2020 12:00:00 AM EDT [facility] ([facility]) [id number]"Psychotherapy Attender: Sylvia Brunner [facility] 08/03/2020 04:00:00 AM EDT - 08/03/2020 04:00:00 AM EDT [facility] ([facility]) Attender: Sylvia Brunner 07/21/2020 12:00:00 AM EDT [facility] ([facility]) Extended Individual Psychotherapy - 45 min Attender: Sylvia Brunner [facility] 07/20/2020 04:00:00 AM EDT - 07/20/2020 04:00:00 AM EDT [facility] ([facility]) Attender: Sylvia Brunner 07/14/2020 12:00:00 AM EDT [facility] ([facility]) [id number]"Psychotherapy Attender: Sylvia Brunner [facility] 07/13/2020 04:00:00 AM EDT - 07/13/2020 04:00:00 AM EDT [facility] ([facility]) Attender: Sylvia Armendarizus 06/30/2020 12:00:00 AM EDT [facility] ([facility]) Extended Individual Psychotherapy - 45 min Attender: Sylvia Kannan [facility] 06/29/2020 04:00:00 AM EDT - 06/29/2020 04:00:00 AM EDT [facility] ([facility]) [id number]"Psychotherapy Attender: Sylvia Brunner [facility] 06/22/2020 04:00:00 AM EDT - 06/22/2020 04:00:00 AM EDT [facility] ([facility]) Attender: Sylvia Armendarizus 06/22/2020 12:00:00 AM EDT [facility] ([facility]) Outpatient Attender: DANIELLE LATHAM NP [facility] [place] 06/01/2020 11:00:00 AM EDT - 06/01/2020 11:00:00 AM EDT [facility] ([facility]) Attender: DANIELLE LATHAM NP 06/01/2020 12:00:00 AM EDT [facility] ([facility]) Attender: Sylvia Brunner 05/20/2020 12:00:00 AM EDT [facility] ([facility]) [id number] 30" Psychotherapy [facility] 05/19/2020 12:00:00 PM EDT - 05/19/2020 12:00:00 PM EDT [facility] ([facility]) Outpatient Attender: DANIELLE LATHAM NP [facility] 03/25/2020 03:00:00 AM EST - 03/25/2020 03:00:00 AM EST [facility] ([facility]) [place] [address] [place] [address] 03/25/2020 12:00:00 AM EST eCW1 ([facility]) Attender: DANIELLE LATHAM NP 03/25/2020 12:00:00 AM EST [facility] ([facility]) [id number]"Psychotherapy Attender: Sylvia Kannan [facility] 03/24/2020 03:00:00 AM EST - 03/24/2020 03:00:00 AM EST [facility] ([facility]) Attender: Sylvia Brunner 03/24/2020 12:00:00 AM EST [facility] ([facility]) Attender: Sylvia Brunner 03/03/2020 12:00:00 AM EST [facility] ([facility]) [id number]"Psychotherapy Attender: Sylvia Brunner [facility] 03/02/2020 04:00:00 AM EST - 03/02/2020 04:00:00 AM EST [facility] ([facility]) Attender: Sylvia Brunner 02/25/2020 12:00:00 AM EST [facility] ([facility]) [id number]"Psychotherapy Attender: Sylvia Brunner [facility] 02/24/2020 04:00:00 AM EST - 02/24/2020 04:00:00 AM EST [facility] ([facility]) [place] [address] [place] [address] 02/23/2020 12:00:00 AM EST eCW1 ([facility]) Outpatient Attender: DANIELLE LATHAM NP [facility] [place] 02/17/2020 05:00:00 AM EST - 02/17/2020 05:00:00 AM EST [facility] ([facility]) [id number]"Psychotherapy Attender: Sylvia Brunner [facility] 02/17/2020 04:00:00 AM EST - 02/17/2020 04:00:00 AM EST [facility] ([facility]) Attender: DANIELLE LATHAM NP 02/17/2020 12:00:00 AM EST [facility] ([facility]) Attender: Sylvia Brunner 02/17/2020 12:00:00 AM EST [facility] ([facility]) Attender: Sylvia Brunner 02/11/2020 12:00:00 AM EST [facility] ([facility]) [id number]"Psychotherapy Attender: Sylvia Brunner [facility] 02/10/2020 04:00:00 AM EST - 02/10/2020 04:00:00 AM EST [facility] ([facility]) Attender: Sylvia Brunner 02/04/2020 12:00:00 AM EST [facility] ([facility]) [id number]"Psychotherapy Attender: Sylvia Brunner [facility] 02/03/2020 04:00:00 AM EST - 02/03/2020 04:00:00 AM EST [facility] ([facility]) Outpatient Attender: DANIELLE LATHAM NP [facility] [place] 02/02/2020 10:30:00 AM EST - 02/02/2020 10:30:00 AM EST [facility] ([facility]) Attender: DANIELLE LATHAM NP 02/02/2020 12:00:00 AM EST [facility] ([facility]) [place] [address] [place] [address] 01/15/2020 12:00:00 AM EST eCW1 ([facility]) Attender: Sylvia Brunner 01/14/2020 12:00:00 AM EST [facility] ([facility]) [id number]"Psychotherapy Attender: Sylvia Brunner [facility] 01/13/2020 04:00:00 AM EST - 01/13/2020 04:00:00 AM EST [facility] ([facility]) Attender: Sylvia Brunner 01/07/2020 12:00:00 AM EST [facility] ([facility]) [id number]"Psychotherapy Attender: Sylvia Brunner [facility] 01/06/2020 04:00:00 AM EST - 01/06/2020 04:00:00 AM EST [facility] ([facility]) [id number]"Psychotherapy Attender: Sylvia Brunner [facility] 12/30/2019 03:00:00 AM EDT - 12/30/2019 03:00:00 AM EDT [facility] ([facility]) Attender: Sylvia Brunner 12/30/2019 12:00:00 AM EDT [facility] ([facility]) [place] [address] [place] [address] 12/25/2019 12:00:00 AM EDT eCW1 ([facility]) Attender: Sylvia Brunner 12/17/2019 12:00:00 AM EDT [facility] ([facility]) [id number]"Psychotherapy Attender: Sylvia Kannan [facility] 12/16/2019 04:00:00 AM EDT - 12/16/2019 04:00:00 AM EDT [facility] ([facility]) [place] [address] [place] [address] 12/16/2019 12:00:00 AM EDT eCW1 ([facility]) [id number]"Psychotherapy [facility]: [facility] 12/11/2019 09:00:00 AM EDT - 12/11/2019 09:00:00 AM EDT [facility] ([facility]) Attender: Sylvia Brunner 12/11/2019 12:00:00 AM EDT [facility] ([facility]) Attender: Sylvia Brunner 12/11/2019 12:00:00 AM EDT [facility] ([facility]) [place] [address] [place] [address] 12/10/2019 12:00:00 AM EDT eCW1 ([facility]) Outpatient Attender: DANIELLE LATHAM NP [facility] [place] 12/09/2019 05:00:00 AM EDT - 12/09/2019 05:00:00 AM EDT [facility] ([facility]) [id number]"Psychotherapy Att[facility]: [facility] 12/09/2019 04:00:00 AM EDT - 12/09/2019 04:00:00 AM EDT [facility] ([facility]) Attender: DANIELLE LATHAM NP 12/09/2019 12:00:00 AM EDT [facility] ([facility]) Attender: Sylvia Brunner 12/03/2019 12:00:00 AM EDT [facility] ([facility]) [id number]"Psychotherapy Attender: Sylvia Brunner [facility] [place] 12/02/2019 04:00:00 AM EDT - 12/02/2019 04:00:00 AM EDT [facility] ([facility]) Outpatient Attender: DANIELLE LATHAM NP [facility] [place] 11/18/2019 05:00:00 AM EDT - 11/18/2019 05:00:00 AM EDT [facility] ([facility]) Attender: DANIELLE LATHAM NP 11/18/2019 12:00:00 AM EDT [facility] ([facility]) TEMPMHCTelemed 30" Psychotherapy Attender: Sylvia Segal [facility] 11/11/2019 03:30:00 AM EDT - 11/11/2019 03:30:00 AM EDT [facility] ([facility]) Attender: Sylvia Armendarizus 11/11/2019 12:00:00 AM EDT [facility] ([facility]) Outpatient Attender: DANIELLE LATHAM NP [facility] 11/04/2019 05:00:00 AM EDT - 11/04/2019 05:00:00 AM EDT [facility] ([facility]) Attender: DANIELLE LATHAM NP 11/04/2019 12:00:00 AM EDT [facility] ([facility]) Functional Status Immunizations Vaccine Date Status Description Data Source(s) New in 2011. IIV4 12/10/2019 10:54:00 AM EDT completed eCW1 (On [facility]) New in 2011. IIV4 12/10/2019 10:54:00 AM EDT completed eCW1 (On [facility]) New in 2011. IIV4 12/10/2019 10:54:00 AM EDT completed eCW1 (On [facility] Of [facility]) New in 2011. IIV4 12/10/2019 10:54:00 AM EDT completed eCW1 (On [facility]) New in 2011. IIV4 12/10/2019 10:54:00 AM EDT completed eCW1 ([facility]) New in 2011. IIV4 12/10/2019 10:54:00 AM EDT completed eCW1 ([facility]) New in 2011. IIV4 12/10/2019 10:54:00 AM EDT completed eCW1 (On [facility] Of [facility]) New in 2011. IIV4 12/10/2019 10:54:00 AM EDT completed eCW1 (On [facility] Of [facility]) New in 2011. IIV4 12/10/2019 10:54:00 AM EDT completed eCW1 ([facility]) New in 2011. IIV4 12/10/2019 10:54:00 AM EDT completed eCW1 ([facility]) Medications Medication Brand Name Start Date Product Form Dose Route Admi nistrative Instructions Pharmacy Instructions Status Indications Reaction Description Data Source(s) lamotrigine 25 MG Oral Tablet lamotrigine 11/22/2020 12:00:00 AM EDT 25 mg by mouth completed <td ID="Medica tionRxNorm_3">075927</td><td ID="MedicationMedication_3">lamotrigine</td><td ID="MedicationRoute_3">by mouth</td><td ID="MedicationRouteConcept_3">Z51240</td><td ID="MedicationStartDate_3">11/22/2020</td><td ID="MedicationStopDate_3">12/22/2020</td><td ID="MedicationDosageFrequency_3">once a day</td><td ID="MedicationDuration_3">30</td><td ID="MedicationFormulaStrength_3">25 mg</td><td ID="MedicationDosageForm_3">tablet</td><td ID="MedicationDosageFormCode_3"></td><td ID="MedicationDosageDescription_3"></td><td ID="MedicationMedicationId_3">[id number]</td><td ID="MedicationAccount_3">[id number]</td><td ID="MedicationNpid_3">[id number]</td><td ID="MedicationAuthorFirstName_3">Danielle</td><td ID="MedicationAuthorLastName_3">Zak</td><td ID="MedicationTaxonomyCode_3">[id number]</td><td ID="MedicationTaxonomyDesc_3">Nurse Practitioner</td><td ID="MedicationPhoneNumber_3">[phone]</td> [facility] ([facility]) Zolpidem tartrate 12.5 MG Extended Release Oral Tablet [Ambi en] Ambien CR 11/22/2020 12:00:00 AM EDT 12.5 mg by mouth completed <td ID="MedicationRxNorm_2">679757</td><td ID="MedicationMedication_2">Ambien CR</td><td ID="MedicationRoute_2">by mouth</td><td ID="MedicationRouteConcept_2">I64854</td><td ID="MedicationStartDate_2">11/22/2020</td><td ID="MedicationStopDate_2">12/22/2020</td><td ID="MedicationDosageFrequency_2">at bedtime</td><td ID="MedicationDuration_2">30</td><td ID="MedicationFormulaStrength_2">12.5 mg</td><td ID="MedicationDosageForm_2">tablet,ext release multiphase</td><td ID="MedicationDosageFormCode_2"></td><td ID="MedicationDosageDescription_2"></td><td ID="MedicationMedicationId_2">[id number]</td><td ID="MedicationAccount_2">[id number]</td><td ID="MedicationNpid_2">[id number]</td><td ID="MedicationAuthorFirstName_2">Danielle</td><td ID="MedicationAuthorLastName_2">Zak</td><td ID="MedicationTaxonomyCode_2">[id number]</td><td ID="MedicationTaxonomyDesc_2"> Nurse Practitioner</td><td ID="MedicationPhoneNumber_2">[phone]</td> [facility] ([facility]) benztropine mesylate 1 MG Oral Tablet benztropine 11/22/2020 12:00 :00 AM EDT 1 mg by mouth completed <td ID="Me dicationRxNorm_5">938009</td><td ID="MedicationMedication_5">benztropine</td><td ID="MedicationRoute_5">by mouth</td><td ID="MedicationRouteConcept_5">K52868</td><td ID="MedicationStartDate_5">11/22/2020</td><td ID="MedicationStopDate_5">12/22/2020</td><td ID="MedicationDosageFrequency_5">at bedtime</td><td ID="MedicationDuration_5">30</td><td ID="MedicationFormulaStrength_5">1 mg</td><td ID="MedicationDosageForm_5">tablet</td><td ID="MedicationDosageFormCode_5"></td><td ID="MedicationDosageDescription_5"></td><td ID="MedicationMedicationId_5">[id number]</td><td ID="MedicationAccount_5">[id number]</td><td ID="MedicationNpid_5">[id number]</td><td ID="MedicationAuthorFirstName_5">Danielle</td><td ID="MedicationAuthorLastName_5">Zak</td><td ID="MedicationTaxonomyCode_5">[id number]</td><td ID="MedicationTaxonomyDesc_5">Nurse Practitioner</td><td ID="MedicationPhoneNumber_5">[phone]</td> [facility] ([facility]) oxcarbazepine 300 MG Oral Tablet [Trileptal] Trileptal 11/22/2020 12:00:00 AM EDT 300 mg by mouth completed <td ID="MedicationRxNorm_1">822393</td><td ID="MedicationMedication_1">Trileptal</td><td ID="MedicationRoute_1">by mouth</td><td ID="MedicationRouteConcept_1">I05578</td><td ID="MedicationStartDate_1">11/22/2020</td><td ID="MedicationStopDate_1">12/22/2020</td><td ID="MedicationDosageFrequency_1">at bedtime</td><td ID="MedicationDuration_1">30</td><td ID="MedicationFormulaStrength_1">300 mg</td><td ID="MedicationDosageForm_1">tablet</td><td ID="MedicationDosageFormCode_1"></td><td ID="MedicationDosageDescription_1"></td><td ID="MedicationMedicationId_1">[id number]</td><td ID="MedicationAccount_1">[id number]</td><td ID="MedicationNpid_1">[id number]</td><td ID="MedicationAuthorFirstName_1">Danielle</td><td ID="MedicationAuthorLastName_1">Zak</td><td ID="MedicationTaxonomyCode_1">[id number]</td><td ID="MedicationTaxonomyDesc_1">Nurse Practitioner</td><td ID="MedicationPhoneNumber_1">[phone]</td> [facility] ([facility]) Chlorpromazine hydrochloride 100 MG Oral Tablet chlorpromazi ne 11/22/2020 12:00:00 AM EDT 100 mg by mouth completed <td ID="MedicationRxNorm_4">534407</td><td ID="MedicationMedication_4">chlorpromazine</td><td ID="MedicationRoute_4">by mouth</td><td ID="MedicationRouteConcept_4">R74193</td><td ID="MedicationStartDate_4">11/22/2020</td><td ID="MedicationStopDate_4">12/22/2020</td><td ID="MedicationDosageFrequency_4">at bedtime</td><td ID="MedicationDuration_4">30</td><td ID="MedicationFormulaStrength_4">100 mg</td><td ID="MedicationDosageForm_4">tablet</td><td ID="MedicationDosageFormCode_4"></td><td ID="MedicationDosageDescription_4"></td><td ID="MedicationMedicationId_4">[id number]</td><td ID="MedicationAccount_4">[id number]</td><td ID="MedicationNpid_4">[id number]</td><td ID="MedicationAuthorFirstName_4">Danielle</td><td ID="MedicationAuthorLastName_4">Zak</td><td ID="MedicationTaxonomyCode_4">[id number]</td><td ID="MedicationTaxonomyDesc_4">Nurse Practitioner</td><td ID="MedicationPhoneNumber_4">[phone]</td> [facility] ([facility]) lamotrigine 25 MG Oral Tablet lamotrigine 10/07/2020 12:00:00 AM EDT 25 mg by mouth completed <td ID="Medica tionRxNorm_4">809543</td><td ID="MedicationMedication_4">lamotrigine</td><td ID="MedicationRoute_4">by mouth</td><td ID="MedicationRouteConcept_4">G95840</td><td ID="MedicationStartDate_4">10/07/2020</td><td ID="MedicationStopDate_4">11/06/2020</td><td ID="MedicationDosageFrequency_4">once a day</td><td ID="MedicationDuration_4">30</td><td ID="MedicationFormulaStrength_4">25 mg</td><td ID="MedicationDosageForm_4">tablet</td><td ID="MedicationDosageFormCode_4"></td><td ID="MedicationDosageDescription_4"></td><td ID="MedicationMedicationId_4">[id number]</td><td ID="MedicationAccount_4">[id number]</td><td ID="MedicationNpid_4">[id number]</td><td ID="MedicationAuthorFirstName_4">Danielle</td><td ID="MedicationAuthorLastName_4">Zak</td><td ID="MedicationTaxonomyCode_4">[id number]</td><td ID="MedicationTaxonomyDesc_4">Nurse Practitioner</td><td ID="MedicationPhoneNumber_4">[phone]</td> [facility] ([facility]) oxcarbazepine 300 MG Oral Tablet [Trileptal] Trileptal 10/07/2020 12:00:00 AM EDT 300 mg by mouth completed <td ID="MedicationRxNorm_3">751821</td><td ID="MedicationMedication_3">Trileptal</td><td ID="MedicationRoute_3">by mouth</td><td ID="MedicationRouteConcept_3">E45181</td><td ID="MedicationStartDate_3">10/07/2020</td><td ID="MedicationStopDate_3">11/06/2020</td><td ID="MedicationDosageFrequency_3">at bedtime</td><td ID="MedicationDuration_3">30</td><td ID="MedicationFormulaStrength_3">300 mg</td><td ID="MedicationDosageForm_3">tablet</td><td ID="MedicationDosageFormCode_3"></td><td ID="MedicationDosageDescription_3"></td><td ID="MedicationMedicationId_3">[id number]</td><td ID="MedicationAccount_3">[id number]</td><td ID="MedicationNpid_3">[id number]</td><td ID="MedicationAuthorFirstName_3">Danielle</td><td ID="MedicationAuthorLastName_3">Zak</td><td ID="MedicationTaxonomyCode_3">[id number]</td><td ID="MedicationTaxonomyDesc_3">Nurse Practitioner</td><td ID="MedicationPhoneNumber_3">[phone]</td> [facility] benztropine mesylate 1 MG Oral Tablet benztropine 10/07/2020 12:00 :00 AM EDT 1 mg by mouth completed <td ID="Me dicationRxNorm_2">613050</td><td ID="MedicationMedication_2">benztropine</td><td ID="MedicationRoute_2">by mouth</td><td ID="MedicationRouteConcept_2">Z91795</td><td ID="MedicationStartDate_2">10/07/2020</td><td ID="MedicationStopDate_2">11/06/2020</td><td ID="MedicationDosageFrequency_2">at bedtime</td><td ID="MedicationDuration_2">30</td><td ID="MedicationFormulaStrength_2">1 mg</td><td ID="MedicationDosageForm_2">tablet</td><td ID="MedicationDosageFormCode_2"></td><td ID="MedicationDosageDescription_2"></td><td ID="MedicationMedicationId_2">[id number]</td><td ID="MedicationAccount_2">[id number]</td><td ID="MedicationNpid_2">[id number]</td><td ID="MedicationAuthorFirstName_2">Danielle</td><td ID="MedicationAuthorLastName_2">Zak</td><td ID="MedicationTaxonomyCode_2">[id number]</td><td ID="MedicationTaxonomyDesc_2">Nurse Practitioner</td><td ID="MedicationPhoneNumber_2">[phone]</td> [facility] ([facility]) Chlorpromazine hydrochloride 100 MG Oral Tablet chlorpromazi ne 10/07/2020 12:00:00 AM EDT 100 mg by mouth completed <td ID="MedicationRxNorm_5">591750</td><td ID="MedicationMedication_5">chlorpromazine</td><td ID="MedicationRoute_5">by mouth</td><td ID="MedicationRouteConcept_5">C74394</td><td ID="MedicationStartDate_5">10/07/2020</td><td ID="MedicationStopDate_5">11/06/2020</td><td ID="MedicationDosageFrequency_5">at bedtime</td><td ID="MedicationDuration_5">30</td><td ID="MedicationFormulaStrength_5">100 mg</td><td ID="MedicationDosageForm_5">tablet</td><td ID="MedicationDosageFormCode_5"></td><td ID="MedicationDosageDescription_5"></td><td ID="MedicationMedicationId_5">[id number]</td><td ID="MedicationAccount_5">[id number]</td><td ID="MedicationNpid_5">[id number]</td><td ID="MedicationAuthorFirstName_5">Danielle</td><td ID="MedicationAuthorLastName_5">Zak</td><td ID="MedicationTaxonomyCode_5">[id number]</td><td ID="MedicationTaxonomyDesc_5">Nurse Practitioner</td><td ID="MedicationPhoneNumber_5">[phone]</td> [facility] ([facility]) Zolpidem tartrate 12.5 MG Extended Release Oral Tablet [Ambi en] Ambien CR 09/24/2020 12:00:00 AM EDT 12.5 mg by mouth completed <td ID="MedicationRxNorm_1">054175</td><td ID="MedicationMedication_1">Ambien CR</td><td ID="MedicationRoute_1">by mouth</td><td ID="MedicationRouteConcept_1">G62769</td><td ID="MedicationStartDate_1">09/24/2020</td><td ID="MedicationStopDate_1">11/06/2020</td><td ID="MedicationDosageFrequency_1">at bedtime</td><td ID="MedicationDuration_1">30</td><td ID="MedicationFormulaStrength_1">12.5 mg</td><td ID="MedicationDosageForm_1">tablet,ext release multiphase</td><td ID="MedicationDosageFormCode_1"></td><td ID="MedicationDosageDescription_1"></td><td ID="MedicationMedicationId_1">61172</td><td ID="MedicationAccount_1">[id number]</td><td ID="MedicationNpid_1">[id number]</td><td ID="MedicationAuthorFirstName_1">Danielle</td><td ID="MedicationAuthorLastName_1">Zak</td><td ID="MedicationTaxonomyCode_1">[id number]</td><td ID="MedicationTaxonomyDesc_1"> Nurse Practitioner</td><td ID="MedicationPhoneNumber_1">[phone]</td> [facility] ([facility]) Mirtazapine 15 MG Oral Tablet [Remeron] Remeron 07/05/2020 12: 00:00 AM EDT 15 mg by mouth completed <td ID="Me dicationRxNorm_3">604545</td><td ID="MedicationMedication_3">Remeron</td><td ID="MedicationRoute_3">by mouth</td><td ID="MedicationRouteConcept_3">K31586</td><td ID="MedicationStartDate_3">07/05/2020</td><td ID="MedicationStopDate_3">08/04/2020</td><td ID="MedicationDosageFrequency_3">at bedtime</td><td ID="MedicationDuration_3">30</td><td ID="MedicationFormulaStrength_3">15 mg</td><td ID="MedicationDosageForm_3">tablet</td><td ID="MedicationDosageFormCode_3"></td><td ID="MedicationDosageDescription_3"></td><td ID="MedicationMedicationId_3">[id number]</td><td ID="MedicationAccount_3">[id number]</td><td ID="MedicationNpid_3">[id number]</td><td ID="MedicationAuthorFirstName_3">Danielle</td><td ID="MedicationAuthorLastName_3">Zak</td><td ID="MedicationTaxonomyCode_3">[id number]</td><td ID="MedicationTaxonomyDesc_3">Nurse Practitioner</td><td ID="MedicationPhoneNumber_3">[phone]</td> [facility] ([facility]) Chlorpromazine hydrochloride 200 MG Oral Tablet chlorpromazi ne 06/01/2020 12:00:00 AM EDT 200 mg by mouth completed <td ID="MedicationRxNorm_2">481634</td><td ID="MedicationMedication_2">chlorpromazine</td><td ID="MedicationRoute_2">by mouth</td><td ID="MedicationRouteConcept_2">J61816</td><td ID="MedicationStartDate_2">06/01/2020</td><td ID="MedicationStopDate_2">09/03/2020</td><td ID="MedicationDosageFrequency_2">at bedtime</td><td ID="MedicationDuration_2">30</td><td ID="MedicationFormulaStrength_2">200 mg</td><td ID="MedicationDosageForm_2">tablet</td><td ID="MedicationDosageFormCode_2"></td><td ID="MedicationDosageDescription_2"></td><td ID="MedicationMedicationId_2">48616</td><td ID="MedicationAccount_2">[id number]</td><td ID="MedicationNpid_2">[id number]</td><td ID="MedicationAuthorFirstName_2">Danielle</td><td ID="MedicationAuthorLastName_2">Zak</td><td ID="MedicationTaxonomyCode_2">[id number]</td><td ID="MedicationTaxonomyDesc_2">Nurse Practitioner</td><td ID="MedicationPhoneNumber_2">[phone]</td> [facility] benztropine mesylate 1 MG Oral Tablet benztropine 06/01/2020 12:00 :00 AM EDT 1 mg by mouth completed <td ID="Me dicationRxNorm_4">926162</td><td ID="MedicationMedication_4">benztropine</td><td ID="MedicationRoute_4">by mouth</td><td ID="MedicationRouteConcept_4">B45455</td><td ID="MedicationStartDate_4">06/01/2020</td><td ID="MedicationStopDate_4">07/01/2020</td><td ID="MedicationDosageFrequency_4">twice a day</td><td ID="MedicationDuration_4">30</td><td ID="MedicationFormulaStrength_4">1 mg</td><td ID="MedicationDosageForm_4">tablet</td><td ID="MedicationDosageFormCode_4"></td><td ID="MedicationDosageDescription_4"></td><td ID="MedicationMedicationId_4">92755</td><td ID="MedicationAccount_4">[id number]</td><td ID="MedicationNpid_4">[id number]</td><td ID="MedicationAuthorFirstName_4">Danielle</td><td ID="MedicationAuthorLastName_4">Zak</td><td ID="MedicationTaxonomyCode_4">[id number]</td><td ID="MedicationTaxonomyDesc_4">Nurse Practitioner</td><td ID="MedicationPhoneNumber_4">[phone]</td> [facility] ([facility]) Chlorpromazine hydrochloride 50 MG Oral Tablet chlorpromazin e 06/01/2020 12:00:00 AM EDT 50 mg by mouth completed <td ID="MedicationRxNorm_3">880939</td><td ID="MedicationMedication_3">chlorpromazine</td><td ID="MedicationRoute_3">by mouth</td><td ID="MedicationRouteConcept_3">N44645</td><td ID="MedicationStartDate_3">06/01/2020</td><td ID="MedicationStopDate_3">07/01/2020</td><td ID="MedicationDosageFrequency_3">at bedtime</td><td ID="MedicationDuration_3">30</td><td ID="MedicationFormulaStrength_3">50 mg</td><td ID="MedicationDosageForm_3">tablet</td><td ID="MedicationDosageFormCode_3"></td><td ID="MedicationDosageDescription_3"></td><td ID="MedicationMedicationId_3">91178</td><td ID="MedicationAccount_3">[id number]</td><td ID="MedicationNpid_3">[id number]</td><td ID="MedicationAuthorFirstName_3">Danielle</td><td ID="MedicationAuthorLastName_3">Zak</td><td ID="MedicationTaxonomyCode_3">[id number]</td><td ID="MedicationTaxonomyDesc_3">Nurse Practitioner</td><td ID="MedicationPhoneNumber_3">[phone]</td> [facility] ([facility]) [place] Carbonate 150 MG Oral Capsule lithium carbonate 12:00:00 AM EDT 150 mg by mouth completed <td ID="MedicationRxNorm_2">809190</td><td ID="MedicationMedication_2">lithium carbonate</td><td ID="MedicationRoute_2">by mouth</td><td ID="MedicationRouteConcept_2">Y89259</td><td ID="MedicationStartDate_2">06/01/2020</td><td ID="MedicationStopDate_2">06/06/2020</td><td ID="MedicationDosageFrequency_2">every morning</td><td ID="MedicationDuration_2">5</td><td ID="MedicationFormulaStrength_2">150 mg</td><td ID="MedicationDosageForm_2">capsule</td><td ID="MedicationDosageFormCode_2"></td><td ID="MedicationDosageDescription_2"> </td><td ID="MedicationMedicationId_2">44535</td><td ID="MedicationAccount_2">[id number]</td><td ID="MedicationNpid_2">[id number]</td><td ID="MedicationAuthorFirstName_2">Danielle</td><td ID="MedicationAuthorLastName_2">Zak</td><td ID="MedicationTaxonomyCode_2">[id number]</td><td ID="MedicationTaxonomyDesc_2">Nurse Practitioner</td><td ID="MedicationPhoneNumber_2">[phone]</td> [facility] ([facility]) Chlorpromazine hydrochloride 200 MG Oral Tablet chlorpromazi ne 06/01/2020 12:00:00 AM EDT 200 mg by mouth completed <td ID="MedicationRxNorm_1">783948</td><td ID="MedicationMedication_1">chlorpromazine</td><td ID="MedicationRoute_1">by mouth</td><td ID="MedicationRouteConcept_1">G18124</td><td ID="MedicationStartDate_1">06/01/2020</td><td ID="MedicationStopDate_1">09/03/2020</td><td ID="MedicationDosageFrequency_1">at bedtime</td><td ID="MedicationDuration_1">30</td><td ID="MedicationFormulaStrength_1">200 mg</td><td ID="MedicationDosageForm_1">tablet</td><td ID="MedicationDosageFormCode_1"></td><td ID="MedicationDosageDescription_1"></td><td ID="MedicationMedicationId_1">43003</td><td ID="MedicationAccount_1">[id number]</td><td ID="MedicationNpid_1">[id number]</td><td ID="MedicationAuthorFirstName_1">Danielle</td><td ID="MedicationAuthorLastName_1">Zak</td><td ID="MedicationTaxonomyCode_1">[id number]</td><td ID="MedicationTaxonomyDesc_1">Nurse Practitioner</td><td ID="MedicationPhoneNumber_1">[phone]</td> [facility] ([facility]) Zolpidem tartrate 12.5 MG Extended Release Oral Tablet [Ambi en] Ambien CR 04/28/2020 12:00:00 AM EST 12.5 mg by mouth completed <td ID="MedicationRxNorm_3">781520</td><td ID="MedicationMedication_3">Ambien CR</td><td ID="MedicationRoute_3">by mouth</td><td ID="MedicationRouteConcept_3">A34716</td><td ID="MedicationStartDate_3">04/28/2020</td><td ID="MedicationStopDate_3">07/11/2020</td><td ID="MedicationDosageFrequency_3">at bedtime</td><td ID="MedicationDuration_3">30</td><td ID="MedicationFormulaStrength_3">12.5 mg</td><td ID="MedicationDosageForm_3">tablet,ext release multiphase</td><td ID="MedicationDosageFormCode_3"></td><td ID="MedicationDosageDescription_3"></td><td ID="MedicationMedicationId_3">54199</td><td ID="MedicationAccount_3">[id number]</td><td ID="MedicationNpid_3">[id number]</td><td ID="MedicationAuthorFirstName_3">Randy</td><td ID="MedicationAuthorLastName_3">Woo</td><td ID="MedicationTaxonomyCode_3">[id number]</td><td ID="MedicationTaxonomyDesc_3"> Nurse Practitioner</td><td ID="MedicationPhoneNumber_3">[phone]</td> [facility] ([facility]) Prazosin 2 MG Oral Capsule prazosin 02/17/2020 12:00:00 AM EST 2 mg by mouth completed <td ID="Medicat ionRxNorm_5">309508</td><td ID="MedicationMedication_5">prazosin</td><td ID="MedicationRoute_5">by mouth</td><td ID="MedicationRouteConcept_5">S57454</td><td ID="MedicationStartDate_5">02/17/2020</td><td ID="MedicationStopDate_5">04/17/2020</td><td ID="MedicationDosageFrequency_5">at bedtime</td><td ID="MedicationDuration_5">30</td><td ID="MedicationFormulaStrength_5">2 mg</td><td ID="MedicationDosageForm_5">capsule</td><td ID="MedicationDosageFormCode_5"></td><td ID="MedicationDosageDescription_5"></td><td ID="MedicationMedicationId_5">89986</td><td ID="MedicationAccount_5">[id number]</td><td ID="MedicationNpid_5">[id number]</td><td ID="MedicationAuthorFirstName_5">Danielle</td><td ID="MedicationAuthorLastName_5">Zak</td><td ID="MedicationTaxonomyCode_5">[id number]</td><td ID="MedicationTaxonomyDesc_5">Nurse Practitioner</td><td ID="MedicationPhoneNumber_5">[phone]</td> [facility] ([facility]) Prazosin 2 MG Oral Capsule prazosin 02/17/2020 12:00:00 AM EST 2 mg by mouth completed <td ID="Medicat ionRxNorm_1">283598</td><td ID="MedicationMedication_1">prazosin</td><td ID="MedicationRoute_1">by mouth</td><td ID="MedicationRouteConcept_1">D52147</td><td ID="MedicationStartDate_1">02/17/2020</td><td ID="MedicationStopDate_1">05/24/2020</td><td ID="MedicationDosageFrequency_1">at bedtime</td><td ID="MedicationDuration_1">30</td><td ID="MedicationFormulaStrength_1">2 mg</td><td ID="MedicationDosageForm_1">capsule</td><td ID="MedicationDosageFormCode_1"></td><td ID="MedicationDosageDescription_1"></td><td ID="MedicationMedicationId_1">71814</td><td ID="MedicationAccount_1">[id number]</td><td ID="MedicationNpid_1">[id number]</td><td ID="MedicationAuthorFirstName_1">Danielle</td><td ID="MedicationAuthorLastName_1">Zak</td><td ID="MedicationTaxonomyCode_1">[id number]</td><td ID="MedicationTaxonomyDesc_1">Nurse Practitioner</td><td ID="MedicationPhoneNumber_1">[phone]</td> [facility] ([facility]) [place] Carbonate 150 MG Oral Capsule lithium carbonate 12:00:00 AM EST 150 mg by mouth completed <td ID="MedicationRxNorm_3">411037</td><td ID="MedicationMedication_3">lithium carbonate</td><td ID="MedicationRoute_3">by mouth</td><td ID="MedicationRouteConcept_3">O29837</td><td ID="MedicationStartDate_3">02/17/2020</td><td ID="MedicationStopDate_3">03/18/2020</td><td ID="MedicationDosageFrequency_3">twice a day</td><td ID="MedicationDuration_3">30</td><td ID="MedicationFormulaStrength_3">150 mg</td><td ID="MedicationDosageForm_3">capsule</td><td ID="MedicationDosageFormCode_3"></td><td ID="MedicationDosageDescription_3"></td><td ID="MedicationMedicationId_3">06533</td><td ID="MedicationAccount_3">[id number]</td><td ID="MedicationNpid_3">[id number]</td><td ID="MedicationAuthorFirstName_3">Danielle</td><td ID="MedicationAuthorLastName_3">Zak</td><td ID="MedicationTaxonomyCode_3">[id number]</td><td ID="MedicationTaxonomyDesc_3">Nurse Practitioner</td><td ID="MedicationPhoneNumber_3">[phone]</td> [facility] ([facility]) Chlorpromazine hydrochloride 200 MG Oral Tablet chlorpromazi ne 02/17/2020 12:00:00 AM EST 200 mg by mouth completed <td ID="MedicationRxNorm_6">959438</td><td ID="MedicationMedication_6">chlorpromazine</td><td ID="MedicationRoute_6">by mouth</td><td ID="MedicationRouteConcept_6">O44499</td><td ID="MedicationStartDate_6">02/17/2020</td><td ID="MedicationStopDate_6">04/17/2020</td><td ID="MedicationDosageFrequency_6">at bedtime</td><td ID="MedicationDuration_6">30</td><td ID="MedicationFormulaStrength_6">200 mg</td><td ID="MedicationDosageForm_6">tablet</td><td ID="MedicationDosageFormCode_6"></td><td ID="MedicationDosageDescription_6"></td><td ID="MedicationMedicationId_6">52000</td><td ID="MedicationAccount_6">[id number]</td><td ID="MedicationNpid_6">[id number]</td><td ID="MedicationAuthorFirstName_6">Danielle</td><td ID="MedicationAuthorLastName_6">Zak</td><td ID="MedicationTaxonomyCode_6">[id number]</td><td ID="MedicationTaxonomyDesc_6">Nurse Practitioner</td><td ID="MedicationPhoneNumber_6">[phone]</td> [facility]) [place] Carbonate 150 MG Oral Capsule lithium carbonate 12:00:00 AM EST 150 mg by mouth completed <td ID="MedicationRxNorm_5">929532</td><td ID="MedicationMedication_5">lithium carbonate</td><td ID="MedicationRoute_5">by mouth</td><td ID="MedicationRouteConcept_5">G18844</td><td ID="MedicationStartDate_5">02/17/2020</td><td ID="MedicationStopDate_5">03/18/2020</td><td ID="MedicationDosageFrequency_5">twice a day</td><td ID="MedicationDuration_5">30</td><td ID="MedicationFormulaStrength_5">150 mg</td><td ID="MedicationDosageForm_5">capsule</td><td ID="MedicationDosageFormCode_5"></td><td ID="MedicationDosageDescription_5"></td><td ID="MedicationMedicationId_5">98139</td><td ID="MedicationAccount_5">[id number]</td><td ID="MedicationNpid_5">[id number]</td><td ID="MedicationAuthorFirstName_5">Danielle</td><td ID="MedicationAuthorLastName_5">Zak</td><td ID="MedicationTaxonomyCode_5">[id number]</td><td ID="MedicationTaxonomyDesc_5">Nurse Practitioner</td><td ID="MedicationPhoneNumber_5">[phone]</td> [facility] ([facility]) Prazosin 2 MG Oral Capsule prazosin 02/17/2020 12:00:00 AM EST 2 mg by mouth completed <td ID="Medicat ionRxNorm_7">674258</td><td ID="MedicationMedication_7">prazosin</td><td ID="MedicationRoute_7">by mouth</td><td ID="MedicationRouteConcept_7">V73521</td><td ID="MedicationStartDate_7">02/17/2020</td><td ID="MedicationStopDate_7">04/17/2020</td><td ID="MedicationDosageFrequency_7">at bedtime</td><td ID="MedicationDuration_7">30</td><td ID="MedicationFormulaStrength_7">2 mg</td><td ID="MedicationDosageForm_7">capsule</td><td ID="MedicationDosageFormCode_7"></td><td ID="MedicationDosageDescription_7"></td><td ID="MedicationMedicationId_7">52697</td><td ID="MedicationAccount_7">[id number]</td><td ID="MedicationNpid_7">[id number]</td><td ID="MedicationAuthorFirstName_7">Danielle</td><td ID="MedicationAuthorLastName_7">Zak</td><td ID="MedicationTaxonomyCode_7">[id number]</td><td ID="MedicationTaxonomyDesc_7">Nurse Practitioner</td><td ID="MedicationPhoneNumber_7">[phone]</td> [facility] ([facility]) benztropine mesylate 1 MG Oral Tablet benztropine 02/17/2020 12:00 :00 AM EST 1 mg by mouth completed <td ID="Me dicationRxNorm_6">751916</td><td ID="MedicationMedication_6">benztropine</td><td ID="MedicationRoute_6">by mouth</td><td ID="MedicationRouteConcept_6">L26599</td><td ID="MedicationStartDate_6">02/17/2020</td><td ID="MedicationStopDate_6">03/18/2020</td><td ID="MedicationDosageFrequency_6">twice a day</td><td ID="MedicationDuration_6">30</td><td ID="MedicationFormulaStrength_6">1 mg</td><td ID="MedicationDosageForm_6">tablet</td><td ID="MedicationDosageFormCode_6"></td><td ID="MedicationDosageDescription_6"></td><td ID="MedicationMedicationId_6">13288</td><td ID="MedicationAccount_6">[id number]</td><td ID="MedicationNpid_6">[id number]</td><td ID="MedicationAuthorFirstName_6">Danielle</td><td ID="MedicationAuthorLastName_6">Zak</td><td ID="MedicationTaxonomyCode_6">[id number]</td><td ID="MedicationTaxonomyDesc_6">Nurse Practitioner</td><td ID="MedicationPhoneNumber_6">[phone]</td> [facility] ([facility]) Chlorpromazine hydrochloride 200 MG Oral Tablet chlorpromazi ne 02/17/2020 12:00:00 AM EST 200 mg by mouth completed <td ID="MedicationRxNorm_8">975531</td><td ID="MedicationMedication_8">chlorpromazine</td><td ID="MedicationRoute_8">by mouth</td><td ID="MedicationRouteConcept_8">S49776</td><td ID="MedicationStartDate_8">02/17/2020</td><td ID="MedicationStopDate_8">04/17/2020</td><td ID="MedicationDosageFrequency_8">at bedtime</td><td ID="MedicationDuration_8">30</td><td ID="MedicationFormulaStrength_8">200 mg</td><td ID="MedicationDosageForm_8">tablet</td><td ID="MedicationDosageFormCode_8"></td><td ID="MedicationDosageDescription_8"></td><td ID="MedicationMedicationId_8">39091</td><td ID="MedicationAccount_8">[id number]</td><td ID="MedicationNpid_8">[id number]</td><td ID="MedicationAuthorFirstName_8">Danielle</td><td ID="MedicationAuthorLastName_8">Zak</td><td ID="MedicationTaxonomyCode_8">[id number]</td><td ID="MedicationTaxonomyDesc_8">Nurse Practitioner</td><td ID="MedicationPhoneNumber_8">[phone]</td> [facility] ([facility]) Prazosin 1 MG Oral Capsule prazosin 02/10/2020 12:00:00 AM EST 1 mg by mouth completed <td ID="Medicat ionRxNorm_2">616993</td><td ID="MedicationMedication_2">prazosin</td><td ID="MedicationRoute_2">by mouth</td><td ID="MedicationRouteConcept_2">Q84272</td><td ID="MedicationStartDate_2">02/10/2020</td><td ID="MedicationStopDate_2">02/17/2020</td><td ID="MedicationDosageFrequency_2">at bedtime</td><td ID="MedicationDuration_2"></td><td ID="MedicationFormulaStrength_2">1 mg</td><td ID="MedicationDosageForm_2">capsule</td><td ID="MedicationDosageFormCode_2"></td><td ID="MedicationDosageDescription_2"></td><td ID="MedicationMedicationId_2">15774</td><td ID="MedicationAccount_2">[id number]</td><td ID="MedicationNpid_2">[id number]</td><td ID="MedicationAuthorFirstName_2">Danielle</td><td ID="MedicationAuthorLastName_2">Zak</td><td ID="MedicationTaxonomyCode_2">[id number]</td><td ID="MedicationTaxonomyDesc_2">Nurse Practitioner</td><td ID="MedicationPhoneNumber_2">[phone]</td> [facility] ([facility]) Diclofenac Sodium 0.01 MG/MG Topical Gel [Voltaren] Voltaren 1 % Voltaren 1 % 12/10/2019 12:00:00 AM EDT active Voltaren 1 % eCW1 (On License Of [facility]) Nebulizer/Tubing/Mouthpiece - Nebulizer/Tubing/Mouthpiece - 12/10/2019 12:00:00 AM EDT active Nebulizer/Tubing/ Mouthpiece - eCW1 (On License Of [facility]) Levalbuterol 0.417 MG/ML Inhalant Solution [Xopenex] X openex 1.25 MG/3ML Xopenex 1.25 MG/3ML 12/10/2019 12:00:00 AM EDT 3.0 {ml} act claudio Xopenex 1.25 MG/3ML eCW1 (On License Of [facility]) Guaifenesin 400 MG Oral Tablet Guaifenesin 400 MG 12/10/2019 12:00: 00 AM EDT 1.0 {tablet_as_needed} active Guaifenes in 400 MG eCW1 (On License Of [facility]) Guaifenesin 400 MG Oral Tablet Guaifenesin 400 MG 12/10/2019 12:00: 00 AM EDT 1.0 {tablet_as_needed} active Guaifenes in 400 MG eCW1 (On License Of [facility]) Nebulizer/Tubing/Mouthpiece - Nebulizer/Tubing/Mouthpiece - 12/10/2019 12:00:00 AM EDT active Nebulizer/Tubing/ Mouthpiece - eCW1 (On License Of [facility]) Diclofenac Sodium 0.01 MG/MG Topical Gel [Voltaren] Voltaren 1 % Voltaren 1 % 12/10/2019 12:00:00 AM EDT active Voltaren 1 % eCW1 (On License Of [facility]) Levalbuterol 0.417 MG/ML Inhalant Solution [Xopenex] X openex 1.25 MG/3ML Xopenex 1.25 MG/3ML 12/10/2019 12:00:00 AM EDT 3.0 {ml} act claudio Xopenex 1.25 MG/3ML eCW1 (On License Of [facility]) Guaifenesin 400 MG Oral Tablet Guaifenesin 400 MG 12/10/2019 12:00: 00 AM EDT 1.0 {tablet_as_needed} active Guaifenes in 400 MG eCW1 (On License Of [facility]) 200 ACTUAT Levalbuterol 0.045 MG/ACTUAT Metered Dose Inhaler [Xopenex] Xopenex HFA 45 MCG/ACT Xopenex HFA 45 MCG/ACT 12/10/2019 12:00:00 AM EDT 1.0 {puff_as_needed} active Xopenex HFA 45 MCG/ACT eCW1 (On License Of [facility]) Diclofenac Sodium 0.01 MG/MG Topical Gel [Voltaren] Voltaren 1 % Voltaren 1 % 12/10/2019 12:00:00 AM EDT active Voltaren 1 % eCW1 (On License Of [facility]) Nebulizer/Tubing/Mouthpiece - Nebulizer/Tubing/Mouthpiece - 12/10/2019 12:00:00 AM EDT active Nebulizer/Tubing/ Mouthpiece - eCW1 (On License Of [facility]) Diclofenac Sodium 0.01 MG/MG Topical Gel [Voltaren] Voltaren 1 % Voltaren 1 % 12/10/2019 12:00:00 AM EDT active Voltaren 1 % eCW1 (On License Of [facility]) Diclofenac Sodium 0.01 MG/MG Topical Gel [Voltaren] Voltaren 1 % Voltaren 1 % 12/10/2019 12:00:00 AM EDT active Voltaren 1 % eCW1 (On License Of [facility]) 200 ACTUAT Levalbuterol 0.045 MG/ACTUAT Metered Dose Inhaler [Xopenex] Xopenex HFA 45 MCG/ACT Xopenex HFA 45 MCG/ACT 12/10/2019 12:00:00 AM EDT 1.0 {puff_as_needed} active Xopenex HFA 45 MCG/ACT eCW1 (On License Of [facility]) Levalbuterol 0.417 MG/ML Inhalant Solution [Xopenex] X openex 1.25 MG/3ML Xopenex 1.25 MG/3ML 12/10/2019 12:00:00 AM EDT 3.0 {ml} act claudio Xopenex 1.25 MG/3ML eCW1 (On License Of [facility]) Guaifenesin 400 MG Oral Tablet Guaifenesin 400 MG 12/10/2019 12:00: 00 AM EDT 1.0 {tablet_as_needed} active Guaifenes in 400 MG eCW1 (On License Of [facility]) 200 ACTUAT Levalbuterol 0.045 MG/ACTUAT Metered Dose Inhaler [Xopenex] Xopenex HFA 45 MCG/ACT Xopenex HFA 45 MCG/ACT 12/10/2019 12:00:00 AM EDT 1.0 {puff_as_needed} active Xopenex HFA 45 MCG/ACT eCW1 (On License Of [facility]) Levalbuterol 0.417 MG/ML Inhalant Solution [Xopenex] X openex 1.25 MG/3ML Xopenex 1.25 MG/3ML 12/10/2019 12:00:00 AM EDT 3.0 {ml} act claudio Xopenex 1.25 MG/3ML eCW1 (On License Of [facility]) Diclofenac Sodium 0.01 MG/MG Topical Gel [Voltaren] Voltaren 1 % Voltaren 1 % 12/10/2019 12:00:00 AM EDT active Voltaren 1 % eCW1 (On License Of [facility]) Nebulizer/Tubing/Mouthpiece - Nebulizer/Tubing/Mouthpiece - 12/10/2019 12:00:00 AM EDT active Nebulizer/Tubing/ Mouthpiece - eCW1 (On License Of [facility]) Diclofenac Sodium 0.01 MG/MG Topical Gel [Voltaren] Voltaren 1 % Voltaren 1 % 12/10/2019 12:00:00 AM EDT active Voltaren 1 % eCW1 (On License Of [facility]) Levalbuterol 0.417 MG/ML Inhalant Solution [Xopenex] X openex 1.25 MG/3ML Xopenex 1.25 MG/3ML 12/10/2019 12:00:00 AM EDT 3.0 {ml} act claudio Xopenex 1.25 MG/3ML eCW1 (On License Of [facility]) Guaifenesin 400 MG Oral Tablet Guaifenesin 400 MG 12/10/2019 12:00: 00 AM EDT 1.0 {tablet_as_needed} active Guaifenes in 400 MG eCW1 (On License Of [facility]) Nebulizer/Tubing/Mouthpiece - Nebulizer/Tubing/Mouthpiece - 12/10/2019 12:00:00 AM EDT active Nebulizer/Tubing/ Mouthpiece - eCW1 (On License Of [facility]) Nebulizer/Tubing/Mouthpiece - Nebulizer/Tubing/Mouthpiece - 12/10/2019 12:00:00 AM EDT active Nebulizer/Tubing/ Mouthpiece - eCW1 (On License Of [facility]) Nebulizer/Tubing/Mouthpiece - Nebulizer/Tubing/Mouthpiece - 12/10/2019 12:00:00 AM EDT active Nebulizer/Tubing/ Mouthpiece - eCW1 (On License Of [facility]) 200 ACTUAT Levalbuterol 0.045 MG/ACTUAT Metered Dose Inhaler [Xopenex] Xopenex HFA 45 MCG/ACT Xopenex HFA 45 MCG/ACT 12/10/2019 12:00:00 AM EDT 1.0 {puff_as_needed} active Xopenex HFA 45 MCG/ACT eCW1 (On License Of [facility]) 200 ACTUAT Levalbuterol 0.045 MG/ACTUAT Metered Dose Inhaler [Xopenex] Xopenex HFA 45 MCG/ACT Xopenex HFA 45 MCG/ACT 12/10/2019 12:00:00 AM EDT 1.0 {puff_as_needed} active Xopenex HFA 45 MCG/ACT eCW1 (On License Of [facility]) Levalbuterol 0.417 MG/ML Inhalant Solution [Xopenex] X openex 1.25 MG/3ML Xopenex 1.25 MG/3ML 12/10/2019 12:00:00 AM EDT 3.0 {ml} act claudio Xopenex 1.25 MG/3ML eCW1 (On License Of [facility]) Diclofenac Sodium 0.01 MG/MG Topical Gel [Voltaren] Voltaren 1 % Voltaren 1 % 12/10/2019 12:00:00 AM EDT active Voltaren 1 % eCW1 (On License Of [facility]) Diclofenac Sodium 0.01 MG/MG Topical Gel [Voltaren] Voltaren 1 % Voltaren 1 % 12/10/2019 12:00:00 AM EDT active Voltaren 1 % eCW1 (On License Of [facility]) Nebulizer/Tubing/Mouthpiece - Nebulizer/Tubing/Mouthpiece - 12/10/2019 12:00:00 AM EDT active Nebulizer/Tubing/ Mouthpiece - eCW1 (On License Of [facility]) Nebulizer/Tubing/Mouthpiece - Nebulizer/Tubing/Mouthpiece - 12/10/2019 12:00:00 AM EDT active Nebulizer/Tubing/ Mouthpiece - eCW1 (On License Of [facility]) Diclofenac Sodium 0.01 MG/MG Topical Gel [Voltaren] Voltaren 1 % Voltaren 1 % 12/10/2019 12:00:00 AM EDT active Voltaren 1 % eCW1 (On License Of [facility]) Nebulizer/Tubing/Mouthpiece - Nebulizer/Tubing/Mouthpiece - 12/10/2019 12:00:00 AM EDT active Nebulizer/Tubing/ Mouthpiece - eCW1 (On License Of [facility]) 200 ACTUAT Levalbuterol 0.045 MG/ACTUAT Metered Dose Inhaler [Xopenex] Xopenex HFA 45 MCG/ACT Xopenex HFA 45 MCG/ACT 12/10/2019 12:00:00 AM EDT 1.0 {puff_as_needed} active Xopenex HFA 45 MCG/ACT eCW1 (On License Of [facility]) Zolpidem tartrate 6.25 MG Extended Release Oral Tablet [Ambi en] Ambien CR 12/09/2019 12:00:00 AM EDT 6.25 mg by mouth completed <td ID="MedicationRxNorm_4">171602</td><td ID="MedicationMedication_4">Ambien CR</td><td ID="MedicationRoute_4">by mouth</td><td ID="MedicationRouteConcept_4">F54359</td><td ID="MedicationStartDate_4">12/09/2019</td><td ID="MedicationStopDate_4">01/08/2020</td><td ID="MedicationDosageFrequency_4">at bedtime</td><td ID="MedicationDuration_4">30</td><td ID="MedicationFormulaStrength_4">6.25 mg</td><td ID="MedicationDosageForm_4">tablet,ext release multiphase</td><td ID="MedicationDosageFormCode_4"></td><td ID="MedicationDosageDescription_4"></td><td ID="MedicationMedicationId_4">[id number]</td><td ID="MedicationAccount_4">[id number]</td><td ID="MedicationNpid_4">[id number]</td><td ID="MedicationAuthorFirstName_4">Danielle</td><td ID="MedicationAuthorLastName_4">Zak</td><td ID="MedicationTaxonomyCode_4">[id number]</td><td ID="MedicationTaxonomyDesc_4"> Nurse Practitioner</td><td ID="MedicationPhoneNumber_4">[phone]</td> [facility] ([facility]) Clonazepam 1 MG Oral Tablet clonazepam 12/09/2019 12:00:00 AM EDT 1 mg by mouth completed <td ID="Medica tionRxNorm_2">321891</td><td ID="MedicationMedication_2">clonazepam</td><td ID="MedicationRoute_2">by mouth</td><td ID="MedicationRouteConcept_2">V00506</td><td ID="MedicationStartDate_2">12/09/2019</td><td ID="MedicationStopDate_2">12/24/2019</td><td ID="MedicationDosageFrequency_2">twice a day</td><td ID="MedicationDuration_2">15</td><td ID="MedicationFormulaStrength_2">1 mg</td><td ID="MedicationDosageForm_2">tablet</td><td ID="MedicationDosageFormCode_2"></td><td ID="MedicationDosageDescription_2">as directed</td><td ID="MedicationMedicationId_2">[id number]</td><td ID="MedicationAccount_2">[id number]</td><td ID="MedicationNpid_2">[id number]</td><td ID="MedicationAuthorFirstName_2">Danielle</td><td ID="MedicationAuthorLastName_2">Zak</td><td ID="MedicationTaxonomyCode_2">[id number]</td><td ID="MedicationTaxonomyDesc_2">Nurse Practitioner</td><td ID="MedicationPhoneNumber_2">[phone]</td> [facility] ([facility]) Zolpidem tartrate 6.25 MG Extended Release Oral Tablet [Ambi en] Ambien CR 12/09/2019 12:00:00 AM EDT 6.25 mg by mouth completed <td ID="MedicationRxNorm_5">690199</td><td ID="MedicationMedication_5">Ambien CR</td><td ID="MedicationRoute_5">by mouth</td><td ID="MedicationRouteConcept_5">A11411</td><td ID="MedicationStartDate_5">12/09/2019</td><td ID="MedicationStopDate_5">01/08/2020</td><td ID="MedicationDosageFrequency_5">at bedtime</td><td ID="MedicationDuration_5">30</td><td ID="MedicationFormulaStrength_5">6.25 mg</td><td ID="MedicationDosageForm_5">tablet,ext release multiphase</td><td ID="MedicationDosageFormCode_5"></td><td ID="MedicationDosageDescription_5"></td><td ID="MedicationMedicationId_5">[id number]</td><td ID="MedicationAccount_5">[id number]</td><td ID="MedicationNpid_5">[id number]</td><td ID="MedicationAuthorFirstName_5">Danielle</td><td ID="MedicationAuthorLastName_5">Zak</td><td ID="MedicationTaxonomyCode_5">[id number]</td><td ID="MedicationTaxonomyDesc_5"> Nurse Practitioner</td><td ID="MedicationPhoneNumber_5">[phone]</td> [facility] ([facility]) Prazosin 1 MG Oral Capsule prazosin 11/18/2019 12:00:00 AM EDT 1 mg by mouth completed <td ID="Medicat ionRxNorm_3">351290</td><td ID="MedicationMedication_3">prazosin</td><td ID="MedicationRoute_3">by mouth</td><td ID="MedicationRouteConcept_3">A12995</td><td ID="MedicationStartDate_3">11/18/2019</td><td ID="MedicationStopDate_3">01/08/2020</td><td ID="MedicationDosageFrequency_3">at bedtime</td><td ID="MedicationDuration_3">30</td><td ID="MedicationFormulaStrength_3">1 mg</td><td ID="MedicationDosageForm_3">capsule</td><td ID="MedicationDosageFormCode_3"></td><td ID="MedicationDosageDescription_3"></td><td ID="MedicationMedicationId_3">32486</td><td ID="MedicationAccount_3">[id number]</td><td ID="MedicationNpid_3">[id number]</td><td ID="MedicationAuthorFirstName_3">Danielle</td><td ID="MedicationAuthorLastName_3">Zak</td><td ID="MedicationTaxonomyCode_3">[id number]</td><td ID="MedicationTaxonomyDesc_3">Nurse Practitioner</td><td ID="MedicationPhoneNumber_3">[phone]</td> [facility] Chlorpromazine hydrochloride 200 MG Oral Tablet chlorpromazi ne 11/05/2019 12:00:00 AM EDT 200 mg by mouth completed <td ID="MedicationRxNorm_7">147709</td><td ID="MedicationMedication_7">chlorpromazine</td><td ID="MedicationRoute_7">by mouth</td><td ID="MedicationRouteConcept_7">W07505</td><td ID="MedicationStartDate_7">11/05/2019</td><td ID="MedicationStopDate_7">01/17/2020</td><td ID="MedicationDosageFrequency_7">at bedtime</td><td ID="MedicationDuration_7">30</td><td ID="MedicationFormulaStrength_7">200 mg</td><td ID="MedicationDosageForm_7">tablet</td><td ID="MedicationDosageFormCode_7"></td><td ID="MedicationDosageDescription_7"></td><td ID="MedicationMedicationId_7">[id number]</td><td ID="MedicationAccount_7">[id number]</td><td ID="MedicationNpid_7">[id number]</td><td ID="MedicationAuthorFirstName_7">Danielle</td><td ID="MedicationAuthorLastName_7">Zak</td><td ID="MedicationTaxonomyCode_7">[id number]</td><td ID="MedicationTaxonomyDesc_7">Nurse Practitioner</td><td ID="MedicationPhoneNumber_7">[phone]</td> [facility] ([facility]) Asenapine 5 MG Sublingual Tablet [Saphris] Saphris 11/04/2019 12:00:00 AM EDT 5 mg completed <td ID="Me dicationRxNorm_4">128102</td><td ID="MedicationMedication_4">Saphris</td><td ID="MedicationRoute_4">under tongue</td><td ID="MedicationRouteConcept_4"></td><td ID="MedicationStartDate_4">11/04/2019</td><td ID="MedicationStopDate_4">12/04/2019</td><td ID="MedicationDosageFrequency_4">every morning</td><td ID="MedicationDuration_4">30</td><td ID="MedicationFormulaStrength_4">5 mg</td><td ID="MedicationDosageForm_4">tablet, sublingual</td><td ID="MedicationDosageFormCode_4"></td><td ID="MedicationDosageDescription_4"></td><td ID="MedicationMedicationId_4">28191</td><td ID="MedicationAccount_4">[id number]</td><td ID="MedicationNpid_4">[id number]</td><td ID="MedicationAuthorFirstName_4">Danielle</td><td ID="MedicationAuthorLastName_4">Zak</td><td ID="MedicationTaxonomyCode_4">[id number]</td><td ID="MedicationTaxonomyDesc_4"> Nurse Practitioner</td><td ID="MedicationPhoneNumber_4">[phone]</td> [facility] Asenapine 5 MG Sublingual Tablet [Saphris] Saphris 11/04/2019 12:00:00 AM EDT 5 mg completed <td ID="Me dicationRxNorm_5">073476</td><td ID="MedicationMedication_5">Saphris</td><td ID="MedicationRoute_5">under tongue</td><td ID="MedicationRouteConcept_5"></td><td ID="MedicationStartDate_5">11/04/2019</td><td ID="MedicationStopDate_5">12/04/2019</td><td ID="MedicationDosageFrequency_5">every morning</td><td ID="MedicationDuration_5">30</td><td ID="MedicationFormulaStrength_5">5 mg</td><td ID="MedicationDosageForm_5">tablet, sublingual</td><td ID="MedicationDosageFormCode_5"></td><td ID="MedicationDosageDescription_5"></td><td ID="MedicationMedicationId_5">35057</td><td ID="MedicationAccount_5">[id number]</td><td ID="MedicationNpid_5">[id number]</td><td ID="MedicationAuthorFirstName_5">Danielle</td><td ID="MedicationAuthorLastName_5">Zak</td><td ID="MedicationTaxonomyCode_5">[id number]</td><td ID="MedicationTaxonomyDesc_5"> Nurse Practitioner</td><td ID="MedicationPhoneNumber_5">[phone]</td> [facility] ([facility]) Asenapine 5 MG Sublingual Tablet [Saphris] Saphris 11/04/2019 12:00:00 AM EDT 5 mg completed <td ID="Me dicationRxNorm_2">917809</td><td ID="MedicationMedication_2">Saphris</td><td ID="MedicationRoute_2">under tongue</td><td ID="MedicationRouteConcept_2"></td><td ID="MedicationStartDate_2">11/04/2019</td><td ID="MedicationStopDate_2">11/18/2019</td><td ID="MedicationDosageFrequency_2">every morning</td><td ID="MedicationDuration_2">30</td><td ID="MedicationFormulaStrength_2">5 mg</td><td ID="MedicationDosageForm_2">tablet, sublingual</td><td ID="MedicationDosageFormCode_2"></td><td ID="MedicationDosageDescription_2"></td><td ID="MedicationMedicationId_2">32955</td><td ID="MedicationAccount_2">[id number]</td><td ID="MedicationNpid_2">[id number]</td><td ID="MedicationAuthorFirstName_2">Danielle</td><td ID="MedicationAuthorLastName_2">Zak</td><td ID="MedicationTaxonomyCode_2">[id number]</td><td ID="MedicationTaxonomyDesc_2"> Nurse Practitioner</td><td ID="MedicationPhoneNumber_2">[phone]</td> [facility] ([facility]) Zolpidem tartrate 12.5 MG Extended Release Oral Tablet zolpi dem 10/30/2019 12:00:00 AM EDT 12.5 mg by mouth completed <td ID="MedicationRxNorm_3">745209</td><td ID="MedicationMedication_3">zolpidem</td><td ID="MedicationRoute_3">by mouth</td><td ID="MedicationRouteConcept_3">Y89549</td><td ID="MedicationStartDate_3">10/30/2019</td><td ID="MedicationStopDate_3">11/29/2019</td><td ID="MedicationDosageFrequency_3">at bedtime</td><td ID="MedicationDuration_3">30</td><td ID="MedicationFormulaStrength_3">12.5 mg</td><td ID="MedicationDosageForm_3">tablet,ext release multiphase</td><td ID="MedicationDosageFormCode_3"></td><td ID="MedicationDosageDescription_3"></td><td ID="MedicationMedicationId_3">14477</td><td ID="MedicationAccount_3">[id number]</td><td ID="MedicationNpid_3">[id number]</td><td ID="MedicationAuthorFirstName_3">Ariel</td><td ID="MedicationAuthorLastName_3">[facility]</td><td ID="MedicationTaxonomyCode_3">[id number]</td><td ID="MedicationTaxonomyDesc_3"> Psychiatry</td><td ID="MedicationPhoneNumber_3">[phone]</td> [facility] ([facility]) Clonazepam 1 MG Oral Tablet clonazepam 10/30/2019 12:00:00 AM EDT 1 mg by mouth completed <td ID="Medica tionRxNorm_2">876736</td><td ID="MedicationMedication_2">clonazepam</td><td ID="MedicationRoute_2">by mouth</td><td ID="MedicationRouteConcept_2">B60742</td><td ID="MedicationStartDate_2">10/30/2019</td><td ID="MedicationStopDate_2">11/13/2019</td><td ID="MedicationDosageFrequency_2">twice a day</td><td ID="MedicationDuration_2">14</td><td ID="MedicationFormulaStrength_2">1 mg</td><td ID="MedicationDosageForm_2">tablet</td><td ID="MedicationDosageFormCode_2"></td><td ID="MedicationDosageDescription_2">as needed</td><td ID="MedicationMedicationId_2">05441</td><td ID="MedicationAccount_2">[id number]</td><td ID="MedicationNpid_2">[id number]</td><td ID="MedicationAuthorFirstName_2">Ariel</td><td ID="MedicationAuthorLastName_2">[facility]</td><td ID="MedicationTaxonomyCode_2">[id number]</td><td ID="MedicationTaxonomyDesc_2">Psychiatry</td><td ID="MedicationPhoneNumber_2">[phone]</td> [facility] ([facility]) Clonazepam 1 MG Oral Tablet clonazepam 10/30/2019 12:00:00 AM EDT 1 mg by mouth completed <td ID="Medica tionRxNorm_3">294292</td><td ID="MedicationMedication_3">clonazepam</td><td ID="MedicationRoute_3">by mouth</td><td ID="MedicationRouteConcept_3">X10015</td><td ID="MedicationStartDate_3">10/30/2019</td><td ID="MedicationStopDate_3">11/13/2019</td><td ID="MedicationDosageFrequency_3">twice a day</td><td ID="MedicationDuration_3">14</td><td ID="MedicationFormulaStrength_3">1 mg</td><td ID="MedicationDosageForm_3">tablet</td><td ID="MedicationDosageFormCode_3"></td><td ID="MedicationDosageDescription_3">as needed</td><td ID="MedicationMedicationId_3">71370</td><td ID="MedicationAccount_3">[id number]</td><td ID="MedicationNpid_3">[id number]</td><td ID="MedicationAuthorFirstName_3">Ariel</td><td ID="MedicationAuthorLastName_3">[facility]</td><td ID="MedicationTaxonomyCode_3">[id number]</td><td ID="MedicationTaxonomyDesc_3">Psychiatry</td><td ID="MedicationPhoneNumber_3">[phone]</td> [facility] ([facility]) Zolpidem tartrate 12.5 MG Extended Release Oral Tablet zolpi dem 10/30/2019 12:00:00 AM EDT 12.5 mg by mouth completed <td ID="MedicationRxNorm_4">641569</td><td ID="MedicationMedication_4">zolpidem</td><td ID="MedicationRoute_4">by mouth</td><td ID="MedicationRouteConcept_4">J14563</td><td ID="MedicationStartDate_4">10/30/2019</td><td ID="MedicationStopDate_4">11/29/2019</td><td ID="MedicationDosageFrequency_4">at bedtime</td><td ID="MedicationDuration_4">30</td><td ID="MedicationFormulaStrength_4">12.5 mg</td><td ID="MedicationDosageForm_4">tablet,ext release multiphase</td><td ID="MedicationDosageFormCode_4"></td><td ID="MedicationDosageDescription_4"></td><td ID="MedicationMedicationId_4">06096</td><td ID="MedicationAccount_4">[id number]</td><td ID="MedicationNpid_4">[id number]</td><td ID="MedicationAuthorFirstName_4">Ariel</td><td ID="MedicationAuthorLastName_4">Ulberg</td><td ID="MedicationTaxonomyCode_4">[id number]</td><td ID="MedicationTaxonomyDesc_4"> Psychiatry</td><td ID="MedicationPhoneNumber_4">[phone]</td> [facility] ([facility]) Insurance Providers Payer name Policy type / Coverage type Policy ID Covered green party ID Covered green party's relationship to mcfarland Policy [place] Plan Information [facility] [id number] SP [id number] [facility] COMMUN[facility] PLAN [facility] [id number] SP [id number] [place] Medicaid/CHP/FHP Commercial [id number] Self [id number] [place]P/FHP Commercial [id number] Self [place]P/FHP Commercial [id number] Self [id number] JOSE [id number] SP [id number] 200 JOSE I [id number] Self [id number] 200 JOSE [id number] SP [id number] 200 [place] Medicaid F [id number] SELF 7 [id number] JOSE [id number] SP [id number] 200 JOSE [id number] SP [id number] 200 ANSI-Commercial [id number] ANSI-Commercial [id number] ANSI-Commercial [id number] ANSI-Commercial [id number] ANSI-Commercial [id number] ANSI-Commercial [id number] ANSI-Commercial [id number] ANSI-Commercial [id number] ANSI-Commercial [id number] ANSI-Commercial [id number] ANSI-Commercial [id number] ANSI-Commercial [id number] ANSI-Commercial [id number] ANSI-Commercial [id number] JOSE [id number] SP [id number] 200 ANSI-Commercial [id number] ANSI-Commercial [id number] [facility] Community Plan [facility] [id number] Self [id number] JOSE [id number] SP [id number] [facility] [place] XIX MAN [id number] 18 [id number] [place] O [id number] S [id number] [facility] Community Plan [facility] Part B [id number] Self JOSE ALAB[place] [id number] SP [id number] [facility] O [id number] S [id number] [facility] [id number] SP [id number] O BLUE [id number] SP [id number] ANSI-Commercial [id number] [place] [id number] SP [id number] M EMEDNY [id number] SP [id number] [place] CARE [place] O [id number] S [id number] MEDICAID [id number] ANSI-Commercial [id number] ANSI-Commercial [id number] ANSI-Commercial [id number] ANSI-Commercial [id number] ANSI-Commercial [id number] ANSI-Commercial [id number] Problems, Conditions, and Diagnoses Code Display Name Description Problem Type Effective Dates Data Source(s) F17.200 Nicotine dependence, unspecified, uncomp licated Tobacco Use Disorder, Moderate Condition 12/13/2020 12:00:00 AM EDT [facility] ([facility]) 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 Condition 12/13/2020 12:00:00 AM EDT [facility] ([facility]) F43.10 Post-traumatic stress disorder, unspecif ied Posttraumatic Stress Disorder (includes Posttraumatic Stress Disorder for Children 6 Years and Younger) Condition 12/13/2020 12:00:00 AM EDT [facility] ([facility]) F60.3 Borderline personality disorder Borderline Personality Disorder Condition 12/13/2020 12:00:00 AM EDT [facility] ([facility]) G89.29 [id number] Other chronic pain Problem 12/10/2019 12:00: 00 AM EDT eCW1 (On License Of [facility]) Z72.0 Tobacco use Tobacco use Problem 12/10/2019 12:00:00 AM EDT eCW1 (On License Of [facility]) E66.01 [id number] Morbid obesity Problem 12/10/2019 12:00:00 A M EDT eCW1 (On License Of [facility]) Surgeries/Procedures Procedure Description Date Indications Data Source(s) [facility] Telemed E/M Lvl 3--Est pt 12/13/2020 12:00:00 AM EDT - 12/13/2020 12:00:00 AM EDT [facility] ([facility]) [facility] Telemed E/M Lvl 3--Est pt 12/13/2020 12:00:00 AM E DT [facility] ([facility]) [id number]"Psychotherapy 12:00:00 AM EDT - 12/10/2020 12:00:00 AM EDT [facility] ([facility]) TOEZEYMVyptgai33"Psychotherapy 12/10/2020 12:00:00 AM EDT [facility] ([facility]) [facility] Telemed E/M Lvl 3--Est pt 10/07/2020 12:00:00 AM EDT - 10/07/2020 12:00:00 AM EDT [facility] ([facility]) Psychotherapy ADD ON - 30 Minutes 10/07/2020 12:00:00 AM EDT [facility] ([facility]) [facility] Telemed E/M Lvl 3--Est pt 10/07/2020 12:00:00 AM E DT [facility] ([facility]) Extended Individual Psychotherapy - 45 min 08/25/2020 12:00:00 AM EDT - 08/25/2020 12:00:00 AM EDT [facility] ([facility]) Extended Individual Psychotherapy - 45 min 12:00:00 AM EDT [facility] ([facility]) OFFICE OUTPATIENT VISIT 15 MINUTES 08/24 12:00:00 AM EDT - 08/24/2020 12:00:00 AM EDT [facility] ([facility]) OFFICE OUTPATIENT VISIT 15 MINUTES 08/24/2020 12:00:00 AM EDT [facility] ([facility]) Extended Individual Psychotherapy - 45 min 08/17/2020 12:00:00 AM EDT - 08/17/2020 12:00:00 AM EDT [facility] ([facility]) Extended Individual Psychotherapy - 45 min 12:00:00 AM EDT [facility] ([facility]) Extended Individual Psychotherapy - 45 min 08/11/2020 12:00:00 AM EDT - 08/11/2020 12:00:00 AM EDT [facility] ([facility]) Extended Individual Psychotherapy - 45 min 12:00:00 AM EDT [facility] ([facility]) [id number]"Psychotherapy 12:00:00 AM EDT - 08/05/2020 12:00:00 AM EDT [facility] ([facility]) [id number]"Psychotherapy 08/03/2020 12:00:00 AM EDT [facility] ([facility]) Extended Individual Psychotherapy - 45 min 07/21/2020 12:00:00 AM EDT - 07/21/2020 12:00:00 AM EDT [facility] ([facility]) Extended Individual Psychotherapy - 45 min 12:00:00 AM EDT [facility] ([facility]) [id number]"Psychotherapy 12:00:00 AM EDT - 07/14/2020 12:00:00 AM EDT [facility] ([facility]) [id number]"Psychotherapy 07/13/2020 12:00:00 AM EDT [facility] ([facility]) Extended Individual Psychotherapy - 45 min 06/30/2020 12:00:00 AM EDT - 06/30/2020 12:00:00 AM EDT [facility] ([facility]) Extended Individual Psychotherapy - 45 min 12:00:00 AM EDT [facility] ([facility]) [id number]"Psychotherapy 12:00:00 AM EDT - 06/22/2020 12:00:00 AM EDT [facility] ([facility]) [id number]"Psychotherapy 06/22/2020 12:00:00 AM EDT [facility] ([facility]) [facility] Telemed E/M Lvl 3--Est pt 06/01/2020 12:00:00 AM EDT - 06/01/2020 12:00:00 AM EDT [facility] ([facility]) [facility] Telemed E/M Lvl 3--Est pt 06/01/2020 12:00:00 AM E DT [facility] ([facility]) [id number]" Psychotherapy 021 12:00:00 AM EDT - 05/20/2020 12:00:00 AM EDT [facility] ([facility]) [id number] [id number]" Psychotherapy 05/19/2020 12:00:00 A M EDT [facility] ([facility]) [facility] Telemed E/M Lvl 3--Est pt 03/25/2020 12:00:00 AM EST - 03/25/2020 12:00:00 AM EST [facility] ([facility]) MHC Telemed E/M Lvl 3--Est pt 03/25/2020 12:00:[address] [facility] ([facility]) [id number]"Psychotherapy 12:00:00 AM EST - 03/24/2020 12:00:00 AM EST [facility] ([facility]) [id number]"Psychotherapy 03/24/2020 12:00:00 AM EST [facility] ([facility]) [id number]"Psychotherapy 0 12:00:00 AM EST - 03/03/2020 12:00:00 AM EST [facility] ([facility]) [id number]"Psychotherapy 03/02/2020 12:00:00 AM EST [facility] ([facility]) [id number]"Psychotherapy 0 12:00:00 AM EST - 02/25/2020 12:00:00 AM EST [facility] ([facility]) [id number]"Psychotherapy 02/24/2020 12:00:00 AM EST [facility] ([facility]) MHC Telemed E/M Lvl 3--Est pt 02/17/2020 12:00:00 AM EST - 02/17/2020 12:00:00 AM EST [facility] ([facility]) Psychotherapy ADD ON - 30 Minutes 02/17/2020 12:00:00 AM EST [facility] ([facility]) MHC Telemed E/M Lvl 3--Est pt 02/17/2020 12:00:[address] [facility] ([facility]) [id number]"Psychotherapy 0 12:00:00 AM EST - 02/17/2020 12:00:00 AM EST [facility] ([facility]) [id number]"Psychotherapy 02/17/2020 12:00:00 AM EST [facility] ([facility]) [id number]"Psychotherapy 0 12:00:00 AM EST - 02/11/2020 12:00:00 AM EST [facility] ([facility]) [id number]"Psychotherapy 02/10/2020 12:00:00 AM EST [facility] ([facility]) [id number]"Psychotherapy 0 12:00:00 AM EST - 02/04/2020 12:00:00 AM EST [facility] ([facility]) [id number]"Psychotherapy 02/03/2020 12:00:00 AM EST [facility] ([facility]) MHC Telemed E/M Lvl 3--Est pt 02/02/2020 12:00:00 AM EST - 02/02/2020 12:00:00 AM EST [facility] ([facility]) MHC Telemed E/M Lvl 3--Est pt 02/02/2020 12:00:[address] [facility] ([facility]) [id number]"Psychotherapy 0 12:00:00 AM EST - 01/14/2020 12:00:00 AM EST [facility] ([facility]) [id number]"Psychotherapy 01/13/2020 12:00:00 AM EST [facility] ([facility]) [id number]"Psychotherapy 0 12:00:00 AM EST - 01/07/2020 12:00:00 AM EST [facility] ([facility]) [id number]"Psychotherapy 01/06/2020 12:00:00 AM EST [facility] ([facility]) [id number]"Psychotherapy 0 12:00:00 AM EDT - 12/30/2019 12:00:00 AM EDT [facility] ([facility]) [id number]"Psychotherapy 12/30/2019 12:00:00 AM EDT [facility] ([facility]) [id number]"Psychotherapy 0 12:00:00 AM EDT - 12/17/2019 12:00:00 AM EDT [facility] ([facility]) [id number]"Psychotherapy 12/16/2019 12:00:00 AM EDT [facility] ([facility]) [id number]"Psychotherapy 0 12:00:00 AM EDT - 12/11/2019 12:00:00 AM EDT [facility] ([facility]) [id number]"Psychotherapy 12/11/2019 12:00:00 AM EDT [facility] ([facility]) [id number]"Psychotherapy 0 12:00:00 AM EDT - 12/11/2019 12:00:00 AM EDT [facility] ([facility]) [id number]"Psychotherapy 12/09/2019 12:00:00 AM EDT [facility] ([facility]) MHC Telemed E/M Lvl 3--Est pt 12/09/2019 12:00:00 AM EDT - 12/09/2019 12:00:00 AM EDT [facility] ([facility]) Psychotherapy ADD ON - 30 Minutes 12/09/2019 12:00:00 AM EDT [facility] ([facility]) MHC Telemed E/M Lvl 3--Est pt 12/09/2019 12:00:00 AM E DT [facility] ([facility]) [id number]"Psychotherapy 0 12:00:00 AM EDT - 12/03/2019 12:00:00 AM EDT [facility] ([facility]) [id number]"Psychotherapy 12/02/2019 12:00:00 AM EDT [facility] ([facility]) MHC Telemed E/M Lvl 3--Est pt 11/18/2019 12:00:00 AM EDT - 11/18/2019 12:00:00 AM EDT [facility] ([facility]) MHC Telemed E/M Lvl 3--Est pt 11/18/2019 12:00:00 AM E DT [facility] ([facility]) TEMPMHCTelemed 30" Psychotherapy 020 12:00:00 AM EDT - 11/11/2019 12:00:00 AM EDT [facility] ([facility]) TEMPMHCTelemed 30" Psychotherapy 11/11/2019 12:00:00 A M EDT [facility] ([facility]) MHC Telemed E/M Lvl 3--Est pt 11/04/2019 12:00:00 AM EDT - 11/04/2019 12:00:00 AM EDT [facility] ([facility]) Psychotherapy ADD ON - 30 Minutes 11/04/2019 12:00:00 AM EDT [facility] ([facility]) MHC Telemed E/M Lvl 3--Est pt 11/04/2019 12:00:00 AM E DT [facility] ([facility]) Results No Information Social History Code Duration Value Status Description Data Source(s ) Smoking 12/13/2020 12:00:00 AM EDT Unknown if ever smoked comp leted Unknown if ever smoked [facility] ([facility]) Smoking 12/10/2020 12:00:00 AM EDT Unknown if ever smoked comp leted Unknown if ever smoked [facility] ([facility]) Smoking 10/20/2020 12:00:00 AM EDT Current Smoker completed Curre nt Smoker eCW1 ([facility]) Smoking 10/20/2020 12:00:00 AM EDT Current Smoker completed Curre nt Smoker eCW1 ([facility]) Smoking 10/20/2020 12:00:00 AM EDT Current Smoker completed Curre nt Smoker eCW1 ([facility]) Smoking 10/20/2020 12:00:00 AM EDT Current Smoker completed Curre nt Smoker eCW1 ([facility]) Smoking 10/07/2020 12:00:00 AM EDT Unknown if ever smoked comp leted Unknown if ever smoked [facility] ([facility]) Smoking 08/25/2020 12:00:00 AM EDT Unknown if ever smoked comp leted Unknown if ever smoked [facility] ([facility]) Smoking 08/24/2020 12:00:00 AM EDT Unknown if ever smoked comp leted Unknown if ever smoked [facility] ([facility]) Smoking 08/17/2020 12:00:00 AM EDT Unknown if ever smoked comp leted Unknown if ever smoked [facility] ([facility]) Smoking 08/11/2020 12:00:00 AM EDT Unknown if ever smoked comp leted Unknown if ever smoked [facility] ([facility]) Smoking 08/05/2020 12:00:00 AM EDT Unknown if ever smoked comp leted Unknown if ever smoked [facility] ([facility]) Smoking 07/21/2020 12:00:00 AM EDT Unknown if ever smoked comp leted Unknown if ever smoked [facility] ([facility]) Smoking 07/14/2020 12:00:00 AM EDT Unknown if ever smoked comp leted Unknown if ever smoked [facility] ([facility]) Smoking 06/30/2020 12:00:00 AM EDT Unknown if ever smoked comp leted Unknown if ever smoked [facility] ([facility]) Smoking 06/22/2020 12:00:00 AM EDT Unknown if ever smoked comp leted Unknown if ever smoked [facility] ([facility]) Smoking 06/01/2020 12:00:00 AM EDT Unknown if ever smoked comp leted Unknown if ever smoked [facility] ([facility]) Smoking 05/20/2020 12:00:00 AM EDT Unknown if ever smoked comp leted Unknown if ever smoked [facility] ([facility]) Smoking 03/25/2020 12:00:00 AM EST Current Smoker completed Jovannie nt Smoker eCW1 ([facility]) Smoking 03/25/2020 12:00:00 AM EST Unknown if ever smoked comp leted Unknown if ever smoked [facility] ([facility]) Smoking 03/24/2020 12:00:00 AM EST Unknown if ever smoked comp leted Unknown if ever smoked [facility] ([facility]) Smoking 03/03/2020 12:00:00 AM EST Unknown if ever smoked comp leted Unknown if ever smoked [facility] ([facility]) Smoking 02/25/2020 12:00:00 AM EST Unknown if ever smoked comp leted Unknown if ever smoked [facility] ([facility]) Smoking 02/17/2020 12:00:00 AM EST Unknown if ever smoked comp leted Unknown if ever smoked [facility] ([facility]) Smoking 02/11/2020 12:00:00 AM EST Unknown if ever smoked comp leted Unknown if ever smoked [facility] ([facility]) Smoking 02/04/2020 12:00:00 AM EST Unknown if ever smoked comp leted Unknown if ever smoked [facility] ([facility]) Smoking 02/02/2020 12:00:00 AM EST Unknown if ever smoked comp leted Unknown if ever smoked [facility] ([facility]) Smoking 01/15/2020 12:00:00 AM EST Current Smoker completed Curre nt Smoker eCW1 ([facility]) Smoking 01/15/2020 12:00:00 AM EST Current Smoker completed Curre nt Smoker eCW1 ([facility]) Smoking 01/14/2020 12:00:00 AM EST Unknown if ever smoked comp leted Unknown if ever smoked [facility] ([facility]) Smoking 01/07/2020 12:00:00 AM EST Unknown if ever smoked comp leted Unknown if ever smoked [facility] ([facility]) Smoking 12/30/2019 12:00:00 AM EDT Unknown if ever smoked comp leted Unknown if ever smoked [facility] ([facility]) Smoking 12/17/2019 12:00:00 AM EDT Unknown if ever smoked comp leted Unknown if ever smoked [facility] ([facility]) Smoking 12/11/2019 12:00:00 AM EDT Unknown if ever smoked comp leted Unknown if ever smoked [facility] ([facility]) Smoking 12/10/2019 12:00:00 AM EDT Current Smoker completed Curre nt Smoker eCW1 ([facility]) Smoking 12/10/2019 12:00:00 AM EDT Current Smoker completed Curre nt Smoker eCW1 ([facility]) Smoking 12/10/2019 12:00:00 AM EDT Current Smoker completed Curre nt Smoker eCW1 (On [facility]) Smoking 12/09/2019 12:00:00 AM EDT Unknown if ever smoked comp leted Unknown if ever smoked [facility] ([facility]) Smoking 12/03/2019 12:00:00 AM EDT Unknown if ever smoked comp leted Unknown if ever smoked [facility] ([facility]) Smoking 11/18/2019 12:00:00 AM EDT Unknown if ever smoked comp leted Unknown if ever smoked [facility] ([facility]) Smoking 11/11/2019 12:00:00 AM EDT Unknown if ever smoked comp leted Unknown if ever smoked [facility] ([facility]) Smoking 11/04/2019 12:00:00 AM EDT Unknown if ever smoked comp leted Unknown if ever smoked [facility] ([facility]) Vital Signs ID Date Data Source UNK Name Value Range Interpretation Code Description Data Source(s) Body weight 294.2 [lb_av] 294.2 [lb_av] eCW1 ([facility] Body weight 133.45 kg 133.45 kg W1 (Pending sale to [facility]) Body height 62 [in_i] 62 [in_i] eCW1 (Pending sale to [facility]) Body mass index (BMI) [Ratio] 53.80 kg/m2 53.80 kg/m2 [facility] (On [facility]) Heart rate 114 /min 114 /min W1 ([facility]) Respiratory rate 18 /min 18 /min eCW1 ([facility]) Body temperature 98.0 [degF] 98.0 [degF] eCW1 ( [facility]) Systolic blood pressure 160 mm[Hg] 160 mm[Hg] e CW1 ([facility]) Diastolic blood pressure 90 mm[Hg] 90 mm[Hg] eCW1 (On [facility]) Body height 0.00 in Normal (applies to non-numeric resu lts) 0.00 in [facility] ([facility]) Body weight Measured 0.00 lbs Normal (applies to n on-numeric results) 0.00 lbs [facility] ([facility]) Body mass index (BMI) [Ratio] 0.00 kg/m2 No rmal (applies to non-numeric results) 0.00 kg/m2 [facility] ([facility]) Systolic blood pressure 0 mm[Hg] Normal (applies t o non-numeric results) 0 mm[Hg] [facility] ([facility]) Diastolic blood pressure 0 mm[Hg] Normal (applies to non-numeric results) 0 mm[Hg] [facility] ([facility]) Body height 0.00 in Normal (applies to non-numeric resu lts) 0.00 in [facility] ([facility]) Body weight Measured 0.00 lbs Normal (applies to n on-numeric results) 0.00 lbs [facility] ([facility]) Body mass index (BMI) [Ratio] 0.00 kg/m2 No rmal (applies to non-numeric results) 0.00 kg/m2 [facility] ([facility]) Systolic blood pressure 0 mm[Hg] Normal (applies t o non-numeric results) 0 mm[Hg] [facility] ([facility]) Diastolic blood pressure 0 mm[Hg] Normal (applies to non-numeric results) 0 mm[Hg] [facility] ([facility]) Body mass index (BMI) [Ratio] 0.00 kg/m2 No rmal (applies to non-numeric results) 0.00 kg/m2 [facility] ([facility]) Diastolic blood pressure 0 mm[Hg] Normal (applies to non-numeric results) 0 mm[Hg] [facility] ([facility]) Systolic blood pressure 0 mm[Hg] Normal (applies t o non-numeric results) 0 mm[Hg] [facility] ([facility]) Body height 0.00 in Normal (applies to non-numeric resu lts) 0.00 in [facility] ([facility]) Body weight Measured 0.00 lbs Normal (applies to n on-numeric results) 0.00 lbs [facility] ([facility]) Body weight 271.2 [lb_av] 271.2 [lb_av] eCW1 ([facility]) Body height 62 [in_i] 62 [in_i] eCW1 (Pending sale to [facility]) Body mass index (BMI) [Ratio] 49.60 kg/m2 49.60 kg/m2 eCW1 ([facility]) Heart rate 110 /min 110 /min eCW1 ([facility]) Respiratory rate 18 /min 18 /min eCW1 ([facility]) Body temperature 97.8 [degF] 97.8 [degF] eCW1 ( [facility]) Systolic blood pressure 174 mm[Hg] 174 mm[Hg] e CW1 ([facility]) Diastolic blood pressure 113 mm[Hg] 113 mm[Hg] eCW1 (On [facility]) Body weight 268 [lb_av] 268 [lb_av] eCW1 ([facility]) Body height 62 [in_i] 62 [in_i] eCW1 (Pending sale to [facility]) Body mass index (BMI) [Ratio] 49.01 kg/m2 49.01 kg/m2 eCW1 (On [facility]) Heart rate 92 /min 92 /min eCW1 ([facility]) Respiratory rate 18 /min 18 /min eCW1 ([facility]) Body temperature 98.2 [degF] 98.2 [degF] eCW1 ( [facility]) Systolic blood pressure 122 mm[Hg] 122 mm[Hg] e CW1 ([facility]) Diastolic blood pressure 80 mm[Hg] 80 mm[Hg] eCW1 (On [facility]) Body height 0.00 in Normal (applies to non-numeric resu lts) 0.00 in [facility] ([facility]) Body weight Measured 0.00 lbs Normal (applies to n on-numeric results) 0.00 lbs [facility] ([facility]) Body mass index (BMI) [Ratio] 0.00 kg/m2 No rmal (applies to non-numeric results) 0.00 kg/m2 [facility] ([facility]) Systolic blood pressure 0 mm[Hg] Normal (applies t o non-numeric results) 0 mm[Hg] [facility] ([facility]) Diastolic blood pressure 0 mm[Hg] Normal (applies to non-numeric results) 0 mm[Hg] [facility] ([facility]) Body height 0.00 in Normal (applies to non-numeric resu lts) 0.00 in [facility] ([facility]) Systolic blood pressure 0 mm[Hg] Normal (applies t o non-numeric results) 0 mm[Hg] [facility] ([facility]) Diastolic blood pressure 0 mm[Hg] Normal (applies to non-numeric results) 0 mm[Hg] [facility] Body weight Measured 0.00 lbs Normal (applies to n on-numeric results) 0.00 lbs [facility] ([facility]) Body mass index (BMI) [Ratio] 0.00 kg/m2 No rmal (applies to non-numeric results) 0.00 kg/m2 [facility] ([facility]) Body height 0.00 in Normal (applies to non-numeric resu lts) 0.00 in [facility]) Body weight Measured 0.00 lbs Normal (applies to n on-numeric results) 0.00 lbs [facility] ([facility]) Body mass index (BMI) [Ratio] 0.00 kg/m2 No rmal (applies to non-numeric results) 0.00 kg/m2 [facility] ([facility]) Systolic blood pressure 0 mm[Hg] Normal (applies t o non-numeric results) 0 mm[Hg] [facility] ([facility]) Diastolic blood pressure 0 mm[Hg] Normal (applies to non-numeric results) 0 mm[Hg] [facility] ([facility]) Patient Treatment Plan of Care Planned Activity Planned Date Details Description Data Source (s) Levalbuterol 0.417 MG/ML Inhalant Solution [Xopenex] 12:00:00 AM EDT eCW1 ([facility]) Diclofenac Sodium 0.01 MG/MG Topical Gel [Voltaren] 12/10/19 12:00:00 AM EDT eCW1 ([facility]) Nebulizer/Tubing/Mouthpiece - 12/10/2019 12:00:00 AM EDT eCW1 (On License Of [facility]) 200 ACTUAT Levalbuterol 0.045 MG/ACTUAT Metered Dose I nhaler [Xopenex] 12/10/2019 12:00:00 AM EDT eCW1 (Pending sale to [facility]) Guaifenesin 400 MG Oral Tablet 12/10/2019 12:00:00 AM EDT eCW1 (On License Of [facility]) Levalbuterol 0.417 MG/ML Inhalant Solution [Xopenex] 12:00:00 AM EDT eCW1 ([facility]) Diclofenac Sodium 0.01 MG/MG Topical Gel [Voltaren] 12/10/19 12:00:00 AM EDT eCW1 ([facility]) Nebulizer/Tubing/Mouthpiece - 12/10/2019 12:00:00 AM EDT eCW1 (On License Of [facility]) 200 ACTUAT Levalbuterol 0.045 MG/ACTUAT Metered Dose I nhaler [Xopenex] 12/10/2019 12:00:00 AM EDT eCW1 (Pending sale to [facility]) Guaifenesin 400 MG Oral Tablet 12/10/2019 12:00:00 AM EDT eCW1 (On License Of [facility]) 200 ACTUAT Levalbuterol 0.045 MG/ACTUAT Metered Dose I nhaler [Xopenex] 12/10/2019 12:00:00 AM EDT eCW1 (Pending sale to [facility]) Guaifenesin 400 MG Oral Tablet 12/10/2019 12:00:00 AM EDT eCW1 (On [facility] Of [facility]) Levalbuterol 0.417 MG/ML Inhalant Solution [Xopenex] 12:00:00 AM EDT eCW1 ([facility]) Diclofenac Sodium 0.01 MG/MG Topical Gel [Voltaren] 12/10/19 12:00:00 AM EDT eCW1 ([facility]) Nebulizer/Tubing/Mouthpiece - 12/10/2019 12:00:00 AM EDT eCW1 (On [facility] Of [facility])
[2020-12-23 10:11] LABS: BASO # 0.1 10^3/uL (0.0-0.2); EOS # 0.3 10^3/uL (0.0-0.5); EOS % 3.3 % (0.0-3.0); HEMATOCRIT 41.9 % (36.0-47.0); HEMOGLOBIN 14.3 g/dl (12.0-15.5); LYMPH % 32.9 % (24.0-44.0); MEAN CORPUSCULAR HGB CONC 34.1 g/dl (32.0-36.5); MEAN CORPUSCULAR VOLUME 87.8 fl (80.0-96.0); NEUTROPHILS # 4.7 10^3/uL (1.5-8.5); NEUTROPHILS % 51.1 % (36.0-66.0); PLATELET COUNT, AUTOMATED 361 10^3/uL (150-450); RED BLOOD COUNT 4.77 10^6/uL (4.00-5.40); WHITE BLOOD COUNT 9.2 10^3/uL (4.0-10.0)
[2020-12-23 10:35] LABS: ERYTHROCYTE SEDIMENTATION RATE 33 mm/hr (0-20)
[2020-12-23] MEDS ORDERED: SUMAtriptan SUCCINATE 6 MG/0.5 ML VIAL SC ONE (10:35)
--- NOTE | 2020-12-23 10:47 | REPVR ---
PROCEDURE INFORMATION: Exam: CT Head Without Contrast Exam date and time: 12/23/2020 9:37 AM Age: 35 years old Clinical indication: Pain; Headache; Additional info: Pain right druze TECHNIQUE: Imaging protocol: Computed tomography of the head without contrast. Radiation optimization: All CT scans at this facility use at least one of these dose optimization techniques: automated exposure control; mA and/or kV adjustment per patient size (includes targeted exams where dose is matched to clinical indication); or iterative reconstruction. COMPARISON: CT Head without contrast 08/01/2014 2:52 PM FINDINGS: Brain: Normal. No hemorrhage. Unremarkable white matter. No mass effect. Cerebral ventricles: No ventriculomegaly. Paranasal sinuses: Visualized sinuses are unremarkable. No fluid levels. Mastoid air cells: Visualized mastoid air cells are well aerated. Bones/joints: Unremarkable. No acute fracture. Soft tissues: Unremarkable. IMPRESSION: No acute intracranial abnormality. No significant interval change from the remote prior. Electronically signed by: Won [place] On 12/23/2020 10:46:31 AM
[2020-12-23 10:49] LABS: ALBUMIN 3.6 GM/DL (3.2-5.2); ALT/SGPT 66 U/L (12-78); BILIRUBIN,DIRECT < 0.1 MG/DL (0.0-0.2); BILIRUBIN,TOTAL 0.3 MG/DL (0.2-1.0); C REACTIVE PROTEIN QUANTITATIV 0.38 MG/DL (0.00-0.30); MAGNESIUM LEVEL 1.8 MG/DL (1.8-2.4); TOTAL PROTEIN 7.8 GM/DL (6.4-8.2)
[2020-12-23] MEDS ORDERED: AMIT25TA17 PO (11:49)
[2020-12-23 12:35] VITALS: BP 109/57
== END 2020-12-23 12:41 | disposition home or self-care (01) ==
LOC: M ED 09:03
DX: R51.9 Headache, unspecified (principal); F17.200 Nicotine dependence, unspecified, uncomplicated; F12.10 Cannabis abuse, uncomplicated
CPT/HCPCS: 70450; 80047; 80076; 83735; 84702; 85025; 85652; 86140; 96361; 96374; 96375; 99284; J2405; J2930

== ENCOUNTER → 2021-02-17 | Outpatient (CLI) | payer OTHER ==
[~2021-02-17] MED LIST changes: +AMIT25TA17 PO
[2021-02-17 11:08] LABS: BASO # 0.1 10^3/uL (0.0-0.2); BASO % 0.9 % (0.0-1.0); EOS # 0.3 10^3/uL (0.0-0.5); EOS % 2.9 % (0.0-3.0); HEMATOCRIT 41.7 % (36.0-47.0); HEMOGLOBIN 14.3 g/dl (12.0-15.5); LYMPH # 2.8 10^3/uL (1.5-5.0); LYMPH % 28.7 % (24.0-44.0); MEAN CORPUSCULAR HEMOGLOBIN 30.4 pg (27.0-33.0); MEAN CORPUSCULAR HGB CONC 34.3 g/dl (32.0-36.5); MEAN CORPUSCULAR VOLUME 88.7 fl (80.0-96.0); MONO # 1.1 10^3/uL (0.0-0.8); MONO % 11.4 % (2.0-8.0); NEUTROPHILS # 5.5 10^3/uL (1.5-8.5); NEUTROPHILS % 55.8 % (36.0-66.0); PLATELET COUNT, AUTOMATED 377 10^3/uL (150-450); WHITE BLOOD COUNT 9.9 10^3/uL (4.0-10.0)
[2021-02-17 11:36] LABS: ALBUMIN 3.8 GM/DL (3.2-5.2); ALT/SGPT 69 U/L (12-78); BILIRUBIN,TOTAL 0.6 MG/DL (0.2-1.0); BLOOD UREA NITROGEN 14 MG/DL (7-18); CARBON DIOXIDE LEVEL 25 MEQ/L (21-32); CHLORIDE LEVEL 112 MEQ/L (98-107); CREATININE FOR GFR 0.61 MG/DL (0.55-1.30); GLOMERULAR FILTRATION RATE > 60.0 (>60); GLUCOSE, FASTING 86 MG/DL (70-100); POTASSIUM SERUM 4.1 MEQ/L (3.5-5.1); RHEUMATOID FACTOR QUANT < 10.0 IU/ML (<15.0); SODIUM LEVEL 142 MEQ/L (136-145); TOTAL PROTEIN 7.6 GM/DL (6.4-8.2)
[2021-02-17 11:43] LABS: ERYTHROCYTE SEDIMENTATION RATE 28 mm/hr (0-20)
== END ==
LOC: M LAB 10:07
PROVIDERS: ATTEND Psychiatry & Neurology Neurology
DX: G44.51 Hemicrania continua (principal)

== ENCOUNTER → 2021-03-23 | Outpatient (CLI) | payer MEDICAID, OTHER ==
[~2021-03-23] MED LIST changes: -MONT10TA10; +MONT10TA97
== END ==
LOC: M TMPAIN 15:00 → M PAIN 15:00
PROVIDERS: ATTEND Anesthesiology
DX: M54.50 Low back pain, unspecified (principal); M25.561 Pain in right knee; G89.29 Other chronic pain; J45.909 Unspecified asthma, uncomplicated; F17.210 Nicotine dependence, cigarettes, uncomplicated; Z86.14 Personal history of Methicillin resistant Staphylococcus aureus infection; Z86.59 Personal history of other mental and behavioral disorders; Z88.1 Allergy status to other antibiotic agents; Z88.5 Allergy status to narcotic agent; Z88.6 Allergy status to analgesic agent; Z88.8 Allergy status to other drugs, medicaments and biological substances; Z91.09 Other allergy status, other than to drugs and biological substances; Z79.899 Other long term (current) drug therapy

== ENCOUNTER 2022-05-13 19:36 | Emergency (ER) | payer MEDICAID, OTHER ==
[~2022-05-13] VITALS: Ht 154.9 cm; Wt 122.7 kg
[~2022-05-13 19:36] MED LIST changes: +ALBU2.5V10 INH; -ALBU83IN INH; -FLUC150T PO; +FLUC150T9 PO; +LIDO15SO4 PO; -LIDO2SOL17 PO
[2022-05-13 21:24] LABS: BASO # 0.1 10^3/uL (0.0-0.2); BASO % 0.8 % (0.0-1.0); EOS # 0.3 10^3/uL (0.0-0.5); EOS % 2.9 % (0.0-3.0); HEMATOCRIT 41.7 % (36.0-47.0); HEMOGLOBIN 14.1 g/dl (12.0-15.5); LYMPH # 3.4 10^3/uL (1.5-5.0); LYMPH % 35.1 % (24.0-44.0); MEAN CORPUSCULAR HEMOGLOBIN 30.6 pg (27.0-33.0); MEAN CORPUSCULAR HGB CONC 33.8 g/dl (32.0-36.5); MEAN CORPUSCULAR VOLUME 90.5 fl (80.0-96.0); MONO % 10.4 % (2.0-8.0); NEUTROPHILS # 4.9 10^3/uL (1.5-8.5); NEUTROPHILS % 50.6 % (36.0-66.0); PLATELET COUNT, AUTOMATED 393 10^3/uL (150-450); RED BLOOD COUNT 4.61 10^6/uL (4.00-5.40); WHITE BLOOD COUNT 9.6 10^3/uL (4.0-10.0)
[2022-05-13 21:49] LABS: LIPASE 28 U/L (12-53)
[2022-05-13] MEDS ORDERED: NS 1,000 ML IV ONE (21:50)
[2022-05-13] MEDS ORDERED: MORPHINE 4 MG/ML 1ML VIAL IV ONE (21:50)
[2022-05-13 21:54] LABS: ALBUMIN 3.6 G/DL (3.2-5.2); ALKALINE PHOSPHATASE 73 U/L (46-116); ALT/SGPT 45 U/L (7.0-40); AST/SGOT 34 U/L (<34); BILIRUBIN,DIRECT 0.2 MG/DL (<0.4); BILIRUBIN,TOTAL 0.8 MG/DL (0.3-1.2); BLOOD UREA NITROGEN 9 MG/DL (9-23); CALCIUM LEVEL 8.7 MG/DL (8.5-10.1); CARBON DIOXIDE LEVEL 22 MMOL/L (20-31); CHLORIDE LEVEL 107 MMOL/L (98-107); CREATININE FOR GFR 0.67 MG/DL (0.55-1.30); GLOMERULAR FILTRATION RATE > 60.0 (>60); GLUCOSE, FASTING 85 MG/DL (60-100); MAGNESIUM LEVEL 1.7 MG/DL (1.8-2.4); POTASSIUM SERUM 4.5 MMOL/L (3.5-5.1); SODIUM LEVEL 137 MMOL/L (136-145)
[2022-05-13 21:58] LABS: HCG, SERUM QUALITATIVE NEGATIVE (NEGATIVE)
[2022-05-13 23:17] LABS: FREE THYROXINE INDEX 2.9 % (1.3-4.8); T UPTAKE 31.6 % (22.5-37.0); THYROID STIMULATING HORMONE 1.215 uIU/ML (0.55-4.78); THYROXINE (T4) 9.2 UG/DL (4.5-10.9)
[2022-05-13] MEDS ORDERED: MAG SULF 1GM/100ML (MAG RUN) 1 GM in IV 1 EA IV ONE (23:45)
[2022-05-14 00:40] LABS: ETHYL ALCOHOL (ETHANOL) 0.005 % (0.000-0.010)
[2022-05-14 00:48] LABS: ACETAMINOPHEN LEVEL 2.9 UG/ML (10.0-20.0); SALICYLATE LEVEL < 3.0 MG/DL (<30)
[2022-05-14 03:01] VITALS: BP 139/93
== END 2022-05-14 03:06 | disposition home or self-care (01) ==
LOC: EDBD 19:36 → M ED 19:36
DX: R42 Dizziness and giddiness (principal); E61.2 Magnesium deficiency; R20.2 Paresthesia of skin; H53.8 Other visual disturbances; R25.2 Cramp and spasm; E28.2 Polycystic ovarian syndrome; F43.10 Post-traumatic stress disorder, unspecified; J45.909 Unspecified asthma, uncomplicated; Z88.1 Allergy status to other antibiotic agents; Z88.5 Allergy status to narcotic agent; Z88.6 Allergy status to analgesic agent; Z91.018 Allergy to other foods; Z79.52 Long term (current) use of systemic steroids; Z79.83 Long term (current) use of bisphosphonates; Z79.899 Other long term (current) drug therapy
CPT/HCPCS: 70450; 80047; 80048; 80076; 80143; 82077; 83690; 83735; 84436; 84443; 84479; 84703; 85025; 86618; 96361; 96374; 96375; 99284; J2270; J3475

== ENCOUNTER → 2022-10-03 | Outpatient (CLI) | payer OTHER ==
[~2022-10-03] VITALS: Ht 154.9 cm; Wt 121.4 kg
[~2022-10-03] MED LIST changes: -AMIT25TA17 PO; +AMIT25TA19 PO; +LIDO15SO PO; -LIDO15SO4 PO; +LIDO2SOBTL MT; -LIDO2SOL9 MT; +PANT40TA29 PO; +PROP60CA PO; +SERT-141 PO; +SIMV20TA22 PO; +cogentin
[2022-10-03 07:20] VITALS: TEMP 98.7
[2022-10-03 09:45] VITALS: BP 124/62; O2SAT 95
== END ==
LOC: M RAD 07:09
PROVIDERS: ATTEND Psychiatry & Neurology Neurology
DX: G44.031 Episodic paroxysmal hemicrania, intractable (principal); G43.419 Hemiplegic migraine, intractable, without status migrainosus; I63.9 Cerebral infarction, unspecified; R20.2 Paresthesia of skin; R90.82 White matter disease, unspecified

== ENCOUNTER → 2022-10-20 | Outpatient (CLI) | payer OTHER | LOC: M SOG 08:05 | PROVIDERS: ATTEND Physician Assistant | DX: M25.531 Pain in right wrist (principal); M25.532 Pain in left wrist ==

== ENCOUNTER 2022-11-01 07:13 | Day surgery (SDC) | payer OTHER ==
[~2022-11-01] VITALS: Ht 154.9 cm; Wt 122.0 kg
[~2022-11-01 07:13] MED LIST changes: +ALBU8.5H; +BENZ1TAB5 PO; +FLUT50SP17; +HYDR-3713; +LUMA21CA PO; +OXCA300T14 PO; +OXYB5TAB10 PO; +SYMB16INH; +TRIL1TAB PO; +VENTAER; +ZOLP10TA2 PO
[2022-11-01] MEDS ORDERED: LR 1,000 ML IV SCH ×2 (08:40→10:40)
[2022-11-01] MEDS ORDERED: MIDAZOLAM INJ 2MG/2ML VIAL As Ordered ONE (10:16)
[2022-11-01] MEDS ORDERED: fentaNYL 100 MCG/2 ML INJECTION As Ordered ONE (10:16)
[2022-11-01] MEDS ORDERED: ACETAMINOPHEN 1000MG 100ML IV BAG As Ordered ONE (10:16)
[2022-11-01] MEDS ORDERED: LIDOCAINE 2% 100MG/5ML SDV (FOR ANES.) As Ordered ONE (10:16)
[2022-11-01] MEDS ORDERED: propofoL 200 MG/20 ML VIAL As Ordered ONE (10:16)
[2022-11-01] MEDS ORDERED: ONDANSETRON 4MG 2ML VIAL As Ordered ONE (10:16)
[2022-11-01] MEDS ORDERED: ONDANSETRON 4MG 2ML VIAL IV PRN (10:40)
[2022-11-01] MEDS ORDERED: fentaNYL 100 MCG/2 ML INJECTION IV PRN (10:40)
[2022-11-01] MEDS: oxyCODONE 5MG TAB PO PRN ×2 (11:11→11:47)
[2022-11-01] MEDS: HYDROMORPHONE HCL 0.5 MG/ 0.5 ML SYRINGE IV PRN ×4 (11:12→11:28)
[2022-11-01 12:10] VITALS: BP 110/55; TEMP 97.5; O2SAT 95
== END 2022-11-01 12:33 | disposition home or self-care (01) ==
LOC: M SDC 07:13
PROVIDERS: ATTEND Orthopaedic Surgery Hand Surgery
DX: G56.01 Carpal tunnel syndrome, right upper limb (principal); J45.909 Unspecified asthma, uncomplicated; G40.909 Epilepsy, unspecified, not intractable, without status epilepticus; F41.9 Anxiety disorder, unspecified; F32.A Depression, unspecified; F17.200 Nicotine dependence, unspecified, uncomplicated; F43.10 Post-traumatic stress disorder, unspecified; F95.2 Tourette's disorder; Z88.0 Allergy status to penicillin; Z88.5 Allergy status to narcotic agent; Z91.018 Allergy to other foods; Z88.8 Allergy status to other drugs, medicaments and biological substances; Z79.899 Other long term (current) drug therapy; Z79.51 Long term (current) use of inhaled steroids
CPT/HCPCS: 29848; 81025; J0131; J0665; J1100; J1170; J2250; J2405; J3010

== ENCOUNTER 2023-01-13 18:58 | Emergency (ER) | payer OTHER ==
[~2023-01-13] VITALS: Ht 154.9 cm; Wt 124.1 kg
[~2023-01-13 18:58] MED LIST changes: -MIRT-62; +MIRT-88; -OXYB5TAB10 PO; +OXYB5TAB11 PO
[2023-01-13] MEDS ORDERED: ONDANSETRON 4MG 2ML VIAL IV ONE (19:30)
[2023-01-13] MEDS ORDERED: ACETAMINOPHEN TAB 650MG DOSE (2X325MG) PO ONE (19:30)
[2023-01-13 19:45] LABS: BASO # 0.1 10^3/uL (0.0-0.2); BASO % 0.5 % (0.0-1.0); EOS # 0.2 10^3/uL (0.0-0.5); EOS % 2.3 % (0.0-3.0); HEMATOCRIT 40.8 % (36.0-47.0); HEMOGLOBIN 14.4 g/dl (12.0-15.5); LYMPH # 3.3 10^3/uL (1.5-5.0); LYMPH % 34.4 % (24.0-44.0); MEAN CORPUSCULAR HEMOGLOBIN 31.4 pg (27.0-33.0); MEAN CORPUSCULAR HGB CONC 35.3 g/dl (32.0-36.5); MEAN CORPUSCULAR VOLUME 88.9 fl (80.0-96.0); MONO # 1.2 10^3/uL (0.0-0.8); MONO % 12.6 % (2.0-8.0); NEUTROPHILS # 4.8 10^3/uL (1.5-8.5); NEUTROPHILS % 49.9 % (36.0-66.0); PLATELET COUNT, AUTOMATED 333 10^3/uL (150-450); RED BLOOD COUNT 4.59 10^6/uL (4.00-5.40); WHITE BLOOD COUNT 9.6 10^3/uL (4.0-10.0)
[2023-01-13 20:08] LABS: CK-MB VALUE MASS < 1.0 NG/ML (<3.6); LIPASE 45 U/L (12-53)
[2023-01-13 20:10] LABS: ALBUMIN 3.4 G/DL (3.2-5.2); ALKALINE PHOSPHATASE 63 U/L (46-116); ALT/SGPT 32 U/L (7.0-40); AST/SGOT 21 U/L (<34); BILIRUBIN,DIRECT < 0.1 MG/DL (<0.4); BILIRUBIN,TOTAL 0.3 MG/DL (0.3-1.2); BLOOD UREA NITROGEN 16 MG/DL (9-23); CALCIUM LEVEL 9.1 MG/DL (8.5-10.1); CARBON DIOXIDE LEVEL 22 MMOL/L (20-31); CHLORIDE LEVEL 108 MMOL/L (98-107); CREATININE FOR GFR 0.55 MG/DL (0.55-1.30); GLOMERULAR FILTRATION RATE > 60.0 (>60); GLUCOSE, FASTING 87 MG/DL (60-100); POTASSIUM SERUM 4.5 MMOL/L (3.5-5.1); SODIUM LEVEL 140 MMOL/L (136-145); TOTAL PROTEIN 6.9 G/DL (5.7-8.2)
[2023-01-13 20:13] LABS: CPK CREATINE PHOSPHOKINASE 62 U/L (34-145); MB/CK RELATIVE INDEX 1.61 (< OR =4)
[2023-01-13 22:29] LABS: CK-MB VALUE MASS < 1.0 NG/ML (<3.6)
[2023-01-13 22:31] VITALS: BP 120/77; TEMP 98.1; O2SAT 96
[2023-01-13 22:32] LABS: CPK CREATINE PHOSPHOKINASE 55 U/L (34-145); MB/CK RELATIVE INDEX 1.81 (< OR =4)
[2023-01-13] MEDS ORDERED: oxyCODONE 5MG TAB PO ONE (22:55)
== END 2023-01-13 23:21 | disposition home or self-care (01) ==
LOC: M ED 18:58
DX: R55 Syncope and collapse (principal); R07.9 Chest pain, unspecified; M54.50 Low back pain, unspecified; F43.10 Post-traumatic stress disorder, unspecified; J45.909 Unspecified asthma, uncomplicated; E66.9 Obesity, unspecified; F17.200 Nicotine dependence, unspecified, uncomplicated; Z88.1 Allergy status to other antibiotic agents; Z88.5 Allergy status to narcotic agent; Z88.8 Allergy status to other drugs, medicaments and biological substances; Z91.018 Allergy to other foods; Z79.811 Long term (current) use of aromatase inhibitors; Z79.52 Long term (current) use of systemic steroids; Z79.899 Other long term (current) drug therapy
CPT/HCPCS: 70450; 71045; 72125; 72128; 72131; 80048; 80076; 82550; 82553; 83690; 85025; 85379; 93005; 93041; 94760; 96374; 99285; J2405

== ENCOUNTER 2023-05-24 00:05 | Emergency (ER) | payer OTHER ==
[~2023-05-24 00:05] MED LIST changes: -CLON1TAB8; +CLON1TAB8 PO; +FLUO10CA18 PO; -FLUT50SP17; +FLUTISP; +LIDO100S29 MT; -LIDO15SO PO; +LIDO15SO8 PO; -LIDO2SOBTL MT; -OXYB5TAB11 PO; +OXYB5TAB14 PO; +ZOLP12.518 PO
[2023-05-24 01:09] LABS: BASO # 0.1 10^3/uL (0.0-0.2); BASO % 0.9 % (0.0-1.0); EOS # 0.3 10^3/uL (0.0-0.5); EOS % 2.7 % (0.0-3.0); HEMATOCRIT 39.6 % (36.0-47.0); HEMOGLOBIN 14.1 g/dl (12.0-15.5); LYMPH % 38.7 % (24.0-44.0); MEAN CORPUSCULAR HEMOGLOBIN 31.4 pg (27.0-33.0); MEAN CORPUSCULAR HGB CONC 35.6 g/dl (32.0-36.5); MEAN CORPUSCULAR VOLUME 88.2 fl (80.0-96.0); MONO # 1.2 10^3/uL (0.0-0.8); MONO % 11.9 % (2.0-8.0); NEUTROPHILS # 4.7 10^3/uL (1.5-8.5); NEUTROPHILS % 45.5 % (36.0-66.0); PLATELET COUNT, AUTOMATED 324 10^3/uL (150-450); RED BLOOD COUNT 4.49 10^6/uL (4.00-5.40); WHITE BLOOD COUNT 10.3 10^3/uL (4.0-10.0)
[2023-05-24 01:27] LABS: HCG, SERUM QUANTITATIVE < 2.6 MIU/ML (<4.2)
[2023-05-24 01:29] LABS: BLOOD UREA NITROGEN 17 MG/DL (9-23); CALCIUM LEVEL 8.8 MG/DL (8.5-10.1); CARBON DIOXIDE LEVEL 24 MMOL/L (20-31); CHLORIDE LEVEL 112 MMOL/L (98-107); CREATININE FOR GFR 0.62 MG/DL (0.55-1.30); GLOMERULAR FILTRATION RATE > 60.0 (>60); GLUCOSE, FASTING 93 MG/DL (60-100); POTASSIUM SERUM 4.4 MMOL/L (3.5-5.1); SODIUM LEVEL 142 MMOL/L (136-145)
[2023-05-24] MEDS: ONDANSETRON 4MG 2ML VIAL IV ONE (02:05)
[2023-05-24] MEDS: ACETAMINOPHEN TAB 650MG DOSE (2X325MG) PO ONE (02:05)
[2023-05-24] MEDS: MORPHINE 4 MG/ML 1ML VIAL IV PRN (02:07)
[2023-05-24] MEDS: METHOCARBAMOL 1,000 MG/10 ML VIAL IV ONE (03:42)
[2023-05-24] MEDS: PERCOCET 5MG/325MG TAB PO ONE (03:43)
[2023-05-24] MEDS ORDERED: METH-1165 PO (05:01)
[2023-05-24] MEDS: OXYCODONE/APAP 5MG/325MG(HOME DOSE PACK) PO ONE (05:09)
[2023-05-24 05:30] VITALS: BP 136/77; TEMP 97.7; O2SAT 98
== END 2023-05-24 05:55 | disposition home or self-care (01) ==
LOC: M ED 00:05
DX: R10.31 Right lower quadrant pain (principal); E28.2 Polycystic ovarian syndrome; F17.200 Nicotine dependence, unspecified, uncomplicated; Z88.1 Allergy status to other antibiotic agents; Z88.5 Allergy status to narcotic agent; Z88.6 Allergy status to analgesic agent; Z88.8 Allergy status to other drugs, medicaments and biological substances; Z91.018 Allergy to other foods; Z79.52 Long term (current) use of systemic steroids; Z79.891 Long term (current) use of opiate analgesic; Z79.899 Other long term (current) drug therapy
CPT/HCPCS: 76830; 76856; 80048; 84702; 85025; 86850; 86900; 86901; 93976; 96374; 96375; 99284; J2405; J2800

== ENCOUNTER 2023-06-26 22:52 | Emergency (ER) | payer MEDICAID, OTHER ==
[~2023-06-26] VITALS: Ht 154.9 cm; Wt 128.9 kg
[~2023-06-26 22:52] MED LIST changes: +METH-1165 PO
[2023-06-26] MEDS ORDERED: TIZA2CAP PO (23:43)
[2023-06-26] MEDS ORDERED: FLUO10CA18 PO (23:43)
[2023-06-26] MEDS ORDERED: AUGM250S13 PO (23:44)
[2023-06-27 00:06] LABS: BASO # 0.1 10^3/uL (0.0-0.2); BASO % 0.9 % (0.0-1.0); EOS # 0.3 10^3/uL (0.0-0.5); EOS % 3.1 % (0.0-3.0); HEMATOCRIT 40.2 % (36.0-47.0); HEMOGLOBIN 14.4 g/dl (12.0-15.5); LYMPH # 4.1 10^3/uL (1.5-5.0); LYMPH % 36.6 % (24.0-44.0); MEAN CORPUSCULAR HEMOGLOBIN 32.2 pg (27.0-33.0); MEAN CORPUSCULAR HGB CONC 35.8 g/dl (32.0-36.5); MEAN CORPUSCULAR VOLUME 89.9 fl (80.0-96.0); MONO # 1.1 10^3/uL (0.0-0.8); MONO % 9.6 % (2.0-8.0); NEUTROPHILS # 5.4 10^3/uL (1.5-8.5); NEUTROPHILS % 48.9 % (36.0-66.0); PLATELET COUNT, AUTOMATED 407 10^3/uL (150-450); RED BLOOD COUNT 4.47 10^6/uL (4.00-5.40); WHITE BLOOD COUNT 11.1 10^3/uL (4.0-10.0)
[2023-06-27 00:19] LABS: LIPASE 52 U/L (12-53)
[2023-06-27 00:23] LABS: ALBUMIN 3.8 G/DL (3.2-5.2); ALKALINE PHOSPHATASE 64 U/L (46-116); ALT/SGPT 37 U/L (7.0-40); AST/SGOT 24 U/L (<34); BILIRUBIN,DIRECT < 0.1 MG/DL (<0.4); BILIRUBIN,TOTAL 0.2 MG/DL (0.3-1.2); BLOOD UREA NITROGEN 19 MG/DL (9-23); CALCIUM LEVEL 9.3 MG/DL (8.5-10.1); CARBON DIOXIDE LEVEL 24 MMOL/L (20-31); CHLORIDE LEVEL 107 MMOL/L (98-107); CREATININE FOR GFR 0.76 MG/DL (0.55-1.30); GLOMERULAR FILTRATION RATE > 60.0 (>60); GLUCOSE, FASTING 83 MG/DL (60-100); POTASSIUM SERUM 4.4 MMOL/L (3.5-5.1); SODIUM LEVEL 138 MMOL/L (136-145)
[2023-06-27 00:30] LABS: HCG, SERUM QUALITATIVE NEGATIVE (NEGATIVE)
[2023-06-27] MEDS: diazePAM 10MG/2ML SYRINGE IV ONE (00:51)
[2023-06-27] MEDS: ONDANSETRON 4MG 2ML VIAL IV ONE (00:51)
[2023-06-27] MEDS: NS 1,000 ML IV ONE (00:55)
[2023-06-27] MEDS: ANEXSIA, NORCO 7.5MG/325MG TABLET(HYDROCODONE/APAP) PO ONE (03:07)
[2023-06-27] MEDS: LIDOCAINE 5% (LIDODERM) PATCH TD ONE (03:08)
[2023-06-27 03:22] VITALS: BP 129/79; TEMP 98.3; O2SAT 98
[2023-06-27] MEDS ORDERED: HYDR-3713 PO (03:36)
[2023-06-27] MEDS ORDERED: LIDO5DIS41 TD (03:44)
== END 2023-06-27 03:38 | disposition home or self-care (01) ==
LOC: M ED 22:52
DX: R10.9 Unspecified abdominal pain (principal); M51.36 Other intervertebral disc degeneration, lumbar region; E28.2 Polycystic ovarian syndrome; F17.210 Nicotine dependence, cigarettes, uncomplicated; F95.2 Tourette's disorder; F43.10 Post-traumatic stress disorder, unspecified; F32.A Depression, unspecified; Z88.1 Allergy status to other antibiotic agents; Z88.8 Allergy status to other drugs, medicaments and biological substances; Z91.018 Allergy to other foods; Z79.1 Long term (current) use of non-steroidal anti-inflammatories (NSAID); Z79.51 Long term (current) use of inhaled steroids; Z79.2 Long term (current) use of antibiotics; Z79.899 Other long term (current) drug therapy
CPT/HCPCS: 72131; 74176; 80048; 80076; 81001; 83690; 84703; 85025; 87086; 96361; 96374; 99284; J2405; J3360

== ENCOUNTER → 2023-07-11 | Outpatient (CLI) | payer MEDICAID, OTHER ==
[~2023-07-11] MED LIST changes: +AUGM250S13 PO; +FLUO-290 PO; -FLUO10CA18 PO; +HYDR-3713 PO; +LIDO5DIS41 TD; +TIZA2CAP PO; -ZOLP12.518; -ZOLP12.518 PO; +ZOLP12.535; +ZOLP12.535 PO
[2023-07-11 11:20] LABS: GLUCOSE, FASTING 94 MG/DL (60-100)
[2023-07-11 11:26] LABS: FOLLICLE STIMULATING HORMONE 8.5 mIU/ML; LUTEINIZING HORMONE 10.4 mIU/ML; PROLACTIN 6.05 NG/ML
[2023-07-11 11:27] LABS: TESTOSTERONE 27 NG/DL (14-76); THYROID STIMULATING HORMONE 2.671 uIU/ML (0.55-4.78)
[2023-07-11 11:28] LABS: ESTRADIOL 61.3 PG/ML
[2023-07-11 11:31] LABS: HCG, SERUM QUALITATIVE NEGATIVE (NEGATIVE)
== END ==
LOC: M LAB 10:04
PROVIDERS: ATTEND Physician Assistant
DX: N92.6 Irregular menstruation, unspecified (principal)

== ENCOUNTER → 2023-07-26 | Outpatient (CLI) | payer OTHER, MEDICAID | LOC: M PAIN 13:00 | PROVIDERS: ATTEND Nurse Practitioner Family | DX: M25.561 Pain in right knee (principal); G89.29 Other chronic pain; M79.18 Myalgia, other site; M54.50 Low back pain, unspecified; F17.200 Nicotine dependence, unspecified, uncomplicated; J45.909 Unspecified asthma, uncomplicated; Z79.51 Long term (current) use of inhaled steroids; Z79.899 Other long term (current) drug therapy; Z88.1 Allergy status to other antibiotic agents; Z88.5 Allergy status to narcotic agent; Z88.6 Allergy status to analgesic agent; Z88.8 Allergy status to other drugs, medicaments and biological substances ==

== ENCOUNTER 2023-08-01 16:41 | Emergency (ER) | payer MEDICAID, OTHER ==
[~2023-08-01] VITALS: Ht 154.9 cm; Wt 130.4 kg
[2023-08-01] MEDS: LIDOCAINE W/EPINEPHRINE 1% 20ML VIAL SC ONE (18:03)
[2023-08-01] MEDS: NEOSPORIN OINT 0.9 GM PKT TOP ONE (18:08)
[2023-08-01] MEDS: ACETAMINOPHEN 500 MG TAB PO ONE (18:09)
[2023-08-01] MEDS: oxyCODONE 5MG TAB PO ONE (19:02)
[2023-08-01 19:23] VITALS: BP 152/87; TEMP 98.9; O2SAT 98
== END 2023-08-01 19:24 | disposition home or self-care (01) ==
LOC: M ED 16:41
DX: S01.112A Laceration without foreign body of left eyelid and periocular area, initial encounter (principal); S05.12XA Contusion of eyeball and orbital tissues, left eye, initial encounter; W22.8XXA Striking against or struck by other objects, initial encounter; F17.200 Nicotine dependence, unspecified, uncomplicated; J45.909 Unspecified asthma, uncomplicated; Z88.0 Allergy status to penicillin; Z88.5 Allergy status to narcotic agent; Z88.6 Allergy status to analgesic agent; Z88.8 Allergy status to other drugs, medicaments and biological substances; Z91.018 Allergy to other foods; Y92.009 Unspecified place in unspecified non-institutional (private) residence as the place of occurrence of the external cause; Y93.89 Activity, other specified; Y99.9 Unspecified external cause status

== ENCOUNTER → 2023-08-14 | Outpatient (CLI) | payer OTHER ==
[~2023-08-14] MED LIST changes: +ONDA-282 PO; -ONDA4TAB6 PO
[2023-08-14 15:28] LABS: BASO # 0.1 10^3/uL (0.0-0.2); BASO % 0.9 % (0.0-1.0); EOS # 0.2 10^3/uL (0.0-0.5); EOS % 2.1 % (0.0-3.0); HEMATOCRIT 42.3 % (36.0-47.0); HEMOGLOBIN 14.2 g/dl (12.0-15.5); LYMPH % 26.7 % (24.0-44.0); MEAN CORPUSCULAR HEMOGLOBIN 31.5 pg (27.0-33.0); MEAN CORPUSCULAR HGB CONC 33.6 g/dl (32.0-36.5); MEAN CORPUSCULAR VOLUME 93.8 fl (80.0-96.0); MONO # 0.9 10^3/uL (0.0-0.8); MONO % 8.2 % (2.0-8.0); NEUTROPHILS # 6.9 10^3/uL (1.5-8.5); NEUTROPHILS % 61.4 % (36.0-66.0); PLATELET COUNT, AUTOMATED 268 10^3/uL (150-450); RED BLOOD COUNT 4.51 10^6/uL (4.00-5.40); WHITE BLOOD COUNT 11.3 10^3/uL (4.0-10.0)
[2023-08-14 15:52] LABS: ALBUMIN 3.9 G/DL (3.2-5.2); ALKALINE PHOSPHATASE 82 U/L (46-116); ALT/SGPT 46 U/L (7.0-40); AST/SGOT 26 U/L (<34); BILIRUBIN,TOTAL 0.2 MG/DL (0.3-1.2); BLOOD UREA NITROGEN 15 MG/DL (9-23); CALCIUM LEVEL 9.2 MG/DL (8.5-10.1); CARBON DIOXIDE LEVEL 19 MMOL/L (20-31); CHLORIDE LEVEL 109 MMOL/L (98-107); CREATININE FOR GFR 0.48 MG/DL (0.55-1.30); GLOMERULAR FILTRATION RATE > 60.0 (>60); GLUCOSE, FASTING 121 MG/DL (60-100); MAGNESIUM LEVEL 1.6 MG/DL (1.8-2.4); POTASSIUM SERUM 4.7 MMOL/L (3.5-5.1); SODIUM LEVEL 138 MMOL/L (136-145); TOTAL PROTEIN 7.4 G/DL (5.7-8.2)
== END ==
LOC: M PLALAB 12:18
PROVIDERS: ATTEND Physician Assistant Medical
DX: R00.2 Palpitations (principal)

== ENCOUNTER → 2023-08-23 | Outpatient (CLI) | payer OTHER | LOC: M SOG 08:01 | PROVIDERS: ATTEND Physician Assistant | DX: M25.561 Pain in right knee (principal) ==

== ENCOUNTER 2023-09-02 16:03 | Emergency (ER) | payer OTHER ==
[~2023-09-02] VITALS: Ht 154.9 cm; Wt 128.9 kg
[2023-09-02] MEDS: ONDANSETRON 4MG ORAL DISINTEGRATING TAB SL PRN (16:33)
[2023-09-02] MEDS: ACETAMINOPHEN 325 MG TAB PO ONE (17:23)
[2023-09-02 18:06] VITALS: BP 125/83; TEMP 97.2; O2SAT 97
== END 2023-09-02 18:08 | disposition home or self-care (01) ==
LOC: M ED 16:03
DX: S09.90XA Unspecified injury of head, initial encounter (principal); S00.83XA Contusion of other part of head, initial encounter; G40.909 Epilepsy, unspecified, not intractable, without status epilepticus; R51.9 Headache, unspecified; E28.2 Polycystic ovarian syndrome; F43.10 Post-traumatic stress disorder, unspecified; Z79.52 Long term (current) use of systemic steroids; Z79.2 Long term (current) use of antibiotics; Z79.899 Other long term (current) drug therapy; Z91.018 Allergy to other foods; Z88.1 Allergy status to other antibiotic agents; Z88.5 Allergy status to narcotic agent; Z88.6 Allergy status to analgesic agent; Z88.8 Allergy status to other drugs, medicaments and biological substances; Z91.048 Other nonmedicinal substance allergy status; Y92.009 Unspecified place in unspecified non-institutional (private) residence as the place of occurrence of the external cause; Y93.89 Activity, other specified; Y99.9 Unspecified external cause status; Y04.2XXA Assault by strike against or bumped into by another person, initial encounter

== ENCOUNTER 2023-09-23 13:03 | Emergency (ER) | payer OTHER ==
[~2023-09-23] VITALS: Ht 154.9 cm; Wt 130.0 kg
[2023-09-23 16:06] LABS: BASO # 0.1 10^3/uL (0.0-0.2); BASO % 0.9 % (0.0-1.0); EOS # 0.3 10^3/uL (0.0-0.5); EOS % 2.5 % (0.0-3.0); HEMATOCRIT 39.6 % (36.0-47.0); HEMOGLOBIN 13.5 g/dl (12.0-15.5); LYMPH # 3.1 10^3/uL (1.5-5.0); LYMPH % 30.3 % (24.0-44.0); MEAN CORPUSCULAR HGB CONC 34.1 g/dl (32.0-36.5); MONO % 9.5 % (2.0-8.0); NEUTROPHILS # 5.7 10^3/uL (1.5-8.5); NEUTROPHILS % 56.4 % (36.0-66.0); PLATELET COUNT, AUTOMATED 389 10^3/uL (150-450); RED BLOOD COUNT 4.35 10^6/uL (4.00-5.40); WHITE BLOOD COUNT 10.1 10^3/uL (4.0-10.0)
[2023-09-23] MEDS: ONDANSETRON 4MG 2ML VIAL IV ONE (16:15)
[2023-09-23] MEDS: MORPHINE 4 MG/ML 1ML VIAL IV PRN (16:15)
[2023-09-23] MEDS: NS 1,000 ML IV ONE (16:27)
[2023-09-23 16:29] LABS: CK-MB VALUE MASS < 1.0 NG/ML (<3.6); LIPASE 33 U/L (12-53)
[2023-09-23 16:30] LABS: HCG, SERUM QUALITATIVE NEGATIVE (NEGATIVE)
[2023-09-23 16:31] LABS: CPK CREATINE PHOSPHOKINASE 104 U/L (34-145); MB/CK RELATIVE INDEX 0.96 (< OR =4)
[2023-09-23 16:32] LABS: ALBUMIN 3.9 G/DL (3.2-5.2); ALKALINE PHOSPHATASE 67 U/L (46-116); ALT/SGPT 34 U/L (7.0-40); AST/SGOT 16 U/L (<34); BILIRUBIN,DIRECT 0.2 MG/DL (<0.4); BILIRUBIN,TOTAL 0.7 MG/DL (0.3-1.2); BLOOD UREA NITROGEN 13 MG/DL (9-23); CALCIUM LEVEL 9.3 MG/DL (8.5-10.1); CARBON DIOXIDE LEVEL 22 MMOL/L (20-31); CHLORIDE LEVEL 111 MMOL/L (98-107); CREATININE FOR GFR 0.62 MG/DL (0.55-1.30); GLOMERULAR FILTRATION RATE > 60.0 (>60); GLUCOSE, FASTING 69 MG/DL (60-100); POTASSIUM SERUM 4.1 MMOL/L (3.5-5.1); SODIUM LEVEL 141 MMOL/L (136-145); TOTAL PROTEIN 7.4 G/DL (5.7-8.2)
[2023-09-23 16:34] LABS: THYROID STIMULATING HORMONE 3.008 uIU/ML (0.55-4.78)
[2023-09-23 18:10] LABS: VENOUS BASE EXCESS -2.7 (-2.0-2.0); VENOUS HCO3 21.1 MMOL/L (23.0-27.0); VENOUS O2 SATURATION 98.3 % (60.0-80.0); VENOUS PARTIAL PRESSURE CO2 33.6 mmHg (38.0-50.0); VENOUS PARTIAL PRESSURE O2 120.6 mmHg (30.0-50.0); VENOUS PH 7.415 UNITS (7.330-7.430); VENOUS STANDARD HCO3 22.2 MMOL/L; VENOUS TOTAL CO2 22.1 MMOL/L (24.0-28.0)
[2023-09-23 18:35] LABS: D-DIMER QUANT 0.38 ug/mL (<0.5); INR 1.1; PARTIAL THROMBOPLASTIN TIME 35.2 SECONDS (24.8-34.2); PROTHROMBIN TIME 13.9 SECONDS (12.5-14.5)
[2023-09-23] MEDS: ANEXSIA, NORCO 7.5MG/325MG TABLET(HYDROCODONE/APAP) PO ONE (19:31)
[2023-09-23] MEDS: NORCO 5/325MG TABLET (HOME DOSE PACK) PO ONE (20:54)
[2023-09-23 20:58] VITALS: BP 138/58; TEMP 97.2; O2SAT 97
== END 2023-09-23 21:01 | disposition home or self-care (01) ==
LOC: M ED 13:03
DX: R07.89 Other chest pain (principal); R00.0 Tachycardia, unspecified; F41.9 Anxiety disorder, unspecified; F32.A Depression, unspecified; J45.909 Unspecified asthma, uncomplicated; F43.10 Post-traumatic stress disorder, unspecified; F17.290 Nicotine dependence, other tobacco product, uncomplicated; Z88.1 Allergy status to other antibiotic agents; Z88.2 Allergy status to sulfonamides; Z88.5 Allergy status to narcotic agent; Z88.8 Allergy status to other drugs, medicaments and biological substances; Z91.018 Allergy to other foods; Z79.1 Long term (current) use of non-steroidal anti-inflammatories (NSAID); Z79.51 Long term (current) use of inhaled steroids; Z79.2 Long term (current) use of antibiotics; Z79.899 Other long term (current) drug therapy
CPT/HCPCS: 36415; 71045; 71250; 74176; 80048; 80076; 82550; 82553; 82803; 83690; 83880; 84443; 84484; 84703; 85025; 85379; 85610; 85730; 87040; 93005; 93041; 94760; 96361; 96374; 96375; 99285; J2405

== ENCOUNTER → 2023-12-31 | Outpatient (CLI) | payer OTHER, MEDICAID | LOC: M SOG 15:33 | PROVIDERS: ATTEND Physician Assistant | DX: M23.631 Other spontaneous disruption of medial collateral ligament of right knee (principal) ==

== ENCOUNTER → 2024-01-07 | Outpatient (REF) | payer OTHER, MEDICAID | LOC: M SFHCPLAZ 12:32 | PROVIDERS: ATTEND Nurse Practitioner Adult Health | DX: R30.0 Dysuria (principal) ==

== ENCOUNTER → 2024-02-13 | Outpatient (CLI) | payer OTHER ==
[2024-02-13 15:09] LABS: HEMOGLOBIN 14.4 g/dl (12.0-15.5); MEAN CORPUSCULAR HEMOGLOBIN 31.8 pg (27.0-33.0); MEAN CORPUSCULAR HGB CONC 34.3 g/dl (32.0-36.5); MEAN CORPUSCULAR VOLUME 92.7 fl (80.0-96.0); PLATELET COUNT, AUTOMATED 220 10^3/uL (150-450); RED BLOOD COUNT 4.53 10^6/uL (4.00-5.40); WHITE BLOOD COUNT 11.6 10^3/uL (4.0-10.0)
[2024-02-13 15:33] LABS: HEMOGLOBIN A1c 4.8 % (4.0-6.0)
[2024-02-13 15:45] LABS: ALBUMIN 3.7 G/DL (3.2-5.2); ALKALINE PHOSPHATASE 70 U/L (35-104); ALT/SGPT 38 U/L (7.0-40); AST/SGOT 18 U/L (<34); BILIRUBIN,TOTAL 0.2 MG/DL (0.3-1.2); BLOOD UREA NITROGEN 15 MG/DL (9-23); CALCIUM LEVEL 9.3 MG/DL (8.5-10.1); CARBON DIOXIDE LEVEL 25 MMOL/L (20-31); CHLORIDE LEVEL 102 MMOL/L (98-107); CREATININE FOR GFR 0.64 MG/DL (0.55-1.30); FERRITIN 60.6 NG/ML (7.3-270.7); FREE T4 1.36 NG/DL (0.89-1.76); GLOMERULAR FILTRATION RATE > 60.0 (>60); GLUCOSE, FASTING 82 MG/DL (60-100); POTASSIUM SERUM 4.2 MMOL/L (3.5-5.1); SODIUM LEVEL 136 MMOL/L (136-145); THYROID STIMULATING HORMONE 5.903 uIU/ML (0.55-4.78); TOTAL PROTEIN 7.7 G/DL (5.7-8.2)
== END ==
LOC: M PLALAB 10:05
PROVIDERS: ATTEND Nurse Practitioner Adult Health
DX: Z00.00 Encounter for general adult medical examination without abnormal findings (principal); E55.9 Vitamin D deficiency, unspecified; R73.01 Impaired fasting glucose

== ENCOUNTER 2024-02-19 10:59 | Inpatient (IN) | payer OTHER ==
[2024-02-19] VITALS (38 sets, daily range): BP systolic 99–120; BP diastolic 57–78; TEMP 97–99.7; O2SAT 95–100
[~2024-02-19] VITALS: Ht 154.9 cm; Wt 132.0 kg
[~2024-02-19 10:59] MED LIST changes: -ERGO500029 PO; -FEXO-112 PO; -FLUO-365 PO; -LUMA42CA PO; -MIDAZOLAM INJ 2MG/2ML VIAL As Ordered ONE; -NAPR-885 PO; -PRAZ1CAP PO; -TIZA10TA PO
[2024-02-19] MEDS: LIDOCAINE 2% 5ML JELLY UROJET TOP ONE (11:20)
[2024-02-19] MEDS ORDERED: PROPOFOL 1,000 MG/100 ML VIAL As Ordered ONE (11:34)
[2024-02-19 11:35] LABS: ABG BASE EXCESS -13.6 (-2.0-2.0); ABG HCO3 15.4 MMOL/L (22.0-26.0); ABG O2 SATURATION 95.4 % (95.0-99.0); ABG PARTIAL PRESSURE CO2 48.1 mmHg (35.0-45.0); ABG PARTIAL PRESSURE O2 99.5 mmHg (75.0-100.0); ABG TOTAL CO2 16.9 MMOL/L (22.0-29.0)
[2024-02-19] MEDS: propofoL 200 MG/20 ML VIAL IV ONE (11:35)
[2024-02-19 11:38] LABS: ABG pH (ARTERIAL) 7.124 UNITS (7.350-7.450)
[2024-02-19] MEDS ORDERED: MIDAZOLAM INJ 2MG/2ML VIAL As Ordered ONE (11:42)
[2024-02-19] MEDS: propofoL 1,000 MG in IV 1 EA IV SCH (11:49)
[2024-02-19] MEDS: MIDAZOLAM INJ 2MG/2ML VIAL IV STA (11:49)
[2024-02-19 11:53] LABS: HEMATOCRIT 38.1 % (36.0-47.0); MEAN CORPUSCULAR HEMOGLOBIN 31.8 pg (27.0-33.0); MEAN CORPUSCULAR HGB CONC 34.1 g/dl (32.0-36.5); MEAN CORPUSCULAR VOLUME 93.2 fl (80.0-96.0); PLATELET COUNT, AUTOMATED 332 10^3/uL (150-450); RED BLOOD COUNT 4.09 10^6/uL (4.00-5.40); WHITE BLOOD COUNT 15.1 10^3/uL (4.0-10.0)
[2024-02-19] MEDS ORDERED: FENTANYL DRIP LOCK BOX KEY 1 EACH XX PRN (11:55)
[2024-02-19 12:00] LABS: INR 0.97; PARTIAL THROMBOPLASTIN TIME 30.6 SECONDS (24.8-34.2); PROTHROMBIN TIME 13.2 SECONDS (12.5-14.5)
[2024-02-19 12:01] LABS: AMYLASE 52 U/L (30-118)
[2024-02-19] MEDS: fentaNYL CITRATE/NaCl 1,000 MCG in IV 1 EA IV SCH ×2 (12:02→14:41)
[2024-02-19] MEDS: MIDAZOLAM 100MG/100ML-0.9%NACL 100 MG in IV 1 EA IV SCH ×2 (12:03→14:45)
[2024-02-19 12:08] LABS: PROCALCITONIN <0.04 ng/ml
[2024-02-19 12:21] LABS: ALBUMIN 3.1 G/DL (3.2-5.2); ALKALINE PHOSPHATASE 62 U/L (35-104); ALT/SGPT 61 U/L (7.0-40); AST/SGOT 45 U/L (<34); BILIRUBIN,DIRECT < 0.1 MG/DL (<0.4); BILIRUBIN,TOTAL < 0.2 MG/DL (0.3-1.2); BLOOD UREA NITROGEN 19 MG/DL (9-23); C REACTIVE PROTEIN QUANTITATIV < 0.50 MG/DL (<1.0); CARBON DIOXIDE LEVEL 18 MMOL/L (20-31); CHLORIDE LEVEL 108 MMOL/L (98-107); CREATININE FOR GFR 0.66 MG/DL (0.55-1.30); GLOMERULAR FILTRATION RATE > 60.0 (>60); GLUCOSE, FASTING 248 MG/DL (60-100); POTASSIUM SERUM 4.2 MMOL/L (3.5-5.1); SODIUM LEVEL 139 MMOL/L (136-145); TOTAL PROTEIN 6.2 G/DL (5.7-8.2)
[2024-02-19 12:40] LABS: ATYPICAL LYMPH 6 % (0-5); BASOPHILS 1 % (0-1); EOSINOPHILS 9 % (0-3); LYMPHOCYTES 49 % (16-44); MONOCYTES 5 % (0-5); NEUTROPHILS 28 % (28-66)
[2024-02-19 12:41] LABS: PLATELET ESTIMATE NORMAL (NORMAL)
[2024-02-19] MEDS ORDERED: LORazepam 2 MG/ML 1ML VIAL IV PRN (14:50)
[2024-02-19 15:27] LABS: ABG BASE EXCESS -5.4 (-2.0-2.0); ABG HCO3 19.2 MMOL/L (22.0-26.0); ABG O2 SATURATION 98.4 % (95.0-99.0); ABG PARTIAL PRESSURE O2 140.2 mmHg (75.0-100.0); ABG TOTAL CO2 20.3 MMOL/L (22.0-29.0); ABG pH (ARTERIAL) 7.358 UNITS (7.350-7.450)
[2024-02-19] MEDS: LR 1,000 ML IV SCH (15:29)
[2024-02-19] MEDS: PANTOPRAZOLE 40MG VIAL IV SCH (15:29)
[2024-02-19] MEDS ORDERED: LUMA42CA PO (16:19)
[2024-02-19] MEDS ORDERED: PRAZ1CAP PO (16:19)
[2024-02-19] MEDS ORDERED: FEXO-112 PO (16:19)
[2024-02-19] MEDS ORDERED: TIZA10TA PO (16:19)
[2024-02-19] MEDS ORDERED: FLUO-365 PO (16:19)
[2024-02-19] MEDS ORDERED: ERGO500029 PO (16:19)
[2024-02-19] MEDS ORDERED: NAPR-885 PO (16:19)
[2024-02-19] MEDS ORDERED: HOME MED LIST COMPLETE! XX SCH (16:20)
[2024-02-19 16:29] LABS: BASO # 0.1 10^3/uL (0.0-0.2); BASO % 0.4 % (0.0-1.0); EOS % 0.1 % (0.0-3.0); HEMATOCRIT 41.1 % (36.0-47.0); HEMOGLOBIN 13.6 g/dl (12.0-15.5); LYMPH # 1.2 10^3/uL (1.5-5.0); LYMPH % 6.7 % (24.0-44.0); MEAN CORPUSCULAR HEMOGLOBIN 31.3 pg (27.0-33.0); MEAN CORPUSCULAR HGB CONC 33.1 g/dl (32.0-36.5); MEAN CORPUSCULAR VOLUME 94.5 fl (80.0-96.0); MONO # 1.4 10^3/uL (0.0-0.8); NEUTROPHILS # 14.5 10^3/uL (1.5-8.5); NEUTROPHILS % 84.1 % (36.0-66.0); PLATELET COUNT, AUTOMATED 189 10^3/uL (150-450); RED BLOOD COUNT 4.35 10^6/uL (4.00-5.40); WHITE BLOOD COUNT 17.2 10^3/uL (4.0-10.0)
[2024-02-19] MEDS: IPRATROPIUM 0.5MG/ALBUTEROL 2.5MG INH SOL UD 3ML (DUONEB) NEB SCH (16:30)
[2024-02-19 17:04] LABS: ALBUMIN 3.5 G/DL (3.2-5.2); ALKALINE PHOSPHATASE 63 U/L (35-104); ALT/SGPT 80 U/L (7.0-40); AST/SGOT 58 U/L (<34); BILIRUBIN,TOTAL 0.3 MG/DL (0.3-1.2); BLOOD UREA NITROGEN 17 MG/DL (9-23); CALCIUM LEVEL 8.7 MG/DL (8.5-10.1); CARBON DIOXIDE LEVEL 20 MMOL/L (20-31); CHLORIDE LEVEL 109 MMOL/L (98-107); CREATININE FOR GFR 0.61 MG/DL (0.55-1.30); GLOMERULAR FILTRATION RATE > 60.0 (>60); GLUCOSE, FASTING 115 MG/DL (60-100); MAGNESIUM LEVEL 1.8 MG/DL (1.8-2.4); PHOSPHORUS LEVEL 3.1 MG/DL (2.5-4.9); POTASSIUM SERUM 4.8 MMOL/L (3.5-5.1); SODIUM LEVEL 138 MMOL/L (136-145); TOTAL PROTEIN 6.9 G/DL (5.7-8.2)
[2024-02-19] MEDS: cefTRIAXone SOD 2 GM in DEXTROSE 5% (D5W) ADV/MINI-BAG 50 ML IV SCH (17:56)
[2024-02-20] VITALS (53 sets, daily range): BP systolic 91–155; BP diastolic 46–85; TEMP 98.7–101.4; O2SAT 78–99
[2024-02-20 05:12] LABS: HEMATOCRIT 38.1 % (36.0-47.0); HEMOGLOBIN 12.7 g/dl (12.0-15.5); MEAN CORPUSCULAR HEMOGLOBIN 30.6 pg (27.0-33.0); MEAN CORPUSCULAR HGB CONC 33.3 g/dl (32.0-36.5); MEAN CORPUSCULAR VOLUME 91.8 fl (80.0-96.0); RED BLOOD COUNT 4.15 10^6/uL (4.00-5.40); WHITE BLOOD COUNT 15.8 10^3/uL (4.0-10.0)
[2024-02-20 05:20] LABS: PLATELET COUNT, AUTOMATED 297 10^3/uL (150-450)
[2024-02-20 05:33] LABS: ALBUMIN 3.1 G/DL (3.2-5.2); ALKALINE PHOSPHATASE 58 U/L (35-104); ALT/SGPT 61 U/L (7.0-40); AST/SGOT 47 U/L (<34); BILIRUBIN,TOTAL 0.4 MG/DL (0.3-1.2); BLOOD UREA NITROGEN 13 MG/DL (9-23); CALCIUM LEVEL 8.5 MG/DL (8.5-10.1); CARBON DIOXIDE LEVEL 23 MMOL/L (20-31); CHLORIDE LEVEL 107 MMOL/L (98-107); CREATININE FOR GFR 0.61 MG/DL (0.55-1.30); GLOMERULAR FILTRATION RATE > 60.0 (>60); GLUCOSE, FASTING 96 MG/DL (60-100); MAGNESIUM LEVEL 1.6 MG/DL (1.8-2.4); PHOSPHORUS LEVEL 3.2 MG/DL (2.5-4.9); SODIUM LEVEL 138 MMOL/L (136-145); TOTAL PROTEIN 6.5 G/DL (5.7-8.2)
[2024-02-20] MEDS: ACETAMINOPHEN *IV* 1,000 MG in IV 1 EA IV ONE (05:34)
[2024-02-20 06:04] LABS: ABG BASE EXCESS -2.4 (-2.0-2.0); ABG HCO3 22.3 MMOL/L (22.0-26.0); ABG O2 SATURATION 96.2 % (95.0-99.0); ABG PARTIAL PRESSURE O2 86.8 mmHg (75.0-100.0); ABG STANDARD HCO3 22.5 MMOL/L. (22.0-26.0); ABG TOTAL CO2 23.4 MMOL/L (22.0-29.0); ABG pH (ARTERIAL) 7.386 UNITS (7.350-7.450)
[2024-02-20] MEDS: ENOXAPARIN 40MG/0.4ML SYRINGE (J1650 PER 10MG) SC SCH ×2 (08:29→20:16)
[2024-02-20] MEDS ORDERED: dexmedeTOMidine 200 MCG in IV 1 EA IV SCH (09:00)
[2024-02-20] MEDS: MAG SULF 1GM/100ML (MAG RUN) 1 GM in IV 1 EA IV ONE (10:28)
[2024-02-20] MEDS: metroNIDAZOLE 500 MG in IV 1 EA IV SCH (12:08)
[2024-02-20] MEDS ORDERED: KETOROLAC 30 MG/ML 1ML VIAL IV ONE (13:50)
[2024-02-20] MEDS: ACETAMINOPHEN 325 MG TAB PO PRN (15:32)
[2024-02-20] MEDS: LR 1,000 ML IV SCH (19:00)
[2024-02-20] MEDS: IBUPROFEN 100MG 5ML SUSP UDC DYE FREE PO ONE (20:28)
[2024-02-21] VITALS (7 sets, daily range): BP systolic 130–135; BP diastolic 74–92; TEMP 97.7–100; O2SAT 89–98
[2024-02-21] MEDS: CHLORASEPTIC SPRAY MT PRN (02:43)
[2024-02-21 05:19] LABS: BASO # 0.1 10^3/uL (0.0-0.2); BASO % 0.5 % (0.0-1.0); EOS # 0.2 10^3/uL (0.0-0.5); EOS % 1.4 % (0.0-3.0); HEMATOCRIT 34.5 % (36.0-47.0); HEMOGLOBIN 11.4 g/dl (12.0-15.5); LYMPH # 1.5 10^3/uL (1.5-5.0); LYMPH % 11.7 % (24.0-44.0); MEAN CORPUSCULAR HEMOGLOBIN 30.1 pg (27.0-33.0); MONO # 1.4 10^3/uL (0.0-0.8); MONO % 11.1 % (2.0-8.0); NEUTROPHILS # 9.4 10^3/uL (1.5-8.5); NEUTROPHILS % 74.8 % (36.0-66.0); PLATELET COUNT, AUTOMATED 253 10^3/uL (150-450); RED BLOOD COUNT 3.79 10^6/uL (4.00-5.40); WHITE BLOOD COUNT 12.5 10^3/uL (4.0-10.0)
[2024-02-21 05:53] LABS: BLOOD UREA NITROGEN 7 MG/DL (9-23); CALCIUM LEVEL 8.3 MG/DL (8.5-10.1); CARBON DIOXIDE LEVEL 25 MMOL/L (20-31); CHLORIDE LEVEL 107 MMOL/L (98-107); CREATININE FOR GFR 0.53 MG/DL (0.55-1.30); GLOMERULAR FILTRATION RATE > 60.0 (>60); GLUCOSE, FASTING 95 MG/DL (60-100); MAGNESIUM LEVEL 1.8 MG/DL (1.8-2.4); PHOSPHORUS LEVEL 2.4 MG/DL (2.5-4.9); POTASSIUM SERUM 3.9 MMOL/L (3.5-5.1); SODIUM LEVEL 141 MMOL/L (136-145)
[2024-02-21] MEDS: FLUTICASONE PROP 0.05% NASAL SPRAY 16 GM (FLONASE) SCH (09:00)
[2024-02-21] MEDS: POTASSIUM PHOSPHATE INJ 15 MMOL in D5W 250 ML IV ONE (09:43)
[2024-02-21] MEDS ORDERED: ALBUTEROL SULFATE 2.5MG/0.5ML INH NEB SOLN INH PRN (11:05)
[2024-02-21] MEDS ORDERED: clonazePAM 1 MG TAB PO PRN (11:05)
[2024-02-21] MEDS ORDERED: ALBUTEROL 90 MCG/ACT 8GM HFA INHALER INH PRN (11:05)
[2024-02-21] MEDS: metroNIDAZOLE (FLAGYL) 500MG TABLET PO SCH (11:49)
[2024-02-21] MEDS: FLUoxetine 20MG CAP PO SCH (11:50)
[2024-02-21] MEDS: ONDANSETRON 4MG 2ML VIAL IV PRN (14:36)
[2024-02-21] MEDS: OXcarbazepine 300 MG TAB PO SCH (14:40)
[2024-02-21] MEDS ORDERED: CEFD1CAP9 PO (15:36)
[2024-02-21] MEDS ORDERED: SYMBICORT 160/4.5MCG INHALER 6GM INH SCH (20:00)
[2024-02-21] MEDS ORDERED: PRAZOSIN 1 MG CAP PO SCH (21:00)
[2024-02-21] MEDS ORDERED: FLUoxetine 10 MG CAP PO SCH (21:00)
[2024-02-21] MEDS ORDERED: tiZANidine 4 MG TAB PO PRN (21:00)
[2024-02-21] MEDS ORDERED: BENZTROPINE 1 MG TAB PO SCH (21:00)
[2024-02-21] MEDS ORDERED: oxyBUTYnin 5 MG TAB PO SCH (21:00)
== END 2024-02-21 15:57 | disposition left against medical advice (07) | DRG 133 ==
LOC: M ED 10:59 → M ED INP 12:19 → M ICU 14:16 → M MSPAV 02-21 14:49
PROVIDERS: ADMIT Internal Medicine Pulmonary Disease; ATTEND Student in an Organized Health Care Education/Training Program
PROC: 0BH17EZ Insertion of Endotracheal Airway into Trachea, Via Natural or Artificial Opening (ICD-10-PCS; principal; 2024-02-19)
PROC: 5A1935Z Respiratory Ventilation, Less than 24 Consecutive Hours (ICD-10-PCS; 2024-02-19)
DX: J96.01 Acute respiratory failure with hypoxia (principal); I46.9 Cardiac arrest, cause unspecified; J69.0 Pneumonitis due to inhalation of food and vomit; G93.41 Metabolic encephalopathy; R13.10 Dysphagia, unspecified; E87.20 Acidosis, unspecified; E83.42 Hypomagnesemia; E66.01 Morbid (severe) obesity due to excess calories; Z68.43 Body mass index [BMI] 50.0-59.9, adult; F95.2 Tourette's disorder; J45.909 Unspecified asthma, uncomplicated; E78.00 Pure hypercholesterolemia, unspecified; E28.2 Polycystic ovarian syndrome; F32.A Depression, unspecified; F41.9 Anxiety disorder, unspecified; G43.909 Migraine, unspecified, not intractable, without status migrainosus; R74.01 Elevation of levels of liver transaminase levels; E78.5 Hyperlipidemia, unspecified; F42.9 Obsessive-compulsive disorder, unspecified; Z90.49 Acquired absence of other specified parts of digestive tract; Z88.0 Allergy status to penicillin; Z88.5 Allergy status to narcotic agent; Z88.8 Allergy status to other drugs, medicaments and biological substances; Z91.018 Allergy to other foods; Z91.048 Other nonmedicinal substance allergy status

== ENCOUNTER → 2024-02-19 | Outpatient (CLI) | payer OTHER ==
[~2024-02-19] MED LIST changes: -ALBU8.5H; +ALBU8.5H INH; +ERGO500029 PO; +FEXO-112 PO; +FLUO-365 PO; +LUMA42CA PO; +MIDAZOLAM INJ 2MG/2ML VIAL As Ordered ONE; +NAPR-885 PO; +PRAZ1CAP PO; -SYMB16INH; +SYMB16INH INH; +TIZA10TA PO
== END ==
LOC: M RADPRO 08:59
PROVIDERS: ATTEND Physician Assistant
DX: S83.411A Sprain of medial collateral ligament of right knee, initial encounter (principal); M25.461 Effusion, right knee; X58.XXXA Exposure to other specified factors, initial encounter; Y92.9 Unspecified place or not applicable; Z53.8 Procedure and treatment not carried out for other reasons
CPT/HCPCS: J2250 ×2

== ENCOUNTER 2024-03-25 02:36 | Emergency (ER) | payer MEDICAID, OTHER ==
[~2024-03-25] VITALS: Ht 154.9 cm; Wt 122.6 kg
[~2024-03-25 02:36] MED LIST changes: +CEFD1CAP9 PO; +ERGO500029 PO; +FEXO-112 PO; +FLUO-365 PO; +LUMA42CA PO; +NAPR-885 PO; +PRAZ1CAP PO; +TIZA10TA PO
[2024-03-25 03:25] LABS: BASO # 0.1 10^3/uL (0.0-0.2); BASO % 1.1 % (0.0-1.0); EOS # 0.3 10^3/uL (0.0-0.5); EOS % 2.9 % (0.0-3.0); HEMATOCRIT 39.1 % (36.0-47.0); HEMOGLOBIN 13.7 g/dl (12.0-15.5); LYMPH # 3.7 10^3/uL (1.5-5.0); MEAN CORPUSCULAR HEMOGLOBIN 31.3 pg (27.0-33.0); MEAN CORPUSCULAR VOLUME 89.3 fl (80.0-96.0); MONO # 1.1 10^3/uL (0.0-0.8); MONO % 11.1 % (2.0-8.0); NEUTROPHILS # 4.5 10^3/uL (1.5-8.5); NEUTROPHILS % 46.7 % (36.0-66.0); PLATELET COUNT, AUTOMATED 378 10^3/uL (150-450); RED BLOOD COUNT 4.38 10^6/uL (4.00-5.40); WHITE BLOOD COUNT 9.7 10^3/uL (4.0-10.0)
[2024-03-25 03:47] LABS: ALBUMIN 3.5 G/DL (3.2-5.2); ALKALINE PHOSPHATASE 63 U/L (35-104); ALT/SGPT 31 U/L (7.0-40); AST/SGOT 20 U/L (<34); BILIRUBIN,DIRECT < 0.1 MG/DL (<0.4); BILIRUBIN,TOTAL 0.2 MG/DL (0.3-1.2); BLOOD UREA NITROGEN 18 MG/DL (9-23); CALCIUM LEVEL 8.7 MG/DL (8.5-10.1); CARBON DIOXIDE LEVEL 22 MMOL/L (20-31); CHLORIDE LEVEL 112 MMOL/L (98-107); CK-MB VALUE MASS < 1.0 NG/ML (<3.6); CPK CREATINE PHOSPHOKINASE 88 U/L (34-145); CREATININE FOR GFR 0.58 MG/DL (0.55-1.30); GLOMERULAR FILTRATION RATE > 60.0 (>60); GLUCOSE, FASTING 88 MG/DL (60-100); MB/CK RELATIVE INDEX 1.13 (< OR =4); SODIUM LEVEL 142 MMOL/L (136-145); TOTAL PROTEIN 7.2 G/DL (5.7-8.2)
[2024-03-25 04:37] LABS: CK-MB VALUE MASS < 1.0 NG/ML (<3.6)
[2024-03-25 04:38] LABS: CPK CREATINE PHOSPHOKINASE 68 U/L (34-145); MB/CK RELATIVE INDEX 1.47 (< OR =4)
[2024-03-25 07:07] VITALS: BP 134/91; TEMP 97.2; O2SAT 100
== END 2024-03-25 07:17 | disposition home or self-care (01) ==
LOC: M ED 02:36
DX: R07.89 Other chest pain (principal); R51.9 Headache, unspecified; G40.909 Epilepsy, unspecified, not intractable, without status epilepticus; J45.909 Unspecified asthma, uncomplicated; E28.2 Polycystic ovarian syndrome; F31.9 Bipolar disorder, unspecified; F32.A Depression, unspecified; F43.10 Post-traumatic stress disorder, unspecified; E66.01 Morbid (severe) obesity due to excess calories; F17.200 Nicotine dependence, unspecified, uncomplicated; Z79.52 Long term (current) use of systemic steroids; Z79.1 Long term (current) use of non-steroidal anti-inflammatories (NSAID); Z79.899 Other long term (current) drug therapy; Z88.1 Allergy status to other antibiotic agents; Z88.5 Allergy status to narcotic agent; Z88.6 Allergy status to analgesic agent; Z88.8 Allergy status to other drugs, medicaments and biological substances; Z91.018 Allergy to other foods

== ENCOUNTER 2024-07-14 18:24 | Emergency (ER) | payer OTHER, MEDICAID ==
[~2024-07-14] VITALS: Ht 154.9 cm; Wt 135.7 kg
[~2024-07-14 18:24] MED LIST changes: +LIDO1ADH93 TD; -LIDO5DIS41 TD
[2024-07-14 18:30] VITALS: BP 139/95; TEMP 98.1; O2SAT 95
== END 2024-07-14 22:00 | disposition left against medical advice (07) ==
LOC: M ED 18:24
DX: Z53.21 Procedure and treatment not carried out due to patient leaving prior to being seen by health care provider (principal)

== ENCOUNTER 2024-07-16 07:52 | Emergency (ER) | payer MEDICAID, OTHER ==
[~2024-07-16] VITALS: Ht 154.9 cm; Wt 135.7 kg
[2024-07-16 09:27] LABS: BASO # 0.1 10^3/uL (0.0-0.2); BASO % 1.1 % (0.0-1.0); EOS # 0.2 10^3/uL (0.0-0.5); EOS % 2.5 % (0.0-3.0); HEMATOCRIT 37.3 % (36.0-47.0); HEMOGLOBIN 12.6 g/dl (12.0-15.5); LYMPH # 2.7 10^3/uL (1.5-5.0); LYMPH % 31.9 % (24.0-44.0); MEAN CORPUSCULAR HEMOGLOBIN 30.6 pg (27.0-33.0); MEAN CORPUSCULAR HGB CONC 33.8 g/dl (32.0-36.5); MEAN CORPUSCULAR VOLUME 90.5 fl (80.0-96.0); MONO # 1.2 10^3/uL (0.0-0.8); MONO % 14.5 % (2.0-8.0); NEUTROPHILS # 4.1 10^3/uL (1.5-8.5); NEUTROPHILS % 49.4 % (36.0-66.0); PLATELET COUNT, AUTOMATED 209 10^3/uL (150-450); RED BLOOD COUNT 4.12 10^6/uL (4.00-5.40); WHITE BLOOD COUNT 8.3 10^3/uL (4.0-10.0)
[2024-07-16 09:54] LABS: ALBUMIN 3.4 G/DL (3.2-5.2); ALKALINE PHOSPHATASE 64 U/L (35-104); ALT/SGPT 27 U/L (7.0-40); AST/SGOT 14 U/L (<34); BILIRUBIN,TOTAL 0.4 MG/DL (0.3-1.2); BLOOD UREA NITROGEN 12 MG/DL (9-23); CALCIUM LEVEL 8.3 MG/DL (8.5-10.1); CARBON DIOXIDE LEVEL 22 MMOL/L (20-31); CHLORIDE LEVEL 115 MMOL/L (98-107); CREATININE FOR GFR 0.56 MG/DL (0.55-1.30); GLOMERULAR FILTRATION RATE > 90.0 (>58); GLUCOSE, FASTING 77 MG/DL (60-100); POTASSIUM SERUM 4.1 MMOL/L (3.5-5.1); SODIUM LEVEL 143 MMOL/L (136-145); TOTAL PROTEIN 6.8 G/DL (5.7-8.2)
[2024-07-16 11:13] LABS: KETONE, URINE AUTO RFX NEGATIVE (NEGATIVE); LEUKOCYTE ESTERASE UR AUTO RFX NEGATIVE (NEGATIVE); MUCUS, URINE RFX SMALL (NEGATIVE); NITRITE, URINE AUTO RFX NEGATIVE (NEGATIVE); RBC, URINE AUTO RFX 2 /HPF (0-3); SQUAM EPITHELIAL CELL UR AURFX 10 /HPF (0-6); WBC, URINE AUTO RFX 2 /HPF (0-3)
[2024-07-16] MEDS: ONDANSETRON 4MG 2ML VIAL IV ONE (11:27)
[2024-07-16] MEDS: MORPHINE 4 MG/ML 1ML VIAL IV ONE ×2 (11:28→13:48)
[2024-07-16] MEDS ORDERED: DOXY-441 PO (13:35)
[2024-07-16 13:41] VITALS: BP 130/78; TEMP 97.8
[2024-07-16] MEDS: LIDOCAINE 1% SDV 5ML VIAL DILUENT ONE (13:41)
[2024-07-16] MEDS: cefTRIAXone 500MG VIAL IM ONE (13:41)
[2024-07-16 13:48] VITALS: O2SAT 99
[2024-07-16 15:50] LABS: Trichomonas vaginalis (AMP) NOT DETECTED (NEGATIVE)
[2024-07-16 16:15] LABS: GC DNA AMPLIFICATION NEGATIVE (NEGATIVE)
== END 2024-07-16 14:01 | disposition home or self-care (01) ==
LOC: M ED 07:52
DX: M54.50 Low back pain, unspecified (principal); W10.8XXA Fall (on) (from) other stairs and steps, initial encounter; M47.814 Spondylosis without myelopathy or radiculopathy, thoracic region; M25.78 Osteophyte, vertebrae; I25.2 Old myocardial infarction; J45.909 Unspecified asthma, uncomplicated; Z79.52 Long term (current) use of systemic steroids; Z79.899 Other long term (current) drug therapy; Z79.1 Long term (current) use of non-steroidal anti-inflammatories (NSAID); Z88.1 Allergy status to other antibiotic agents; Z88.5 Allergy status to narcotic agent; Z88.6 Allergy status to analgesic agent; Z88.8 Allergy status to other drugs, medicaments and biological substances; Z91.018 Allergy to other foods; Z91.048 Other nonmedicinal substance allergy status; Y99.9 Unspecified external cause status
CPT/HCPCS: 36415; 72125; 72128; 72131; 80053; 81001; 85025; 87210; 87661; 87810; 87850; 96372; 96374; 96375; 96376; 99284; J0696; J2405

== ENCOUNTER → 2024-10-20 | Outpatient (CLI) | payer OTHER ==
[~2024-10-20] MED LIST changes: +DOXY-441 PO
[2024-10-20 14:01] LABS: PLATELET COUNT, AUTOMATED 404 10^3/uL (150-450)
[2024-10-20 14:07] LABS: ALT/SGPT 80 U/L (7.0-40); AST/SGOT 46 U/L (<34); CALCIUM LEVEL 9.1 MG/DL (8.5-10.1); CARBON DIOXIDE LEVEL 25 MMOL/L (20-31); CHLORIDE LEVEL 106 MMOL/L (98-107); CREATININE FOR GFR 0.66 MG/DL (0.55-1.30); GLOMERULAR FILTRATION RATE > 90.0 (>58); POTASSIUM SERUM 4.5 MMOL/L (3.5-5.1); SODIUM LEVEL 142 MMOL/L (136-145)
[2024-10-20 14:46] LABS: ESTIMATED AVERAGE GLUCOSE 97.0 MG/DL (60-110)
== END ==
LOC: M PLALAB 11:05
PROVIDERS: ATTEND Nurse Practitioner Adult Health
DX: J45.20 Mild intermittent asthma, uncomplicated (principal); E55.9 Vitamin D deficiency, unspecified; R73.01 Impaired fasting glucose; R09.89 Other specified symptoms and signs involving the circulatory and respiratory systems

== ENCOUNTER → 2024-11-14 | Outpatient (CLI) | payer OTHER ==
[~2024-11-14] MED LIST changes: -IBUP-1022 PO; +IBUP600T42 PO; -LUMA42CA PO; +LUMA42CA4 PO; +ZOLP10TA11 PO; -ZOLP10TA2 PO
== END ==
LOC: M SLEEP HO 10:58
PROVIDERS: ATTEND Physician Assistant
DX: G47.33 Obstructive sleep apnea (adult) (pediatric) (principal)

== ENCOUNTER 2024-12-24 21:36 | Emergency (ER) | payer OTHER ==
[~2024-12-24] VITALS: Ht 154.9 cm; Wt 133.2 kg
[2024-12-25] MEDS ORDERED: HYDR-3713 PO (06:49)
[2024-12-25 07:25] VITALS: BP 130/83; TEMP 97.3; O2SAT 97
== END 2024-12-25 07:31 | disposition home or self-care (01) ==
LOC: M ED 21:36
DX: S83.91XA Sprain of unspecified site of right knee, initial encounter (principal); W10.8XXA Fall (on) (from) other stairs and steps, initial encounter; E28.2 Polycystic ovarian syndrome; F42.9 Obsessive-compulsive disorder, unspecified; F31.9 Bipolar disorder, unspecified; Y92.009 Unspecified place in unspecified non-institutional (private) residence as the place of occurrence of the external cause; Y93.89 Activity, other specified; Y99.9 Unspecified external cause status; Z79.52 Long term (current) use of systemic steroids; Z79.1 Long term (current) use of non-steroidal anti-inflammatories (NSAID); Z79.899 Other long term (current) drug therapy

== ENCOUNTER → 2024-12-26 | Outpatient (REF) | payer OTHER | LOC: M LAB REF 10:20 | PROVIDERS: ATTEND Physician Assistant | DX: R09.3 Abnormal sputum (principal) ==

== ENCOUNTER 2025-02-03 02:53 | Emergency (ER) | payer OTHER ==
[~2025-02-03] VITALS: Ht 154.9 cm; Wt 133.6 kg
[2025-02-03] MEDS: ONDANSETRON 4MG/2ML VIAL IV ONE (08:03)
[2025-02-03] MEDS: clonazePAM 0.5 MG TAB PO ONE (08:04)
[2025-02-03] MEDS: MORPHINE 4 MG/ML 1 ML VIAL IV ONE (08:04)
[2025-02-03] MEDS: MORPHINE 2 MG/ML 1 ML VIAL IV ONE (09:48)
[2025-02-03] MEDS ORDERED: PERC5TAB12 PO (10:00)
[2025-02-03 10:16] VITALS: BP 140/85; TEMP 98.1; O2SAT 98
== END 2025-02-03 10:29 | disposition home or self-care (01) ==
LOC: M ED 02:53
DX: M23.91 Unspecified internal derangement of right knee (principal); W18.39XA Other fall on same level, initial encounter; M51.360 Other intervertebral disc degeneration, lumbar region with discogenic back pain only; R51.9 Headache, unspecified; G40.909 Epilepsy, unspecified, not intractable, without status epilepticus; J45.909 Unspecified asthma, uncomplicated; E28.2 Polycystic ovarian syndrome; Z79.52 Long term (current) use of systemic steroids; Z79.899 Other long term (current) drug therapy; Z79.1 Long term (current) use of non-steroidal anti-inflammatories (NSAID); Z88.1 Allergy status to other antibiotic agents; Z88.8 Allergy status to other drugs, medicaments and biological substances; Z88.5 Allergy status to narcotic agent; Z88.6 Allergy status to analgesic agent; Z91.018 Allergy to other foods; Z91.09 Other allergy status, other than to drugs and biological substances
CPT/HCPCS: 72110; 73502; 73564; 96374; 96375; 96376; 99284; J2405

== ENCOUNTER 2025-02-27 19:39 | Emergency (ER) | payer OTHER ==
[2025-02-27] MEDS ORDERED: ISOVUE-370 76% 100 ML VIAL As Ordered ONE (20:19)
[2025-02-27 20:27] LABS: BASO # 0.1 10^3/uL (0.0-0.2); BASO % 0.8 % (0.0-1.0); EOS # 0.2 10^3/uL (0.0-0.5); EOS % 2.2 % (0.0-3.0); LYMPH # 4.2 10^3/uL (1.5-5.0); LYMPH % 38.9 % (24.0-44.0); MONO # 1.2 10^3/uL (0.0-0.8); MONO % 11.5 % (2.0-8.0); NEUTROPHILS # 4.9 10^3/uL (1.5-8.5); NEUTROPHILS % 46.1 % (36.0-66.0); PLATELET COUNT, AUTOMATED 395 10^3/uL (150-450)
[2025-02-27] MEDS: NS (Normal Saline) 0.9% 1,000 ML IV ONE (20:30)
[2025-02-27] MEDS: ONDANSETRON 4MG/2ML VIAL IV ONE (20:30)
[2025-02-27] MEDS: MORPHINE 4 MG/ML 1 ML VIAL IV ONE ×2 (20:31→23:08)
[2025-02-27 20:56] LABS: HCG, SERUM QUALITATIVE NEGATIVE (NEGATIVE)
[2025-02-27 20:57] LABS: ALT/SGPT 40 U/L (7.0-40); AST/SGOT 25 U/L (<34); CALCIUM LEVEL 8.2 MG/DL (8.5-10.1); CARBON DIOXIDE LEVEL 23 MMOL/L (20-31); CHLORIDE LEVEL 112 MMOL/L (98-107); CREATININE FOR GFR 0.86 MG/DL (0.55-1.30); GLOMERULAR FILTRATION RATE 87.5 (>58); MAGNESIUM LEVEL 1.8 MG/DL (1.8-2.4); POTASSIUM SERUM 4.2 MMOL/L (3.5-5.1); SODIUM LEVEL 143 MMOL/L (136-145)
[2025-02-27] MEDS ORDERED: clonazePAM 1 MG TAB PO ONE (21:40)
[2025-02-27] MEDS: clonazePAM 0.5 MG TAB PO ONE (21:52)
[2025-02-27] MEDS ORDERED: PERCOCET 5MG/325MG TAB PO ONE (23:10)
[2025-02-27 23:59] LABS: KETONE, URINE AUTO RFX NEGATIVE (NEGATIVE); LEUKOCYTE ESTERASE UR AUTO RFX NEGATIVE (NEGATIVE); NITRITE, URINE AUTO RFX NEGATIVE (NEGATIVE); RBC, URINE AUTO RFX 2 /HPF (0-3); SQUAM EPITHELIAL CELL UR AURFX 1 /HPF (0-6); WBC, URINE AUTO RFX 1 /HPF (0-3)
[2025-02-28] MEDS: LIDOCAINE 5% PATCH TD ONE (00:37)
[2025-02-28] MEDS: CALCIUM CARBONATE 500 MG CHEW U/D PO ONE (00:52)
[2025-02-28] MEDS ORDERED: PERC5TAB12 PO ×2 (02:09→02:11)
[2025-02-28] MEDS: OXYCODONE/APAP 5MG/325MG(HOME DOSE PACK) PO ONE (02:29)
[2025-02-28 02:30] VITALS: BP 118/68; TEMP 97.7; O2SAT 99
== END 2025-02-28 02:35 | disposition home or self-care (01) ==
LOC: M ED 19:39
DX: R10.A1 Flank pain, right side (principal); F32.A Depression, unspecified; F41.9 Anxiety disorder, unspecified; F43.10 Post-traumatic stress disorder, unspecified; E55.9 Vitamin D deficiency, unspecified; E28.2 Polycystic ovarian syndrome; Z88.1 Allergy status to other antibiotic agents; Z88.5 Allergy status to narcotic agent; Z88.6 Allergy status to analgesic agent; Z88.8 Allergy status to other drugs, medicaments and biological substances; Z91.048 Other nonmedicinal substance allergy status; Z90.49 Acquired absence of other specified parts of digestive tract; F17.200 Nicotine dependence, unspecified, uncomplicated; K76.0 Fatty (change of) liver, not elsewhere classified; Z79.899 Other long term (current) drug therapy
CPT/HCPCS: 74177; 80047; 80048; 80076; 81001; 82330; 83690; 83735; 84703; 85025; 87486; 87581; 87633; 87798; 96361; 96374; 96375; 96376; 99285; J2405; J3360; Q9967